=== PATIENT | female | born 1950 | race African-American/Black ===

== ENCOUNTER 2016-09-10 13:53 | Inpatient (IN) | payer OTHER ==
[~2016-09-10] VITALS: Ht 160 cm; Wt 84.4 kg
[~2016-09-10 13:53] MED LIST: ACET325T16 PO; ACYC200C PO; AMLO10TA4; AMLO10TA4 PO; ASPI81TA9 PO; ATOR40TA PO; Albuterol Sulfate NEB; CARB1DRO OP; CARB200T PO; CHOL2000 PO; CITA20TA9 PO; CLON0.2T; CLOP75TA27 PO; DICL100G7 TP; DORZ10DR7 OP; DORZ10DR7 OU; DOXY100C2 PO; FURO40TA4 PO; HYDR-2869; HYDR-2869 PO; HYDR-971 PO; HYDR100T24 PO; HYDR25TA9 PO; Hydralazine Hcl PO; Hydrocodone Bit/Acetaminophen PO; INSU100I16 SQ; INSU100I17 SQ; LABE200T24 PO; LABE300T PO; LATA2.5D2 OU; LATA2.5D3 OP; LEVO500T38 PO; LISI40TA; LISI40TA PO; LUBI8CAP3 PO; Lisinopril PO; MAGN400O4 PO; MAGN400T22 PO; MECL12.5 PO; METO-269 PO; METO100T11; METO100T5 PO; NYST30PO9 TP; OMEP20CA9; ONDA4TAB7 PO; PANT40TA3 PO; POTA20TA4 PO; PROM25TA10 PO; Polyethylene Glycol 3350 PO; TIOT18CA IH
--- NOTE | 2016-09-10 14:11 | PHYS DOC ---
Past Medical History Past Medical History: Arthritis, CAD, CHF, CVA, Diabetes-Type I, DVT, GERD, High Cholesterol, Heart Disease, Hypertension, Renal Disease, Stroke, Vascular Disease Past Surgical History: Other Additional Past Surgical Histo: vascular surgyer Alcohol Use: None Drug Use: None Adult General HPI HPI Patient is a 66 year old female who presents with shortness of breath and fall. Patient has history of CHFand has been having gradually increasing shortness of breath over last 3 days with increased fluid retention. Patient fell while trying to get off of the stool today. Patient denies any injury from the fall. Patient has had a cough that is productive of frothy clear phlegm. No fevers or chills. Past mental history of congestive heart failure. Review of Systems Review of Systems Constitutional: Denies fever or chills Eyes: Denies change in visual acuity, redness, or eye pain HENT: Denies nasal congestion or sore throat Respiratory: Positive cough and shortness of breath Cardiovascular: Positive chest pressure. GI: Denies abdominal pain, nausea, vomiting, bloody stools or diarrhea : Denies dysuria or hematuria Musculoskeletal: Denies new back pain or joint pain Integument: Denies rash or skin lesions Neurologic: Denies headache, focal weakness or sensory changes Current Medications Current Medications Current Medications Medications (Trade) Dose Ordered Sig/Aliza Start Time Stop Time Status Last Admin Dose Admin Furosemide (Lasix) 40 mg 1X ONCE 09/10/16 14:15 09/10/16 14:16 DC 09/10/16 14:33 40 MG Allergies Allergies Allergies Coded Allergies Type Severity Reaction Last Updated Verified Penicillins Allergy Intermediate 02/14/14 Yes codeine Allergy Intermediate morphine, lortab ok 11/27/15 Yes Physical Exam Physical Exam Constitutional: Well developed, well nourished, moderate respiratory acute distress, non-toxic appearance. HENT: Normocephalic, atraumatic, oropharynx moist, no oral exudates, nose normal. Eyes: PERRLA, EOMI, conjunctiva normal, no discharge. Neck: Normal range of motion, no tenderness, supple, no stridor. Cardiovascular:Heart tachycardia rate regular rhythm 1/6 systolic ejection murmur Lungs & Thorax: Rales bilateral bases, slight expiratory wheeze Abdomen: Bowel sounds normal, soft, no tenderness, no masses, no pulsatile masses. Obese Skin: Warm, dry, no erythema, no rash. Back: No tenderness, no CVA tenderness. Extremities: No tenderness, no cyanosis, 2+ bilateral pitting pedal edema Neurologic: Alert and oriented X 3, normal sensory function, no focal deficits noted. Psychologic: Affect normal, judgement normal, mood normal. Current Patient Data Vital Signs Vital Signs Date Time Temp Pulse Resp B/P Pulse Ox O2 Delivery O2 Flow Rate FiO2 09/10/16 14:38 73 201/99 100 NonRebreather Mask 09/10/16 14:05 96.3 20 96.3 Lab Values Laboratory Tests Test 09/10/16 14:38 09/10/16 14:40 O2 Saturation 98% (92-99) Arterial Blood pH 7.35 (7.35-7.45) Arterial Blood pCO2 at Patient Temp 61mmHg (35-46) *H Arterial Blood pO2 at Patient Temp 135mmHg (65-108) H Arterial Blood HCO3 33mmol/L (21-28) H Arterial Blood Base Excess 6mmol/L (-3-3) H FiO2 100.0 White Blood Count 3.9x10^3/uL (4.0-11.0) L Red Blood Count 3.85x10^6/uL (3.50-5.40) Hemoglobin 9.3g/dL (12.0-15.5) L Hematocrit 30.7% (36.0-47.0) L Mean Corpuscular Volume 80fL (79-100) Mean Corpuscular Hemoglobin 24pg (25-35) L Mean Corpuscular Hemoglobin Concent 30g/dL (31-37) L Red Cell Distribution Width 21.4% (11.5-14.5) H Platelet Count 174x10^3/uL (140-400) Neutrophils (%) (Auto) 65% (31-73) Lymphocytes (%) (Auto) 19% (24-48) L Monocytes (%) (Auto) 13% (0-9) H Eosinophils (%) (Auto) 1% (0-3) Basophils (%) (Auto) 1% (0-3) Neutrophils # (Auto) 2.5x10^3uL (1.8-7.7) Lymphocytes # (Auto) 0.8x10^3/uL (1.0-4.8) L Monocytes # (Auto) 0.5x10^3/uL (0.0-1.1) Eosinophils # (Auto) 0.1x10^3/uL (0.0-0.7) Basophils # (Auto) 0.0x10^3/uL (0.0-0.2) Platelet Estimate Adequate (ADEQUATE) Hypochromasia Slight Poikilocytosis Slight Anisocytosis Mod Target Cells Few Ovalocytes Occ Schistocytes Occ Prothrombin Time 15.7SEC (11.7-14.0) H Prothrombin Time INR 1.3 (0.8-1.1) H PTT 30SEC (24-38) D-Dimer (Veronica) 5.19ug/mlFEU (0.00-0.50) H Sodium Level 142mmol/L (136-145) Potassium Level 4.0mmol/L (3.5-5.1) Chloride Level 101mmol/L (98-107) Carbon Dioxide Level 36mmol/L (21-32) H Anion Gap 5 (6-14) L Blood Urea Nitrogen 11mg/dL (7-20) Creatinine 0.8mg/dL (0.6-1.0) Estimated GFR (Cockcroft-Gault) 86.3 BUN/Creatinine Ratio 14 (6-20) Glucose Level 272mg/dL (70-99) H Calcium Level 9.0mg/dL (8.5-10.1) Total Bilirubin 0.4mg/dL (0.2-1.0) Aspartate Amino Transferase (AST) 13U/L (15-37) L Alanine Aminotransferase (ALT) 14U/L (14-59) Alkaline Phosphatase 108U/L (46-116) Troponin I Quantitative 0.058ng/mL (0.000-0.055) RB-Ywe-W-Type Natriuretic Peptide 1106pg/mL (0-124) H Total Protein 6.4g/dL (6.4-8.2) Albumin 2.9g/dL (3.4-5.0) L Albumin/Globulin Ratio 0.8 (1.0-1.7) L Laboratory Tests 09/10/16 14:40 Laboratory Tests 09/10/16 14:40 EKG EKG NSR, RBBB, HR 73, No STEMI[] Radiology/Procedures Radiology/Procedures [] Course & Med Decision Making Course & Med Decision Making Pertinent Labs and Imaging studies reviewed. (See chart for details) Discussed case with Dr. Morillo at 1438 he agreed with the patient requested cardiology consult with Dr. Jeannette Degroot Disclaimer Mikayla Disclaimer This electronic medical record was generated, in whole or in part, using a voice recognition dictation system. Departure Departure Impression: Primary Impression: CHF (congestive heart failure) Additional Impressions: Hypertension Anemia Disposition: 09 ADMITTED INPATIENT Admitting Physician: Lisa Morillo Condition: IMPROVED Referrals: LISA MORILLO MD (PCP) Problem Qualifiers ANGELA MENDOZA MD Sep 10, 2016 14:11
[2016-09-10] MEDS ORDERED: FUROSEMIDE 40 MG/4 ML VIAL IVP ONE ×2 (14:15→16:15)
--- NOTE | 2016-09-10 14:26 | RAD ---
Portable chest, 09/10/2016: History: Congestive heart failure, shortness of breath Comparison is made to a study from 07/22/2016. The heart is enlarged. There is loss of vascular margination. There are mild right parahilar opacities. Fissural thickening on the right is compatible with a small amount of pleural fluid and/or subpleural edema. IMPRESSION: Mild congestive heart failure
--- NOTE | 2016-09-10 14:37 | EKG ---
[facility] [address] [place] [address] Test Date: 2016-09-10 Test Time: 14:29:28 Pat Name: ASIF LANGLEY Department: Room: Gender: F Security Risk Analyst: : 1950 Requested By: ANGELA MENDOZA Order Number: [id number] Reading MD: Mark Anthony Singleton Measurements Intervals [place] Rate: 73 P: 43 LA: 150 QRS: 16 QRSD: 130 T: 11 QT: 414 QTc: 460 Interpretive Statements SINUS RHYTHM RIGHT BUNDLE BRANCH BLOCK QRS(T) CONTOUR ABNORMALITY CONSIDER ANTEROLATERAL MYOCARDIAL DAMAGE ABNORMAL ECG RI6.01 Electronically Signed On 09-24-2016 13:20:15 INFORMATION COORDINATOR by Mark Anthony Singleton
[2016-09-10 14:42] LABS: HCO3 ABG 33 mmol/L (21-28); PH ABG 7.35 (7.35-7.45); PO2 ABG 135 mmHg (65-108); SAT O2 ABG 98 % (92-99)
[2016-09-10 14:44] LABS: PCO2 ABG 61 mmHg (35-46)
[2016-09-10 14:48] LABS: BASO % 1 % (0-3); EOS % 1 % (0-3); HEMATOCRIT 30.7 % (36.0-47.0); HEMOGLOBIN 9.3 g/dL (12.0-15.5); LYMPH # 0.8 x10^3/uL (1.0-4.8); LYMPH % 19 % (24-48); MEAN CORPUSCULAR HEMOGLOBIN 24 pg (25-35); MEAN CORPUSCULAR HGB CONC 30 g/dL (31-37); MEAN CORPUSCULAR VOLUME 80 fL (79-100); MONO % 13 % (0-9); NEUT % 65 % (31-73); PLATELET COUNT 174 x10^3/uL (140-400); RED BLOOD COUNT 3.85 x10^6/uL (3.50-5.40); RED CELL DISTRIBUTION WIDTH 21.4 % (11.5-14.5); WHITE BLOOD COUNT 3.9 x10^3/uL (4.0-11.0)
[2016-09-10 14:59] LABS: INR 1.3 (0.8-1.1); PROTHROMBIN TIME PATIENT 15.7 SEC (11.7-14.0)
[2016-09-10 15:08] LABS: CREATININE 0.8 mg/dL (0.6-1.0); GFR 86.3
[2016-09-10 15:11] LABS: ALBUMIN 2.9 g/dL (3.4-5.0); ALBUMIN/GLOBULIN RATIO 0.8 (1.0-1.7); TOTAL BILIRUBIN 0.4 mg/dL (0.2-1.0); TOTAL PROTEIN 6.4 g/dL (6.4-8.2)
[2016-09-10 15:26] LABS: PLT ESTIMATE ADEQUATE (ADEQUATE)
[2016-09-10 15:27] LABS: ANISOCYTOSIS MOD; HYPOCHROMIA SLIGHT; OVALOCYTES OCC; POIKILOCYTOSIS SLIGHT; SCHISTOCYTES OCC; TARGET CELLS FEW
[2016-09-10 16:12] LABS: BILIRUBIN,URINE NEGATIVE (NEG); GLUCOSE,URINE NEGATIVE (NEG); NITRITE,URINE NEGATIVE (NEG); PH,URINE 6.5; PROTEIN,URINE NEGATIVE (NEG-TRACE); UROBILINOGEN,URINE 0.2 mg/dL (0.2 mg/dL)
[2016-09-10 16:19] LABS: BACTERIA,URINE MODERATE /HPF (0-FEW); RBC,URINE OCC /HPF (0-2); SQUAMOUS EPITHELIAL CELL,UR MOD /LPF; WBC,URINE OCC /HPF (0-4)
[2016-09-10 19:00] VITALS: BP 205/101
[2016-09-10] MEDS: HYDRALAZINE 50 MG TABLET PO SCH (20:12)
[2016-09-10] MEDS: CARBAMAZEPINE 200 MG TABLET. PO SCH (20:12)
[2016-09-10] MEDS: PANTOPRAZOLE 40 MG TABLET. PO SCH (20:12)
[2016-09-10] MEDS: DORZOLAMIDE/TIMOLOL 2%/0.5% OPHTH SOLUTION 10ML BOTTLE. OU SCH (20:13)
[2016-09-10] MEDS: LABETALOL HCL 200 MG TABLET PO SCH (20:13)
[2016-09-10] MEDS: LATANOPROST 0.005% OPHTH SOLUTION 2.5ML BOTTLE. OU SCH (20:13)
[2016-09-10] MEDS: ATORVASTATIN CALCIUM 40 MG TABLET. PO SCH (20:13)
[2016-09-10] MEDS: HYDROCODONE/APAP 5/325MG TABLET. PO PRN (20:59)
[2016-09-10] MEDS ORDERED: CLONIDINE HCL 0.1 MG TABLET PO PRN (22:45)
[2016-09-10 23:50] VITALS: BP 131/57
[2016-09-11 03:30] VITALS: BP 151/76
[2016-09-11 06:31] LABS: CALCIUM 8.9 mg/dL (8.5-10.1); CREATININE 0.7 mg/dL (0.6-1.0); GFR 100.7; POTASSIUM 3.8 mmol/L (3.5-5.1)
[2016-09-11] MEDS ORDERED: INSULN ASP PRT/INSULIN ASPART 300 UNITS/3 ML INSULN.PEN. SQ SCH (07:30)
[2016-09-11 07:59] VITALS: BP 148/66
[2016-09-11] MEDS: LABETALOL HCL 200 MG TABLET PO SCH ×2 (08:55→20:40)
[2016-09-11] MEDS: LISINOPRIL 40 MG TABLET. PO SCH (08:55)
[2016-09-11] MEDS: FUROSEMIDE 40 MG/4 ML VIAL IVP SCH ×2 (08:55→13:49)
[2016-09-11] MEDS: ASPIRIN ENTERIC COATED 81 MG TABLET.DR. PO SCH (08:55)
[2016-09-11] MEDS: HYDRALAZINE 50 MG TABLET PO SCH ×3 (08:56→20:39)
[2016-09-11] MEDS: CITALOPRAM 20 MG TABLET. PO SCH (08:56)
[2016-09-11] MEDS: CLOPIDOGREL BISULFATE 75 MG TABLET PO SCH (08:56)
[2016-09-11] MEDS: DORZOLAMIDE/TIMOLOL 2%/0.5% OPHTH SOLUTION 10ML BOTTLE. OU SCH ×2 (08:56→20:41)
[2016-09-11] MEDS: AMLODIPINE BESYLATE 10 MG TABLET PO SCH (08:56)
[2016-09-11] MEDS: LATANOPROST 0.005% OPHTH SOLUTION 2.5ML BOTTLE. OU SCH (08:57)
[2016-09-11] MEDS ORDERED: FUROSEMIDE 40 MG TABLET PO SCH (09:00)
[2016-09-11] MEDS: LUBIPROSTONE 8 MCG CAPSULE PO SCH ×2 (09:01→18:33)
[2016-09-11] MEDS: HYDROCODONE/APAP 5/325MG TABLET. PO PRN ×3 (09:02→20:59)
[2016-09-11] MEDS: ALBUTEROL SULFATE 2.5 MG/3 ML NEBU. NEB PRN ×2 (09:33→13:35)
--- NOTE | 2016-09-11 10:10 | PDOC2 ---
CARDIAC CONSULT DATE OF CONSULT Date of Consult DATE: 09/11/16 TIME: 10:08 REASON FOR CONSULT Reason for Consult: CHF REFERRING PHYSICIAN Referring Physician: Dr. Maximiliano Cervantes SOURCE Source: Chart review, Patient HISTORY OF PRESENT ILLNESS HISTORY OF PRESENT ILLNESS 66 year old female who fell yesterday while standing up after using the commode. Denies syncope. Has caregiver in her home, though events surrounding fall unclear. Denies associated CP but with chronic dyspnea and LE edema. Diet high in processed foods and weight up 17# since previous admission with discharge 07/29/2016. Nt-proBNP of 1106 with mild CHF on CXR. Trivial elevated in troponin levels. Reason for Visit: CHF PAST MEDICAL HISTORY Past Medical History Cardiovascular: CAD s/p stents, GA, CHF, HTN, Hyperlipidemia, Other (MR), PVD Pulmonary: COPD, LYNDSEY CENTRAL NERVOUS SYSTEM: CVA, Peripheral neuropathy, Seizure, Other (cranial nerve 6 palsy) GI: GERD Heme/Onc: Anemia NOS, Other (DVT?) Hepatobiliary: No pertinent hx Psych: Anxiety, Depression Musculoskeletal: low back pain (lumbar stenosis with radiculopathy), Osteoarthritis Rheumatologic: No pertinent hx Infectious disease: No pertinent hx ENT: No pertinent hx Renal/: Chronic renal insuff, UTI Endocrine: Diabetes (2) Dermatology: No pertinent hx PAST SURGICAL HISTORY Past Surgical History Appendectomy, Cholecystectomy, Tonsillectomy, Hysterectomy, right oophorectomy, right ankle surgery FAMILY HISTORY Family History: Hypertension SOCIAL HISTORY Social History Smoke: No ALCOHOL: none Drugs: None CURRENT MEDICATIONS CURRENT MEDICATIONS Current Medications Medications (Trade) Dose Ordered Sig/Aliza Route PRN Reason Start Time Stop Time Status Last Admin Dose Admin Furosemide (Lasix) 40 mg 1X ONCE IVP 09/10/16 14:15 09/10/16 14:16 DC 09/10/16 14:33 Amlodipine Besylate (Norvasc) 10 mg DAILY PO 09/11/16 09:00 09/11/16 08:56 Aspirin (Ecotrin) 81 mg DAILYWBKFT PO 09/11/16 08:00 09/11/16 08:55 Atorvastatin Calcium (Lipitor) 40 mg HS PO 09/10/16 21:00 09/10/16 20:13 Carbamazepine (Tegretol) 200 mg BID PO 09/10/16 21:00 09/10/16 20:12 Citalopram Hydrobromide (Celexa) 20 mg DAILY PO 09/11/16 09:00 09/11/16 08:56 Clopidogrel Bisulfate (Plavix) 75 mg DAILYWBKFT PO 09/11/16 08:00 09/11/16 08:56 Dorzolamide/ Timolol (Cosopt) 1 drop BID OU 09/10/16 21:00 09/11/16 08:56 Insulin Aspart Prota 70%/Aspart 30% (Novolog Mix 70-30) 15 units BIDAC SQ 09/11/16 07:30 09/11/16 09:18 Latanoprost (Xalatan) 1 drop HS OU 09/10/16 21:00 09/11/16 08:57 Lisinopril (Prinivil) 40 mg DAILY PO 09/11/16 09:00 09/11/16 08:55 Lubiprostone (Amitiza) 8 mcg BIDWMEALS PO 09/11/16 08:00 09/11/16 09:01 Pantoprazole Sodium (Protonix) 40 mg HS PO 09/10/16 21:00 09/10/16 20:12 Hydralazine HCl (Apresoline) 100 mg TID PO 09/10/16 21:00 09/11/16 08:56 Labetalol HCl (Trandate) 300 mg BID PO 09/10/16 21:00 09/11/16 08:55 Albuterol Sulfate (Ventolin Neb Soln) 2.5 mg RTQID PRN NEB DYSPNEA/SOB 09/10/16 20:00 09/11/16 09:33 Acetaminophen/ Hydrocodone Bitart (Lortab 5/325) 1 tab PRN Q6HRS PRN PO MODERATE PAIN 09/10/16 21:00 09/10/16 20:59 Acetaminophen/ Hydrocodone Bitart (Lortab 5/325) 2 tab PRN Q6HRS PRN PO SEVERE PAIN 09/10/16 21:00 09/11/16 09:02 Furosemide (Lasix) 40 mg BID92 IVP 09/11/16 09:00 09/11/16 08:55 ALLERGIES ALLERGIES: Coded Allergies: Penicillins (Verified Allergy, Intermediate, 02/14/14) codeine (Verified Allergy, Intermediate, morphine, lortab ok, 11/27/15) ROS Review of System 14 point review with pertinent positives in HPI PHYSICAL EXAM General: Alert, Oriented X3, Cooperative HEENT: Atraumatic, PERRLA Lungs: Other (decreased in bases posteriorly) Heart: Normal S1, Normal S2 Abdomen: Normal bowel sounds, Soft, No tenderness Extremities: No edema, Normal pulses Skin: No rashes Neuro: Normal speech Psych/Mental Status: Mental status NL, Mood NL MUSCULOSKELETAL: Other (unable to sit herself forward in the bed) VITALS VITALS Vital Signs Date Time Temp Pulse Resp B/P Pulse Ox O2 Delivery O2 Flow Rate FiO2 09/11/16 09:12 92 Nasal Cannula 2.0 09/11/16 08:56 70 148/66 09/11/16 07:59 97.4 19 97.4 LABS Lab: Laboratory Tests Test 09/10/16 14:38 09/10/16 14:40 09/10/16 15:57 09/10/16 21:30 O2 Saturation 98% (92-99) Arterial Blood pH 7.35 (7.35-7.45) Arterial Blood pCO2 at Patient Temp 61mmHg (35-46) Arterial Blood pO2 at Patient Temp 135mmHg (65-108) Arterial Blood HCO3 33mmol/L (21-28) Arterial Blood Base Excess 6mmol/L (-3-3) FiO2 100.0 White Blood Count 3.9x10^3/uL (4.0-11.0) Red Blood Count 3.85x10^6/uL (3.50-5.40) Hemoglobin 9.3g/dL (12.0-15.5) Hematocrit 30.7% (36.0-47.0) Mean Corpuscular Volume 80fL (79-100) Mean Corpuscular Hemoglobin 24pg (25-35) Mean Corpuscular Hemoglobin Concent 30g/dL (31-37) Red Cell Distribution Width 21.4% (11.5-14.5) Platelet Count 174x10^3/uL (140-400) Neutrophils (%) (Auto) 65% (31-73) Lymphocytes (%) (Auto) 19% (24-48) Monocytes (%) (Auto) 13% (0-9) Eosinophils (%) (Auto) 1% (0-3) Basophils (%) (Auto) 1% (0-3) Neutrophils # (Auto) 2.5x10^3uL (1.8-7.7) Lymphocytes # (Auto) 0.8x10^3/uL (1.0-4.8) Monocytes # (Auto) 0.5x10^3/uL (0.0-1.1) Eosinophils # (Auto) 0.1x10^3/uL (0.0-0.7) Basophils # (Auto) 0.0x10^3/uL (0.0-0.2) Platelet Estimate Adequate (ADEQUATE) Hypochromasia Slight Poikilocytosis Slight Anisocytosis Mod Target Cells Few Ovalocytes Occ Schistocytes Occ Prothrombin Time 15.7SEC (11.7-14.0) Prothromb Time International Ratio 1.3 (0.8-1.1) Activated Partial Thromboplast Time 30SEC (24-38) D-Dimer (Veronica) 5.19ug/mlFEU (0.00-0.50) Sodium Level 142mmol/L (136-145) Potassium Level 4.0mmol/L (3.5-5.1) Chloride Level 101mmol/L (98-107) Carbon Dioxide Level 36mmol/L (21-32) Anion Gap 5 (6-14) Blood Urea Nitrogen 11mg/dL (7-20) Creatinine 0.8mg/dL (0.6-1.0) Estimated GFR (Cockcroft-Gault) 86.3 BUN/Creatinine Ratio 14 (6-20) Glucose Level 272mg/dL (70-99) Calcium Level 9.0mg/dL (8.5-10.1) Total Bilirubin 0.4mg/dL (0.2-1.0) Aspartate Amino Transf (AST/SGOT) 13U/L (15-37) Alanine Aminotransferase (ALT/SGPT) 14U/L (14-59) Alkaline Phosphatase 108U/L (46-116) Troponin I Quantitative 0.058ng/mL (0.000-0.055) 0.071ng/mL (0.000-0.055) JC-Urn-X-Type Natriuretic Peptide 1106pg/mL (0-124) Total Protein 6.4g/dL (6.4-8.2) Albumin 2.9g/dL (3.4-5.0) Albumin/Globulin Ratio 0.8 (1.0-1.7) Urine Collection Type Unknown Urine Color Yellow Urine Clarity Clear Urine pH 6.5 Urine Specific Antelope <=1.005 Urine Protein Negativemg/dL (NEG-TRACE) Urine Glucose (UA) Negativemg/dL (NEG) Urine Ketones (Stick) Negativemg/dL (NEG) Urine Blood Negative (NEG) Urine Nitrite Negative (NEG) Urine Bilirubin Negative (NEG) Urine Urobilinogen Dipstick 0.2mg/dL (0.2 mg/dL) Urine Leukocyte Esterase Negative (NEG) Urine RBC Occ/HPF (0-2) Urine WBC Occ/HPF (0-4) Urine Squamous Epithelial Cells Mod/LPF Urine Bacteria Moderate/HPF (0-FEW) Test 09/11/16 03:00 09/11/16 08:35 Sodium Level 143mmol/L (136-145) Potassium Level 3.8mmol/L (3.5-5.1) Chloride Level 101mmol/L (98-107) Carbon Dioxide Level 35mmol/L (21-32) Anion Gap 7 (6-14) Blood Urea Nitrogen 10mg/dL (7-20) Creatinine 0.7mg/dL (0.6-1.0) Estimated GFR (Cockcroft-Gault) 100.7 Glucose Level 218mg/dL (70-99) Calcium Level 8.9mg/dL (8.5-10.1) Troponin I Quantitative 0.069ng/mL (0.000-0.055) Glucose (Fingerstick) 202mg/dL (70-99) IMAGES IMAGES CXR: History: Congestive heart failure, shortness of breath Comparison is made to a study from 07/22/2016. The heart is enlarged. There is loss of vascular margination. There are mild right parahilar opacities. Fissural thickening on the right is compatible with a small amount of pleural fluid and/or subpleural edema. IMPRESSION: Mild congestive heart failure ECHOCARDIOGRAM ECHOCARDIOGRAM 06/24/2016: TTE: Left ventricle systolic function is mildly impaired. The Ejection Fraction is 45 %. There is global hypokinesis on suboptimal images. Doppler and Color Flow revealed moderate tricuspid regurgitation. There is moderate pulmonary hypertension. The PA pressure was estimated at 68 mmHg. The IVC is dilated and collapses <50% with inspiration. STRESS TEST STRESS TEST 02/2016: 1. No electrocardiographic changes suggestive of myocardial ischemia with pharmacological stress. 2. Small perfusion defect of a mild degre both with stress and in the lateral wall of no clinical significanc 3. Normal wall motion and wall thickening and ejection fraction of 52%. 4. Scan indicates low risk for future cardiac events. HEART CATH HEART CATH 07/26/2016: 1. Hemodynamics: Left ventricular end-diastolic pressure of 23 mmHg. No pullback gradient across the aortic valve. 2. Coronary angiography: a. The left main coronary artery arose from the left sinus of Valsalva, gave rise to the left anterior descending and left circumflex arteries and did not show any significant stenosis. b. The left anterior descending artery did not show any significant stenosis. c. The left circumflex artery did not show any significant stenosis. d. The right coronary artery was a large and dominant vessel arising from the right sinus of Valsalva that showed 30% stenosis involving the proximal to midsegment. 3. Bilateral selective renal angiography did not show any significant renal artery stenosis. Conclusion 1. Nonobstructive coronary artery disease with 30% stenosis involving the right coronary artery without any other significant stenoses. 2. No renal artery stenosis. ASSESSMENT/PLAN ASSESSMENT/PLAN 1. acute on chronic systolic HF with depressed LV function EF ~ 45% on echo 06/2016 continue diuretics limit sodium and fluid intake 2. elevated troponin level trivial cardiac cath 07/2016 without significant CAD no further evaluation at this time 3. HTN continue medications 4. non-ischemic CMP continue medical managment 5. pulmonary HTN, severe PA - 68 mm Hg likely related to COPD 6. DM, II per primary service. Problems: CAROLANN HERRERA APRN Sep 11, 2016 10:10
[2016-09-11 11:45] VITALS: BP 133/73
[2016-09-11] MEDS ORDERED: DEXTROSE 50% 25 GM / 50ML DISP.SYRIN. IV PRN (13:30)
--- NOTE | 2016-09-11 13:36 | PDOC ---
Provider Note Provider Note See admission H&P dictation #[id number] Impression: 1. Acute on chronic respiratory failure, multifactorial including CHF and COPD: 1. Acute on chronic systolic congestive heart failure: 2. COPD with acute exacerbation with history of pulmonary hypertension: 3. Mildly elevated troponins with a history of nonsignificant coronary artery disease on catheterization within the last year: 5. Diabetes mellitus type 2: 6. Elevated d-dimer: 7. Moderately severe protein malnutrition: 8. Anemia: . LISA MORILLO MD Sep 11, 2016 13:36
[2016-09-11] MEDS ORDERED: IOHEXOL 300 MG/ML 75 ML VIAL IV ONE (13:45)
[2016-09-11] MEDS: CARBAMAZEPINE 200 MG TABLET. PO SCH ×2 (13:48→20:40)
[2016-09-11] MEDS: POTASSIUM CHLORIDE 20 MEQ TABLET.ER. PO SCH ×2 (13:48→20:40)
--- NOTE | 2016-09-11 14:44 | RAD ---
Bilateral lower extremity venous duplex study 09/11/2016 Clinical history: Bilateral leg swelling. Elevated d-dimer.. Technique: Using a combination of real time ultrasound imaging and color-flow and pulse Doppler imaging techniques along with graded compression and augmentation, duplex evaluation of the major deep venous structures both lower extremities was performed. Multiple images were obtained. Findings: This study is very limited. The patient has extremely large edematous legs with limited visualization of the majority of the deep venous structures of both lower extremities. The common femoral veins are visualized bilaterally and are patent. No obvious DVT is seen. Impression: Limited study as outlined above. No obvious DVT is seen.
[2016-09-11 15:00] VITALS: BP 138/67
--- NOTE | 2016-09-11 17:50 | HP ---
ADMIT DATE: 09/11/2016 ATTENDING PHYSICIAN: Dr. Lisa Morillo. CHIEF COMPLAINT: Shortness of breath. HISTORY OF PRESENT ILLNESS: The patient is a 66-year-old female with multiple medical problems and a recent hospitalization just before the end of the year. She is at home and she is receiving home health. She had tried to get up and stand from the commode on the day of admission, when she went a step forward, her aide that was helping her misjudged and she landed on the floor with the aide on top of her. She could not catch her breath after that happened, that prompted her to be seen in the Emergency Room. She had been having increasing shortness of breath and increasing lower extremity edema over the last week or so. There is possibly some dietary discretion, although she denies to me, she did admit to one of the other providers that she was eating foods that do contain more salt. She states that she has been compliant with her medications, although that has been an issue sometimes in the past. 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 PAST SURGICAL HISTORY: Cholecystectomy, right oophorectomy, appendectomy, hysterectomy, tonsillectomy, right ankle open reduction internal fixation. ALLERGIES TO MEDICATIONS: PENICILLIN causes a rash, CODEINE causes GI upset. FAMILY HISTORY: Noncontributory. SOCIAL HISTORY: The patient no longer smokes cigarettes, she has not for a number of years. She lives by herself, but has home health aides that visit her every day and help with her daily activities. She does not have any significant alcohol intake. MEDICATIONS: At the time of admission include Tylenol 650 mg p.o. q. 6 hours p.r.n., Norvasc 10 mg p.o. daily, aspirin 81 mg p.o. daily, Lipitor 40 mg p.o. daily, Tegretol 200 mg p.o. b.i.d., Refresh Plus eyedrops each eye daily, vitamin D 2000 units p.o. daily, Celexa 20 mg p.o. daily, Plavix 75 mg p.o. daily, Voltaren gel one application b.i.d., dorzolamide, Timolol eyedrops 1 drop each eye b.i.d., Lasix 40 mg p.o. b.i.d., hydralazine 100 mg p.o. t.i.d., [place] 5/325 one to two p.o. q. 4-6 hours p.r.n., NovoLog 70/30 mix 25 units in the morning, 15 units in the evening, labetalol 300 mg p.o. b.i.d., Xalatan one drop in each eye at bedtime, lisinopril 40 mg p.o. daily, Amitiza 8 mcg p.o. b.i.d., Protonix 40 mg p.o. daily, potassium chloride 20 mEq p.o. b.i.d., albuterol nebulizer treatments q.i.d. p.r.n. REVIEW OF SYSTEMS: The patient denies any fevers. She has not had any significant respiratory congestion. She has been swallowing without difficulty. She has been having increasing shortness of breath. She has had a cough that has been slightly productive of yellowish phlegm. She cannot lie flat due to her difficulty with breathing and currently uses approximately 2-3 pillows. She denies any palpitations. She has had some sharp stabbing chest pain on and off for a while now that just lasts a few seconds. She has been urinating without any dysuria or hematuria. She has had some constipation and intermittent diarrhea. She has noted increased swelling in her legs and is also having some swelling in her abdomen. She denies any new lower extremity weakness or paraesthesia. She is mostly wheelchair dependent for her mobility, but can transfer with assistance. PHYSICAL EXAMINATION: VITAL SIGNS: At the time of admission, temperature 96.3, pulse 78, respiratory rate 20, blood pressure 184/89. She was 100% O2 sat on a nonrebreather mask when she was brought in. GENERAL: Currently, she is alert and oriented x 3 in no acute respiratory distress. She has supplemental oxygen on. HEENT: The pupils are equal and round. The extraocular motions are intact. Sclerae are anicteric. Oropharynx is moist. NECK: Without bruit. There is no thyromegaly, it is obese. CHEST: Decreased air movement throughout especially at the bases bilaterally. CARDIOVASCULAR: The heart has a regular rate and rhythm, but the heart sounds are distant. There is no murmur. ABDOMEN: Occasional bowel sounds. Soft, nondistended. There is diffuse pitting edema in the abdominal wall. EXTREMITIES: There is a hard edema in the bilateral lower extremities. NEUROLOGIC: She moves the extremities symmetrically. Strength appears to be slightly decreased in the bilateral lower extremities, but otherwise intact. PSYCHIATRIC: Mood and affect appear appropriate. LABORATORY DATA: At the time of admission, WBC 3.9, hemoglobin 9.3, hematocrit 30.7, platelets 174. INR was 1.3. D-dimer was 5.19. UA had a specific gravity of less than 1.005 and is otherwise negative for nitrite and leukocyte esterase. Sodium 142, potassium 4.0, chloride 101, CO2 36, BUN 11, creatinine 0.8, glucose 272. LFTs are within normal limits. Troponin was 0.058, BNP was 1106, albumin was 2.9. Chest x-ray showed enlarged heart with some vascular margination, mild right perihilar opacities and fissural thickening on the right, compatible with a small amount of pleural fluid and/or subpleural edema consistent with mild congestive heart failure. IMPRESSION: 1. Acute on chronic respiratory failure, multifactorial including congestive heart failure and COPD, both with probable exacerbations. 2. Acute on chronic congestive heart failure. 3. Chronic obstructive pulmonary disease with acute exacerbation with a history of pulmonary hypertension. 4. Mildly elevated troponins with a history of non-significant coronary artery disease on catheterization within the last year with 30% right coronary artery blockage. 5. Diabetes mellitus type 2. 6. Elevated D-dimer. 7. Moderately severe protein malnutrition. 8. Anemia. PLAN: The patient is admitted. We are giving her IV Lasix. She is receiving supplemental oxygen, nebulizer treatments. We will place her on doxycycline for possible bronchitis with acute flare of her COPD. Cardiology has been consulted. They do not feel that this is due to ischemic event with her recent catheterization that was showing no significant coronary artery disease. We will check a CTA of the chest to rule out pulmonary embolism with her elevated D-dimer and also check bilateral lower extremity Dopplers since she has been having increased swelling and worsening shortness of breath and she is relatively immobile. Again, we will attempt to give her IV Lasix and see if we can diurese her. We will continue her usual home insulin with sliding scale. We will have nutrition see the patient. We will continue to monitor her other labs while she is in the hospital. LISA MORILLO MD DR: MONA/beth JOB#: [id number] / [id number] RIKA
--- NOTE | 2016-09-11 18:16 | RAD ---
PROCEDURE CTA of the chest with contrast (pulmonary embolism protocol) 09/11/2016 HISTORY Shortness of breath with elevated D-dimer. TECHNIQUE After the intravenous administration of 75 cc of Omnipaque 300, contiguous, 0.625 millimeter axial sections were obtained through the chest. 2 millimeter reconstructed axial and 3D MIP sagittal and coronal reconstructed images were obtained. One or more of the following individualized dose reduction techniques were utilized for this study: 1. Automated exposure control. 2. Adjustment of the mA and/or kV according to patient size. 3. Use of iterative reconstruction technique. FINDINGS No filling defect is seen within the major branches of either pulmonary artery. There is no CT evidence of pulmonary embolism. The heart is mild to moderately enlarged. The thoracic aorta is tortuous but tapers normally. Mild scattered atheromatous plaque formation is seen involving the thoracic aorta. There is a small to moderate-sized right pleural effusion. Dependent subsegmental atelectasis is seen involving both lungs. No pneumothorax is noted. Mildly enlarged axillary lymph nodes are seen, left greater than right. These measure 1 to 2.5 centimeters in size. IMPRESSION There is no CT evidence of pulmonary embolism. Electronically signed by: Martín Roper MD (Sep 11, 2016 18:14:33)
[2016-09-11] MEDS: ENOXAPARIN 40 MG/0.4 ML DISP.SYRIN. SQ SCH (18:33)
[2016-09-11] MEDS: INSULIN ASPART 300 UNITS/3 ML INSULN.PEN SQ SCH (18:37)
[2016-09-11] MEDS: INSULN ASP PRT/INSULIN ASPART 300 UNITS/3 ML INSULN.PEN. SQ SCH (18:38)
[2016-09-11 19:30] VITALS: BP 151/74
[2016-09-11] MEDS: DOXYCYCLINE HYCLATE 100 MG TABLET PO SCH (20:39)
[2016-09-11] MEDS: PANTOPRAZOLE 40 MG TABLET. PO SCH (20:40)
[2016-09-11] MEDS: ATORVASTATIN CALCIUM 40 MG TABLET. PO SCH (20:40)
[2016-09-11] MEDS: DICLOFENAC SODIUM 1% TOPICAL GEL 100GM TUBE. TP SCH (21:00)
[2016-09-11 23:31] VITALS: BP 149/71
[2016-09-12 03:55] VITALS: BP 145/69
[2016-09-12] MEDS: ALBUTEROL SULFATE 2.5 MG/3 ML NEBU. NEB PRN ×4 (04:41→19:35)
[2016-09-12 06:23] LABS: BASO % 1 % (0-3); EOS % 3 % (0-3); HEMATOCRIT 30.6 % (36.0-47.0); HEMOGLOBIN 9.4 g/dL (12.0-15.5); LYMPH # 1.3 x10^3/uL (1.0-4.8); LYMPH % 31 % (24-48); MEAN CORPUSCULAR HEMOGLOBIN 24 pg (25-35); MEAN CORPUSCULAR HGB CONC 31 g/dL (31-37); MEAN CORPUSCULAR VOLUME 79 fL (79-100); MONO % 15 % (0-9); NEUT % 50 % (31-73); PLATELET COUNT 187 x10^3/uL (140-400); RED BLOOD COUNT 3.88 x10^6/uL (3.50-5.40); WHITE BLOOD COUNT 4.1 x10^3/uL (4.0-11.0)
[2016-09-12 06:48] LABS: CALCIUM 8.9 mg/dL (8.5-10.1); CREATININE 0.8 mg/dL (0.6-1.0); GFR 86.3; POTASSIUM 3.9 mmol/L (3.5-5.1)
[2016-09-12 07:00] VITALS: BP 168/73
[2016-09-12] MEDS: INSULIN ASPART 300 UNITS/3 ML INSULN.PEN SQ SCH ×3 (08:00→17:00)
[2016-09-12] MEDS: DICLOFENAC SODIUM 1% TOPICAL GEL 100GM TUBE. TP SCH ×2 (09:00→21:00)
[2016-09-12] MEDS: CARBAMAZEPINE 200 MG TABLET. PO SCH ×2 (09:17→21:20)
[2016-09-12] MEDS: HYDROCODONE/APAP 5/325MG TABLET. PO PRN ×2 (09:18→21:21)
[2016-09-12] MEDS: POTASSIUM CHLORIDE 20 MEQ TABLET.ER. PO SCH ×2 (09:18→21:20)
[2016-09-12] MEDS: LABETALOL HCL 200 MG TABLET PO SCH ×2 (09:19→21:20)
[2016-09-12] MEDS: LISINOPRIL 40 MG TABLET. PO SCH (09:19)
[2016-09-12] MEDS: CLOPIDOGREL BISULFATE 75 MG TABLET PO SCH (09:19)
[2016-09-12] MEDS: CHOLECALCIFEROL (VITAMIN D3) 1,000 UNIT TABLET PO SCH (09:19)
[2016-09-12] MEDS: ASPIRIN ENTERIC COATED 81 MG TABLET.DR. PO SCH (09:19)
[2016-09-12] MEDS: HYDRALAZINE 50 MG TABLET PO SCH ×3 (09:20→21:20)
[2016-09-12] MEDS: FUROSEMIDE 40 MG/4 ML VIAL IVP SCH ×3 (09:20→21:19)
[2016-09-12] MEDS: LUBIPROSTONE 8 MCG CAPSULE PO SCH ×2 (09:20→18:10)
[2016-09-12] MEDS: CITALOPRAM 20 MG TABLET. PO SCH (09:20)
[2016-09-12] MEDS: DOXYCYCLINE HYCLATE 100 MG TABLET PO SCH ×2 (09:20→21:20)
[2016-09-12] MEDS: AMLODIPINE BESYLATE 10 MG TABLET PO SCH (09:20)
[2016-09-12] MEDS: DORZOLAMIDE/TIMOLOL 2%/0.5% OPHTH SOLUTION 10ML BOTTLE. OU SCH ×2 (09:23→21:20)
[2016-09-12] MEDS: INSULN ASP PRT/INSULIN ASPART 300 UNITS/3 ML INSULN.PEN. SQ SCH ×2 (09:25→18:14)
[2016-09-12 11:00] VITALS: BP 180/72
--- NOTE | 2016-09-12 13:31 | PDOC ---
PROGRESS NOTES Subjective Subjective The patient is feeling better today. Objective Objective Vital Signs Date Time Temp Pulse Resp B/P Pulse Ox O2 Delivery O2 Flow Rate FiO2 09/12/16 11:25 95 Nasal Cannula 2.0 09/12/16 11:00 98.3 60 20 180/72 98.3 Intake and Output 09/12/16 07:00 Intake Total 180 ml Balance 180 ml Intake Oral 180 ml # Voids 4 Physical Exam Abdomen: Normal bowel sounds Heart: Regular rate General: No acute distress Lungs: Other (mildly decreased breath sounds) Assessment Assessment Problems Medical Problems: (1) Anemia Status: Acute (2) CHF (congestive heart failure) Status: Acute (3) Hypertension Status: Acute ASSESSMENT/PLAN 1. acute on chronic systolic HF with depressed LV function EF ~ 45% on echo 06/2016 continue diuretics Improving 2. elevated troponin level trivial cardiac cath 07/2016 without significant CAD no further evaluation at this time 3. HTN continue medications 4. non-ischemic CMP continue medical managment 5. pulmonary HTN, severe PA - 68 mm Hg likely related to COPD 6. DM, II per primary service. Comment Review of Relevant I have reviewed the following items ann-marie (where applicable) has been applied. Labs Laboratory Tests Test 09/10/16 14:38 09/10/16 14:40 09/10/16 15:57 09/10/16 21:30 O2 Saturation 98% (92-99) Arterial Blood pH 7.35 (7.35-7.45) Arterial Blood pCO2 at Patient Temp 61mmHg (35-46) Arterial Blood pO2 at Patient Temp 135mmHg (65-108) Arterial Blood HCO3 33mmol/L (21-28) Arterial Blood Base Excess 6mmol/L (-3-3) FiO2 100.0 White Blood Count 3.9x10^3/uL (4.0-11.0) Red Blood Count 3.85x10^6/uL (3.50-5.40) Hemoglobin 9.3g/dL (12.0-15.5) Hematocrit 30.7% (36.0-47.0) Mean Corpuscular Volume 80fL (79-100) Mean Corpuscular Hemoglobin 24pg (25-35) Mean Corpuscular Hemoglobin Concent 30g/dL (31-37) Red Cell Distribution Width 21.4% (11.5-14.5) Platelet Count 174x10^3/uL (140-400) Neutrophils (%) (Auto) 65% (31-73) Lymphocytes (%) (Auto) 19% (24-48) Monocytes (%) (Auto) 13% (0-9) Eosinophils (%) (Auto) 1% (0-3) Basophils (%) (Auto) 1% (0-3) Neutrophils # (Auto) 2.5x10^3uL (1.8-7.7) Lymphocytes # (Auto) 0.8x10^3/uL (1.0-4.8) Monocytes # (Auto) 0.5x10^3/uL (0.0-1.1) Eosinophils # (Auto) 0.1x10^3/uL (0.0-0.7) Basophils # (Auto) 0.0x10^3/uL (0.0-0.2) Platelet Estimate Adequate (ADEQUATE) Hypochromasia Slight Poikilocytosis Slight Anisocytosis Mod Target Cells Few Ovalocytes Occ Schistocytes Occ Prothrombin Time 15.7SEC (11.7-14.0) Prothromb Time International Ratio 1.3 (0.8-1.1) Activated Partial Thromboplast Time 30SEC (24-38) D-Dimer (Veronica) 5.19ug/mlFEU (0.00-0.50) Sodium Level 142mmol/L (136-145) Potassium Level 4.0mmol/L (3.5-5.1) Chloride Level 101mmol/L (98-107) Carbon Dioxide Level 36mmol/L (21-32) Anion Gap 5 (6-14) Blood Urea Nitrogen 11mg/dL (7-20) Creatinine 0.8mg/dL (0.6-1.0) Estimated GFR (Cockcroft-Gault) 86.3 BUN/Creatinine Ratio 14 (6-20) Glucose Level 272mg/dL (70-99) Calcium Level 9.0mg/dL (8.5-10.1) Total Bilirubin 0.4mg/dL (0.2-1.0) Aspartate Amino Transf (AST/SGOT) 13U/L (15-37) Alanine Aminotransferase (ALT/SGPT) 14U/L (14-59) Alkaline Phosphatase 108U/L (46-116) Troponin I Quantitative 0.058ng/mL (0.000-0.055) 0.071ng/mL (0.000-0.055) VA-Jtt-[id number]-Type Natriuretic Peptide 1106pg/mL (0-124) Total Protein 6.4g/dL (6.4-8.2) Albumin 2.9g/dL (3.4-5.0) Albumin/Globulin Ratio 0.8 (1.0-1.7) Urine Collection Type Unknown Urine Color Yellow Urine Clarity Clear Urine pH 6.5 Urine Specific [place] <=1.005 Urine Protein Negativemg/dL (NEG-TRACE) Urine Glucose (UA) Negativemg/dL (NEG) Urine Ketones (Stick) Negativemg/dL (NEG) Urine Blood Negative (NEG) Urine Nitrite Negative (NEG) Urine Bilirubin Negative (NEG) Urine Urobilinogen Dipstick 0.2mg/dL (0.2 mg/dL) Urine Leukocyte Esterase Negative (NEG) Urine RBC Occ/HPF (0-2) Urine WBC Occ/HPF (0-4) Urine Squamous Epithelial Cells Mod/LPF Urine Bacteria Moderate/HPF (0-FEW) Test 09/11/16 03:00 09/11/16 08:35 09/11/16 12:27 09/11/16 17:09 Sodium Level 143mmol/L (136-145) Potassium Level 3.8mmol/L (3.5-5.1) Chloride Level 101mmol/L (98-107) Carbon Dioxide Level 35mmol/L (21-32) Anion Gap 7 (6-14) Blood Urea Nitrogen 10mg/dL (7-20) Creatinine 0.7mg/dL (0.6-1.0) Estimated GFR (Cockcroft-Gault) 100.7 Glucose Level 218mg/dL (70-99) Calcium Level 8.9mg/dL (8.5-10.1) Troponin I Quantitative 0.069ng/mL (0.000-0.055) Glucose (Fingerstick) 202mg/dL (70-99) 209mg/dL (70-99) 209mg/dL (70-99) Test 09/11/16 22:21 09/12/16 05:00 09/12/16 07:36 09/12/16 11:23 Glucose (Fingerstick) 147mg/dL (70-99) 138mg/dL (70-99) 147mg/dL (70-99) White Blood Count 4.1x10^3/uL (4.0-11.0) Red Blood Count 3.88x10^6/uL (3.50-5.40) Hemoglobin 9.4g/dL (12.0-15.5) Hematocrit 30.6% (36.0-47.0) Mean Corpuscular Volume 79fL (79-100) Mean Corpuscular Hemoglobin 24pg (25-35) Mean Corpuscular Hemoglobin Concent 31g/dL (31-37) Red Cell Distribution Width 21.0% (11.5-14.5) Platelet Count 187x10^3/uL (140-400) Neutrophils (%) (Auto) 50% (31-73) Lymphocytes (%) (Auto) 31% (24-48) Monocytes (%) (Auto) 15% (0-9) Eosinophils (%) (Auto) 3% (0-3) Basophils (%) (Auto) 1% (0-3) Neutrophils # (Auto) 2.0x10^3uL (1.8-7.7) Lymphocytes # (Auto) 1.3x10^3/uL (1.0-4.8) Monocytes # (Auto) 0.6x10^3/uL (0.0-1.1) Eosinophils # (Auto) 0.1x10^3/uL (0.0-0.7) Basophils # (Auto) 0.0x10^3/uL (0.0-0.2) Sodium Level 142mmol/L (136-145) Potassium Level 3.9mmol/L (3.5-5.1) Chloride Level 101mmol/L (98-107) Carbon Dioxide Level 36mmol/L (21-32) Anion Gap 5 (6-14) Blood Urea Nitrogen 12mg/dL (7-20) Creatinine 0.8mg/dL (0.6-1.0) Estimated GFR (Cockcroft-Gault) 86.3 Glucose Level 106mg/dL (70-99) Calcium Level 8.9mg/dL (8.5-10.1) Laboratory Tests Test 09/11/16 17:09 09/11/16 22:21 09/12/16 05:00 09/12/16 07:36 Glucose (Fingerstick) 209mg/dL (70-99) 147mg/dL (70-99) 138mg/dL (70-99) White Blood Count 4.1x10^3/uL (4.0-11.0) Red Blood Count 3.88x10^6/uL (3.50-5.40) Hemoglobin 9.4g/dL (12.0-15.5) Hematocrit 30.6% (36.0-47.0) Mean Corpuscular Volume 79fL (79-100) Mean Corpuscular Hemoglobin 24pg (25-35) Mean Corpuscular Hemoglobin Concent 31g/dL (31-37) Red Cell Distribution Width 21.0% (11.5-14.5) Platelet Count 187x10^3/uL (140-400) Neutrophils (%) (Auto) 50% (31-73) Lymphocytes (%) (Auto) 31% (24-48) Monocytes (%) (Auto) 15% (0-9) Eosinophils (%) (Auto) 3% (0-3) Basophils (%) (Auto) 1% (0-3) Neutrophils # (Auto) 2.0x10^3uL (1.8-7.7) Lymphocytes # (Auto) 1.3x10^3/uL (1.0-4.8) Monocytes # (Auto) 0.6x10^3/uL (0.0-1.1) Eosinophils # (Auto) 0.1x10^3/uL (0.0-0.7) Basophils # (Auto) 0.0x10^3/uL (0.0-0.2) Sodium Level 142mmol/L (136-145) Potassium Level 3.9mmol/L (3.5-5.1) Chloride Level 101mmol/L (98-107) Carbon Dioxide Level 36mmol/L (21-32) Anion Gap 5 (6-14) Blood Urea Nitrogen 12mg/dL (7-20) Creatinine 0.8mg/dL (0.6-1.0) Estimated GFR (Cockcroft-Gault) 86.3 Glucose Level 106mg/dL (70-99) Calcium Level 8.9mg/dL (8.5-10.1) Test 09/12/16 11:23 Glucose (Fingerstick) 147mg/dL (70-99) Medications Current Medications Furosemide (Lasix) 40 mg 1X ONCE IVP Last administered on 09/10/16 14:33; Start 09/10/16 at 14:15; Stop 09/10/16 at 14:16; Status DC Furosemide (Lasix) 40 mg 1X ONCE IVP ; Start 09/10/16 at 16:15; Stop 09/10/16 at 16:19; Status DC Acetaminophen (Tylenol) 650 mg PRN Q6HRS PRN PO MILD PAIN / TEMP; Start at 19:45 Amlodipine Besylate (Norvasc) 10 mg DAILY PO Last administered on 09/12/16 09: 20; Start 09/11/16 at 09:00 Aspirin (Ecotrin) 81 mg DAILYWBKFT PO Last administered on 09/12/16 09:19; Start 09/11/16 at 08:00 Atorvastatin Calcium (Lipitor) 40 mg HS PO Last administered on 09/11/16 20:40 ; Start 09/10/16 at 21:00 Carbamazepine (Tegretol) 200 mg BID PO Last administered on 09/12/16 09:17; Start 09/10/16 at 21:00 Citalopram Hydrobromide (Celexa) 20 mg DAILY PO Last administered on 09/12/16 09:20; Start 09/11/16 at 09:00 Clopidogrel Bisulfate (Plavix) 75 mg DAILYWBKFT PO Last administered on 09:19; Start 09/11/16 at 08:00 Dorzolamide/ Timolol (Cosopt) 1 drop BID OU Last administered on 09/12/16 09:23 ; Start 09/10/16 at 21:00 Insulin Aspart Prota 70%/Aspart 30% (Novolog Mix 70-30) 15 units BIDAC SQ Last administered on 09/11/16 09:18; Start 09/11/16 at 07:30; Stop 09/11/16 at 13:24; Status DC Latanoprost (Xalatan) 1 drop HS OU Last administered on 09/11/16 08:57; Start 09/10/16 at 21:00 Lisinopril (Prinivil) 40 mg DAILY PO Last administered on 09/12/16 09:19; Start 09/11/16 at 09:00 Lubiprostone (Amitiza) 8 mcg BIDWMEALS PO Last administered on 09/12/16 09:20; Start 09/11/16 at 08:00 Pantoprazole Sodium (Protonix) 40 mg HS PO Last administered on 09/11/16 20:40 ; Start 09/10/16 at 21:00 Hydralazine HCl (Apresoline) 100 mg TID PO Last administered on 09/12/16 09:20 ; Start 09/10/16 at 21:00 Labetalol HCl (Trandate) 300 mg BID PO Last administered on 09/12/16 09:19; Start 09/10/16 at 21:00 Albuterol Sulfate (Ventolin Neb Soln) 2.5 mg RTQID PRN NEB DYSPNEA/SOB Last administered on 09/12/16 11:25; Start 09/10/16 at 20:00 Furosemide (Lasix) 40 mg BID92 PO ; Start 09/11/16 at 09:00; Stop 09/11/16 at 09: 00; Status DC Acetaminophen/ Hydrocodone Bitart (Lortab 5/325) 1 tab PRN Q6HRS PRN PO MODERATE PAIN Last administered on 09/11/16 20:59; Start 09/10/16 at 21:00 Acetaminophen/ Hydrocodone Bitart (Lortab 5/325) 2 tab PRN Q6HRS PRN PO SEVERE PAIN Last administered on 09/12/16 09:18; Start 09/10/16 at 21:00 Furosemide (Lasix) 40 mg BID92 IVP Last administered on 09/12/16 09:20; Start 09/11/16 at 09:00 Clonidine HCl (Catapres) 0.1 mg PRN Q6HRS PRN PO HYPERTENSION, SEE COMMENTS; Start 09/10/16 at 22:45 Potassium Chloride (Klor-Con) 20 meq BID PO Last administered on 09/12/16 09:18 ; Start 09/11/16 at 13:15 Vitamin D (Vitamin D3) 1,000 unit DAILY PO Last administered on 09/12/16 09:19 ; Start 09/12/16 at 09:00 Albuterol Sulfate (Ventolin Neb Soln) 2.5 mg PRN QID PRN NEB SHORTNESS OF BREATH; Start 09/11/16 at 13:45 Insulin Aspart Prota 70%/Aspart 30% (Novolog Mix 70-30) 15 units DAILYWSUP SQ Last administered on 09/11/16 18:38; Start 09/11/16 at 17:00 Insulin Aspart Prota 70%/Aspart 30% (Novolog Mix 70-30) 25 units DAILYWBKFT SQ Last administered on 09/12/16 09:25; Start 09/12/16 at 08:00 Insulin Aspart (Novolog) 0-7 UNITS TIDWMEALS SQ Last administered on 09/11/16 18:37; Start 09/11/16 at 17:00 Dextrose 12.5 gm PRN Q15MIN PRN IV SEE COMMENTS; Start 09/11/16 at 13:30 Enoxaparin Sodium (Lovenox Per Pharmacy Prophylaxis Dosing) 1 each PRN DAILY PRN MC SEE COMMENTS; Start 09/11/16 at 13:30; Stop 09/11/16 at 13:39; Status DC Diclofenac Sodium (Voltaren) 1 gary BID TP ; Start 09/11/16 at 21:00 Iohexol (Omnipaque 300 Mg/ml) 75 ml 1X ONCE IV ; Start 09/11/16 at 13:45; Stop 09/11/16 at 13:46; Status DC Enoxaparin Sodium (Lovenox 40mg Syringe) 40 mg Q24H SQ Last administered on 09/11 18:33; Start 09/11/16 at 14:00 Doxycycline Hyclate (Vibra-Tab) 100 mg BID PO Last administered on 09/12/16 09: 20; Start 09/11/16 at 21:00 Active Scripts Active Acyclovir 200 Mg Capsule 800 Mg PO [id number] Aspirin Ec (Aspirin) 81 Mg Tablet.dr 81 Mg PO DAILYWBKFT Furosemide 40 Mg Tablet 40 Mg PO DAILY Hydralazine Hcl 100 Mg Tablet 1 Tab PO TID Labetalol Hcl 300 Mg Tablet 1 Tab PO BID Amitiza (Lubiprostone) 8 Mcg Capsule 8 Mcg PO BIDWMEALS Klor-Con M20 (Potassium Chloride) 20 Meq Tab.er.prt 1 Tab PO BID Novolog Mix 70-30 Flexpen Syrn (Insuln Asp Prt/Insulin Aspart) 100 Unit/1 Ml Insuln.pen 15 Unit SQ BIDAC Lisinopril 40 Mg Tablet 1 Tab PO DAILY Voltaren (Diclofenac Sodium) 100 Gm Gel..gram. 1 Gary TP BID Mapap (Acetaminophen) 325 Mg Tablet 650 Mg PO PRN Q6HRS PRN Ashley 5-325 Tablet (Acetaminophen/Hydrocodone Bitart) 1 Each Tablet 1-2 Tab PO Q4-6HRS Plavix (Clopidogrel Bisulfate) 75 Mg Tablet 75 Mg PO DAILYWBKFT Protonix (Pantoprazole Sodium) 40 Mg Tablet 40 Mg PO HS Xalatan (Latanoprost) 1 Drop Drops 1 Drop OU HS Dorzolamide-Timolol Eye Drops (Dorzolamide Hcl/Timolol Maleat) 1 Drop Drops 1 Drop OU BID Tegretol (Carbamazepine) 200 Mg Tablet 200 Mg PO BID Lipitor (Atorvastatin Calcium) 40 Mg Tablet 40 Mg PO HS Norvasc (Amlodipine Besylate) 10 Mg Tablet 10 Mg PO DAILY [Albuterol Sulfate] 2.5 MG/3 ML Nebu 2.5 Mg NEB PRN QID PRN Reported Refresh Plus (Carboxymethylcellulose Sodium) 1 Each Droperette 1 Each OP Not given here Continue as previously directed Vitamin D (Cholecalciferol (Vitamin D3)) 2,000 Unit Capsule 1 Cap PO DAILY Gave this morning Take tomorrow morning Celexa (Citalopram Hydrobromide) 20 Mg Tablet 20 Mg PO DAILY Gave this morning Take tomorrow morning Spiriva (Tiotropium Hyndman) 18 Mcg Cap.w.dev 1 Cap IH DAILY Not given here Continue as previously directed Vitals/I & O Vital Sign - Last 24 Hours 09/11/16 09/11/16 09/11/16 09/11/16 13:35 13:49 13:49 14:49 Pulse 75 B/P 133/73 Pulse Ox 91 91 98 O2 Delivery Nasal Cannula Nasal Cannula O2 Flow Rate 2.0 2.0 09/11/16 09/11/16 09/11/16 09/11/16 15:00 19:20 19:30 20:39 Temp 97.8 98.2 97.8 98.2 Pulse 73 72 72 Resp 18 23 B/P 138/67 151/74 151/74 Pulse Ox 98 96 O2 Delivery Nasal Cannula Nasal Cannula Nasal Cannula O2 Flow Rate 2.0 2.0 2.0 09/11/16 09/11/16 09/11/16 09/11/16 20:40 20:59 21:59 23:31 Temp 97.9 97.9 Pulse 72 69 Resp 22 20 19 B/P 151/74 149/71 Pulse Ox 96 O2 Delivery Nasal Cannula Nasal Cannula Nasal Cannula O2 Flow Rate 2.0 2.0 2.0 09/12/16 09/12/16 09/12/16 09/12/16 03:55 04:48 07:00 08:00 Temp 97.9 98.5 97.9 98.5 Pulse 72 75 Resp 18 18 B/P 145/69 168/73 Pulse Ox 98 97 99 O2 Delivery Nasal Cannula Nasal Cannula Nasal Cannula Nasal Cannula O2 Flow Rate 2.0 2.0 2.0 2.0 09/12/16 09/12/16 09/12/16 09/12/16 09:18 09:19 09:19 09:20 Pulse 72 72 72 Resp 20 B/P 145/69 145/69 145/69 O2 Delivery Nasal Cannula O2 Flow Rate 2.0 09/12/16 09/12/16 09/12/16 09:20 11:00 11:25 Temp 98.3 98.3 Pulse 72 60 Resp 20 B/P 145/69 180/72 Pulse Ox 94 95 O2 Delivery Nasal Cannula Nasal Cannula O2 Flow Rate 2.0 2.0 Intake and Output 09/11/16 09/11/16 09/12/16 15:00 23:00 07:00 Intake Total 180 ml Balance 180 ml DEBORAH CHIU MD Sep 12, 2016 13:31
[2016-09-12] MEDS ORDERED: LACTULOSE 20 GM/30 ML SOLUTION. PO PRN (13:45)
--- NOTE | 2016-09-12 13:47 | PDOC ---
SUBJECTIVE Subjective Still short of breath on laying down. More pressing complaint at present is abdominal discomfort. Feels constipated and can't have a bowel movement. She has been urinating but is incontinent of urine. Denies any chest pain. OBJECTIVE Vital Signs Vital Signs Date Time Temp Pulse Resp B/P Pulse Ox O2 Delivery O2 Flow Rate FiO2 09/12/16 11:25 95 Nasal Cannula 2.0 09/12/16 11:00 98.3 60 20 180/72 94 Nasal Cannula 2.0 98.3 09/12/16 09:20 72 145/69 09/12/16 09:20 72 145/69 09/12/16 09:19 72 145/69 09/12/16 09:19 72 145/69 09/12/16 09:18 20 Nasal Cannula 2.0 09/12/16 08:00 Nasal Cannula 2.0 09/12/16 07:00 98.5 75 18 168/73 99 Nasal Cannula 2.0 98.5 09/12/16 04:48 97 Nasal Cannula 2.0 09/12/16 03:55 97.9 72 18 145/69 98 Nasal Cannula 2.0 97.9 09/11/16 23:31 97.9 69 19 149/71 96 Nasal Cannula 2.0 97.9 09/11/16 21:59 20 Nasal Cannula 2.0 09/11/16 20:59 22 Nasal Cannula 2.0 09/11/16 20:40 72 151/74 09/11/16 20:39 72 151/74 09/11/16 19:30 98.2 72 23 151/74 96 Nasal Cannula 2.0 98.2 09/11/16 19:20 Nasal Cannula 2.0 09/11/16 15:00 97.8 73 18 138/67 98 Nasal Cannula 2.0 97.8 09/11/16 14:49 98 09/11/16 13:49 91 Nasal Cannula 2.0 09/11/16 13:49 75 133/73 I & O Intake and Output 09/12/16 07:00 Intake Total 180 ml Balance 180 ml Intake Oral 180 ml # Voids 4 PHYSICAL EXAM Physical Exam General: No acute distress. Laying in chair with supplemental nasal cannula oxygen. Mental status: Alert and oriented. Appears discouraged. Chest: Air movement: Decreased throughout but especially at the left base. Auscultation: clear throughout without wheezes or rales Cardiovascular: Rate: normal. Rhythm: regular. Murmur: none. Abdomen: Bowel sounds: Occasional. Soft, obese. There is pitting edema in the right abdominal wall greater than left. Nondistended. Tenderness: nontender to palpation. No guarding. No rebound. Extremities: Hard, nonpitting bilateral lower extremity edema. ASSESSMENT/PLAN Assessment/Plan 1. Acute on chronic respiratory failure, multifactorial including CHF and COPD: Continue to manage CHF facets most likely the significant portion of this. CT scan did not show any evidence of pulmonary embolism. There was a small to moderate right-sided pleural effusion. 1. Acute on chronic systolic congestive heart failure: Incontinent of urine so we will place Scherer catheter in order to get better measurement of her output. Increase Lasix to 60 mg 3 times a day. Her kidney function. 2. COPD with acute exacerbation with history of pulmonary hypertension: Continue breathing treatments and supplemental oxygen. She is on an oral antibiotic for possible mild bronchitis exacerbation. 3. Mildly elevated troponins with a history of nonsignificant coronary artery disease on catheterization within the last year: Minimal elevation. Likely not ischemia secondary to catheterization in July which did not show significant coronary artery disease 5. Diabetes mellitus type 2: Okay control with usual home medication regimen. 6. Elevated d-dimer: CT of the chest did not show pulmonary embolism and lower extremity ultrasound was limited but did not show evidence of DVT. Continue prophylactic Lovenox while in the hospital with decreased mobility. 7. Moderately severe protein malnutrition: Discussed need for adequate protein intake. Nutrition consult. 8. Anemia: Stable. 9. Debilitation: PT and OT. Problems: COMMENT Lab Laboratory Tests Test 09/11/16 17:09 09/11/16 22:21 09/12/16 05:00 09/12/16 07:36 Glucose (Fingerstick) 209mg/dL (70-99) 147mg/dL (70-99) 138mg/dL (70-99) White Blood Count 4.1x10^3/uL (4.0-11.0) Red Blood Count 3.88x10^6/uL (3.50-5.40) Hemoglobin 9.4g/dL (12.0-15.5) Hematocrit 30.6% (36.0-47.0) Mean Corpuscular Volume 79fL (79-100) Mean Corpuscular Hemoglobin 24pg (25-35) Mean Corpuscular Hemoglobin Concent 31g/dL (31-37) Red Cell Distribution Width 21.0% (11.5-14.5) Platelet Count 187x10^3/uL (140-400) Neutrophils (%) (Auto) 50% (31-73) Lymphocytes (%) (Auto) 31% (24-48) Monocytes (%) (Auto) 15% (0-9) Eosinophils (%) (Auto) 3% (0-3) Basophils (%) (Auto) 1% (0-3) Neutrophils # (Auto) 2.0x10^3uL (1.8-7.7) Lymphocytes # (Auto) 1.3x10^3/uL (1.0-4.8) Monocytes # (Auto) 0.6x10^3/uL (0.0-1.1) Eosinophils # (Auto) 0.1x10^3/uL (0.0-0.7) Basophils # (Auto) 0.0x10^3/uL (0.0-0.2) Sodium Level 142mmol/L (136-145) Potassium Level 3.9mmol/L (3.5-5.1) Chloride Level 101mmol/L (98-107) Carbon Dioxide Level 36mmol/L (21-32) Anion Gap 5 (6-14) Blood Urea Nitrogen 12mg/dL (7-20) Creatinine 0.8mg/dL (0.6-1.0) Estimated GFR (Cockcroft-Gault) 86.3 Glucose Level 106mg/dL (70-99) Calcium Level 8.9mg/dL (8.5-10.1) Test 09/12/16 11:23 Glucose (Fingerstick) 147mg/dL (70-99) LISA MORILLO MD Sep 12, 2016 13:47
[2016-09-12 15:00] VITALS: BP 157/79
[2016-09-12] MEDS: ENOXAPARIN 40 MG/0.4 ML DISP.SYRIN. SQ SCH (15:30)
[2016-09-12 19:59] VITALS: BP 152/73
[2016-09-12] MEDS: PANTOPRAZOLE 40 MG TABLET. PO SCH (21:19)
[2016-09-12] MEDS: LATANOPROST 0.005% OPHTH SOLUTION 2.5ML BOTTLE. OU SCH (21:20)
[2016-09-12] MEDS: ATORVASTATIN CALCIUM 40 MG TABLET. PO SCH (21:20)
[2016-09-12 23:20] VITALS: BP 156/73
[2016-09-13] MEDS: HYDROCODONE/APAP 5/325MG TABLET. PO PRN ×2 (01:43→21:16)
[2016-09-13 02:24] VITALS: BP 149/66
[2016-09-13 06:56] LABS: CREATININE 0.9 mg/dL (0.6-1.0); GFR 75.3; POTASSIUM 3.6 mmol/L (3.5-5.1)
[2016-09-13 07:33] VITALS: BP 164/77
[2016-09-13] MEDS: INSULIN ASPART 300 UNITS/3 ML INSULN.PEN SQ SCH ×3 (08:00→17:24)
[2016-09-13] MEDS: ALBUTEROL SULFATE 2.5 MG/3 ML NEBU. NEB PRN ×4 (08:12→19:09)
[2016-09-13] MEDS ORDERED: BISACODYL 10 MG SUPP.RECT PR ONE (08:30)
[2016-09-13] MEDS ORDERED: BISACODYL 10 MG SUPP.RECT PR PRN (08:30)
--- NOTE | 2016-09-13 08:36 | PDOC ---
SUBJECTIVE Subjective Breathing is about the same. No chest pain. She still hasn't had a bowel movement. She feels constipated. Able to eat some decreased appetite. OBJECTIVE Vital Signs Vital Signs Date Time Temp Pulse Resp B/P Pulse Ox O2 Delivery O2 Flow Rate FiO2 09/13/16 07:57 96 Nasal Cannula 2.0 09/13/16 07:33 98.2 71 20 164/77 93 Nasal Cannula 2.0 98.2 09/13/16 02:43 20 Nasal Cannula 2.0 09/13/16 02:24 98.8 75 16 149/66 96 Nasal Cannula 2.0 98.8 09/13/16 01:43 20 Nasal Cannula 2.0 09/12/16 23:20 98.9 75 16 156/73 95 Nasal Cannula 2.0 98.9 09/12/16 21:21 22 Nasal Cannula 2.0 09/12/16 21:20 70 152/73 09/12/16 21:20 70 152/73 09/12/16 19:59 97.9 70 18 152/73 98 Nasal Cannula 2.0 97.9 09/12/16 19:36 96 Nasal Cannula 2.0 09/12/16 19:35 Nasal Cannula 2.0 09/12/16 15:30 60 180/72 09/12/16 15:27 96 Nasal Cannula 2.0 09/12/16 15:00 97.8 68 20 157/79 99 Nasal Cannula 2.0 97.8 09/12/16 11:25 95 Nasal Cannula 2.0 09/12/16 11:00 98.3 60 20 180/72 94 Nasal Cannula 2.0 98.3 09/12/16 10:20 18 Nasal Cannula 2.0 09/12/16 09:20 72 145/69 09/12/16 09:20 72 145/69 09/12/16 09:19 72 145/69 09/12/16 09:19 72 145/69 09/12/16 09:18 20 Nasal Cannula 2.0 I & O Intake and Output 09/13/16 07:00 Intake Total 850 ml Output Total 1700 ml Balance -850 ml Intake Oral 850 ml Output Urine Total 1700 ml # Voids 2 PHYSICAL EXAM Physical Exam General: No acute distress. Laying in bed. Nasal cannula oxygen on Mental status: Alert and oriented. Chest: Air movement: Decreased throughout. Auscultation: clear throughout Cardiovascular: Rate: normal. Rhythm: regular. Murmur: none. Abdomen: Bowel sounds: Occasional. Obese, pitting edema in the bilateral flanks worse on the right.. Nondistended. Tenderness: nontender to palpation. No guarding. No rebound. Extremities: Hard nonpitting edema of the bilateral lower legs.. ASSESSMENT/PLAN Assessment/Plan 1. Acute on chronic respiratory failure, multifactorial including CHF and COPD: Continue to manage with CHF most likely the significant portion of this. CT scan did not show any evidence of pulmonary embolism. There was a small to moderate right-sided pleural effusion. 1. Acute on chronic systolic congestive heart failure: Incontinent of urine so we will place Scherer catheter in order to get better measurement of her output. Increase Lasix to 60 mg 3 times a day. Monitor her kidney function. 2. COPD with acute exacerbation with history of pulmonary hypertension: Continue breathing treatments and supplemental oxygen. She is on an oral antibiotic for possible mild bronchitis exacerbation. 3. Mildly elevated troponins with a history of nonsignificant coronary artery disease on catheterization within the last year: Minimal elevation. Likely not ischemia secondary to catheterization in July which did not show significant coronary artery disease 5. Diabetes mellitus type 2: Okay control with usual home medication regimen. 6. Elevated d-dimer: CT of the chest did not show pulmonary embolism and lower extremity ultrasound was limited but did not show evidence of DVT. Continue prophylactic Lovenox while in the hospital with decreased mobility. 7. Moderately severe protein malnutrition: Discussed need for adequate protein intake. Nutrition consult. 8. Anemia: Stable. 9. Debilitation: PT and OT. Problems: COMMENT Lab Laboratory Tests Test 09/12/16 11:23 09/12/16 16:12 09/12/16 21:10 09/13/16 06:04 Glucose (Fingerstick) 147mg/dL (70-99) 135mg/dL (70-99) 129mg/dL (70-99) Sodium Level 141mmol/L (136-145) Potassium Level 3.6mmol/L (3.5-5.1) Chloride Level 101mmol/L (98-107) Carbon Dioxide Level 35mmol/L (21-32) Anion Gap 5 (6-14) Blood Urea Nitrogen 12mg/dL (7-20) Creatinine 0.9mg/dL (0.6-1.0) Estimated GFR (Cockcroft-Gault) 75.3 Glucose Level 165mg/dL (70-99) Calcium Level 9.0mg/dL (8.5-10.1) LISA MORILLO MD Sep 13, 2016 08:36
[2016-09-13] MEDS: DICLOFENAC SODIUM 1% TOPICAL GEL 100GM TUBE. TP SCH ×2 (09:00→21:00)
[2016-09-13] MEDS: DOXYCYCLINE HYCLATE 100 MG TABLET PO SCH ×2 (09:03→21:15)
[2016-09-13] MEDS: LABETALOL HCL 200 MG TABLET PO SCH ×2 (09:04→21:16)
[2016-09-13] MEDS: POTASSIUM CHLORIDE 20 MEQ TABLET.ER. PO SCH ×3 (09:05→21:17)
[2016-09-13] MEDS: CITALOPRAM 20 MG TABLET. PO SCH (09:05)
[2016-09-13] MEDS: CHOLECALCIFEROL (VITAMIN D3) 1,000 UNIT TABLET PO SCH (09:06)
[2016-09-13] MEDS: ASPIRIN ENTERIC COATED 81 MG TABLET.DR. PO SCH (09:06)
[2016-09-13] MEDS: CLOPIDOGREL BISULFATE 75 MG TABLET PO SCH (09:06)
[2016-09-13] MEDS: LISINOPRIL 40 MG TABLET. PO SCH (09:06)
[2016-09-13] MEDS: HYDRALAZINE 50 MG TABLET PO SCH ×3 (09:07→21:16)
[2016-09-13] MEDS: CARBAMAZEPINE 200 MG TABLET. PO SCH ×2 (09:09→21:16)
[2016-09-13] MEDS: AMLODIPINE BESYLATE 10 MG TABLET PO SCH (09:10)
--- NOTE | 2016-09-13 09:12 | RAD ---
[facility], 09/12/2016: History: Abdominal pain Gas is present in large and small bowel in a nonspecific pattern. Surgical clips are present in the right side of the abdomen and pelvis. There are moderate scattered arterial calcifications. No organomegaly is seen. Mild degenerative changes are evident in the spine. There is streaky subcutaneous edema in the flank regions bilaterally. IMPRESSION: No acute intra-abdominal abnormality is detected.
[2016-09-13] MEDS: LUBIPROSTONE 8 MCG CAPSULE PO SCH ×2 (10:05→17:19)
[2016-09-13] MEDS: INSULN ASP PRT/INSULIN ASPART 300 UNITS/3 ML INSULN.PEN. SQ SCH ×2 (10:11→17:23)
[2016-09-13] MEDS: FUROSEMIDE 40 MG/4 ML VIAL IVP SCH ×3 (10:15→21:17)
[2016-09-13] MEDS: DORZOLAMIDE/TIMOLOL 2%/0.5% OPHTH SOLUTION 10ML BOTTLE. OU SCH ×2 (10:16→21:00)
[2016-09-13 10:49] VITALS: BP 140/63
[2016-09-13 14:08] VITALS: BP 153/66
[2016-09-13] MEDS: ENOXAPARIN 40 MG/0.4 ML DISP.SYRIN. SQ SCH (14:13)
--- NOTE | 2016-09-13 14:52 | PDOC ---
CARDIO Progress Notes Date and Time Date of Service 09/13/16 Time of Evaluation 1330 Subjective Subjective: No Chest Pain, No shortness of breath Vitals Vitals Vital Signs Date Time Temp Pulse Resp B/P Pulse Ox O2 Delivery O2 Flow Rate FiO2 09/13/16 14:12 70 153/66 09/13/16 14:08 21 97 Nasal Cannula 2.0 09/13/16 10:49 97.8 97.8 Weight Weight [ ] Input and Output Intake and Output Intake and Output 09/13/16 07:00 Intake Total 850 ml Output Total 1700 ml Balance -850 ml Intake Oral 850 ml Output Urine Total 1700 ml # Voids 2 Laboratory Labs Laboratory Tests Test 09/12/16 16:12 09/12/16 21:10 09/13/16 06:04 09/13/16 07:35 Glucose (Fingerstick) 135mg/dL (70-99) 129mg/dL (70-99) 163mg/dL (70-99) Sodium Level 141mmol/L (136-145) Potassium Level 3.6mmol/L (3.5-5.1) Chloride Level 101mmol/L (98-107) Carbon Dioxide Level 35mmol/L (21-32) Anion Gap 5 (6-14) Blood Urea Nitrogen 12mg/dL (7-20) Creatinine 0.9mg/dL (0.6-1.0) Estimated GFR (Cockcroft-Gault) 75.3 Glucose Level 165mg/dL (70-99) Calcium Level 9.0mg/dL (8.5-10.1) Test 09/13/16 10:59 Glucose (Fingerstick) 188mg/dL (70-99) Microbiology Micro Microbiology 09/10/16 Urine Culture - Final, Complete 09/10/16 Urine Culture Result 1 (MERCEDES) - Final, Complete Physical Exam HEENT: Neck Supple W Full Motion Chest: Symmetric LUNGS: Other (diminished bases ) Heart: S1S2, RRR Abdomen: Soft N/T, Other (ascites) Extremities: Other (1-2+ bilateral LE edema up to level of thigh) Neurology: alert, oriented, follow commands Plan Plan 1. acute on chronic systolic HF EF ~ 45% on echo 06/2016 maintain BP control continue with diuresis and monitoring of renal function if no significant UOP with IV Lasix, would consider Bumex 2. HTN labile. Increase labetalol 3. non-ischemic CMP continue medical management 4. pulmonary HTN, severe PA - 68 mm Hg likely related to COPD 5. DM, II per primary service. KHUSHI SHAW APRN Sep 13, 2016 14:52
[2016-09-13 19:30] VITALS: BP 167/77
[2016-09-13] MEDS: LATANOPROST 0.005% OPHTH SOLUTION 2.5ML BOTTLE. OU SCH (21:00)
[2016-09-13] MEDS: PANTOPRAZOLE 40 MG TABLET. PO SCH (21:16)
[2016-09-13] MEDS: ATORVASTATIN CALCIUM 40 MG TABLET. PO SCH (21:16)
[2016-09-13 23:00] VITALS: BP 165/80
[2016-09-14 03:40] VITALS: BP 149/68
[2016-09-14 07:51] VITALS: BP 141/65
[2016-09-14] MEDS: ASPIRIN ENTERIC COATED 81 MG TABLET.DR. PO SCH (08:00)
[2016-09-14] MEDS: INSULN ASP PRT/INSULIN ASPART 300 UNITS/3 ML INSULN.PEN. SQ SCH ×2 (08:00→17:00)
[2016-09-14] MEDS: INSULIN ASPART 300 UNITS/3 ML INSULN.PEN SQ SCH ×3 (08:00→17:00)
[2016-09-14] MEDS: DICLOFENAC SODIUM 1% TOPICAL GEL 100GM TUBE. TP SCH ×2 (09:00→21:35)
[2016-09-14] MEDS: FUROSEMIDE 40 MG/4 ML VIAL IVP SCH ×3 (10:29→21:38)
[2016-09-14] MEDS: ENOXAPARIN 40 MG/0.4 ML DISP.SYRIN. SQ SCH ×2 (10:30→21:36)
[2016-09-14] MEDS: CHOLECALCIFEROL (VITAMIN D3) 1,000 UNIT TABLET PO SCH (10:30)
[2016-09-14] MEDS: CITALOPRAM 20 MG TABLET. PO SCH (10:30)
[2016-09-14] MEDS: HYDRALAZINE 50 MG TABLET PO SCH ×3 (10:31→21:37)
[2016-09-14] MEDS: DOXYCYCLINE HYCLATE 100 MG TABLET PO SCH ×2 (10:31→21:38)
[2016-09-14] MEDS: CARBAMAZEPINE 200 MG TABLET. PO SCH ×2 (10:31→21:38)
[2016-09-14] MEDS: AMLODIPINE BESYLATE 10 MG TABLET PO SCH (10:31)
[2016-09-14] MEDS: LISINOPRIL 40 MG TABLET. PO SCH (10:32)
[2016-09-14] MEDS: CLOPIDOGREL BISULFATE 75 MG TABLET PO SCH (10:32)
[2016-09-14] MEDS: POTASSIUM CHLORIDE 20 MEQ TABLET.ER. PO SCH ×3 (10:32→21:37)
[2016-09-14] MEDS: LUBIPROSTONE 8 MCG CAPSULE PO SCH ×2 (10:33→17:33)
[2016-09-14] MEDS: LABETALOL HCL 200 MG TABLET PO SCH ×2 (10:33→21:38)
[2016-09-14] MEDS: DORZOLAMIDE/TIMOLOL 2%/0.5% OPHTH SOLUTION 10ML BOTTLE. OU SCH ×2 (10:34→21:42)
[2016-09-14 11:10] VITALS: BP 169/84
--- NOTE | 2016-09-14 12:15 | PDOC ---
CARDIO Progress Notes Date and Time Date of Service 09/14/16 Time of Evaluation 1210 Subjective Subjective: No Chest Pain, No shortness of breath, Other (LE edema improved but persists ) Vitals Vitals Vital Signs Date Time Temp Pulse Resp B/P Pulse Ox O2 Delivery O2 Flow Rate FiO2 09/14/16 11:10 98.4 75 21 169/84 95 Nasal Cannula 2.0 98.4 Weight Weight [ ] Input and Output Intake and Output Intake and Output 09/14/16 07:00 Intake Total 1030 ml Output Total 2150 ml Balance -1120 ml Intake Oral 1030 ml Output Urine Total 2150 ml # Bowel Movements 4 Laboratory Labs Laboratory Tests Test 09/13/16 17:09 09/13/16 20:30 Glucose (Fingerstick) 152mg/dL (70-99) 137mg/dL (70-99) Microbiology Micro Microbiology 09/10/16 Urine Culture - Final, Complete 09/10/16 Urine Culture Result 1 (MERCEDES) - Final, Complete Physical Exam HEENT: Neck Supple W Full Motion Chest: Symmetric LUNGS: Other (diminished bases ) Heart: S1S2, RRR Abdomen: Soft N/T, Other (ascites) Extremities: Other (1-2+ bilateral LE edema up to level of thigh) Neurology: alert, oriented, follow commands Assessment Assessment 1. acute on chronic systolic HF EF ~ 45% on echo 06/2016 improved, significant UOP overnight continue with diuresis and monitoring of renal function 2. HTN improved continue with current therapy 3. non-ischemic CMP continue medical management with ESSENCE, BB maintain BP control 4. pulmonary HTN, severe PA - 68 mm Hg likely related to COPD 5. DM, II per primary service. 6. hypomagnesemia replace, monitor KHUSHI Avelar APRN Sep 14, 2016 12:15
[2016-09-14 12:58] LABS: CALCIUM 8.9 mg/dL (8.5-10.1); GFR 66.7; MAGNESIUM 1.1 mg/dL (1.8-2.4); POTASSIUM 3.6 mmol/L (3.5-5.1)
[2016-09-14] MEDS: HYDROCODONE/APAP 5/325MG TABLET. PO PRN (14:14)
[2016-09-14 15:50] VITALS: BP 172/79
[2016-09-14] MEDS ORDERED: MAGNESIUM SULFATE 4GM 100 ML IV ONE (16:00)
--- NOTE | 2016-09-14 17:34 | PDOC ---
SUBJECTIVE Subjective Breathing maybe a little bit better. Maybe a little less swelling in the legs. Has had several bowel movements. Denies chest pain. She remembered that she had concern earlier in the week before she was admitted that she had done an injection at home and remove the insulin pen and the hub for the needle was still on the pen that the needle could not be located. She is concerned that it may have broken off in the skin during the injection. OBJECTIVE Vital Signs Vital Signs Date Time Temp Pulse Resp B/P Pulse Ox O2 Delivery O2 Flow Rate FiO2 09/14/16 15:50 97.9 69 20 172/79 99 Nasal Cannula 2.0 97.9 09/14/16 15:15 18 95 Nasal Cannula 2.0 09/14/16 14:14 18 95 Nasal Cannula 2.0 09/14/16 14:14 75 169/84 09/14/16 11:10 98.4 75 21 169/84 95 Nasal Cannula 2.0 98.4 09/14/16 10:33 74 141/65 09/14/16 10:32 74 141/65 09/14/16 10:31 74 141/65 09/14/16 10:31 74 141/65 09/14/16 08:03 Nasal Cannula 2.0 09/14/16 07:51 98.2 74 21 141/65 96 Nasal Cannula 2.0 98.2 09/14/16 03:40 98.1 71 22 149/68 97 Nasal Cannula 2.0 98.1 09/13/16 23:00 98.2 72 22 165/80 97 Nasal Cannula 2.0 98.2 09/13/16 21:16 72 167/77 09/13/16 21:16 20 Nasal Cannula 2.0 09/13/16 21:16 72 167/77 09/13/16 19:40 Nasal Cannula 2.0 09/13/16 19:30 97.9 72 22 167/77 96 Nasal Cannula 2.0 97.9 09/13/16 19:10 Nasal Cannula 2.0 I & O Intake and Output 09/14/16 07:00 Intake Total 1030 ml Output Total 2150 ml Balance -1120 ml Intake Oral 1030 ml Output Urine Total 2150 ml # Bowel Movements 4 PHYSICAL EXAM Physical Exam General: No acute distress. Laying in bed. Nasal cannula oxygen on Mental status: Alert and oriented. Chest: Air movement: Decreased throughout, worse at the bases. Auscultation : clear throughout Cardiovascular: Rate: normal. Rhythm: regular. Murmur: none. Abdomen: Bowel sounds: Occasional. Obese, pitting edema in the bilateral flanks worse on the left today Nondistended. Tenderness: nontender to palpation. No guarding. No rebound. Extremities: Hard nonpitting edema of the bilateral lower legs. ASSESSMENT/PLAN Assessment/Plan 1. Acute on chronic respiratory failure, multifactorial including CHF and COPD: Continue to manage CHF as this is most likely the significant portion of this. CT scan did not show any evidence of pulmonary embolism. There was a small to moderate right-sided pleural effusion. 1. Acute on chronic systolic congestive heart failure: Incontinent of urine so we will place Scherer catheter in order to get better measurement of her output. Increase Lasix to 60 mg 3 times a day. Monitor kidney function. May consider Bumex depending on cardiology recommendations. 2. COPD with acute exacerbation with history of pulmonary hypertension: Continue breathing treatments and supplemental oxygen. She is on an oral antibiotic for possible mild bronchitis exacerbation. 3. Mildly elevated troponins with a history of nonsignificant coronary artery disease on catheterization within the last year: Minimal elevation. Likely not ischemia secondary to catheterization in July which did not show significant coronary artery disease 5. Diabetes mellitus type 2: Okay control with usual home medication regimen. 6. Elevated d-dimer: CT of the chest did not show pulmonary embolism and lower extremity ultrasound was limited but did not show evidence of DVT. Continue prophylactic Lovenox while in the hospital with decreased mobility. 7. Moderately severe protein malnutrition: Discussed need for adequate protein intake. Nutrition consult. 8. Anemia: Stable. 9. Debilitation: PT and OT. 10. Questionable foreign body in the right lower quadrant, present on admission : Reviewed x-rays from the [facility] and there does appear to be a linear density in the right lower quadrant. Difficult to say for sure on exam with the abdomen. We 'll get a crosstable lateral view of the abdomen to see if we can localize if a needle is present as it should be relatively superior near the surface Problems: COMMENT Lab Laboratory Tests Test 09/13/16 20:30 09/14/16 07:53 09/14/16 11:13 09/14/16 12:25 Glucose (Fingerstick) 137mg/dL (70-99) 84mg/dL (70-99) 158mg/dL (70-99) Sodium Level 141mmol/L (136-145) Potassium Level 3.6mmol/L (3.5-5.1) Chloride Level 100mmol/L (98-107) Carbon Dioxide Level 36mmol/L (21-32) Anion Gap 5 (6-14) Blood Urea Nitrogen 12mg/dL (7-20) Creatinine 1.0mg/dL (0.6-1.0) Estimated GFR (Cockcroft-Gault) 66.7 Glucose Level 154mg/dL (70-99) Calcium Level 8.9mg/dL (8.5-10.1) Magnesium Level 1.1mg/dL (1.8-2.4) Test 09/14/16 16:37 Glucose (Fingerstick) 178mg/dL (70-99) LISA MORILLO MD Sep 14, 2016 17:34
[2016-09-14 19:50] VITALS: BP 169/80
[2016-09-14] MEDS: ATORVASTATIN CALCIUM 40 MG TABLET. PO SCH (21:38)
[2016-09-14] MEDS: PANTOPRAZOLE 40 MG TABLET. PO SCH (21:38)
[2016-09-14] MEDS: LATANOPROST 0.005% OPHTH SOLUTION 2.5ML BOTTLE. OU SCH (21:41)
[2016-09-14 22:36] VITALS: BP 174/68
[2016-09-15] VITALS (7 sets, daily range): BP systolic 135–183; BP diastolic 53–77
[2016-09-15] MEDS: HYDROCODONE/APAP 5/325MG TABLET. PO PRN ×3 (03:56→23:31)
[2016-09-15] MEDS: LUBIPROSTONE 8 MCG CAPSULE PO SCH ×3 (07:01→17:44)
[2016-09-15 07:36] LABS: GFR 66.7; POTASSIUM 3.5 mmol/L (3.5-5.1)
--- NOTE | 2016-09-15 08:13 | PDOC ---
SUBJECTIVE Subjective Breathing is a little bit better. Less swelling in the abdomen. Less distended in the abdomen. She is having loose stools still. She is able to eat some. She thinks swelling in her legs may be improving a little bit as well. OBJECTIVE Vital Signs Vital Signs Date Time Temp Pulse Resp B/P Pulse Ox O2 Delivery O2 Flow Rate FiO2 09/15/16 07:26 Nasal Cannula 2.0 09/15/16 07:00 98.7 68 18 145/53 99 Nasal Cannula 2.0 98.7 09/15/16 02:47 98.3 74 16 155/65 91 Nasal Cannula 2.0 98.3 09/14/16 22:36 98.3 73 20 174/68 95 Nasal Cannula 2.0 98.3 09/14/16 21:38 71 169/80 09/14/16 21:37 71 169/80 09/14/16 20:00 Nasal Cannula 2.0 09/14/16 19:50 98.2 71 18 169/80 95 Nasal Cannula 2.0 98.2 09/14/16 15:50 97.9 69 20 172/79 99 Nasal Cannula 2.0 97.9 09/14/16 15:15 18 95 Nasal Cannula 2.0 09/14/16 14:14 18 95 Nasal Cannula 2.0 09/14/16 14:14 75 169/84 09/14/16 11:10 98.4 75 21 169/84 95 Nasal Cannula 2.0 98.4 09/14/16 10:33 74 141/65 09/14/16 10:32 74 141/65 09/14/16 10:31 74 141/65 09/14/16 10:31 74 141/65 I & O Intake and Output 09/15/16 07:00 Intake Total 240 ml Output Total 2300 ml Balance -2060 ml Intake Oral 240 ml Output Urine Total 2300 ml # Voids 3 # Bowel Movements 3 PHYSICAL EXAM Physical Exam General: No acute distress. Laying in bed. Nasal cannula oxygen on Mental status: Alert and oriented. Chest: Air movement: Decreased throughout, worse at the bases. Auscultation : Slight crackles at the right base. Cardiovascular: Rate: normal. Rhythm: regular. Murmur: none. Abdomen: Bowel sounds: Occasional. Obese, trace pitting edema in the bilateral flanks appears improved from yesterday. Nondistended. Tenderness: nontender to palpation. No guarding. No rebound. Extremities: Slight improvement in nonpitting edema of the bilateral lower legs. ASSESSMENT/PLAN Assessment/Plan 1. Acute on chronic respiratory failure, multifactorial including CHF and COPD: Continue to manage CHF as this is most likely the significant portion of this. CT scan did not show any evidence of pulmonary embolism. There was a small to moderate right-sided pleural effusion. 1. Acute on chronic systolic congestive heart failure: Incontinent of urine so we will place Scherer catheter in order to get better measurement of her output. Increase Lasix to 60 mg 3 times a day. Monitor kidney function. May consider Bumex depending on cardiology recommendations. Gait is the next dose of potassium this morning in addition to the 3 times a day dosing since she is on increased Lasix and having the loose stools. 2. COPD with acute exacerbation with history of pulmonary hypertension: Continue breathing treatments and supplemental oxygen. She is on an oral antibiotic for possible mild bronchitis exacerbation present on admission. 3. Mildly elevated troponins with a history of nonsignificant coronary artery disease on catheterization within the last year: Minimal elevation. Likely not ischemia secondary to catheterization in July which did not show significant coronary artery disease 5. Diabetes mellitus type 2: Okay control with usual home medication regimen. 6. Elevated d-dimer: CT of the chest did not show pulmonary embolism and lower extremity ultrasound was limited but did not show evidence of DVT. Continue prophylactic Lovenox while in the hospital with decreased mobility. 7. Moderately severe protein malnutrition: Discussed need for adequate protein intake. Nutrition consult. 8. Anemia: Stable. 9. Debilitation: PT and OT. 10. Questionable foreign body (insulin needle tip) in the right lower quadrant, present on admission: Reviewed x-rays from the [facility] and there does appear to be a possible linear density in the right lower quadrant. Difficult to say for sure on exam with the abdomen. Nothing definite apparent on the cross table exam on preliminary read. Monitor for inflammation. Problems: COMMENT Lab Laboratory Tests Test 09/14/16 11:13 09/14/16 12:25 09/14/16 16:37 09/14/16 20:44 Glucose (Fingerstick) 158mg/dL (70-99) 178mg/dL (70-99) 216mg/dL (70-99) Sodium Level 141mmol/L (136-145) Potassium Level 3.6mmol/L (3.5-5.1) Chloride Level 100mmol/L (98-107) Carbon Dioxide Level 36mmol/L (21-32) Anion Gap 5 (6-14) Blood Urea Nitrogen 12mg/dL (7-20) Creatinine 1.0mg/dL (0.6-1.0) Estimated GFR (Cockcroft-Gault) 66.7 Glucose Level 154mg/dL (70-99) Calcium Level 8.9mg/dL (8.5-10.1) Magnesium Level 1.1mg/dL (1.8-2.4) Test 09/15/16 02:43 09/15/16 07:14 Glucose (Fingerstick) 180mg/dL (70-99) Sodium Level 142mmol/L (136-145) Potassium Level 3.5mmol/L (3.5-5.1) Chloride Level 100mmol/L (98-107) Carbon Dioxide Level 36mmol/L (21-32) Anion Gap 6 (6-14) Blood Urea Nitrogen 15mg/dL (7-20) Creatinine 1.0mg/dL (0.6-1.0) Estimated GFR (Cockcroft-Gault) 66.7 Glucose Level 177mg/dL (70-99) Calcium Level 9.0mg/dL (8.5-10.1) Magnesium Level 1.6mg/dL (1.8-2.4) LISA MORILLO MD Sep 15, 2016 08:13
[2016-09-15] MEDS ORDERED: POTASSIUM CHLORIDE 20 MEQ TABLET.ER. PO ONE (08:30)
[2016-09-15] MEDS ORDERED: MAGNESIUM SULFATE 2GM 50 ML IV ONE ×2 (09:00→15:30)
[2016-09-15] MEDS: POTASSIUM CHLORIDE 20 MEQ TABLET.ER. PO SCH ×3 (09:00→20:58)
[2016-09-15] MEDS: ENOXAPARIN 40 MG/0.4 ML DISP.SYRIN. SQ SCH ×2 (09:18→20:56)
[2016-09-15] MEDS: HYDRALAZINE 50 MG TABLET PO SCH ×3 (09:18→20:58)
[2016-09-15] MEDS: CLOPIDOGREL BISULFATE 75 MG TABLET PO SCH (09:19)
[2016-09-15] MEDS: LABETALOL HCL 200 MG TABLET PO SCH ×2 (09:19→20:57)
[2016-09-15] MEDS: CARBAMAZEPINE 200 MG TABLET. PO SCH ×2 (09:19→20:58)
[2016-09-15] MEDS: CITALOPRAM 20 MG TABLET. PO SCH (09:19)
[2016-09-15] MEDS: DOXYCYCLINE HYCLATE 100 MG TABLET PO SCH ×2 (09:19→20:58)
[2016-09-15] MEDS: ASPIRIN ENTERIC COATED 81 MG TABLET.DR. PO SCH (09:20)
[2016-09-15] MEDS: AMLODIPINE BESYLATE 10 MG TABLET PO SCH (09:20)
[2016-09-15] MEDS: LISINOPRIL 40 MG TABLET. PO SCH (09:20)
[2016-09-15] MEDS: FUROSEMIDE 40 MG/4 ML VIAL IVP SCH ×3 (09:21→20:59)
[2016-09-15] MEDS: INSULN ASP PRT/INSULIN ASPART 300 UNITS/3 ML INSULN.PEN. SQ SCH ×2 (09:30→17:49)
[2016-09-15] MEDS: INSULIN ASPART 300 UNITS/3 ML INSULN.PEN SQ SCH ×3 (09:31→17:48)
[2016-09-15] MEDS: DORZOLAMIDE/TIMOLOL 2%/0.5% OPHTH SOLUTION 10ML BOTTLE. OU SCH ×2 (09:31→20:55)
[2016-09-15] MEDS: DICLOFENAC SODIUM 1% TOPICAL GEL 100GM TUBE. TP SCH ×2 (09:33→21:00)
[2016-09-15] MEDS: CHOLECALCIFEROL (VITAMIN D3) 1,000 UNIT TABLET PO SCH (09:33)
--- NOTE | 2016-09-15 10:08 | RAD ---
Crosstable supine lateral view of the abdomen Clinical indications: To localize pen needle of the right lower quadrant. Comparison: Portable AP supine view of the abdomen dated September 12, 2016. Findings: No radiopaque foreign body is seen within the right lower quadrant. Cholecystectomy clips are seen within the right upper quadrant. No free intraperitoneal air or significantly dilated loops of bowel are seen. IMPRESSION: No radiopaque foreign body is seen within the right lower quadrant.
--- NOTE | 2016-09-15 15:34 | PDOC ---
KHUSHI SHAW FLUX CORE WELDER 09/15/16 1534: CARDIO Progress Notes Date and Time Date of Service 09/15/16 Time of Evaluation 1345 Subjective Subjective: No Chest Pain, No shortness of breath, Other (LE edema improved ) Vitals Vitals Vital Signs Date Time Temp Pulse Resp B/P Pulse Ox O2 Delivery O2 Flow Rate FiO2 09/15/16 15:11 98 Nasal Cannula 2.0 09/15/16 14:58 98.0 68 18 135/68 98.0 Weight Weight [ ] Input and Output Intake and Output Intake and Output 09/15/16 07:00 Intake Total 240 ml Output Total 2300 ml Balance -2060 ml Intake Oral 240 ml Output Urine Total 2300 ml # Voids 3 # Bowel Movements 3 Laboratory Labs Laboratory Tests Test 09/14/16 16:37 09/14/16 20:44 09/15/16 02:43 09/15/16 07:14 Glucose (Fingerstick) 178mg/dL (70-99) 216mg/dL (70-99) 180mg/dL (70-99) Sodium Level 142mmol/L (136-145) Potassium Level 3.5mmol/L (3.5-5.1) Chloride Level 100mmol/L (98-107) Carbon Dioxide Level 36mmol/L (21-32) Anion Gap 6 (6-14) Blood Urea Nitrogen 15mg/dL (7-20) Creatinine 1.0mg/dL (0.6-1.0) Estimated GFR (Cockcroft-Gault) 66.7 Glucose Level 177mg/dL (70-99) Calcium Level 9.0mg/dL (8.5-10.1) Magnesium Level 1.6mg/dL (1.8-2.4) Test 09/15/16 11:41 Glucose (Fingerstick) 167mg/dL (70-99) Microbiology Micro Microbiology 09/10/16 Urine Culture - Final, Complete 09/10/16 Urine Culture Result 1 (MERCEDES) - Final, Complete Physical Exam HEENT: Neck Supple W Full Motion Chest: Symmetric LUNGS: Other (dimished bases) Heart: S1S2, RRR Abdomen: Soft N/T, Other (ascites) Extremities: Other (1-2+ bilateral LE edema up to level of thigh) Neurology: alert, oriented, follow commands Assessment Assessment 1. acute on chronic systolic HF EF ~ 45% on echo 06/2016 improved. Good UOP with Lasix; significant LE edema persists. Will give additional dose of Zaroxolyn 2. HTN improved continue with current therapy 3. non-ischemic CMP continue medical management with ESSENCE, BB maintain BP control 4. pulmonary HTN, severe PA - 68 mm Hg likely related to COPD 5. DM, II per primary service. 6. hypomagnesemia replace, monitor MACK Ravi MD 09/16/16 0909: CARDIO Progress Notes Assessment Assessment Patient seen and examined 09/15/16. Agree with ADVERTISING SALES ASSOCIATE's assessment and plan. Acute on chronic systolic heart failure improving slowly. Agree with adding Zaroxolyn for better diuresis. KHUSHI SHAW APRN Sep 15, 2016 15:34 MACK COREY MD Sep 16, 2016 09:09
[2016-09-15] MEDS: METOLAZONE 2.5 MG TABLET PO SCH (17:44)
[2016-09-15] MEDS: LATANOPROST 0.005% OPHTH SOLUTION 2.5ML BOTTLE. OU SCH (20:55)
[2016-09-15] MEDS: PANTOPRAZOLE 40 MG TABLET. PO SCH (20:57)
[2016-09-15] MEDS: ATORVASTATIN CALCIUM 40 MG TABLET. PO SCH (20:59)
[2016-09-15] MEDS: ALBUTEROL SULFATE 2.5 MG/3 ML NEBU. NEB PRN (21:14)
[2016-09-16 03:00] VITALS: BP 143/63
[2016-09-16 06:15] LABS: CREATININE 1.1 mg/dL (0.6-1.0); GFR 59.8; POTASSIUM 3.4 mmol/L (3.5-5.1)
[2016-09-16 07:59] VITALS: BP 140/64
[2016-09-16] MEDS: INSULIN ASPART 300 UNITS/3 ML INSULN.PEN SQ SCH ×3 (08:00→17:49)
[2016-09-16] MEDS: CLOPIDOGREL BISULFATE 75 MG TABLET PO SCH (08:24)
[2016-09-16] MEDS: POTASSIUM CHLORIDE 20 MEQ TABLET.ER. PO SCH ×3 (08:24→21:10)
[2016-09-16] MEDS: ASPIRIN ENTERIC COATED 81 MG TABLET.DR. PO SCH (08:24)
[2016-09-16] MEDS: LISINOPRIL 40 MG TABLET. PO SCH (08:25)
[2016-09-16] MEDS: CHOLECALCIFEROL (VITAMIN D3) 1,000 UNIT TABLET PO SCH (08:25)
[2016-09-16] MEDS: LABETALOL HCL 200 MG TABLET PO SCH ×2 (08:25→21:10)
[2016-09-16] MEDS: HYDRALAZINE 50 MG TABLET PO SCH ×3 (08:26→21:10)
[2016-09-16] MEDS: AMLODIPINE BESYLATE 10 MG TABLET PO SCH (08:26)
[2016-09-16] MEDS: DOXYCYCLINE HYCLATE 100 MG TABLET PO SCH ×2 (08:26→21:09)
[2016-09-16] MEDS: CARBAMAZEPINE 200 MG TABLET. PO SCH ×2 (08:26→21:09)
[2016-09-16] MEDS: FUROSEMIDE 40 MG/4 ML VIAL IVP SCH ×3 (08:27→21:09)
[2016-09-16] MEDS: CITALOPRAM 20 MG TABLET. PO SCH (08:27)
[2016-09-16] MEDS: LUBIPROSTONE 8 MCG CAPSULE PO SCH ×2 (08:27→17:44)
[2016-09-16] MEDS: DICLOFENAC SODIUM 1% TOPICAL GEL 100GM TUBE. TP SCH ×2 (08:29→21:11)
[2016-09-16] MEDS: DORZOLAMIDE/TIMOLOL 2%/0.5% OPHTH SOLUTION 10ML BOTTLE. OU SCH ×2 (08:30→21:11)
[2016-09-16] MEDS: ENOXAPARIN 40 MG/0.4 ML DISP.SYRIN. SQ SCH ×2 (08:30→21:14)
[2016-09-16] MEDS: METOLAZONE 2.5 MG TABLET PO SCH (09:23)
[2016-09-16] MEDS: HYDROCODONE/APAP 5/325MG TABLET. PO PRN ×2 (10:47→17:43)
[2016-09-16 11:39] VITALS: BP 154/73
[2016-09-16] MEDS: INSULN ASP PRT/INSULIN ASPART 300 UNITS/3 ML INSULN.PEN. SQ SCH ×2 (12:24→17:50)
[2016-09-16] MEDS ORDERED: SODIUM CHLORIDE 0.65% NASAL SPRAY 45ML BOTTLE. NS PRN (15:00)
--- NOTE | 2016-09-16 15:06 | PDOC ---
SUBJECTIVE Subjective Having some stomach discomfort. No emesis. Breathing is doing a little bit better. Less swelling in the legs. Diarrhea is doing better. OBJECTIVE Vital Signs Vital Signs Date Time Temp Pulse Resp B/P Pulse Ox O2 Delivery O2 Flow Rate FiO2 09/16/16 14:43 69 154/73 09/16/16 11:45 98 Nasal Cannula 2.0 09/16/16 11:39 97.8 69 17 154/73 98 Nasal Cannula 2.0 97.8 09/16/16 10:47 96 Nasal Cannula 2.0 09/16/16 08:26 64 140/64 09/16/16 08:26 64 140/64 09/16/16 08:25 64 140/64 09/16/16 08:25 64 140/64 09/16/16 08:00 Nasal Cannula 2.0 09/16/16 07:59 97.5 64 17 140/64 96 Nasal Cannula 2.0 97.5 09/16/16 03:00 98.4 63 18 143/63 99 Nasal Cannula 2.0 98.4 09/15/16 23:00 98.2 67 20 142/63 96 Nasal Cannula 2.0 98.2 09/15/16 21:14 95 Nasal Cannula 2.0 09/15/16 20:58 70 155/61 09/15/16 20:57 73 155/61 09/15/16 20:00 Nasal Cannula 2.0 09/15/16 19:00 97.9 69 18 154/74 97 Nasal Cannula 2.0 97.9 09/15/16 15:11 98 Nasal Cannula 2.0 I & O Intake and Output 09/16/16 07:00 Intake Total 730 ml Output Total 1300 ml Balance -570 ml Intake Oral 730 ml Output Urine Total 1300 ml PHYSICAL EXAM Physical Exam General: No acute distress. Laying in bed. Nasal cannula oxygen on Mental status: Alert and oriented. Chest: Air movement: Decreased throughout, worse at the bases. Auscultation : Clear. Cardiovascular: Rate: normal. Rhythm: regular. Murmur: none. Abdomen: Bowel sounds: Occasional. Obese, trace pitting edema in the bilateral flanks. Soft. Nondistended. Tenderness: nontender to palpation. No guarding. No rebound. Extremities: Slight improvement in nonpitting edema of the bilateral lower legs but still firm bilaterally. ASSESSMENT/PLAN Assessment/Plan 1. Acute on chronic respiratory failure, multifactorial including CHF and COPD: Improving. Continue to manage CHF as this is most likely the significant portion of this. CT scan did not show any evidence of pulmonary embolism. There was a small to moderate right-sided pleural effusion. 1. Acute on chronic systolic congestive heart failure: Incontinent of urine so we will place Scherer catheter in order to get better measurement of her output. Increase Lasix to 60 mg 3 times a day. zaroxolyn added. Monitor kidney function. May consider Bumex depending on cardiology recommendations. cont to replace potassium 2. COPD with acute exacerbation with history of pulmonary hypertension: Continue breathing treatments and supplemental oxygen. She is on an oral antibiotic for possible mild bronchitis exacerbation present on admission. 3. Mildly elevated troponins with a history of nonsignificant coronary artery disease on catheterization within the last year: Minimal elevation. Likely not ischemia secondary to catheterization in July which did not show significant coronary artery disease 5. Diabetes mellitus type 2: Okay control with usual home medication regimen. 6. Elevated d-dimer: CT of the chest did not show pulmonary embolism and lower extremity ultrasound was limited but did not show evidence of DVT. Continue prophylactic Lovenox while in the hospital with decreased mobility. 7. Moderately severe protein malnutrition: Discussed need for adequate protein intake. Nutrition consult. 8. Anemia: Stable. 9. Debilitation: PT and OT. 10. Questionable foreign body (insulin needle tip) in the right lower quadrant, present on admission: Reviewed x-rays from the [facility] and there does appear to be a possible linear density in the right lower quadrant. Difficult to say for sure on exam with the abdomen. No apparent foreign body on the crosstable lateral. 11 abdominal dicomfort, nausea. feeling constipated again. agreeable to increase amitiza again. Consider Reglan if not improving with the increased of amitiza. prob component of gastroparesis Problems: COMMENT Lab Laboratory Tests Test 09/15/16 17:05 09/16/16 05:08 09/16/16 08:23 Glucose (Fingerstick) 168mg/dL (70-99) 118mg/dL (70-99) Sodium Level 143mmol/L (136-145) Potassium Level 3.4mmol/L (3.5-5.1) Chloride Level 100mmol/L (98-107) Carbon Dioxide Level 39mmol/L (21-32) Anion Gap 4 (6-14) Blood Urea Nitrogen 17mg/dL (7-20) Creatinine 1.1mg/dL (0.6-1.0) Estimated GFR (Cockcroft-Gault) 59.8 Glucose Level 103mg/dL (70-99) Calcium Level 9.0mg/dL (8.5-10.1) LISA MORILLO MD Sep 16, 2016 15:06
[2016-09-16 15:08] VITALS: BP 127/59
--- NOTE | 2016-09-16 17:11 | PDOC ---
KHUSHI SHAW AWNING ERECTOR 09/16/16 1711: CARDIO Progress Notes Date and Time Date of Service 09/16/16 Time of Evaluation 1510 Subjective Subjective: No Chest Pain, No shortness of breath, Other (breathing improved. legs feel less swollen) Vitals Vitals Vital Signs Date Time Temp Pulse Resp B/P Pulse Ox O2 Delivery O2 Flow Rate FiO2 09/16/16 15:08 97.9 68 18 127/59 99 Nasal Cannula 2.0 97.9 Weight Weight [ ] Input and Output Intake and Output Intake and Output 09/16/16 07:00 Intake Total 730 ml Output Total 1300 ml Balance -570 ml Intake Oral 730 ml Output Urine Total 1300 ml Laboratory Labs Laboratory Tests Test 09/16/16 05:08 09/16/16 08:23 Sodium Level 143mmol/L (136-145) Potassium Level 3.4mmol/L (3.5-5.1) Chloride Level 100mmol/L (98-107) Carbon Dioxide Level 39mmol/L (21-32) Anion Gap 4 (6-14) Blood Urea Nitrogen 17mg/dL (7-20) Creatinine 1.1mg/dL (0.6-1.0) Estimated GFR (Cockcroft-Gault) 59.8 Glucose Level 103mg/dL (70-99) Calcium Level 9.0mg/dL (8.5-10.1) Glucose (Fingerstick) 118mg/dL (70-99) Microbiology Micro Microbiology 09/10/16 Urine Culture - Final, Complete 09/10/16 Urine Culture Result 1 (MERCEDES) - Final, Complete Physical Exam HEENT: Neck Supple W Full Motion Chest: Symmetric LUNGS: Other (dimished bases) Heart: S1S2, RRR Abdomen: Soft N/T, Other (ascites) Extremities: Other (1-2+ bilateral LE edema up to level of thigh) Neurology: alert, oriented, follow commands Assessment Assessment 1. acute on chronic systolic HF EF ~ 45% on echo 06/2016 LE edema improved but persists. continue Lasix and Zaroxolyn 2. HTN controlled continue with current therapy 3. non-ischemic CMP continue medical management maintain BP control 4. pulmonary HTN, severe PA - 68 mm Hg likely related to COPD 5. DM, II per primary service. 6. lytes imbalance replace, monitor MACK Ravi MD 09/16/16 1730: CARDIO Progress Notes Assessment Assessment Patient seen and examined. Agree with VALVE SETTER's assessment and plan. Acute on chronic systolic heart failure improving slowly with combination of Lasix and Zaroxolyn. Continue current medical regimen. KHUSHI SHAW APRN Sep 16, 2016 17:11 MACK COREY MD Sep 16, 2016 17:30
[2016-09-16] MEDS: ONDANSETRON PF 4 MG/2 ML VIAL. IV PRN (19:41)
[2016-09-16 19:48] VITALS: BP 164/71
[2016-09-16] MEDS: PANTOPRAZOLE 40 MG TABLET. PO SCH (21:09)
[2016-09-16] MEDS: ATORVASTATIN CALCIUM 40 MG TABLET. PO SCH (21:09)
[2016-09-16] MEDS: LATANOPROST 0.005% OPHTH SOLUTION 2.5ML BOTTLE. OU SCH (21:10)
[2016-09-16 23:03] VITALS: BP 126/67
[2016-09-17 03:13] VITALS: BP 123/61
[2016-09-17 05:25] LABS: CALCIUM 9.3 mg/dL (8.5-10.1); CREATININE 1.2 mg/dL (0.6-1.0); GFR 54.1; MAGNESIUM 1.8 mg/dL (1.8-2.4); POTASSIUM 3.7 mmol/L (3.5-5.1)
[2016-09-17 07:10] VITALS: BP 152/67
[2016-09-17] MEDS: INSULIN ASPART 300 UNITS/3 ML INSULN.PEN SQ SCH ×3 (08:00→17:00)
[2016-09-17] MEDS: INSULN ASP PRT/INSULIN ASPART 300 UNITS/3 ML INSULN.PEN. SQ SCH ×2 (08:00→17:00)
[2016-09-17] MEDS: DORZOLAMIDE/TIMOLOL 2%/0.5% OPHTH SOLUTION 10ML BOTTLE. OU SCH ×2 (08:55→21:58)
[2016-09-17] MEDS: POTASSIUM CHLORIDE 20 MEQ TABLET.ER. PO SCH ×2 (08:56→16:00)
[2016-09-17] MEDS: METOLAZONE 2.5 MG TABLET PO SCH (08:56)
[2016-09-17] MEDS: CARBAMAZEPINE 200 MG TABLET. PO SCH ×2 (08:57→21:55)
[2016-09-17] MEDS: HYDRALAZINE 50 MG TABLET PO SCH ×3 (08:57→21:57)
[2016-09-17] MEDS: DOXYCYCLINE HYCLATE 100 MG TABLET PO SCH ×2 (08:58→21:55)
[2016-09-17] MEDS: ASPIRIN ENTERIC COATED 81 MG TABLET.DR. PO SCH (08:58)
[2016-09-17] MEDS: CITALOPRAM 20 MG TABLET. PO SCH (08:59)
[2016-09-17] MEDS: LISINOPRIL 40 MG TABLET. PO SCH (08:59)
[2016-09-17] MEDS: AMLODIPINE BESYLATE 10 MG TABLET PO SCH (08:59)
[2016-09-17] MEDS: LABETALOL HCL 200 MG TABLET PO SCH ×2 (08:59→21:56)
[2016-09-17] MEDS: DICLOFENAC SODIUM 1% TOPICAL GEL 100GM TUBE. TP SCH ×2 (09:00→21:00)
[2016-09-17] MEDS: LUBIPROSTONE 8 MCG CAPSULE PO SCH ×3 (09:00→17:37)
[2016-09-17] MEDS: CLOPIDOGREL BISULFATE 75 MG TABLET PO SCH (09:00)
[2016-09-17] MEDS: CHOLECALCIFEROL (VITAMIN D3) 1,000 UNIT TABLET PO SCH (09:00)
[2016-09-17] MEDS: ENOXAPARIN 40 MG/0.4 ML DISP.SYRIN. SQ SCH ×2 (09:01→21:57)
[2016-09-17] MEDS: FUROSEMIDE 40 MG/4 ML VIAL IVP SCH ×3 (09:01→21:58)
[2016-09-17] MEDS: ACETAMINOPHEN 325 MG TABLET. PO PRN (10:27)
[2016-09-17 11:00] VITALS: BP 141/65
[2016-09-17] MEDS: IPRATRPIUM/ALBUTEROL 0.5/2.5MG 3 ML NEBU. NEB SCH ×3 (12:00→20:29)
[2016-09-17] MEDS: HYDROCODONE/APAP 5/325MG TABLET. PO PRN ×2 (13:53→22:25)
[2016-09-17] MEDS: ONDANSETRON PF 4 MG/2 ML VIAL. IV PRN (13:53)
--- NOTE | 2016-09-17 14:26 | PDOC ---
CARDIO Progress Notes Date and Time Date of Service 09/17/16 Time of Evaluation 1120 Subjective Subjective: No Chest Pain, No shortness of breath, Other (LE edema improving; legs feel less heavy) Vitals Vitals Vital Signs Date Time Temp Pulse Resp B/P Pulse Ox O2 Delivery O2 Flow Rate FiO2 09/17/16 13:54 71 168/80 09/17/16 13:53 Room Air 09/17/16 12:37 2.0 09/17/16 11:00 97.9 18 100 97.9 Weight Weight [ ] Input and Output Intake and Output Intake and Output 09/17/16 07:00 Intake Total 1040 ml Output Total 3275 ml Balance -2235 ml Intake Oral 1040 ml Output Urine Total 3275 ml Laboratory Labs Laboratory Tests Test 09/16/16 20:41 09/17/16 03:15 09/17/16 03:30 09/17/16 04:54 Glucose (Fingerstick) 149mg/dL (70-99) 78mg/dL (70-99) 114mg/dL (70-99) Sodium Level 141mmol/L (136-145) Potassium Level 3.7mmol/L (3.5-5.1) Chloride Level 98mmol/L (98-107) Carbon Dioxide Level 42mmol/L (21-32) Anion Gap 1 (6-14) Blood Urea Nitrogen 22mg/dL (7-20) Creatinine 1.2mg/dL (0.6-1.0) Estimated GFR (Cockcroft-Gault) 54.1 Glucose Level 114mg/dL (70-99) Calcium Level 9.3mg/dL (8.5-10.1) Magnesium Level 1.8mg/dL (1.8-2.4) Test 09/17/16 08:51 09/17/16 11:20 Glucose (Fingerstick) 138mg/dL (70-99) 145mg/dL (70-99) Microbiology Micro Microbiology 09/10/16 Urine Culture - Final, Complete 09/10/16 Urine Culture Result 1 (MERCEDES) - Final, Complete Physical Exam HEENT: Neck Supple W Full Motion Chest: Symmetric LUNGS: Other (dimished bases) Heart: S1S2, RRR Abdomen: Soft N/T Extremities: Other (1-2+ bilateral LE edema up to level of thigh) Neurology: alert, oriented, follow commands Assessment Assessment 1. acute on chronic systolic HF EF ~ 45% on echo 06/2016 LE edema improving. Significant UOP overnight. continue Lasix and Zaroxolyn with close monitoring of renal function 2. HTN controlled continue with current therapy 3. non-ischemic CMP continue medical management maintain BP control 4. pulmonary HTN, severe PA - 68 mm Hg 5. DM, II per primary service. 6. lytes imbalance monitor KHUSHI Avelar APRN Sep 17, 2016 14:26
[2016-09-17 14:51] VITALS: BP 150/65
[2016-09-17] MEDS ORDERED: METOCLOPRAMIDE 5 MG TABLET PO PRN (18:15)
--- NOTE | 2016-09-17 18:24 | PDOC ---
SUBJECTIVE Subjective Not much appetite. Abdominal discomfort is worsened. She's also complaining of a headache primarily on the right side of her face. She does have a bad tooth there that needs to be pulled. OBJECTIVE Vital Signs Vital Signs Date Time Temp Pulse Resp B/P Pulse Ox O2 Delivery O2 Flow Rate FiO2 09/17/16 17:09 Nasal Cannula 2.0 09/17/16 14:51 97.9 66 20 150/65 97 Room Air 97.9 09/17/16 13:54 71 168/80 09/17/16 13:53 Room Air 09/17/16 12:37 Nasal Cannula 2.0 09/17/16 11:00 97.9 90 18 141/65 100 2.0 97.9 09/17/16 08:59 70 152/67 09/17/16 08:59 68 152/67 09/17/16 08:59 68 152/67 09/17/16 08:57 98 152/67 09/17/16 07:50 Nasal Cannula 2.0 09/17/16 07:10 98.5 98 20 152/67 100 Nasal Cannula 2.0 98.5 09/17/16 03:13 98.3 64 16 123/61 98 Nasal Cannula 2.0 98.3 09/16/16 23:03 98.2 67 18 126/67 100 Nasal Cannula 2.0 98.2 09/16/16 21:10 68 127/59 09/16/16 21:10 68 127/59 09/16/16 19:50 Nasal Cannula 2.0 09/16/16 19:48 98.0 68 20 164/71 97 Nasal Cannula 2.0 98.0 09/16/16 18:43 99 I & O Intake and Output 09/17/16 07:00 Intake Total 1040 ml Output Total 3275 ml Balance -2235 ml Intake Oral 1040 ml Output Urine Total 3275 ml PHYSICAL EXAM Physical Exam General: No acute distress. Laying in bed. Nasal cannula oxygen on Mental status: Alert and oriented. Chest: Air movement: Decreased throughout, worse at the bases. Auscultation : Clear, anteriorly. Cardiovascular: Rate: normal. Rhythm: regular. Murmur: none. Abdomen: Bowel sounds: Occasional. Obese, trace pitting edema in the bilateral flanks. Soft. Nondistended. Tenderness: nontender to palpation. No guarding. No rebound. Extremities: Nonpitting edema of the bilateral lower legs. ASSESSMENT/PLAN Assessment/Plan 1. Acute on chronic respiratory failure, multifactorial including CHF and COPD: Improving. Continue to manage CHF as this is most likely the significant portion of this. CT scan did not show any evidence of pulmonary embolism. There was a small to moderate right-sided pleural effusion. 1. Acute on chronic systolic congestive heart failure: Incontinent of urine so we will place Scherer catheter in order to get better measurement of her output. Increase Lasix to 60 mg 3 times a day. zaroxolyn added. Monitor kidney function. May consider Bumex depending on cardiology recommendations. cont to replace potassium. Making some progress in a negative fluid balance. 2. COPD with acute exacerbation with history of pulmonary hypertension: Continue breathing treatments and supplemental oxygen. She is on an oral antibiotic for possible mild bronchitis exacerbation present on admission. 3. Mildly elevated troponins with a history of nonsignificant coronary artery disease on catheterization within the last year: Minimal elevation. Likely not ischemia secondary to catheterization in July which did not show significant coronary artery disease 5. Diabetes mellitus type 2: Okay control with usual home medication regimen. 6. Elevated d-dimer: CT of the chest did not show pulmonary embolism and lower extremity ultrasound was limited but did not show evidence of DVT. Continue prophylactic Lovenox while in the hospital with decreased mobility. 7. Moderately severe protein malnutrition: Discussed need for adequate protein intake. Nutrition consult. 8. Anemia: Stable. 9. Debilitation: PT and OT. 10. Questionable foreign body (insulin needle tip) in the right lower quadrant, present on admission: Reviewed x-rays from the [facility] and there does appear to be a possible linear density in the right lower quadrant. Difficult to say for sure on exam with the abdomen. No apparent foreign body on the crosstable lateral. 11 abdominal dicomfort, nausea. feeling constipated again. Continue with higher dose of amitiza. Give 1 dose of Reglan and then every 6 hours when necessary. prob component of gastroparesis Problems: COMMENT Lab Laboratory Tests Test 09/16/16 20:41 09/17/16 03:15 09/17/16 03:30 09/17/16 04:54 Glucose (Fingerstick) 149mg/dL (70-99) 78mg/dL (70-99) 114mg/dL (70-99) Sodium Level 141mmol/L (136-145) Potassium Level 3.7mmol/L (3.5-5.1) Chloride Level 98mmol/L (98-107) Carbon Dioxide Level 42mmol/L (21-32) Anion Gap 1 (6-14) Blood Urea Nitrogen 22mg/dL (7-20) Creatinine 1.2mg/dL (0.6-1.0) Estimated GFR (Cockcroft-Gault) 54.1 Glucose Level 114mg/dL (70-99) Calcium Level 9.3mg/dL (8.5-10.1) Magnesium Level 1.8mg/dL (1.8-2.4) Test 09/17/16 08:51 09/17/16 11:20 09/17/16 16:49 Glucose (Fingerstick) 138mg/dL (70-99) 145mg/dL (70-99) 165mg/dL (70-99) LISA MORILLO MD Sep 17, 2016 18:24
[2016-09-17] MEDS ORDERED: METOCLOPRAMIDE HCL 10 MG/10 ML SOLUTION. PO ONE (18:30)
[2016-09-17 19:00] VITALS: BP 158/63
[2016-09-17] MEDS: ATORVASTATIN CALCIUM 40 MG TABLET. PO SCH (21:57)
[2016-09-17] MEDS: LATANOPROST 0.005% OPHTH SOLUTION 2.5ML BOTTLE. OU SCH (21:58)
[2016-09-17] MEDS: PANTOPRAZOLE 40 MG TABLET. PO SCH (21:59)
[2016-09-17 23:00] VITALS: BP 147/61
[2016-09-18 03:00] VITALS: BP 160/63
[2016-09-18 06:57] LABS: CALCIUM 9.1 mg/dL (8.5-10.1); CREATININE 1.1 mg/dL (0.6-1.0); GFR 59.8; POTASSIUM 3.2 mmol/L (3.5-5.1)
[2016-09-18] MEDS: IPRATRPIUM/ALBUTEROL 0.5/2.5MG 3 ML NEBU. NEB SCH ×3 (07:37→19:39)
[2016-09-18] MEDS: INSULIN ASPART 300 UNITS/3 ML INSULN.PEN SQ SCH ×3 (08:00→17:03)
[2016-09-18] MEDS: LUBIPROSTONE 8 MCG CAPSULE PO SCH ×2 (08:00→17:03)
[2016-09-18 08:32] VITALS: BP 169/79
[2016-09-18] MEDS: ASPIRIN ENTERIC COATED 81 MG TABLET.DR. PO SCH (10:02)
[2016-09-18] MEDS: CLOPIDOGREL BISULFATE 75 MG TABLET PO SCH (10:03)
[2016-09-18] MEDS: FUROSEMIDE 40 MG/4 ML VIAL IVP SCH ×3 (10:03→21:05)
[2016-09-18] MEDS: DORZOLAMIDE/TIMOLOL 2%/0.5% OPHTH SOLUTION 10ML BOTTLE. OU SCH ×2 (10:05→21:05)
[2016-09-18] MEDS: CITALOPRAM 20 MG TABLET. PO SCH (10:07)
[2016-09-18] MEDS: HYDRALAZINE 50 MG TABLET PO SCH ×3 (10:07→21:06)
[2016-09-18] MEDS: POTASSIUM CHLORIDE 20 MEQ TABLET.ER. PO SCH ×2 (10:08→17:02)
[2016-09-18] MEDS: AMLODIPINE BESYLATE 10 MG TABLET PO SCH (10:09)
[2016-09-18] MEDS: LISINOPRIL 40 MG TABLET. PO SCH (10:10)
[2016-09-18] MEDS: CARBAMAZEPINE 200 MG TABLET. PO SCH ×2 (10:12→21:04)
[2016-09-18] MEDS: DOXYCYCLINE HYCLATE 100 MG TABLET PO SCH ×2 (10:14→21:04)
[2016-09-18] MEDS: LABETALOL HCL 200 MG TABLET PO SCH ×2 (10:14→21:06)
[2016-09-18] MEDS: METOLAZONE 2.5 MG TABLET PO SCH (10:15)
[2016-09-18] MEDS: CHOLECALCIFEROL (VITAMIN D3) 1,000 UNIT TABLET PO SCH (10:15)
[2016-09-18] MEDS: ENOXAPARIN 40 MG/0.4 ML DISP.SYRIN. SQ SCH ×2 (10:16→21:05)
[2016-09-18] MEDS: DICLOFENAC SODIUM 1% TOPICAL GEL 100GM TUBE. TP SCH ×2 (10:16→21:00)
[2016-09-18] MEDS: INSULN ASP PRT/INSULIN ASPART 300 UNITS/3 ML INSULN.PEN. SQ SCH ×2 (10:28→17:07)
[2016-09-18 11:25] VITALS: BP 141/58
[2016-09-18] MEDS: HYDROCODONE/APAP 5/325MG TABLET. PO PRN ×2 (12:57→21:46)
[2016-09-18 14:50] VITALS: BP 117/54
--- NOTE | 2016-09-18 16:00 | PDOC ---
PROGRESS NOTES Subjective Subjective She seems to be feeling better, she was able to sleep flat, she denies chest pain, bowel or bladder discomfort and is breathing better but is still weak and not been out of bed Objective Objective Vital Signs Date Time Temp Pulse Resp B/P Pulse Ox O2 Delivery O2 Flow Rate FiO2 09/18/16 14:50 98.2 69 20 117/54 100 98.2 09/18/16 12:57 Room Air 09/18/16 12:20 2.0 Intake and Output 09/18/16 07:00 Intake Total 2185 ml Output Total 1600 ml Balance 585 ml Intake Oral 2185 ml Output Urine Total 1600 ml # Bowel Movements 2 Physical Exam Abdomen: Normal bowel sounds, Soft Heart: Regular rate Extremities: No clubbing, No cyanosis, Other (2+ edema) General: Alert, Oriented X3, Cooperative HEENT: Atraumatic Lungs: Clear to auscultation MUSCULOSKELETAL: No swelling Neck: No JVD Neuro: Normal speech Psych/Mental Status: Mental status NL Skin: No breakdown Assessment Assessment Problems Medical Problems: 1. Acute on chronic respiratory failure, multifactorial including CHF and COPD: Improving. Continue to manage CHF as this is most likely the significant portion of this. CT scan did not show any evidence of pulmonary embolism. There was a small to moderate right-sided pleural effusion. 2. Acute on chronic systolic congestive heart failure: Incontinent of urine so we will place Scherer catheter in order to get better measurement of her output. Increase Lasix to 60 mg 3 times a day. zaroxolyn added. Monitor kidney function. May consider Bumex depending on cardiology recommendations. cont to replace potassium. Making some progress in a negative fluid balance. 3. COPD with acute exacerbation with history of pulmonary hypertension: Continue breathing treatments and supplemental oxygen. She is on an oral antibiotic for possible mild bronchitis exacerbation present on admission. 4. Mildly elevated troponins with a history of nonsignificant coronary artery disease on catheterization within the last year: Minimal elevation. Likely not ischemia secondary to catheterization in July which did not show significant coronary artery disease 5. Diabetes mellitus type 2: Okay control with usual home medication regimen. 6. Elevated d-dimer: CT of the chest did not show pulmonary embolism and lower extremity ultrasound was limited but did not show evidence of DVT. Continue prophylactic Lovenox while in the hospital with decreased mobility. 7. Moderately severe protein malnutrition: Discussed need for adequate protein intake. Nutrition consult. 8. Anemia: Stable. 9. Debilitation: PT and OT. 10. Questionable foreign body (insulin needle tip) in the right lower quadrant, present on admission: Reviewed x-rays from the [facility] and there does appear to be a possible linear density in the right lower quadrant. Difficult to say for sure on exam with the abdomen. No apparent foreign body on the crosstable lateral. 11 abdominal discomfort, nausea. resolved constipated with higher dose of amitiza. Add Zofran to Reglan, prob component of gastroparesis Comment Review of Relevant I have reviewed the following items ann-marie (where applicable) has been applied. Labs Laboratory Tests Test 09/16/16 20:41 09/17/16 03:15 09/17/16 03:30 09/17/16 04:54 Glucose (Fingerstick) 149mg/dL (70-99) 78mg/dL (70-99) 114mg/dL (70-99) Sodium Level 141mmol/L (136-145) Potassium Level 3.7mmol/L (3.5-5.1) Chloride Level 98mmol/L (98-107) Carbon Dioxide Level 42mmol/L (21-32) Anion Gap 1 (6-14) Blood Urea Nitrogen 22mg/dL (7-20) Creatinine 1.2mg/dL (0.6-1.0) Estimated GFR (Cockcroft-Gault) 54.1 Glucose Level 114mg/dL (70-99) Calcium Level 9.3mg/dL (8.5-10.1) Magnesium Level 1.8mg/dL (1.8-2.4) Test 09/17/16 08:51 09/17/16 11:20 09/17/16 16:49 09/17/16 20:32 Glucose (Fingerstick) 138mg/dL (70-99) 145mg/dL (70-99) 165mg/dL (70-99) 188mg/dL (70-99) Test 09/18/16 02:45 09/18/16 08:01 09/18/16 11:21 Sodium Level 141mmol/L (136-145) Potassium Level 3.2mmol/L (3.5-5.1) Chloride Level 96mmol/L (98-107) Carbon Dioxide Level 43mmol/L (21-32) Anion Gap 2 (6-14) Blood Urea Nitrogen 25mg/dL (7-20) Creatinine 1.1mg/dL (0.6-1.0) Estimated GFR (Cockcroft-Gault) 59.8 Glucose Level 176mg/dL (70-99) Calcium Level 9.1mg/dL (8.5-10.1) Glucose (Fingerstick) 185mg/dL (70-99) 184mg/dL (70-99) Laboratory Tests Test 09/17/16 16:49 09/17/16 20:32 09/18/16 02:45 09/18/16 08:01 Glucose (Fingerstick) 165mg/dL (70-99) 188mg/dL (70-99) 185mg/dL (70-99) Sodium Level 141mmol/L (136-145) Potassium Level 3.2mmol/L (3.5-5.1) Chloride Level 96mmol/L (98-107) Carbon Dioxide Level 43mmol/L (21-32) Anion Gap 2 (6-14) Blood Urea Nitrogen 25mg/dL (7-20) Creatinine 1.1mg/dL (0.6-1.0) Estimated GFR (Cockcroft-Gault) 59.8 Glucose Level 176mg/dL (70-99) Calcium Level 9.1mg/dL (8.5-10.1) Test 09/18/16 11:21 Glucose (Fingerstick) 184mg/dL (70-99) Microbiology 09/10/16 Urine Culture - Final, Complete 09/10/16 Urine Culture Result 1 (MERCEDES) - Final, Complete Medications Current Medications Furosemide (Lasix) 40 mg 1X ONCE IVP Last administered on 09/10/16 14:33; Start 09/10/16 at 14:15; Stop 09/10/16 at 14:16; Status DC Furosemide (Lasix) 40 mg 1X ONCE IVP ; Start 09/10/16 at 16:15; Stop 09/10/16 at 16:19; Status DC Acetaminophen (Tylenol) 650 mg PRN Q6HRS PRN PO MILD PAIN / TEMP Last administered on 09/17/16 10:27; Start 09/10/16 at 19:45 Amlodipine Besylate (Norvasc) 10 mg DAILY PO Last administered on 09/18/16 10: 09; Start 09/11/16 at 09:00 Aspirin (Ecotrin) 81 mg DAILYWBKFT PO Last administered on 09/18/16 10:02; Start 09/11/16 at 08:00 Atorvastatin Calcium (Lipitor) 40 mg HS PO Last administered on 09/17/16 21:57 ; Start 09/10/16 at 21:00 Carbamazepine (Tegretol) 200 mg BID PO Last administered on 09/18/16 10:12; Start 09/10/16 at 21:00 Citalopram Hydrobromide (Celexa) 20 mg DAILY PO Last administered on 09/18/16 10:07; Start 09/11/16 at 09:00 Clopidogrel Bisulfate (Plavix) 75 mg DAILYWBKFT PO Last administered on 10:03; Start 09/11/16 at 08:00 Dorzolamide/ Timolol (Cosopt) 1 drop BID OU Last administered on 09/18/16 10: 05; Start 09/10/16 at 21:00 Insulin Aspart Prota 70%/Aspart 30% (Novolog Mix 70-30) 15 units BIDAC SQ Last administered on 09/11/16 09:18; Start 09/11/16 at 07:30; Stop 09/11/16 at 13:24; Status DC Latanoprost (Xalatan) 1 drop HS OU Last administered on 09/17/16 21:58; Start 09/10/16 at 21:00 Lisinopril (Prinivil) 40 mg DAILY PO Last administered on 09/18/16 10:10; Start 09/11/16 at 09:00 Lubiprostone (Amitiza) 8 mcg BIDWMEALS PO Last administered on 09/12/16 18:10; Start 09/11/16 at 08:00; Stop 09/13/16 at 08:35; Status DC Pantoprazole Sodium (Protonix) 40 mg HS PO Last administered on 09/17/16 21:59 ; Start 09/10/16 at 21:00 Hydralazine HCl (Apresoline) 100 mg TID PO Last administered on 09/18/16 13:48 ; Start 09/10/16 at 21:00 Labetalol HCl (Trandate) 300 mg BID PO Last administered on 09/13/16 09:04; Start 09/10/16 at 21:00; Stop 09/13/16 at 14:51; Status DC Albuterol Sulfate (Ventolin Neb Soln) 2.5 mg RTQID PRN NEB DYSPNEA/SOB Last administered on 09/13/16 08:12; Start 09/10/16 at 20:00; Stop 09/13/16 at 08:39; Status DC Furosemide (Lasix) 40 mg BID92 PO ; Start 09/11/16 at 09:00; Stop 09/11/16 at 09: 00; Status DC Acetaminophen/ Hydrocodone Bitart (Lortab 5/325) 1 tab PRN Q6HRS PRN PO MODERATE PAIN Last administered on 09/18/16 12:57; Start 09/10/16 at 21:00 Acetaminophen/ Hydrocodone Bitart (Lortab 5/325) 2 tab PRN Q6HRS PRN PO SEVERE PAIN Last administered on 09/12/16 09:18; Start 09/10/16 at 21:00 Furosemide (Lasix) 40 mg BID92 IVP Last administered on 09/12/16 09:20; Start 09/11/16 at 09:00; Stop 09/12/16 at 13:40; Status DC Clonidine HCl (Catapres) 0.1 mg PRN Q6HRS PRN PO HYPERTENSION, SEE COMMENTS; Start 09/10/16 at 22:45 Potassium Chloride (Klor-Con) 20 meq BID PO Last administered on 09/12/16 21:20 ; Start 09/11/16 at 13:15; Stop 09/13/16 at 08:16; Status DC Vitamin D (Vitamin D3) 1,000 unit DAILY PO Last administered on 09/18/16 10:15 ; Start 09/12/16 at 09:00 Albuterol Sulfate (Ventolin Neb Soln) 2.5 mg PRN QID PRN NEB SHORTNESS OF BREATH Last administered on 09/15/16 21:14; Start 09/11/16 at 13:45 Insulin Aspart Prota 70%/Aspart 30% (Novolog Mix 70-30) 15 units DAILYWSUP SQ Last administered on 09/16/16 17:50; Start 09/11/16 at 17:00 Insulin Aspart Prota 70%/Aspart 30% (Novolog Mix 70-30) 25 units DAILYWBKFT SQ Last administered on 09/18/16 10:28; Start 09/12/16 at 08:00 Insulin Aspart (Novolog) 0-7 UNITS TIDWMEALS SQ Last administered on 09/18/16 13:07; Start 09/11/16 at 17:00 Dextrose 12.5 gm PRN Q15MIN PRN IV SEE COMMENTS; Start 09/11/16 at 13:30 Enoxaparin Sodium (Lovenox Per Pharmacy Prophylaxis Dosing) 1 each PRN DAILY PRN MC SEE COMMENTS; Start 09/11/16 at 13:30; Stop 09/11/16 at 13:39; Status DC Diclofenac Sodium (Voltaren) 1 gary BID TP Last administered on 09/16/16 21:11; Start 09/11/16 at 21:00 Iohexol (Omnipaque 300 Mg/ml) 75 ml 1X ONCE IV ; Start 09/11/16 at 13:45; Stop 09/11/16 at 13:46; Status DC Enoxaparin Sodium (Lovenox 40mg Syringe) 40 mg Q24H SQ Last administered on 09/12 15:30; Start 09/11/16 at 14:00; Stop 09/13/16 at 13:16; Status DC Doxycycline Hyclate (Vibra-Tab) 100 mg BID PO Last administered on 09/18/16 10 :14; Start 09/11/16 at 21:00 Furosemide (Lasix) 60 mg TID IVP Last administered on 09/18/16 13:47; Start at 14:00 Lactulose 10 gm BID PRN PO CONSTIPATION Last administered on 09/12/16 21:21; Start 09/12/16 at 13:45 Potassium Chloride (Klor-Con) 20 meq TID PO Last administered on 09/16/16 08:24 ; Start 09/13/16 at 09:00; Stop 09/16/16 at 09:14; Status DC Lubiprostone (Amitiza) 24 mcg BIDWMEALS PO Last administered on 09/14/16 17:33 ; Start 09/13/16 at 08:30; Stop 09/15/16 at 07:41; Status DC Bisacodyl (Dulcolax Supp) 10 mg PRN DAILY PRN SD CONSTIPATION; Start 09/13/16 at 08:30 Bisacodyl (Dulcolax Supp) 10 mg 1X ONCE SD Last administered on 09/13/16 10:05 ; Start 09/13/16 at 08:30; Stop 09/13/16 at 08:39; Status DC Enoxaparin Sodium (Lovenox 40mg Syringe) 40 mg Q12H SQ Last administered on 10:16; Start 09/13/16 at 13:16 Labetalol HCl 400 mg 400 mg BID PO Last administered on 09/18/16 10:14; Start 09/13/16 at 21:00 Magnesium Sulfate/ Dextrose (Magnesium Sulfate PREMIX 4GM) 100 ml @ 25 mls/hr 1X ONCE IV Last administered on 09/14/16 17:33; Start 09/14/16 at 16:00; Stop 09/14/16 at 19:59; Status DC Lubiprostone 8 mcg 8 mcg BIDWMEALS PO Last administered on 09/16/16 08:27; Start 09/15/16 at 08:00; Stop 09/16/16 at 15:03; Status DC Magnesium Sulfate/ Dextrose (Magnesium Sulfate PREMIX 2GM) 50 ml @ 25 mls/hr 1X ONCE IV Last administered on 09/15/16 09:18; Start 09/15/16 at 09:00; Stop 09/15/16 at 10:59; Status DC Potassium Chloride 20 meq 20 meq 1X ONCE PO Last administered on 09/15/16 09: 19; Start 09/15/16 at 08:30; Stop 09/15/16 at 08:31; Status DC Magnesium Sulfate/ Dextrose (Magnesium Sulfate PREMIX 2GM) 50 ml @ 25 mls/hr 1X ONCE IV Last administered on 09/15/16 15:30; Start 09/15/16 at 15:30; Stop 09/15/16 at 17:29; Status DC Metolazone (Zaroxolyn) 5 mg DAILY PO Last administered on 09/18/16 10:15; Start 09/15/16 at 17:00 Potassium Chloride (Klor-Con) 40 meq TID PO Last administered on 09/16/16 21:10 ; Start 09/16/16 at 14:00; Stop 09/16/16 at 21:01; Status DC Potassium Chloride (Klor-Con) 40 meq BID94 PO Last administered on 09/18/16 10 :08; Start 09/17/16 at 09:00 Ondansetron HCl (Zofran) 4 mg PRN Q6HRS PRN IV NAUSEA/VOMITING Last administered on 09/17/16 13:53; Start 09/16/16 at 14:45 Lubiprostone (Amitiza) 24 mcg BIDWMEALS PO Last administered on 09/17/16 17:37 ; Start 09/16/16 at 17:00 Albuterol/ Ipratropium (Duoneb) 3 ml RTQID NEB Last administered on 09/18/16 12:19; Start 09/16/16 at 16:00 Sodium Chloride (Saline Mist Nasal) 1 gary PRN Q1HR PRN NS NASAL CONGESTION; Start 09/16/16 at 15:00 Metoclopramide HCl (Reglan) 5 mg PRN BFRMEALHC PRN PO NAUSEA/VOMITING; Start at 18:15 Metoclopramide HCl (Reglan) 5 mg 1X ONCE PO Last administered on 09/17/16 19: 11; Start 09/17/16 at 18:30; Stop 09/17/16 at 18:31; Status DC Active Scripts Active Acyclovir 200 Mg Capsule 800 Mg PO [id number] Aspirin Ec (Aspirin) 81 Mg Tablet.dr 81 Mg PO DAILYWBKFT Furosemide 40 Mg Tablet 40 Mg PO DAILY Hydralazine Hcl 100 Mg Tablet 1 Tab PO TID Labetalol Hcl 300 Mg Tablet 1 Tab PO BID Amitiza (Lubiprostone) 8 Mcg Capsule 8 Mcg PO BIDWMEALS Klor-Con M20 (Potassium Chloride) 20 Meq Tab.er.prt 1 Tab PO BID Novolog Mix 70-30 Flexpen Syrn (Insuln Asp Prt/Insulin Aspart) 100 Unit/1 Ml Insuln.pen 15 Unit SQ BIDAC Lisinopril 40 Mg Tablet 1 Tab PO DAILY Voltaren (Diclofenac Sodium) 100 Gm Gel..gram. 1 Gary TP BID Mapap (Acetaminophen) 325 Mg Tablet 650 Mg PO PRN Q6HRS PRN [facility] [place] 5-325 Tablet (Acetaminophen/Hydrocodone Bitart) 1 Each Tablet 1-2 Tab PO Q4-6HRS Plavix (Clopidogrel Bisulfate) 75 Mg Tablet 75 Mg PO DAILYWBKFT Protonix (Pantoprazole Sodium) 40 Mg Tablet 40 Mg PO HS Xalatan (Latanoprost) 1 Drop Drops 1 Drop OU HS Dorzolamide-Timolol Eye Drops (Dorzolamide Hcl/Timolol Maleat) 1 Drop Drops 1 Drop OU BID Tegretol (Carbamazepine) 200 Mg Tablet 200 Mg PO BID Lipitor (Atorvastatin Calcium) 40 Mg Tablet 40 Mg PO HS Norvasc (Amlodipine Besylate) 10 Mg Tablet 10 Mg PO DAILY [Albuterol Sulfate] 2.5 MG/3 ML Nebu 2.5 Mg NEB PRN QID PRN Reported Refresh Plus (Carboxymethylcellulose Sodium) 1 Each Droperette 1 Each OP Not given here Continue as previously directed Vitamin D (Cholecalciferol (Vitamin D3)) 2,000 Unit Capsule 1 Cap PO DAILY Gave this morning Take tomorrow morning Celexa (Citalopram Hydrobromide) 20 Mg Tablet 20 Mg PO DAILY Gave this morning Take tomorrow morning Spiriva (Tiotropium [place]) 18 Mcg Cap.w.dev 1 Cap IH DAILY Not given here Continue as previously directed Vitals/I & O Vital Sign - Last 24 Hours 09/17/16 09/17/16 09/17/16 09/17/16 19:00 20:00 20:32 21:56 Temp 99.7 99.7 Pulse 74 66 Resp 18 B/P 158/63 150/65 Pulse Ox 96 95 O2 Delivery Room Air Nasal Cannula Nasal Cannula O2 Flow Rate 2.0 2.0 09/17/16 09/17/16 09/17/16 09/17/16 21:57 22:25 23:00 23:30 Temp 98.1 98.1 Pulse 66 71 Resp 20 18 20 B/P 150/65 147/61 Pulse Ox 95 97 O2 Delivery Nasal Cannula Room Air Nasal Cannula O2 Flow Rate 2.0 2.0 09/18/16 09/18/16 09/18/16 09/18/16 03:00 07:40 08:32 10:07 Temp 98.0 98.1 98.0 98.1 Pulse 69 72 72 Resp 18 16 B/P 160/63 169/79 119/79 Pulse Ox 98 78 97 O2 Delivery Room Air Room Air Room Air 09/18/16 09/18/16 09/18/16 09/18/16 10:09 10:10 10:14 11:25 Temp 98.2 98.2 Pulse 72 72 72 71 Resp 17 B/P 119/79 119/79 119/79 141/58 Pulse Ox 94 O2 Delivery Room Air 09/18/16 09/18/16 09/18/16 09/18/16 12:20 12:57 13:48 14:50 Temp 98.2 98.2 Pulse 71 69 Resp 20 20 B/P 141/58 117/54 Pulse Ox 78 95 100 O2 Delivery Nasal Cannula Room Air O2 Flow Rate 2.0 Intake and Output 09/17/16 09/17/16 09/18/16 15:00 23:00 07:00 Intake Total 240 ml 1495 ml 450 ml Output Total 1600 ml Balance 240 ml -105 ml 450 ml Heber BLOOM MD Sep 18, 2016 16:00
[2016-09-18 19:00] VITALS: BP 139/64
[2016-09-18] MEDS: ATORVASTATIN CALCIUM 40 MG TABLET. PO SCH (21:04)
[2016-09-18] MEDS: PANTOPRAZOLE 40 MG TABLET. PO SCH (21:04)
[2016-09-18] MEDS: LATANOPROST 0.005% OPHTH SOLUTION 2.5ML BOTTLE. OU SCH (21:05)
[2016-09-18 23:00] VITALS: BP 129/55
[2016-09-19 03:00] VITALS: BP 128/62
[2016-09-19] MEDS: ONDANSETRON PF 4 MG/2 ML VIAL. IV PRN (03:03)
[2016-09-19 07:00] VITALS: BP 166/71
[2016-09-19] MEDS: IPRATRPIUM/ALBUTEROL 0.5/2.5MG 3 ML NEBU. NEB SCH ×4 (07:25→19:29)
[2016-09-19] MEDS: INSULIN ASPART 300 UNITS/3 ML INSULN.PEN SQ SCH ×3 (09:55→17:00)
[2016-09-19] MEDS: INSULN ASP PRT/INSULIN ASPART 300 UNITS/3 ML INSULN.PEN. SQ SCH ×2 (09:56→17:08)
[2016-09-19] MEDS: LUBIPROSTONE 8 MCG CAPSULE PO SCH ×2 (09:58→16:59)
[2016-09-19] MEDS: ASPIRIN ENTERIC COATED 81 MG TABLET.DR. PO SCH (09:59)
[2016-09-19] MEDS: CLOPIDOGREL BISULFATE 75 MG TABLET PO SCH (09:59)
[2016-09-19] MEDS: FUROSEMIDE 40 MG/4 ML VIAL IVP SCH ×3 (10:00→22:41)
[2016-09-19] MEDS: DORZOLAMIDE/TIMOLOL 2%/0.5% OPHTH SOLUTION 10ML BOTTLE. OU SCH ×2 (10:02→22:41)
[2016-09-19] MEDS: HYDRALAZINE 50 MG TABLET PO SCH ×3 (10:03→22:44)
[2016-09-19] MEDS: CITALOPRAM 20 MG TABLET. PO SCH (10:03)
[2016-09-19] MEDS: POTASSIUM CHLORIDE 20 MEQ TABLET.ER. PO SCH ×2 (10:04→16:59)
[2016-09-19] MEDS: AMLODIPINE BESYLATE 10 MG TABLET PO SCH (10:05)
[2016-09-19] MEDS: CARBAMAZEPINE 200 MG TABLET. PO SCH ×2 (10:06→22:45)
[2016-09-19] MEDS: LISINOPRIL 40 MG TABLET. PO SCH (10:06)
[2016-09-19] MEDS: CHOLECALCIFEROL (VITAMIN D3) 1,000 UNIT TABLET PO SCH (10:07)
[2016-09-19] MEDS: DOXYCYCLINE HYCLATE 100 MG TABLET PO SCH ×2 (10:07→23:19)
[2016-09-19] MEDS: LABETALOL HCL 200 MG TABLET PO SCH ×2 (10:07→23:18)
[2016-09-19] MEDS: ENOXAPARIN 40 MG/0.4 ML DISP.SYRIN. SQ SCH ×2 (10:08→22:46)
[2016-09-19] MEDS: METOLAZONE 2.5 MG TABLET PO SCH (10:08)
[2016-09-19] MEDS: DICLOFENAC SODIUM 1% TOPICAL GEL 100GM TUBE. TP SCH ×2 (10:09→21:00)
[2016-09-19 11:00] VITALS: BP 140/61
[2016-09-19] MEDS: HYDROCODONE/APAP 5/325MG TABLET. PO PRN ×2 (12:51→23:17)
--- NOTE | 2016-09-19 14:14 | PDOC ---
PROGRESS NOTES Subjective Subjective She continues to diurese, weight now down 27 lbs since admission. She still has not been out of bed though and is weak Objective Objective Vital Signs Date Time Temp Pulse Resp B/P Pulse Ox O2 Delivery O2 Flow Rate FiO2 09/19/16 12:51 20 99 Nasal Cannula 2.0 09/19/16 11:00 98.1 140/61 98.1 09/19/16 10:07 73 Intake and Output 09/19/16 07:00 Intake Total 870 ml Output Total 5025 ml Balance -4155 ml Intake Oral 870 ml Output Urine Total 5025 ml # Bowel Movements 3 Physical Exam Abdomen: Normal bowel sounds, Soft Heart: Regular rate Extremities: No clubbing, No cyanosis, Other (improved edema) General: Alert, Oriented X3, Cooperative HEENT: Atraumatic Lungs: Clear to auscultation Neck: Supple Neuro: Other (unable to sit up in bed) Psych/Mental Status: Mental status NL, Mood NL Skin: Other (scratch larsen right chest wall withut yeast skin changes or shingles lesions) Assessment Assessment Problems 1. Acute on chronic systolic congestive heart failure: 27 lb weight loss so far on Lasix 60 mg 3 times a day and zaroxolyn. Kidney function stable. May consider Bumex depending on cardiology recommendations. cont to replace potassium. NABIL edouard when strength improves 2. COPD with acute exacerbation with history of pulmonary hypertension: Continue breathing treatments and supplemental oxygen. She is on an oral antibiotic for possible mild bronchitis exacerbation present on admission. 3. Mildly elevated troponins with a history of nonsignificant coronary artery disease on catheterization within the last year: Minimal elevation. Likely not ischemia secondary to catheterization in July which did not show significant coronary artery disease 5. Diabetes mellitus type 2: Okay control with usual home medication regimen. 6. Elevated d-dimer: CT of the chest did not show pulmonary embolism and lower extremity ultrasound was limited but did not show evidence of DVT. Continue prophylactic Lovenox while in the hospital with decreased mobility. 7. Moderately severe protein malnutrition: Discussed need for adequate protein intake. Nutrition consult. 8. Anemia: Stable. 9. Debilitation: PT and OT. 10. Questionable foreign body (insulin needle tip) in the right lower quadrant, present on admission: Reviewed x-rays from the [facility] and there does appear to be a possible linear density in the right lower quadrant. Difficult to say for sure on exam with the abdomen. No apparent foreign body on the crosstable lateral. 11 abdominal discomfort, nausea with hx of constipation. Continue with higher dose of amitiza. Give 1 dose of Reglan and then every 6 hours when necessary. prob component of gastroparesis Comment Review of Relevant I have reviewed the following items ann-marie (where applicable) has been applied. Labs Laboratory Tests Test 09/17/16 16:49 09/17/16 20:32 09/18/16 02:45 09/18/16 08:01 Glucose (Fingerstick) 165mg/dL (70-99) 188mg/dL (70-99) 185mg/dL (70-99) Sodium Level 141mmol/L (136-145) Potassium Level 3.2mmol/L (3.5-5.1) Chloride Level 96mmol/L (98-107) Carbon Dioxide Level 43mmol/L (21-32) Anion Gap 2 (6-14) Blood Urea Nitrogen 25mg/dL (7-20) Creatinine 1.1mg/dL (0.6-1.0) Estimated GFR (Cockcroft-Gault) 59.8 Glucose Level 176mg/dL (70-99) Calcium Level 9.1mg/dL (8.5-10.1) Test 09/18/16 11:21 09/18/16 16:41 09/18/16 20:57 09/18/16 21:19 Glucose (Fingerstick) 184mg/dL (70-99) 113mg/dL (70-99) 68mg/dL (70-99) 75mg/dL (70-99) Test 09/19/16 07:32 09/19/16 11:24 Glucose (Fingerstick) 107mg/dL (70-99) 175mg/dL (70-99) Laboratory Tests Test 09/18/16 16:41 09/18/16 20:57 09/18/16 21:19 09/19/16 07:32 Glucose (Fingerstick) 113mg/dL (70-99) 68mg/dL (70-99) 75mg/dL (70-99) 107mg/dL (70-99) Test 09/19/16 11:24 Glucose (Fingerstick) 175mg/dL (70-99) Microbiology 09/10/16 Urine Culture - Final, Complete 09/10/16 Urine Culture Result 1 (MERCEDES) - Final, Complete Medications Current Medications Furosemide (Lasix) 40 mg 1X ONCE IVP Last administered on 09/10/16 14:33; Start 09/10/16 at 14:15; Stop 09/10/16 at 14:16; Status DC Furosemide (Lasix) 40 mg 1X ONCE IVP ; Start 09/10/16 at 16:15; Stop 09/10/16 at 16:19; Status DC Acetaminophen (Tylenol) 650 mg PRN Q6HRS PRN PO MILD PAIN / TEMP Last administered on 09/17/16 10:27; Start 09/10/16 at 19:45 Amlodipine Besylate (Norvasc) 10 mg DAILY PO Last administered on 09/19/16 10: 05; Start 09/11/16 at 09:00 Aspirin (Ecotrin) 81 mg DAILYWBKFT PO Last administered on 09/19/16 09:59; Start 09/11/16 at 08:00 Atorvastatin Calcium (Lipitor) 40 mg HS PO Last administered on 09/18/16 21:04 ; Start 09/10/16 at 21:00 Carbamazepine (Tegretol) 200 mg BID PO Last administered on 09/19/16 10:06; Start 09/10/16 at 21:00 Citalopram Hydrobromide (Celexa) 20 mg DAILY PO Last administered on 09/19/16 10:03; Start 09/11/16 at 09:00 Clopidogrel Bisulfate (Plavix) 75 mg DAILYWBKFT PO Last administered on 09:59; Start 09/11/16 at 08:00 Dorzolamide/ Timolol (Cosopt) 1 drop BID OU Last administered on 09/19/16 10: 02; Start 09/10/16 at 21:00 Insulin Aspart Prota 70%/Aspart 30% (Novolog Mix 70-30) 15 units BIDAC SQ Last administered on 09/11/16 09:18; Start 09/11/16 at 07:30; Stop 09/11/16 at 13:24; Status DC Latanoprost (Xalatan) 1 drop HS OU Last administered on 09/18/16 21:05; Start 09/10/16 at 21:00 Lisinopril (Prinivil) 40 mg DAILY PO Last administered on 09/19/16 10:06; Start 09/11/16 at 09:00 Lubiprostone (Amitiza) 8 mcg BIDWMEALS PO Last administered on 09/12/16 18:10; Start 09/11/16 at 08:00; Stop 09/13/16 at 08:35; Status DC Pantoprazole Sodium (Protonix) 40 mg HS PO Last administered on 09/18/16 21:04 ; Start 09/10/16 at 21:00 Hydralazine HCl (Apresoline) 100 mg TID PO Last administered on 09/19/16 10:03 ; Start 09/10/16 at 21:00 Labetalol HCl (Trandate) 300 mg BID PO Last administered on 09/13/16 09:04; Start 09/10/16 at 21:00; Stop 09/13/16 at 14:51; Status DC Albuterol Sulfate (Ventolin Neb Soln) 2.5 mg RTQID PRN NEB DYSPNEA/SOB Last administered on 09/13/16 08:12; Start 09/10/16 at 20:00; Stop 09/13/16 at 08:39; Status DC Furosemide (Lasix) 40 mg BID92 PO ; Start 09/11/16 at 09:00; Stop 09/11/16 at 09: 00; Status DC Acetaminophen/ Hydrocodone Bitart (Lortab 5/325) 1 tab PRN Q6HRS PRN PO MODERATE PAIN Last administered on 09/19/16 12:51; Start 09/10/16 at 21:00 Acetaminophen/ Hydrocodone Bitart (Lortab 5/325) 2 tab PRN Q6HRS PRN PO SEVERE PAIN Last administered on 09/12/16 09:18; Start 09/10/16 at 21:00 Furosemide (Lasix) 40 mg BID92 IVP Last administered on 09/12/16 09:20; Start 09/11/16 at 09:00; Stop 09/12/16 at 13:40; Status DC Clonidine HCl (Catapres) 0.1 mg PRN Q6HRS PRN PO HYPERTENSION, SEE COMMENTS; Start 09/10/16 at 22:45 Potassium Chloride (Klor-Con) 20 meq BID PO Last administered on 09/12/16 21:20 ; Start 09/11/16 at 13:15; Stop 09/13/16 at 08:16; Status DC Vitamin D (Vitamin D3) 1,000 unit DAILY PO Last administered on 09/19/16 10:07 ; Start 09/12/16 at 09:00 Albuterol Sulfate (Ventolin Neb Soln) 2.5 mg PRN QID PRN NEB SHORTNESS OF BREATH Last administered on 09/15/16 21:14; Start 09/11/16 at 13:45 Insulin Aspart Prota 70%/Aspart 30% (Novolog Mix 70-30) 15 units DAILYWSUP SQ Last administered on 09/18/16 17:07; Start 09/11/16 at 17:00 Insulin Aspart Prota 70%/Aspart 30% (Novolog Mix 70-30) 25 units DAILYWBKFT SQ Last administered on 09/18/16 10:28; Start 09/12/16 at 08:00 Insulin Aspart (Novolog) 0-7 UNITS TIDWMEALS SQ Last administered on 09/18/16 13:07; Start 09/11/16 at 17:00 Dextrose 12.5 gm PRN Q15MIN PRN IV SEE COMMENTS; Start 09/11/16 at 13:30 Enoxaparin Sodium (Lovenox Per Pharmacy Prophylaxis Dosing) 1 each PRN DAILY PRN MC SEE COMMENTS; Start 09/11/16 at 13:30; Stop 09/11/16 at 13:39; Status DC Diclofenac Sodium (Voltaren) 1 gary BID TP Last administered on 09/16/16 21:11; Start 09/11/16 at 21:00 Iohexol (Omnipaque 300 Mg/ml) 75 ml 1X ONCE IV ; Start 09/11/16 at 13:45; Stop 09/11/16 at 13:46; Status DC Enoxaparin Sodium (Lovenox 40mg Syringe) 40 mg Q24H SQ Last administered on 09/12 15:30; Start 09/11/16 at 14:00; Stop 09/13/16 at 13:16; Status DC Doxycycline Hyclate (Vibra-Tab) 100 mg BID PO Last administered on 09/19/16 10 :07; Start 09/11/16 at 21:00 Furosemide (Lasix) 60 mg TID IVP Last administered on 09/19/16 10:00; Start at 14:00 Lactulose 10 gm BID PRN PO CONSTIPATION Last administered on 09/12/16 21:21; Start 09/12/16 at 13:45 Potassium Chloride (Klor-Con) 20 meq TID PO Last administered on 09/16/16 08:24 ; Start 09/13/16 at 09:00; Stop 09/16/16 at 09:14; Status DC Lubiprostone (Amitiza) 24 mcg BIDWMEALS PO Last administered on 09/14/16 17:33 ; Start 09/13/16 at 08:30; Stop 09/15/16 at 07:41; Status DC Bisacodyl (Dulcolax Supp) 10 mg PRN DAILY PRN MO CONSTIPATION; Start 09/13/16 at 08:30 Bisacodyl (Dulcolax Supp) 10 mg 1X ONCE MO Last administered on 09/13/16 10:05 ; Start 09/13/16 at 08:30; Stop 09/13/16 at 08:39; Status DC Enoxaparin Sodium (Lovenox 40mg Syringe) 40 mg Q12H SQ Last administered on 10:08; Start 09/13/16 at 13:16 Labetalol HCl 400 mg 400 mg BID PO Last administered on 09/19/16 10:07; Start 09/13/16 at 21:00 Magnesium Sulfate/ Dextrose (Magnesium Sulfate PREMIX 4GM) 100 ml @ 25 mls/hr 1X ONCE IV Last administered on 09/14/16 17:33; Start 09/14/16 at 16:00; Stop 09/14/16 at 19:59; Status DC Lubiprostone 8 mcg 8 mcg BIDWMEALS PO Last administered on 09/16/16 08:27; Start 09/15/16 at 08:00; Stop 09/16/16 at 15:03; Status DC Magnesium Sulfate/ Dextrose (Magnesium Sulfate PREMIX 2GM) 50 ml @ 25 mls/hr 1X ONCE IV Last administered on 09/15/16 09:18; Start 09/15/16 at 09:00; Stop 09/15/16 at 10:59; Status DC Potassium Chloride 20 meq 20 meq 1X ONCE PO Last administered on 09/15/16 09: 19; Start 09/15/16 at 08:30; Stop 09/15/16 at 08:31; Status DC Magnesium Sulfate/ Dextrose (Magnesium Sulfate PREMIX 2GM) 50 ml @ 25 mls/hr 1X ONCE IV Last administered on 09/15/16 15:30; Start 09/15/16 at 15:30; Stop 09/15/16 at 17:29; Status DC Metolazone (Zaroxolyn) 5 mg DAILY PO Last administered on 09/19/16 10:08; Start 09/15/16 at 17:00 Potassium Chloride (Klor-Con) 40 meq TID PO Last administered on 09/16/16 21:10 ; Start 09/16/16 at 14:00; Stop 09/16/16 at 21:01; Status DC Potassium Chloride (Klor-Con) 40 meq BID94 PO Last administered on 09/19/16 10 :04; Start 09/17/16 at 09:00 Ondansetron HCl (Zofran) 4 mg PRN Q6HRS PRN IV NAUSEA/VOMITING Last administered on 09/19/16 03:03; Start 09/16/16 at 14:45 Lubiprostone (Amitiza) 24 mcg BIDWMEALS PO Last administered on 09/19/16 09:58 ; Start 09/16/16 at 17:00 Albuterol/ Ipratropium (Duoneb) 3 ml RTQID NEB Last administered on 09/19/16 07:25; Start 09/16/16 at 16:00 Sodium Chloride (Saline Mist Nasal) 1 gary PRN Q1HR PRN NS NASAL CONGESTION; Start 09/16/16 at 15:00 Metoclopramide HCl (Reglan) 5 mg PRN BFRMEALHC PRN PO NAUSEA/VOMITING; Start at 18:15 Metoclopramide HCl (Reglan) 5 mg 1X ONCE PO Last administered on 09/17/16 19: 11; Start 09/17/16 at 18:30; Stop 09/17/16 at 18:31; Status DC Nystatin (Mycostatin) 1 gary BID TP ; Start 09/19/16 at 21:00; Status UNV Active Scripts Active Acyclovir 200 Mg Capsule 800 Mg PO [id number] Aspirin Ec (Aspirin) 81 Mg Tablet.dr 81 Mg PO DAILYWBKFT Furosemide 40 Mg Tablet 40 Mg PO DAILY Hydralazine Hcl 100 Mg Tablet 1 Tab PO TID Labetalol Hcl 300 Mg Tablet 1 Tab PO BID Amitiza (Lubiprostone) 8 Mcg Capsule 8 Mcg PO BIDWMEALS Klor-Con M20 (Potassium Chloride) 20 Meq Tab.er.prt 1 Tab PO BID Novolog Mix 70-30 Flexpen Syrn (Insuln Asp Prt/Insulin Aspart) 100 Unit/1 Ml Insuln.pen 15 Unit SQ BIDAC Lisinopril 40 Mg Tablet 1 Tab PO DAILY Voltaren (Diclofenac Sodium) 100 Gm Gel..gram. 1 Gary TP BID Mapap (Acetaminophen) 325 Mg Tablet 650 Mg PO PRN Q6HRS PRN [place] 5-325 Tablet (Acetaminophen/Hydrocodone Bitart) 1 Each Tablet 1-2 Tab PO Q4-6HRS Plavix (Clopidogrel Bisulfate) 75 Mg Tablet 75 Mg PO DAILYWBKFT Protonix (Pantoprazole Sodium) 40 Mg Tablet 40 Mg PO HS Xalatan (Latanoprost) 1 Drop Drops 1 Drop OU HS Dorzolamide-Timolol Eye Drops (Dorzolamide Hcl/Timolol Maleat) 1 Drop Drops 1 Drop OU BID Tegretol (Carbamazepine) 200 Mg Tablet 200 Mg PO BID Lipitor (Atorvastatin Calcium) 40 Mg Tablet 40 Mg PO HS Norvasc (Amlodipine Besylate) 10 Mg Tablet 10 Mg PO DAILY [Albuterol Sulfate] 2.5 MG/3 ML Nebu 2.5 Mg NEB PRN QID PRN Reported Refresh Plus (Carboxymethylcellulose Sodium) 1 Each Droperette 1 Each OP Not given here Continue as previously directed Vitamin D (Cholecalciferol (Vitamin D3)) 2,000 Unit Capsule 1 Cap PO DAILY Gave this morning Take tomorrow morning Celexa (Citalopram Hydrobromide) 20 Mg Tablet 20 Mg PO DAILY Gave this morning Take tomorrow morning Spiriva (Tiotropium Hoffman) 18 Mcg Cap.w.dev 1 Cap IH DAILY Not given here Continue as previously directed Vitals/I & O Vital Sign - Last 24 Hours 09/18/16 09/18/16 09/18/16 09/18/16 14:50 16:57 19:00 19:39 Temp 98.2 98.5 98.2 98.5 Pulse 69 73 Resp 20 18 B/P 117/54 139/64 Pulse Ox 100 92 96 O2 Delivery Nasal Cannula Room Air Nasal Cannula O2 Flow Rate 2.0 2.0 09/18/16 09/18/16 09/18/16 09/18/16 20:00 21:06 21:06 21:46 Pulse 73 73 B/P 139/64 139/64 Pulse Ox 96 O2 Delivery Nasal Cannula Nasal Cannula O2 Flow Rate 2.0 2.0 09/18/16 09/18/16 09/19/16 09/19/16 22:46 23:00 03:00 07:00 Temp 99.1 98.1 98.1 99.1 98.1 98.1 Pulse 74 68 73 Resp 18 18 18 B/P 129/55 128/62 166/71 Pulse Ox 96 97 91 94 O2 Delivery Nasal Cannula Room Air Room Air Nasal Cannula O2 Flow Rate 2.0 2.0 09/19/16 09/19/16 09/19/16 09/19/16 07:26 10:03 10:05 10:06 Pulse 73 73 73 B/P 166/71 166/71 166/71 Pulse Ox 99 O2 Delivery Nasal Cannula O2 Flow Rate 2.0 09/19/16 09/19/16 09/19/16 10:07 11:00 12:51 Temp 98.1 98.1 Pulse 73 Resp 20 B/P 166/71 140/61 Pulse Ox 96 99 O2 Delivery Nasal Cannula Nasal Cannula O2 Flow Rate 2.0 2.0 Intake and Output 09/18/16 09/18/16 09/19/16 15:00 23:00 07:00 Intake Total 870 ml Output Total 1850 ml 1750 ml 1425 ml Balance -1850 ml -880 ml -1425 ml Heber BLOOM MD Sep 19, 2016 14:14
[2016-09-19] MEDS: NYSTATIN 100,000 UNIT/GM TOPICAL CREAM 15GM TUBE. TP SCH ×2 (14:58→22:47)
[2016-09-19 15:00] VITALS: BP 115/61
[2016-09-19 19:00] VITALS: BP 143/55
[2016-09-19] MEDS: LATANOPROST 0.005% OPHTH SOLUTION 2.5ML BOTTLE. OU SCH (22:41)
[2016-09-19] MEDS: ATORVASTATIN CALCIUM 40 MG TABLET. PO SCH (22:44)
[2016-09-19 23:00] VITALS: BP 114/61
[2016-09-19] MEDS: PANTOPRAZOLE 40 MG TABLET. PO SCH (23:17)
[2016-09-20] VITALS (7 sets, daily range): BP systolic 98–178; BP diastolic 45–77
[2016-09-20] MEDS: ONDANSETRON PF 4 MG/2 ML VIAL. IV PRN ×3 (01:12→20:26)
[2016-09-20 05:53] LABS: BASO % 1 % (0-3); EOS % 2 % (0-3); HEMATOCRIT 30.7 % (36.0-47.0); HEMOGLOBIN 9.6 g/dL (12.0-15.5); LYMPH # 1.2 x10^3/uL (1.0-4.8); LYMPH % 29 % (24-48); MEAN CORPUSCULAR HEMOGLOBIN 24 pg (25-35); MEAN CORPUSCULAR HGB CONC 31 g/dL (31-37); MEAN CORPUSCULAR VOLUME 78 fL (79-100); MONO % 18 % (0-9); NEUT % 50 % (31-73); PLATELET COUNT 211 x10^3/uL (140-400); RED BLOOD COUNT 3.95 x10^6/uL (3.50-5.40); RED CELL DISTRIBUTION WIDTH 20.1 % (11.5-14.5); WHITE BLOOD COUNT 4.2 x10^3/uL (4.0-11.0)
[2016-09-20 06:33] LABS: ALBUMIN 2.8 g/dL (3.4-5.0); ALBUMIN/GLOBULIN RATIO 0.8 (1.0-1.7); CALCIUM 9.2 mg/dL (8.5-10.1); GFR 66.7; POTASSIUM 3.1 mmol/L (3.5-5.1); TOTAL BILIRUBIN 0.5 mg/dL (0.2-1.0); TOTAL PROTEIN 6.4 g/dL (6.4-8.2)
[2016-09-20] MEDS: IPRATRPIUM/ALBUTEROL 0.5/2.5MG 3 ML NEBU. NEB SCH ×4 (07:49→18:39)
[2016-09-20] MEDS: INSULIN ASPART 300 UNITS/3 ML INSULN.PEN SQ SCH ×3 (08:00→16:46)
[2016-09-20] MEDS: INSULN ASP PRT/INSULIN ASPART 300 UNITS/3 ML INSULN.PEN. SQ SCH ×2 (08:00→17:00)
[2016-09-20] MEDS: FUROSEMIDE 40 MG/4 ML VIAL IVP SCH ×3 (08:32→20:26)
[2016-09-20] MEDS: LUBIPROSTONE 8 MCG CAPSULE PO SCH ×2 (08:33→17:51)
[2016-09-20] MEDS: METOLAZONE 2.5 MG TABLET PO SCH (08:34)
[2016-09-20] MEDS: DOXYCYCLINE HYCLATE 100 MG TABLET PO SCH ×2 (08:34→22:21)
[2016-09-20] MEDS: ASPIRIN ENTERIC COATED 81 MG TABLET.DR. PO SCH (08:35)
[2016-09-20] MEDS: CARBAMAZEPINE 200 MG TABLET. PO SCH ×2 (08:35→22:21)
[2016-09-20] MEDS: AMLODIPINE BESYLATE 10 MG TABLET PO SCH (08:35)
[2016-09-20] MEDS: CLOPIDOGREL BISULFATE 75 MG TABLET PO SCH (08:35)
[2016-09-20] MEDS: CITALOPRAM 20 MG TABLET. PO SCH (08:35)
[2016-09-20] MEDS: CHOLECALCIFEROL (VITAMIN D3) 1,000 UNIT TABLET PO SCH (08:35)
[2016-09-20] MEDS: ENOXAPARIN 40 MG/0.4 ML DISP.SYRIN. SQ SCH ×2 (08:37→21:00)
--- NOTE | 2016-09-20 08:37 | PDOC ---
SUBJECTIVE Subjective Hasn't really been out of bed yet. Breathing is better. She is having bowel movements. She is eating a little bit. Swelling is improved in her legs. OBJECTIVE Vital Signs Vital Signs Date Time Temp Pulse Resp B/P Pulse Ox O2 Delivery O2 Flow Rate FiO2 09/20/16 07:50 99 Nasal Cannula 2.0 09/20/16 07:25 98.1 113 18 98/54 92 Nasal Cannula 2.0 98.1 09/20/16 03:00 97.5 69 18 117/45 97 Nasal Cannula 2.0 97.5 09/20/16 00:17 18 97 2.0 09/19/16 23:18 79 114/61 09/19/16 23:17 18 Room Air 09/19/16 23:00 97.9 71 18 114/61 92 Nasal Cannula 2.0 97.9 09/19/16 22:44 71 114/61 09/19/16 20:00 Nasal Cannula 2.0 09/19/16 19:30 Nasal Cannula 2.0 09/19/16 19:00 98.1 69 18 143/55 99 Nasal Cannula 2.0 98.1 09/19/16 15:00 97.5 69 16 115/61 100 Nasal Cannula 2.0 97.5 09/19/16 14:57 73 140/61 09/19/16 13:51 Nasal Cannula 09/19/16 12:51 20 99 Nasal Cannula 2.0 09/19/16 11:00 98.1 140/61 96 Nasal Cannula 2.0 98.1 09/19/16 10:07 73 166/71 09/19/16 10:06 73 166/71 09/19/16 10:05 73 166/71 09/19/16 10:03 73 166/71 I & O Intake and Output 09/20/16 07:00 Intake Total 1080 ml Output Total 3300 ml Balance -2220 ml Intake Oral 1080 ml Output Urine Total 3300 ml PHYSICAL EXAM Physical Exam General: No acute distress. Laying in bed. Nasal cannula oxygen on Mental status: Alert and oriented Chest: Air movement: Decreased throughout but better overall. Auscultation : clear anteriorly Cardiovascular: Rate: normal. Rhythm: regular. Murmur: none. Abdomen: Bowel sounds: Occasional. Soft. Nondistended. Tenderness: nontender to palpation. No guarding. No rebound. Extremities: Improving lower extremity edema bilaterally. ASSESSMENT/PLAN Assessment/Plan 1. Acute on chronic systolic congestive heart failure: 27 lb weight loss so far on Lasix 60 mg 3 times a day and zaroxolyn. Kidney function stable. May consider Bumex depending on cardiology recommendations. cont to replace potassium. Try to DC Scherer today. 2. COPD with acute exacerbation with history of pulmonary hypertension: Continue breathing treatments and supplemental oxygen. She is on an oral antibiotic for possible mild bronchitis exacerbation present on admission. 3. Mildly elevated troponins with a history of nonsignificant coronary artery disease on catheterization within the last year: Minimal elevation. Likely not ischemia secondary to catheterization in July which did not show significant coronary artery disease 5. Diabetes mellitus type 2: Okay control with usual home medication regimen. 6. Elevated d-dimer: CT of the chest did not show pulmonary embolism and lower extremity ultrasound was limited but did not show evidence of DVT. Continue prophylactic Lovenox while in the hospital with decreased mobility. 7. Moderately severe protein malnutrition: Discussed need for adequate protein intake. Nutrition consult. 8. Anemia: Stable. 9. Debilitation: PT and OT. 10. Questionable foreign body (insulin needle tip) in the right lower quadrant, present on admission: Reviewed x-rays from the [facility] and there does appear to be a possible linear density in the right lower quadrant. Difficult to say for sure on exam with the abdomen. No apparent foreign body on the crosstable lateral. 11 abdominal discomfort, nausea with hx of constipation. Continue with higher dose of amitiza. Give 1 dose of Reglan and then every 6 hours when necessary. prob component of gastroparesis 12. Disposition: Hopefully home tomorrow with home health nurse. We'll see how she does with physical therapy today. She's been resistant to going to halfway facility. Problems: COMMENT Lab Laboratory Tests Test 09/19/16 11:24 09/19/16 15:59 09/19/16 21:00 09/20/16 05:10 Glucose (Fingerstick) 175mg/dL (70-99) 238mg/dL (70-99) 237mg/dL (70-99) White Blood Count 4.2x10^3/uL (4.0-11.0) Red Blood Count 3.95x10^6/uL (3.50-5.40) Hemoglobin 9.6g/dL (12.0-15.5) Hematocrit 30.7% (36.0-47.0) Mean Corpuscular Volume 78fL (79-100) Mean Corpuscular Hemoglobin 24pg (25-35) Mean Corpuscular Hemoglobin Concent 31g/dL (31-37) Red Cell Distribution Width 20.1% (11.5-14.5) Platelet Count 211x10^3/uL (140-400) Neutrophils (%) (Auto) 50% (31-73) Lymphocytes (%) (Auto) 29% (24-48) Monocytes (%) (Auto) 18% (0-9) Eosinophils (%) (Auto) 2% (0-3) Basophils (%) (Auto) 1% (0-3) Neutrophils # (Auto) 2.1x10^3uL (1.8-7.7) Lymphocytes # (Auto) 1.2x10^3/uL (1.0-4.8) Monocytes # (Auto) 0.7x10^3/uL (0.0-1.1) Eosinophils # (Auto) 0.1x10^3/uL (0.0-0.7) Basophils # (Auto) 0.0x10^3/uL (0.0-0.2) Sodium Level 140mmol/L (136-145) Potassium Level 3.1mmol/L (3.5-5.1) Chloride Level 92mmol/L (98-107) Carbon Dioxide Level 45mmol/L (21-32) Anion Gap 3 (6-14) Blood Urea Nitrogen 22mg/dL (7-20) Creatinine 1.0mg/dL (0.6-1.0) Estimated GFR (Cockcroft-Gault) 66.7 BUN/Creatinine Ratio 22 (6-20) Glucose Level 145mg/dL (70-99) Calcium Level 9.2mg/dL (8.5-10.1) Total Bilirubin 0.5mg/dL (0.2-1.0) Aspartate Amino Transf (AST/SGOT) 17U/L (15-37) Alanine Aminotransferase (ALT/SGPT) 14U/L (14-59) Alkaline Phosphatase 97U/L (46-116) Total Protein 6.4g/dL (6.4-8.2) Albumin 2.8g/dL (3.4-5.0) Albumin/Globulin Ratio 0.8 (1.0-1.7) Test 09/20/16 07:41 Glucose (Fingerstick) 154mg/dL (70-99) LISA MORILLO MD Sep 20, 2016 08:37
[2016-09-20] MEDS: DICLOFENAC SODIUM 1% TOPICAL GEL 100GM TUBE. TP SCH ×3 (08:44→21:00)
[2016-09-20] MEDS: NYSTATIN 100,000 UNIT/GM TOPICAL CREAM 15GM TUBE. TP SCH ×2 (08:44→22:22)
[2016-09-20] MEDS: DORZOLAMIDE/TIMOLOL 2%/0.5% OPHTH SOLUTION 10ML BOTTLE. OU SCH ×2 (08:45→22:22)
[2016-09-20] MEDS: HYDRALAZINE 50 MG TABLET PO SCH ×4 (09:00→20:28)
[2016-09-20] MEDS: LABETALOL HCL 200 MG TABLET PO SCH ×3 (09:00→20:27)
[2016-09-20] MEDS: LISINOPRIL 40 MG TABLET. PO SCH (09:00)
[2016-09-20] MEDS: POTASSIUM CHLORIDE 20 MEQ TABLET.ER. PO SCH ×3 (09:00→22:21)
[2016-09-20] MEDS ORDERED: MAG HYDROX/ALUMINUM HYD/SIMETH 30 ML ORAL.SUSP PO ONE (17:45)
[2016-09-20] MEDS: HYDROCODONE/APAP 5/325MG TABLET. PO PRN (17:52)
[2016-09-20] MEDS: LATANOPROST 0.005% OPHTH SOLUTION 2.5ML BOTTLE. OU SCH (20:29)
[2016-09-20] MEDS: PANTOPRAZOLE 40 MG TABLET. PO SCH (22:21)
[2016-09-20] MEDS: ATORVASTATIN CALCIUM 40 MG TABLET. PO SCH (22:21)
[2016-09-21 06:28] LABS: BLOOD UREA NITROGEN 18 mg/dL (7-20); CALCIUM 9.5 mg/dL (8.5-10.1); CHLORIDE 91 mmol/L (98-107); GFR 66.7; GLUCOSE 131 mg/dL (70-99); POTASSIUM 3.4 mmol/L (3.5-5.1); SODIUM 141 mmol/L (136-145)
[2016-09-21 06:30] LABS: CARBON DIOXIDE > 45 mmol/L (21-32)
[2016-09-21 07:37] VITALS: BP 108/48
[2016-09-21] MEDS: ONDANSETRON PF 4 MG/2 ML VIAL. IV PRN (07:54)
[2016-09-21] MEDS: HYDROCODONE/APAP 5/325MG TABLET. PO PRN (07:55)
[2016-09-21] MEDS: INSULIN ASPART 300 UNITS/3 ML INSULN.PEN SQ SCH ×3 (08:00→17:00)
[2016-09-21] MEDS: IPRATRPIUM/ALBUTEROL 0.5/2.5MG 3 ML NEBU. NEB SCH ×4 (08:07→18:11)
[2016-09-21] MEDS: DICLOFENAC SODIUM 1% TOPICAL GEL 100GM TUBE. TP SCH ×3 (09:00→22:16)
[2016-09-21] MEDS: NYSTATIN 100,000 UNIT/GM TOPICAL CREAM 15GM TUBE. TP SCH ×3 (09:18→22:17)
[2016-09-21] MEDS: LATANOPROST 0.005% OPHTH SOLUTION 2.5ML BOTTLE. OU SCH (09:18)
[2016-09-21] MEDS: POTASSIUM CHLORIDE 20 MEQ TABLET.ER. PO SCH ×4 (09:18→22:13)
[2016-09-21] MEDS: LUBIPROSTONE 8 MCG CAPSULE PO SCH ×2 (09:19→17:00)
[2016-09-21] MEDS: CHOLECALCIFEROL (VITAMIN D3) 1,000 UNIT TABLET PO SCH (09:19)
[2016-09-21] MEDS: ASPIRIN ENTERIC COATED 81 MG TABLET.DR. PO SCH (09:19)
[2016-09-21] MEDS: LISINOPRIL 40 MG TABLET. PO SCH (09:19)
[2016-09-21] MEDS: CARBAMAZEPINE 200 MG TABLET. PO SCH ×3 (09:20→22:13)
[2016-09-21] MEDS: METOLAZONE 2.5 MG TABLET PO SCH (09:20)
[2016-09-21] MEDS: CLOPIDOGREL BISULFATE 75 MG TABLET PO SCH (09:20)
[2016-09-21] MEDS: DOXYCYCLINE HYCLATE 100 MG TABLET PO SCH (09:20)
[2016-09-21] MEDS: AMLODIPINE BESYLATE 10 MG TABLET PO SCH (09:20)
[2016-09-21] MEDS: FUROSEMIDE 40 MG/4 ML VIAL IVP SCH ×2 (09:21→14:08)
[2016-09-21] MEDS: LABETALOL HCL 200 MG TABLET PO SCH ×3 (09:21→22:14)
[2016-09-21] MEDS: ENOXAPARIN 40 MG/0.4 ML DISP.SYRIN. SQ SCH (09:22)
[2016-09-21] MEDS: DORZOLAMIDE/TIMOLOL 2%/0.5% OPHTH SOLUTION 10ML BOTTLE. OU SCH ×3 (09:23→22:15)
[2016-09-21] MEDS: CITALOPRAM 20 MG TABLET. PO SCH (09:27)
[2016-09-21] MEDS: HYDRALAZINE 50 MG TABLET PO SCH ×4 (09:27→22:15)
[2016-09-21 10:55] VITALS: BP 128/52
--- NOTE | 2016-09-21 11:48 | PDOC ---
CARDIO Progress Notes Date and Time Date of Service 09/21/2016 Time of Evaluation 1145 Subjective Subjective: No Chest Pain, No shortness of breath, Other (nausea) Vitals Vitals Vital Signs Date Time Temp Pulse Resp B/P Pulse Ox O2 Delivery O2 Flow Rate FiO2 09/21/16 09:27 81 108/48 09/21/16 08:08 94 Nasal Cannula 1.0 09/21/16 07:37 98.8 20 98.8 Weight Weight [ ] Input and Output Intake and Output Intake and Output 09/21/16 07:00 Intake Total 1320 ml Output Total 3875 ml Balance -2555 ml Intake Oral 1320 ml Output Urine Total 3525 ml Emesis 350 ml # Voids 4 # Bowel Movements 3 Laboratory Labs Laboratory Tests Test 09/20/16 16:25 09/20/16 21:16 09/21/16 05:20 09/21/16 07:38 Glucose (Fingerstick) 133mg/dL (70-99) 183mg/dL (70-99) 149mg/dL (70-99) Sodium Level 141mmol/L (136-145) Potassium Level 3.4mmol/L (3.5-5.1) Chloride Level 91mmol/L (98-107) Carbon Dioxide Level > 45mmol/L (21-32) Anion Gap (6-14) Blood Urea Nitrogen 18mg/dL (7-20) Creatinine 1.0mg/dL (0.6-1.0) Estimated GFR (Cockcroft-Gault) 66.7 Glucose Level 131mg/dL (70-99) Calcium Level 9.5mg/dL (8.5-10.1) Test 09/21/16 11:31 Glucose (Fingerstick) 194mg/dL (70-99) Microbiology Micro Microbiology 09/10/16 Urine Culture - Final, Complete 09/10/16 Urine Culture Result 1 (MERCEDES) - Final, Complete Physical Exam HEENT: Neck Supple W Full Motion Chest: Symmetric LUNGS: Other (dimished bases) Heart: S1S2, RRR, other (tele: no dysrhythmias) Abdomen: Soft N/T Neurology: alert, oriented, follow commands Assessment Assessment 1. acute on chronic systolic HF EF ~ 45% on echo 06/2016 compensated 2. HTN controlled continue with current therapy 3. non-ischemic CMP continue medical management maintain BP control 4. pulmonary HTN, severe PA - 68 mm Hg Recommend follow up in the office 4 weeks after discharge Will follow peripherally Please contact for further assistance CAROLANN HERRERA APRN Sep 21, 2016 11:48
[2016-09-21] MEDS: INSULN ASP PRT/INSULIN ASPART 300 UNITS/3 ML INSULN.PEN. SQ SCH ×2 (11:59→17:00)
--- NOTE | 2016-09-21 14:34 | PDOC ---
SUBJECTIVE Subjective Still with nausea and emesis. Not really able to keep much down and has a poor appetite. Having abdominal discomfort. He has had several bowel movements today. Breathing is doing better. Swelling in the legs is much better. OBJECTIVE Vital Signs Vital Signs Date Time Temp Pulse Resp B/P Pulse Ox O2 Delivery O2 Flow Rate FiO2 09/21/16 14:08 79 128/52 09/21/16 10:55 99.3 79 20 128/52 95 Nasal Cannula 1.0 99.3 09/21/16 09:27 81 108/48 09/21/16 09:21 81 108/48 09/21/16 09:20 81 108/48 09/21/16 09:19 81 108/48 09/21/16 08:08 94 Nasal Cannula 1.0 09/21/16 08:00 Nasal Cannula 1.0 09/21/16 07:55 Room Air 09/21/16 07:37 98.8 81 20 108/48 96 Nasal Cannula 2.0 98.8 09/20/16 23:00 97.9 79 20 148/62 95 Nasal Cannula 2.0 97.9 09/20/16 20:28 74 178/77 09/20/16 20:27 74 178/77 09/20/16 20:00 Nasal Cannula 2.0 09/20/16 19:00 98.8 74 20 178/77 100 Nasal Cannula 2.0 98.8 09/20/16 18:52 99 Nasal Cannula 1.0 09/20/16 16:10 Nasal Cannula 1.0 09/20/16 15:14 75 134/49 09/20/16 15:05 97.7 75 20 134/49 99 Nasal Cannula 2.0 97.7 I & O Intake and Output 09/21/16 07:00 Intake Total 1320 ml Output Total 3875 ml Balance -2555 ml Intake Oral 1320 ml Output Urine Total 3525 ml Emesis 350 ml # Voids 4 # Bowel Movements 3 PHYSICAL EXAM Physical Exam General: No acute distress. Laying in bed. Nasal cannula oxygen on Mental status: Alert and oriented Chest: Air movement: Decreased throughout but better overall. Auscultation : clear anteriorly Cardiovascular: Rate: normal. Rhythm: regular. Murmur: none. Abdomen: Bowel sounds: Occasional. Soft. Nondistended. Tenderness: Minimally tender primarily in the epigastric area. No guarding. No rebound. Extremities: Much improved lower extremity edema bilaterally. ASSESSMENT/PLAN Assessment/Plan 1. Acute on chronic systolic congestive heart failure: Significant improvement in edema on Lasix 60 mg 3 times a day and zaroxolyn. Kidney function stable. May consider Bumex depending on cardiology recommendations as an outpatient. cont to replace potassium. 2. COPD with acute exacerbation with history of pulmonary hypertension: Continue breathing treatments and supplemental oxygen. Finished oral antibiotics or discontinue doxycycline 3. Mildly elevated troponins with a history of nonsignificant coronary artery disease on catheterization within the last year: Minimal elevation. Likely not ischemia secondary to catheterization in July which did not show significant coronary artery disease 5. Diabetes mellitus type 2: Okay control with usual home medication regimen. 6. Elevated d-dimer: CT of the chest did not show pulmonary embolism and lower extremity ultrasound was limited but did not show evidence of DVT. Continue prophylactic Lovenox once a day while in the hospital with decreased mobility. 7. Moderately severe protein malnutrition: Discussed need for adequate protein intake. Nutrition consult. 8. Anemia: Stable. 9. Debilitation: PT and OT. 10. Questionable foreign body (insulin needle tip) in the right lower quadrant, present on admission: Reviewed x-rays from the [facility] and there does appear to be a possible linear density in the right lower quadrant. Difficult to say for sure on exam with the abdomen. No apparent foreign body on the crosstable lateral. 11 abdominal discomfort, nausea with hx of constipation. Probable component of gastroparesis. Decreased dose of MLTs she thinks it may be contributing to some of her symptoms. Can try Reglan before meals and see if that helps any with her nausea and also her bowel movements. Out of bed to chair for meals. 12. Disposition: Not radiated go home today with her not eating well. We will see how she does with the change in medications. Home with home health when she is discharged hopefully tomorrow. Problems: COMMENT Lab Laboratory Tests Test 09/20/16 16:25 09/20/16 21:16 09/21/16 05:20 09/21/16 07:38 Glucose (Fingerstick) 133mg/dL (70-99) 183mg/dL (70-99) 149mg/dL (70-99) Sodium Level 141mmol/L (136-145) Potassium Level 3.4mmol/L (3.5-5.1) Chloride Level 91mmol/L (98-107) Carbon Dioxide Level > 45mmol/L (21-32) Anion Gap (6-14) Blood Urea Nitrogen 18mg/dL (7-20) Creatinine 1.0mg/dL (0.6-1.0) Estimated GFR (Cockcroft-Gault) 66.7 Glucose Level 131mg/dL (70-99) Calcium Level 9.5mg/dL (8.5-10.1) Test 09/21/16 11:31 Glucose (Fingerstick) 194mg/dL (70-99) LISA MORILLO MD Sep 21, 2016 14:34
[2016-09-21 14:50] VITALS: BP 124/60
[2016-09-21] MEDS: ACETAMINOPHEN 325 MG TABLET. PO PRN (16:27)
[2016-09-21] MEDS: METOCLOPRAMIDE 5 MG TABLET PO SCH ×2 (16:27→21:00)
[2016-09-21 19:00] VITALS: BP 128/63
[2016-09-21] MEDS: PANTOPRAZOLE 40 MG TABLET. PO SCH ×2 (21:00→22:13)
[2016-09-21] MEDS: ATORVASTATIN CALCIUM 40 MG TABLET. PO SCH ×2 (21:00→22:12)
[2016-09-21 23:00] VITALS: BP 134/58
[2016-09-22 03:00] VITALS: BP 131/60
[2016-09-22 07:00] VITALS: BP 152/67
[2016-09-22 07:18] LABS: BLOOD UREA NITROGEN 20 mg/dL (7-20); CALCIUM 9.1 mg/dL (8.5-10.1); CHLORIDE 94 mmol/L (98-107); CREATININE 1.2 mg/dL (0.6-1.0); GFR 54.1; GLUCOSE 193 mg/dL (70-99); POTASSIUM 3.1 mmol/L (3.5-5.1); SODIUM 143 mmol/L (136-145)
[2016-09-22 07:21] LABS: CARBON DIOXIDE > 45 mmol/L (21-32)
[2016-09-22] MEDS: INSULIN ASPART 300 UNITS/3 ML INSULN.PEN SQ SCH ×3 (08:00→17:00)
[2016-09-22] MEDS: IPRATRPIUM/ALBUTEROL 0.5/2.5MG 3 ML NEBU. NEB SCH ×4 (08:00→20:00)
--- NOTE | 2016-09-22 08:26 | PDOC ---
SUBJECTIVE Subjective Less nausea and emesis last night. Still not eating very much. Diarrhea slowed down last night. Still having abdominal discomfort. Breathing is doing okay. Swelling in her legs is improved as well. OBJECTIVE Vital Signs Vital Signs Date Time Temp Pulse Resp B/P Pulse Ox O2 Delivery O2 Flow Rate FiO2 09/22/16 07:00 97.5 74 18 152/67 96 Nasal Cannula 2.0 97.5 09/22/16 03:00 98.1 72 18 131/60 90 Nasal Cannula 2.0 98.1 09/21/16 23:00 98.2 73 20 134/58 95 Nasal Cannula 2.0 98.2 09/21/16 20:00 Nasal Cannula 2.0 09/21/16 19:00 98.1 78 20 128/63 99 Nasal Cannula 1.0 98.1 09/21/16 14:50 98.2 74 20 124/60 94 Nasal Cannula 1.0 98.2 09/21/16 14:08 79 128/52 09/21/16 10:55 99.3 79 20 128/52 95 Nasal Cannula 1.0 99.3 09/21/16 09:27 81 108/48 09/21/16 09:21 81 108/48 09/21/16 09:20 81 108/48 09/21/16 09:19 81 108/48 I & O Intake and Output 09/22/16 06:59 Intake Total 1370 ml Output Total 1350 ml Balance 20 ml Intake Oral 1370 ml Output Urine Total 400 ml Urine/Stool Mix 950 ml # Voids 5 PHYSICAL EXAM Physical Exam General: No acute distress. Laying in bed. Nasal cannula oxygen on Mental status: Alert and oriented Chest: Air movement: Decreased throughout but better overall. Auscultation : clear anteriorly Cardiovascular: Rate: normal. Rhythm: regular. Murmur: none. Abdomen: Bowel sounds: Occasional. Soft. Nondistended. Tenderness: Minimal diffuse. No guarding. No rebound. Extremities: Much improved lower extremity edema bilaterally. ASSESSMENT/PLAN Assessment/Plan 1. Acute on chronic systolic congestive heart failure: Transition to oral Bumex today since she was not getting much relief with Lasix. Monitor her today to see if she still gets good urine output with the Bumex and adjust dose accordingly. Kidney function stable. cont to replace potassium. 2. COPD with acute exacerbation with history of pulmonary hypertension: Continue breathing treatments and supplemental oxygen. Finished oral antibiotics so doxycycline discontinued which may been contributing to her GI upset 3. Mildly elevated troponins with a history of nonsignificant coronary artery disease on catheterization within the last year: Minimal elevation. Likely not ischemia secondary to catheterization in July which did not show significant coronary artery disease 5. Diabetes mellitus type 2: Okay control with usual home medication regimen. 6. Elevated d-dimer: CT of the chest did not show pulmonary embolism and lower extremity ultrasound was limited but did not show evidence of DVT. Continue prophylactic Lovenox once a day while in the hospital with decreased mobility. 7. Moderately severe protein malnutrition: Discussed need for adequate protein intake. Nutrition consult. 8. Anemia: Stable. 9. Debilitation: PT and OT. 10. Questionable foreign body (insulin needle tip) in the right lower quadrant, present on admission: Reviewed x-rays from the [facility] and there does appear to be a possible linear density in the right lower quadrant. Difficult to say for sure on exam with the abdomen. No apparent foreign body on the crosstable lateral. 11 abdominal discomfort, nausea with hx of constipation. Probable component of gastroparesis. Continue with decreased dose of Amitiza. Scheduled Reglan prior to meals for now. Out of bed to chair for meals. 12. Disposition: We'll monitor her today while she is on the transition to oral Bumex and using Reglan. Would like her to be able to tolerate by mouth fairly well. We will see how she does with the change in medications. Home with home health when she is discharged hopefully tomorrow. Problems: COMMENT Lab Laboratory Tests Test 09/21/16 11:31 09/21/16 16:37 09/21/16 20:56 09/22/16 06:45 Glucose (Fingerstick) 194mg/dL (70-99) 109mg/dL (70-99) 173mg/dL (70-99) Sodium Level 143mmol/L (136-145) Potassium Level 3.1mmol/L (3.5-5.1) Chloride Level 94mmol/L (98-107) Carbon Dioxide Level > 45mmol/L (21-32) Anion Gap (6-14) Blood Urea Nitrogen 20mg/dL (7-20) Creatinine 1.2mg/dL (0.6-1.0) Estimated GFR (Cockcroft-Gault) 54.1 Glucose Level 193mg/dL (70-99) Calcium Level 9.1mg/dL (8.5-10.1) LISA MORILLO MD Sep 22, 2016 08:26
[2016-09-22] MEDS: DICLOFENAC SODIUM 1% TOPICAL GEL 100GM TUBE. TP SCH ×2 (09:00→21:00)
[2016-09-22] MEDS: DORZOLAMIDE/TIMOLOL 2%/0.5% OPHTH SOLUTION 10ML BOTTLE. OU SCH ×2 (09:12→22:04)
[2016-09-22] MEDS: NYSTATIN 100,000 UNIT/GM TOPICAL CREAM 15GM TUBE. TP SCH ×2 (09:12→22:04)
[2016-09-22] MEDS: ASPIRIN ENTERIC COATED 81 MG TABLET.DR. PO SCH (09:13)
[2016-09-22] MEDS: LUBIPROSTONE 8 MCG CAPSULE PO SCH ×2 (09:13→17:00)
[2016-09-22] MEDS: METOCLOPRAMIDE 5 MG TABLET PO SCH ×4 (09:13→22:02)
[2016-09-22] MEDS: CLOPIDOGREL BISULFATE 75 MG TABLET PO SCH (09:13)
[2016-09-22] MEDS: CITALOPRAM 20 MG TABLET. PO SCH (09:14)
[2016-09-22] MEDS: HYDRALAZINE 50 MG TABLET PO SCH ×3 (09:14→21:00)
[2016-09-22] MEDS: POTASSIUM CHLORIDE 20 MEQ TABLET.ER. PO SCH ×3 (09:14→22:01)
[2016-09-22] MEDS: AMLODIPINE BESYLATE 10 MG TABLET PO SCH (09:15)
[2016-09-22] MEDS: CARBAMAZEPINE 200 MG TABLET. PO SCH ×2 (09:15→22:02)
[2016-09-22] MEDS: LISINOPRIL 40 MG TABLET. PO SCH (09:15)
[2016-09-22] MEDS: CHOLECALCIFEROL (VITAMIN D3) 1,000 UNIT TABLET PO SCH (09:15)
[2016-09-22] MEDS: LABETALOL HCL 200 MG TABLET PO SCH ×2 (09:15→21:00)
[2016-09-22] MEDS: METOLAZONE 2.5 MG TABLET PO SCH (09:16)
[2016-09-22] MEDS: BUMETANIDE 1 MG TABLET PO SCH (09:18)
[2016-09-22] MEDS: ENOXAPARIN 40 MG/0.4 ML DISP.SYRIN. SQ SCH (09:19)
[2016-09-22] MEDS: INSULN ASP PRT/INSULIN ASPART 300 UNITS/3 ML INSULN.PEN. SQ SCH ×2 (09:27→17:57)
[2016-09-22 11:01] VITALS: BP 150/65
[2016-09-22] MEDS: ONDANSETRON PF 4 MG/2 ML VIAL. IV PRN (12:21)
[2016-09-22 15:00] VITALS: BP 109/43
[2016-09-22] MEDS: ALBUTEROL SULFATE 2.5 MG/3 ML NEBU. NEB PRN (16:23)
[2016-09-22 19:00] VITALS: BP 97/58
[2016-09-22] MEDS: ACETAMINOPHEN 325 MG TABLET. PO PRN (21:59)
[2016-09-22] MEDS: PANTOPRAZOLE 40 MG TABLET. PO SCH (22:00)
[2016-09-22] MEDS: ATORVASTATIN CALCIUM 40 MG TABLET. PO SCH (22:00)
[2016-09-22] MEDS: LATANOPROST 0.005% OPHTH SOLUTION 2.5ML BOTTLE. OU SCH (22:07)
[2016-09-22 23:00] VITALS: BP 162/74
[2016-09-23 03:00] VITALS: BP 132/62
[2016-09-23 07:00] VITALS: BP 159/83
[2016-09-23] MEDS: ALBUTEROL SULFATE 2.5 MG/3 ML NEBU. NEB PRN (07:51)
[2016-09-23] MEDS: IPRATRPIUM/ALBUTEROL 0.5/2.5MG 3 ML NEBU. NEB SCH ×3 (07:52→16:00)
[2016-09-23] MEDS: INSULIN ASPART 300 UNITS/3 ML INSULN.PEN SQ SCH ×2 (08:00→12:00)
--- NOTE | 2016-09-23 08:40 | DISCH ---
DISCHARGE DISCHARGE DATE: Sep 23, 2016 FINAL DIAGNOSIS Problems Medical Problems: (1) Anemia Status: Acute (2) CHF (congestive heart failure) Status: Acute (3) Hypertension Status: Acute CONDITION ON DISCHARGE: Stable HOME HEALTH: Yes (needs nurse, physical therapy, occupational therapy) PT. HAS FUNCTIONAL LIMITATIONS: Yes FACE TO FACE ENCOUNTER: Yes POST DISCHARGE ORDERS ACTIVITY ORDERS: Activity as tolerated WEIGHT BEARING STATUS: As tolerated, Non weight bearing DIET AFTER DISCHARGE: ADA CHECKS AFTER DISCHARGE CHECKS AFTER DISCHARGE: Check blood press - daily, Check blood sugar, ac/hs FOLLOW-UP PHYSICIAN FOLLOW-UP: Dr. Morillo in 1-2 weeks LAB ORDERS FOR FOLLOW-UP: BMP in 1 week TREATMENT/EQUIPMENT ORDERS ADAPTIVE EQUIPMENT NEEDED: Raised toilet seat w/arms, Walker, Wheelchair RESPIRATORY EQUIPMENT NEEDED: Oxygen LISA MORILLO MD Sep 23, 2016 08:40
[2016-09-23] MEDS: CITALOPRAM 20 MG TABLET. PO SCH (08:41)
[2016-09-23] MEDS: METOCLOPRAMIDE 5 MG TABLET PO SCH ×3 (08:41→16:26)
[2016-09-23] MEDS: ASPIRIN ENTERIC COATED 81 MG TABLET.DR. PO SCH (08:41)
[2016-09-23] MEDS: CLOPIDOGREL BISULFATE 75 MG TABLET PO SCH (08:41)
[2016-09-23] MEDS: METOLAZONE 2.5 MG TABLET PO SCH (08:41)
[2016-09-23] MEDS: POTASSIUM CHLORIDE 20 MEQ TABLET.ER. PO SCH ×2 (08:42→13:50)
[2016-09-23] MEDS: HYDRALAZINE 50 MG TABLET PO SCH ×2 (08:43→13:52)
[2016-09-23] MEDS: LUBIPROSTONE 8 MCG CAPSULE PO SCH (08:43)
[2016-09-23] MEDS: BUMETANIDE 1 MG TABLET PO SCH (08:43)
[2016-09-23] MEDS: LISINOPRIL 40 MG TABLET. PO SCH (08:44)
[2016-09-23] MEDS: AMLODIPINE BESYLATE 10 MG TABLET PO SCH (08:44)
[2016-09-23] MEDS: CHOLECALCIFEROL (VITAMIN D3) 1,000 UNIT TABLET PO SCH (08:44)
[2016-09-23] MEDS: CARBAMAZEPINE 200 MG TABLET. PO SCH (08:44)
[2016-09-23] MEDS: DICLOFENAC SODIUM 1% TOPICAL GEL 100GM TUBE. TP SCH (08:45)
[2016-09-23] MEDS: ENOXAPARIN 40 MG/0.4 ML DISP.SYRIN. SQ SCH (08:45)
[2016-09-23] MEDS: NYSTATIN 100,000 UNIT/GM TOPICAL CREAM 15GM TUBE. TP SCH (08:45)
[2016-09-23] MEDS: DORZOLAMIDE/TIMOLOL 2%/0.5% OPHTH SOLUTION 10ML BOTTLE. OU SCH (08:46)
[2016-09-23] MEDS: LABETALOL HCL 200 MG TABLET PO SCH (08:46)
--- NOTE | 2016-09-23 08:49 | PDOC ---
Provider Note Provider Note See discharge summary dictation #[id number] LISA MORILLO MD Sep 23, 2016 08:49
[2016-09-23] MEDS: INSULN ASP PRT/INSULIN ASPART 300 UNITS/3 ML INSULN.PEN. SQ SCH (09:06)
[2016-09-23 11:00] VITALS: BP 134/67
[2016-09-23] MEDS: ACETAMINOPHEN 325 MG TABLET. PO PRN (12:13)
[2016-09-23] MEDS ORDERED: LABE200T2 PO (12:58)
[2016-09-23 15:00] VITALS: BP 135/55
--- NOTE | 2016-09-23 20:08 | DS ---
DATE OF DISCHARGE: 09/23/2016 ATTENDING PHYSICIAN: Dr. Lisa Morillo. CHIEF COMPLAINT: Shortness of breath. HISTORY OF PRESENT ILLNESS: The patient is a 66-year-old female who had a fall when trying to stand up from the commode and she could not get her breath after that. She had been having increasing shortness of breath and increasing lower extremity edema over the week prior to admission. Due to her difficulty, she was brought to the hospital for evaluation. HOSPITAL COURSE: The patient was admitted and it was noted that she was in acute on chronic systolic congestive heart failure with significant swelling up to the abdominal wall. She received supplemental oxygen and she was seen in consultation with Cardiology. She was diuresed initially with IV Lasix, but she did not have good response so that was tartrate upward. She still had fair response so then Zaroxolyn was added. She had good diuresis after that point in time. Her weight is recorded in the vital signs had decreased approximately 53 pounds over the course of the hospitalization, she had improvement in her breathing. She did have a mild bronchitis at the time of admission that was treated with doxycycline. She did have GI upset, some of that was related to medications probably. She also had constipation and her bowel regimen was adjusted. She has a chronic problem with that. She did have improvement in that. She did not have any chest pain. She did have a mildly elevated D-dimer at the time of admission, but the CT of the chest did not show any pulmonary embolism in the lower extremity. Ultrasound not show any evidence of DVT. She did have moderately severe protein malnutrition and front end web developer was consulted. Her anemia remains stable. She had elevated troponins, it was felt to be significant with a catheterization without any significant coronary disease noted approximately 3 months ago. At the time of discharge, the patient was tolerating her diet without too much difficulty. Her breathing was much improved. Her swelling was significantly improved. She was afebrile. PHYSICAL EXAMINATION: VITAL SIGNS: Stable. GENERAL: She was alert, in no distress. CHEST: Clear to auscultation except for decreased breath sounds at the bases. HEART: Had a regular rate and rhythm without murmur. ABDOMEN: Soft with minimal epigastric tenderness. There is no guarding or rebound. There is no pitting edema as was noted on admission. EXTREMITIES: Had significantly improved lower extremity edema with only a trace of residual edema in the legs at this time. DISCHARGE DIAGNOSES: 1. Acute on chronic systolic congestive heart failure. 2. Chronic obstructive pulmonary disease with acute exacerbation with a history of pulmonary hypertension. 3. Mildly elevated troponins without any significance. 4. Diabetes mellitus type 2. 5. Elevated D-dimer without any evidence of deep vein thrombosis. 6. Moderately severe protein malnutrition. 7. Anemia. 8. Debilitation. 9. Nausea and vomiting, likely due to gastroparesis secondary to her diabetes. DISCHARGE DIET: Diabetic diet. DISCHARGE ACTIVITY: As tolerated. She was always limited in her activity, arrangements will be made for home health physical therapy and occupational therapy as well as long term. FOLLOWUP: The patient will follow up in the office in 1-2 weeks. We will have a home health out as noted above. She will need to have a basic metabolic panel done at approximately 1 week. DISCHARGE MEDICATIONS: At the time of discharge include, Tylenol 650 mg p.o. q.6h. p.r.n., albuterol nebulizer treatments q.i.d. p.r.n., Norvasc 10 mg p.o. daily, aspirin 81 mg p.o. daily, Lipitor 40 mg p.o. daily, Tegretol 200 mg p.o. b.i.d., vitamin D 1000 units p.o. daily, Celexa 20 mg p.o. daily, Plavix 75 mg p.o. daily, diclofenac topical 1% topical b.i.d. to affected joints, Cosopt one drop bilaterally b.i.d., hydralazine 100 mg p.o. t.i.d., [place] 5/325 one to two p.o. q.6h. p.r.n. #30 written for NovoLog 70/30 mix 25 units subcutaneously in the morning and 15 units subcutaneously in the evening, labetalol was increased to 200 mg 2 p.o. b.i.d., Xalatan one drop each eye at bedtime, lisinopril 40 mg p.o. daily, Amitiza was decreased back to 8 mcg p.o. b.i.d., Reglan 5 mg p.o. q.a.c. and at bedtime p.r.n., Zaroxolyn 5 mg p.o. daily, Protonix 40 mg p.o. daily, Bumex 2 mg p.o. daily, Spiriva 1 puff p.o. daily, potassium chloride 20 mEq p.o. b.i.d. LISA MORILLO MD DR: MONA/beth JOB#: [id number] / [id number] RIKA
== END 2016-09-23 17:00 | disposition home health service (06) | DRG 291 ==
LOC: ER 13:53 → 2 NORTH 14:42 → 5 NORTH 09-17 11:15
PROVIDERS: ADMIT Family Medicine; ATTEND Family Medicine
DX: I50.23 Acute on chronic systolic (congestive) heart failure (principal); J96.20 Acute and chronic respiratory failure, unspecified whether with hypoxia or hypercapnia; E43 Unspecified severe protein-calorie malnutrition; I13.0 Hypertensive heart and chronic kidney disease with heart failure and stage 1 through stage 4 chronic kidney disease, or unspecified chronic kidney disease; J44.1 Chronic obstructive pulmonary disease with (acute) exacerbation; I42.9 Cardiomyopathy, unspecified; E78.5 Hyperlipidemia, unspecified; E83.42 Hypomagnesemia; G47.33 Obstructive sleep apnea (adult) (pediatric); I07.1 Rheumatic tricuspid insufficiency; I25.10 Atherosclerotic heart disease of native coronary artery without angina pectoris; I27.2 Other secondary pulmonary hypertension; K21.9 Gastro-esophageal reflux disease without esophagitis; K31.84 Gastroparesis; F32.9 Major depressive disorder, single episode, unspecified; F41.9 Anxiety disorder, unspecified; M19.90 Unspecified osteoarthritis, unspecified site; M48.06 Spinal stenosis, lumbar region; E78.00 Pure hypercholesterolemia, unspecified; E11.51 Type 2 diabetes mellitus with diabetic peripheral angiopathy without gangrene; N18.9 Chronic kidney disease, unspecified; E11.22 Type 2 diabetes mellitus with diabetic chronic kidney disease; E11.43 Type 2 diabetes mellitus with diabetic autonomic (poly)neuropathy; D64.9 Anemia, unspecified; M54.5 Low back pain; K59.00 Constipation, unspecified; Z82.49 Family history of ischemic heart disease and other diseases of the circulatory system; Z86.73 Personal history of transient ischemic attack (TIA), and cerebral infarction without residual deficits; Z87.891 Personal history of nicotine dependence; Z88.0 Allergy status to penicillin; Z95.5 Presence of coronary angioplasty implant and graft; Z88.5 Allergy status to narcotic agent; Z90.710 Acquired absence of both cervix and uterus; Z90.49 Acquired absence of other specified parts of digestive tract; Z68.33 Body mass index [BMI] 33.0-33.9, adult; Z79.4 Long term (current) use of insulin; Z79.82 Long term (current) use of aspirin; J40 Bronchitis, not specified as acute or chronic
CPT/HCPCS: 36415; 71010; 71275; 74000; 80048; 80053; 81001; 82805; 82947; 83735; 83880; 84484; 85007; 85027; 85379; 85610; 85730; 87086; 93005; 93970; 94250; 94640; 94760; 96374; J1650; J1815; J1940; J2405; J3475; J7060; J7620; J8597; 97116; 97530; 97535; 99285-25

== ENCOUNTER → 2016-11-12 | Outpatient (CLI) | payer MEDICARE, OTHER ==
[~2016-11-12] MED LIST changes: +LABE200T2 PO
--- NOTE | 2016-11-12 12:19 | RAD ---
DATE: 11/12/2016 EXAM: DIGITAL SCREEN BILAT W/CAD HISTORY: Routine screening COMPARISON: 06/16/2012 This study was interpreted with the benefit of Computerized Aided Detection (CAD). FINDINGS: There are scattered fibroglandular densities in the breasts. No new or enlarging breast densities are seen. Benign type calcifications are present. No suspicious microcalcifications have developed. IMPRESSION: Stable mammograms without evidence of malignancy. BI-RADS CATEGORY: 2 BENIGN FINDING(S) RECOMMENDED FOLLOW-UP: 12M 12 MONTH FOLLOW-UP PQRS compliance statement: Patient information was entered into a reminder system with a target due date for the next mammogram. Mammography is a sensitive method for finding small breast cancers, but it does not detect them all and is not a substitute for careful clinical examination. A negative mammogram does not negate a clinically suspicious finding and should not result in delay in biopsying a clinically suspicious abnormality. "Our facility is accredited by the [employer] Mammography Program."
== END | disposition home or self-care (01) ==
LOC: MAMMO 11:04
PROVIDERS: ATTEND Family Medicine
DX: Z12.31 Encounter for screening mammogram for malignant neoplasm of breast (principal)
CPT/HCPCS: G0202; 77067

== ENCOUNTER 2016-11-16 16:37 | Inpatient (IN) | payer OTHER ==
[~2016-11-16] VITALS: Ht 160 cm; Wt 91.2 kg
--- NOTE | 2016-11-16 17:10 | ED.ADGEN ---
Past Medical History Past Medical History: Arthritis, CAD, CHF, CVA, Diabetes-Type I, DVT, GERD, High Cholesterol, Heart Disease, Hypertension, Renal Disease, Stroke, Vascular Disease Past Surgical History: Appendectomy, Cholecystectomy, Hysterectomy, Other Additional Past Surgical Histo: VASCULAR SURGERY, BACK SURGERY Alcohol Use: None Drug Use: None Adult General Chief Complaint Chief Complaint: WEAKNESS/GENERALIZED HPI HPI Patient is a 66 year old woman, history of CHF, COPD, CAD, hypertension, obesity, hyperlipidemia, DVT, who presents to the emergency department with a complaint of weakness leading to a fall. Patient states that she stood up from using the bedside commode, was feeling weak, slightly short of breath, and fell backwards, rolling her left ankle. She is complaining of pain along the entire left side of her leg, and in her left side chest and back. Patient struck the left side of her body against the commode in the floor. Patient's caretakers were present but were unable to catch her. Patient denies hitting her head or neck, denies any headache or loss of consciousness, denies any neck pain, denies any preceding chest pain, vertiginous type symptoms, any vision changes, any focal weakness numbness or tingling. She has noted increased swelling in her lower extremities and some increasing shortness of breath with activity is over the past several days. Patient is on oxygen at baseline. Patient states that her last admission to the Hospital about a month ago for congestive heart failure, she did have changes in her medication, however she states these medication changes were not continued after her last evaluation by her primary care provider several weeks ago. She states this time she is only taking Lasix at home. She states she is taking Lasix 20 mg once daily. Review of Systems Review of Systems Constitutional: Denies fever or chills. [] Eyes: Denies change in visual acuity. [] HENT: Denies nasal congestion or sore throat. [] Respiratory: Denies cough, worsening shortness of breath with ambulation. Cardiovascular: Denies chest pain or edema. [] GI: Denies abdominal pain, nausea, vomiting, bloody stools or diarrhea. [] : Denies dysuria. [] Musculoskeletal: Back and left rib pain, pain in the left lower extremity. Integument: Denies rash. [] Neurologic: Denies headache, focal weakness or sensory changes. [] Endocrine: Denies polyuria or polydipsia. [] Lymphatic: Denies swollen glands. [] Psychiatric: Denies depression or anxiety. [] Current Medications Current Medications Current Medications Medications (Trade) Dose Ordered Sig/Aliza Start Time Stop Time Status Last Admin Dose Admin Oxycodone/ Acetaminophen (Percocet 5/325) 1 tab 1X ONCE 11/16/16 19:30 11/16/16 19:31 DC 11/16/16 19:26 1 TAB Allergies Allergies Allergies Coded Allergies Type Severity Reaction Last Updated Verified Penicillins Allergy Intermediate 02/14/14 Yes codeine Allergy Intermediate morphine, lortab ok 11/27/15 Yes Physical Exam Physical Exam Constitutional: Well developed, well nourished, no acute distress, non-toxic appearance. [] HENT: Normocephalic, atraumatic, bilateral external ears normal, oropharynx moist, no oral exudates, nose normal. [] Eyes: PERRLA, EOMI, conjunctiva normal, no discharge. [] Neck: Normal range of motion, no tenderness, supple, no stridor. [] Cardiovascular:Heart rate regular rhythm, no murmur, S1, S2, rubs or gallops. [] Lungs & Thorax: Bilateral breath sounds clear to auscultation, no wheezing, rhonchi, rales. Patient is tender to palpation along the lateral left rib cage comics any towards the paraspinal muscles on the left. No crepitus, no deformities. Abdomen: Bowel sounds normal, soft, no tenderness, no masses, no pulsatile masses. [] Skin: Warm, dry, no erythema, no rash. [] Back: Tenderness palpation on the left paraspinal muscles, no cells or deformities identified. Extremities: Patient had a slip patient from the femur on the lateral aspect of the left side, to the knee into the tib-fib and ankle, patient noted to have 1+ pitting edema bilaterally, no external signs of trauma. Neurologic: Alert and oriented X 3, normal motor function, normal sensory function, no focal deficits noted. [] Psychologic: Affect normal, judgement normal, mood normal. [] Current Patient Data Vital Signs Vital Signs Date Time Temp Pulse Resp B/P Pulse Ox O2 Delivery O2 Flow Rate FiO2 11/16/16 20:30 72 20 149/75 98 Nasal Cannula 2 11/16/16 16:52 98.5 98.5 Lab Values Laboratory Tests Test 11/16/16 17:00 White Blood Count 7.2x10^3/uL (4.0-11.0) Red Blood Count 2.97x10^6/uL (3.50-5.40) L Hemoglobin 8.0g/dL (12.0-15.5) L Hematocrit 25.1% (36.0-47.0) L Mean Corpuscular Volume 84fL (79-100) Mean Corpuscular Hemoglobin 27pg (25-35) Mean Corpuscular Hemoglobin Concent 32g/dL (31-37) Red Cell Distribution Width 19.9% (11.5-14.5) H Platelet Count 187x10^3/uL (140-400) Neutrophils (%) (Auto) 72% (31-73) Lymphocytes (%) (Auto) 14% (24-48) L Monocytes (%) (Auto) 12% (0-9) H Eosinophils (%) (Auto) 2% (0-3) Basophils (%) (Auto) 1% (0-3) Neutrophils # (Auto) 5.2x10^3uL (1.8-7.7) Lymphocytes # (Auto) 1.0x10^3/uL (1.0-4.8) Monocytes # (Auto) 0.9x10^3/uL (0.0-1.1) Eosinophils # (Auto) 0.1x10^3/uL (0.0-0.7) Basophils # (Auto) 0.0x10^3/uL (0.0-0.2) Sodium Level 137mmol/L (136-145) Potassium Level 3.5mmol/L (3.5-5.1) Chloride Level 98mmol/L (98-107) Carbon Dioxide Level 32mmol/L (21-32) Anion Gap 7 (6-14) Blood Urea Nitrogen 14mg/dL (7-20) Creatinine 0.9mg/dL (0.6-1.0) Estimated GFR (Cockcroft-Gault) 75.3 BUN/Creatinine Ratio 16 (6-20) Glucose Level 160mg/dL (70-99) H Calcium Level 9.4mg/dL (8.5-10.1) Magnesium Level 1.3mg/dL (1.8-2.4) L Total Bilirubin 0.6mg/dL (0.2-1.0) Aspartate Amino Transferase (AST) 14U/L (15-37) L Alanine Aminotransferase (ALT) 19U/L (14-59) Alkaline Phosphatase 91U/L (46-116) Troponin I Quantitative 0.019ng/mL (0.000-0.055) NJ-Ahu-Q-Type Natriuretic Peptide 1855pg/mL (0-124) H Total Protein 7.2g/dL (6.4-8.2) Albumin 3.1g/dL (3.4-5.0) L Albumin/Globulin Ratio 0.8 (1.0-1.7) L Laboratory Tests 11/16/16 17:00 Laboratory Tests 11/16/16 17:00 EKG EKG EC: Sinus rhythm, heart rate 72 beats minute, right bundle-branch block noted, right ventricular hypertrophy with QTC of 501, slightly prolonged, [place] 146 , QRS of 128. Abnormal ECG, does not meet STEMI criteria. As interpreted by me. [] Radiology/Procedures Radiology/Procedures X-rays of [] left ribs and PA chest, thoracic spine, left hip and pelvis, left knee, left ankle and foot obtained, no evidence of acute fracture or subluxation , no acute bony or soft tissue abnormalities identified. As interpreted by me. Course & Med Decision Making Course & Med Decision Making Pertinent Labs and Imaging studies reviewed. (See chart for details) Patient's any not reveal any evidence of fracture or other concerning findings. Laboratory studies revealed elevated BNP, chest x-ray reveals evidence of mild cephalization. I did review a list of the patient's discharge medications. At that time the patient had been initiated on Bumex and Zaroxolyn due to a poor response to Lasix. I spoke with Dr. Bush, on-call for the patient's primary care provider, Dr. Cervantes, and she did confirm the patient was supposed to have continued the Bumex and Zaroxolyn. I did discuss this with the patient, she is agreeable for addition of a hospital for treatment of a CHF exacerbation , will initiate IV Bumex in the ED, Zaroxolyn, with the hope that the patient can be diuresed effectively and discharged home quickly, as patient is anxious to be home for [facility]. Patient's electrolytes are within normal limits, no other concerning findings identified on examination or history of this time. She is resting comfortably on her baseline 2 L of oxygen at rest. Patient was accepted to Dr. Bush service as a full admission to the medical telemetry floor with plan as above, patient was initiated on 2 mg of Bumex IV in the ED and 5 mg of Zaroxolyn, administered in the emergency department without issue. Dragon Disclaimer Dragon Disclaimer This electronic medical record was generated, in whole or in part, using a voice recognition dictation system. Departure Impression: Primary Impression: CHF exacerbation Additional Impression: Falls Disposition: 09 ADMITTED INPATIENT Admitting Physician: Lani Betancourt Condition: IMPROVED Problem Qualifiers CHAS FALLON DO Nov 16, 2016 17:09
[2016-11-16 17:18] LABS: BASO % 1 % (0-3); EOS % 2 % (0-3); HEMATOCRIT 25.1 % (36.0-47.0); LYMPH % 14 % (24-48); MEAN CORPUSCULAR HEMOGLOBIN 27 pg (25-35); MEAN CORPUSCULAR HGB CONC 32 g/dL (31-37); MEAN CORPUSCULAR VOLUME 84 fL (79-100); MONO % 12 % (0-9); NEUT % 72 % (31-73); PLATELET COUNT 187 x10^3/uL (140-400); RED BLOOD COUNT 2.97 x10^6/uL (3.50-5.40); RED CELL DISTRIBUTION WIDTH 19.9 % (11.5-14.5); WHITE BLOOD COUNT 7.2 x10^3/uL (4.0-11.0)
[2016-11-16 17:38] LABS: CALCIUM 9.4 mg/dL (8.5-10.1); CREATININE 0.9 mg/dL (0.6-1.0); GFR 75.3; POTASSIUM 3.5 mmol/L (3.5-5.1)
[2016-11-16 17:41] LABS: ALBUMIN 3.1 g/dL (3.4-5.0); ALBUMIN/GLOBULIN RATIO 0.8 (1.0-1.7); MAGNESIUM 1.3 mg/dL (1.8-2.4); TOTAL BILIRUBIN 0.6 mg/dL (0.2-1.0); TOTAL PROTEIN 7.2 g/dL (6.4-8.2)
[2016-11-16] MEDS ORDERED: OXYCODONE/APAP 5/325 TABLET. PO ONE (19:30)
[2016-11-16] MEDS ORDERED: DEXTROSE 50% 25 GM / 50ML DISP.SYRIN. IV PRN (21:00)
[2016-11-16] MEDS ORDERED: ACETAMINOPHEN 325 MG TABLET. PO PRN (21:00)
[2016-11-16] MEDS ORDERED: ONDANSETRON PF 4 MG/2 ML VIAL. IV PRN (21:00)
[2016-11-16] MEDS ORDERED: BUMETANIDE 1 MG/4 ML VIAL. IV ONE (21:00)
[2016-11-16] MEDS ORDERED: METOLAZONE 2.5 MG TABLET PO ONE (21:00)
--- NOTE | 2016-11-16 21:17 | ACF ---
Admission Forms Criteria CARDIOLOGY GRG Clinical Indications for Admission to Inpatient Care ( Place 'X' for any and all applicable criteria): Hospital admission is needed for appropriate care of the patient because of ANY ONE of the following (1): [ ] I. Hemodynamic instability as indicated by ALL of the following (1)(2)(3) (4)(5) [ ]a) Vital signs or other findings not as expected for chronic patient condition or baseline [ ]b) Instability indicated by ANY ONE of the following: [ ]i) Hypotension [ ]ii) Symptomatic Tachycardia unresponsive to treatment ( e.g., analgesia, fluids, sedation as indicated) [ ]iii) Inadequate perfusion indicated by ANY ONE of the following: [ ] 1) Lactic acidosis (> 2 mmol/L) [ ] 2) New abnormal capillary refill (> 3 seconds) [ ] 3) Reduced urine output [ ] 4) New altered mental status [ ]iv) Orthostatic vital sign changes unresponsive to treatment (e.g., fluids) [ ]v) IV inotropic or vasopressor medication required to maintain adequate blood pressure or perfusion [ ] II. Severe heart failure as indicated by ANY ONE of the following(17)(18) [ ]a) Respiratory distress [ ]b) Hypotension [ ]c) Anasarca (refractory to outpatient therapy) [ ]d) Cardiac arrhythmias of immediate concern [ ]e) Myocardial ischemia [ ] III. Cardiac arrhythmias or findings of immediate concern indicated by ANY ONE of the following (19)(20): [ ] a) Heart rhythms that are inherently dangerous or unstable indicated by ANY ONE of the following (21)(22)(23): [ ] i) Resuscitated ventricular fibrillation or cardiac arrest [ ] ii) Ventricular escape rhythm [ ] iii) Sustained ventricular tachycardia (30 seconds or more of ventricular rhythm at greater than 100 beats per minute) [ ] iv) Nonsustained ventricular tachycardia and ANY ONE of the following: [ ] 1) Suspected cardiac ischemia as cause or consequence of ventricular tachycardia [ ] 2) In setting of acute myocarditis [ ] b) Unstable cardiac conduction defects indicated by ANY ONE of the following(23)(24)(25) [ ] i) Type II second-degree atrioventricular block [ ]ii) Third-degree atrioventricular block [ ]iii) New-onset left bundle branch block with suspected myocardial ischemia [ ]c) Any heart rhythm and ANY ONE of the following (21)(22)(26)(27) (28) [ ] i) Continuous long-term ECG monitoring needed (e.g., initiation of drug requiring monitoring for more than 24 hours) [ ] ii) Patient has automatic implanted cardioverter defibrillator that is repeatedly firing, malfunctioning, or in need of immediate adjustment of settings beyond the scope of ambulatory or observation care [ ]d) Heart rhythms of concern due to ANY ONE of the following: [ ] i) Hypotension [ ] ii) Respiratory distress [ ] iii) Association with other significant symptoms (e.g., bradycardia with syncope or ongoing dizziness, supraventricular tachycardia with chest pain (14)(15)(17) [ ] IV. Monitoring for cardiac contusion beyond the scope of observation care needed [A](30)(31)(32) [ ] V. Surgical or device complication (e.g., valve replacement complication , pacemaker dysfunction) (35)(41)(44)(45)(46) [ ] . Inpatient palliative care needed. [B](49) Also use Inpatient Palliative Care Criteria [ ] VII. Nonbacterial thrombotic (marantic) endocarditis (36)(43)(47)(48) [X] VIII. Cardiology condition, symptom, or finding for which emergency and observation care has failed or are not considered appropriate. [ ] IX. Acute valvular disease requiring inpatient as indicated by ANY ONE of the following (41) [ ]a) Acute valvular regurgitation (42) [ ]b) Noninfectious valvulitis (43) [ ]c) Obstructive valve thrombosis [ ]d) Paravalvular leak [ ]e) Other significant valvular disorder remaining after emergency or observation level of care (as appropriate) [ ]X. Pericardial disease requiring inpatient treatment as indicated by ANY ONE of the following (33)(34)(35)(36)(37) [ ]a) Suspected tamponade (38)(39)(40) [ ]b) Hemopericardium [ ]c) Other significant pericardial disorder remaining after emergency or observation level of care (as appropriate) [ ] XI. Cardiac ischemia beyond scope of emergency and observation care. [ ] XII. Hypertension requiring inpatient treatment as indicated by ANY ONE of the following (6)(7)(8) [ ]a) SBP greater than 220 mm Hg or DBP greater than 120 mmHg despite treatment [ ]b) SBP greater than 140 mm Hg or DBP greater than 100 mm Hg with evidence of acute end organ damage as indicated by ANY ONE of the following [ ] i) Encephalopathy [ ] ii) Acute renal failure as indicated by new onset of ANY ONE of the following (9)(10)(11)(12)(13) [ ]1) 3-fold rise in serum creatinine from baseline [ ]2) Serum creatinine greater than 4 mg/dL ( 354 micromoles/L) with acute rise greater than 0.5 mg/dL (44.2 micromoles/L) [ ]3) Reduction of more than 75% in estimated glomerular filtration rate from baseline [ ]4) Estimated glomerular filtration rate less than 35 mL/min/1.73m2 (0.59 mL/sec/1.73m2) in child up to 18 years of age [ ]5) Cessation of urine output indicated by ALL of the following [ ]A. Adequate volume status [ ]B. Inadequate urine output as indicated by ANY ONE of the following [ ]a. Urine output less than 0.3 mL/kg/hr for 24 hours [ ]b. Anuria (urine output less than 0.1 mL/kg/hr) for 12 hours [ ] iii) Aortic dissection [ ] iv) Myocardial Ischemia [ ] v) Left ventricular heart failure [ ]vi) Retinal Hemorrhage [ ]vii) Other significant finding [ ]c) Hypertension in child requiring inpatient treatment as indicated by ALL of the following(14)(15)(16) [ ] i) Outpatient treatment not effective, not available, or not appropriate [ ]ii) SBP or DBP greater than 95th percentile for age [ ]iii) Evidence of acute end organ damage as indicated by ANY ONE of the following [ ]1) Altered mental status [ ]2) Acute renal failure as indicated by new onset of ANY ONE of the following(9)(10)(11)(12)(13) [ ]A. 3-fold rise in serum creatinine from baseline [ ]B. Serum creatinine greater than 4 mg/dL (354 micromoles/L) with acute rise greater than 0.5 mg/dL (44.2 micromoles/L) [ ]C. Reduction of more than 75% in estimated glomerular filtration rate from baseline [ ]D. Estimated glomerular filtration rate less than 35 mL/min/1.73m2 (0.59 mL/sec/1.73m2) in child up to 18 years of age [ ]E. Cessation of urine output indicated by ALL of the following [ ]a. Adequate volume status [ ]b. Inadequate urine output as indicated by ANY ONE of the following [ ]i) Urine output less than 0.3 mL/kg/hr for 24 hours [ ]ii) Anuria ( urine output less than 0.1 mL/kg/hr) for 12 hours [ ]3) Severe headache [ ]4) Visual disturbance [ ]5) Retinal hemorrhage [ ]6) Other significant finding [ ]XIII. Complications of transplanted heart indicated by ANY ONE of the following(61): [ ]a) Acute graft rejection requiring inpatient management (eg, intravenous immunosuppression)(62)(63) [ ]b) Acute graft heart failure indicated by ANY ONE of the following(64): [ ]i) Hemodynamic instability [ ]ii) Cardiac arrhythmias of immediate concern [ ]iii) Pulmonary edema that is very severe (eg, mechanical ventilation needed, imminent or likely, need for 100% oxygen to keep oxygen saturation above 90%) [ ]iv) Pulmonary edema that is persistent as indicated by ALL of the following: [ ]1) New need for oxygen therapy to keep oxygen saturation above 90% (or increased FiO2 need from baseline) [ ]2) Has not improved sufficiently with emergency department or observation care IV diuretics or other heart failure treatments[E] [ ]v) Altered mental status that is severe or persistent [ ]vi) Increased creatinine (new on laboratory test) with reduction of more than 50% in estimated glomerular filtration rate from baseline [ ]vii) Progressively (ongoing) rising creatinine (known from past laboratory test) with reduction of more than 25% in estimated glomerular filtration rate from baseline [ ]viii) Acute renal failure [ ]ix) Acute peripheral ischemia (eg, examination shows pulseless, cool, mottled, or cyanotic extremity) [ ]x) Pulmonary artery catheter monitoring needed [ ]xi) Other sign or symptom of heart failure requiring inpatient treatment (ie, too severe or not responsive to outpatient and observation care treatment) [ ]c) Infection requiring inpatient management (eg, Hemodynamic instability, need for intravenous antimicrobial treatment)(66)(67)(68)(69)(70) [ ]d) Cardiac allograft vasculopathy requiring inpatient management ( eg evidence of cardiac ischemia)(71) [ ]e) Other complication of transplanted heart (eg, stroke, severe pulmonary hypertension, severe valvular dysfunction) requiring inpatient management(72) The original [facility] content created by [facility] has been revised. The portions of the content which have been revised are identified through the use of italic text or in bold, and [facility] has neither reviewed nor approved the modified material. All other unmodified content is copyright [facility]. Please see references footnoted in the original [facility] edition 2016 Admission Criteria Met?: Yes STACEY BERNABE Nov 16, 2016 21:16
[2016-11-16 21:45] VITALS: BP 150/75
[2016-11-16] MEDS ORDERED: HYDR-2666 PO (22:54)
[2016-11-16 23:20] VITALS: BP 144/64
[2016-11-17] MEDS ORDERED: HYDROCODONE/APAP 5/325MG TABLET. PO PRN ×2 (01:15→08:15)
[2016-11-17 03:30] VITALS: BP 139/62
[2016-11-17 04:19] LABS: CALCIUM 9.2 mg/dL (8.5-10.1); CREATININE 0.8 mg/dL (0.6-1.0); GFR 86.3; POTASSIUM 3.4 mmol/L (3.5-5.1)
[2016-11-17 06:36] LABS: BASO % 1 % (0-3); EOS % 3 % (0-3); HEMATOCRIT 23.6 % (36.0-47.0); HEMOGLOBIN 7.5 g/dL (12.0-15.5); LYMPH # 0.9 x10^3/uL (1.0-4.8); LYMPH % 16 % (24-48); MEAN CORPUSCULAR HEMOGLOBIN 27 pg (25-35); MEAN CORPUSCULAR HGB CONC 32 g/dL (31-37); MEAN CORPUSCULAR VOLUME 85 fL (79-100); MONO % 13 % (0-9); NEUT % 67 % (31-73); PLATELET COUNT 182 x10^3/uL (140-400); RED BLOOD COUNT 2.79 x10^6/uL (3.50-5.40); WHITE BLOOD COUNT 5.7 x10^3/uL (4.0-11.0)
--- NOTE | 2016-11-17 06:43 | EKG ---
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
[2016-11-17] MEDS: HYDROCODONE/APAP 5/325MG TABLET. PO PRN ×3 (06:48→20:34)
[2016-11-17 07:00] VITALS: BP 150/60
[2016-11-17] MEDS: IPRATRPIUM/ALBUTEROL 0.5/2.5MG 3 ML NEBU. NEB SCH ×4 (07:40→20:28)
[2016-11-17] MEDS ORDERED: ALBUTEROL SULFATE 2.5 MG/3 ML NEBU. NEB PRN (08:15)
--- NOTE | 2016-11-17 08:20 | RAD ---
Left foot, 3 views, 11/16/2014: History: Fall, injuries There is considerable bony demineralization. There are scattered degenerative changes. No acute fracture or dislocation is evident. Arterial calcifications are present. IMPRESSION: 1. Demineralization. 2. No acute bony abnormality is detected. Left ankle, 3 views, 11/16/2016: No ankle fracture or dislocation is identified. There are moderate scattered degenerative changes. IMPRESSION: No acute bony abnormality is detected.
--- NOTE | 2016-11-17 08:22 | RAD ---
Left knee, 3 views, 11/16/2016: History: Fall, pain The bony structures are demineralized. No fracture or dislocation is identified. Extensive arterial calcifications are present. There is moderate subcutaneous edema. IMPRESSION: 1. Demineralization. 2. No acute bony abnormality is detected. Pelvis with left hip, 3 views, 11/16/2016: The bony structures are demineralized. No fracture or dislocation is identified. There is mild spurring at both hip joints. IMPRESSION: No acute bony abnormality is detected.
--- NOTE | 2016-11-17 08:24 | RAD ---
Thoracic spine, 3 views, 11/16/2016: History: Fall, pain The bony structures are demineralized. The thoracic vertebral heights are well-maintained. There are mild scattered marginal spurs. IMPRESSION: No acute thoracic spine abnormality is detected. Left RIBS with chest, 3 views, 11/16/2016: The bony structures are demineralized. No rib fracture is identified. There is no evidence of underlying pneumothorax, hemothorax or pulmonary consolidation. The heart is enlarged. IMPRESSION: 1. Demineralization. 2. No acute left rib abnormality is detected.
--- NOTE | 2016-11-17 08:28 | PDOC1 ---
History and Physical Date of Admission Date of Admission DATE: 11/16/16 Identification/Chief Complaint Chief Complaint "I fell" Problems: Source Source: Patient History of Present Illness History of Present Illness Pt says that she was trying to get to the couch from her commode when she had weakness in her legs and fell. Pt was crying this morning; states that she was depressed that she is in the hospital and wants to be home. She has felt weak from having a recent viral illness; just stopped having diarrhea a couple of days ago. She is still having pain in her left leg this morning. Past Medical History Cardiovascular: CAD, CHF, HTN, Hyperlipidemia, Other Pulmonary: COPD CENTRAL NERVOUS SYSTEM: CVA, Periperal neuropathy, Seizure, Other GI: GERD Heme/Onc: Anemia NOS, Other Hepatobiliary: No pertinent hx Psych: Anxiety, Depression Musculoskeletal: low back pain, Osteoarthritis Rheumatologic: No pertinent hx Infectious disease: No pertinent hx Renal/: Chronic renal insuff, UTI Endocrine: Diabetes Past Surgical History Past Surgical History: Appendectomy, Cholecystectomy, Tonsillectomy, Hysterectomy, Other Family History Family History: Cancer, Hypertension Social History Smoke: Quit ALCOHOL: none Drugs: None Current Problem List Problem List Problems Medical Problems: (1) CHF exacerbation Status: Acute (2) Falls Status: Acute Problems: Current Medications Current Medications Current Medications Oxycodone/ Acetaminophen (Percocet 5/325) 1 tab 1X ONCE PO Last administered on 11/16/16 19:26; Start 11/16/16 at 19:30; Stop 11/16/16 at 19:31; Status DC Metolazone (Zaroxolyn) 5 mg 1X ONCE PO Last administered on 11/16/16 21:23; Start 11/16/16 at 21:00; Stop 11/16/16 at 21:01; Status DC Metolazone (Zaroxolyn) 5 mg DAILY PO ; Start 11/17/16 at 09:00 Bumetanide (Bumex) 2 mg 1X ONCE IV Last administered on 11/16/16 21:23; Start 11/16/16 at 21:00; Stop 11/16/16 at 21:01; Status DC Ondansetron HCl (Zofran) 4 mg PRN Q8HRS PRN IV NAUSEA/VOMITING; Start 11/16/16 at 21:00; Stop 11/17/16 at 20:59 Acetaminophen (Tylenol) 650 mg PRN Q4HRS PRN PO FEVER; Start 11/16/16 at 21:00 ; Stop 11/17/16 at 20:59 Albuterol/ Ipratropium (Duoneb) 3 ml RTQID NEB ; Start 11/17/16 at 08:00; Stop 11/18/16 at 07:59 Insulin Aspart (Novolog) 0-5 UNITS TIDWMEALS SQ ; Start 11/17/16 at 08:00 Dextrose (Dextrose 50%-Water Syringe) 12.5 gm PRN Q15MIN PRN IV SEE COMMENTS; Start 11/16/16 at 21:00 Acetaminophen/ Hydrocodone Bitart (Lortab 5/325) 1 tab PRN Q4HRS PRN PO PAIN Last administered on 11/17/16t 06:48; Start 11/17/16 at 01:15 Acetaminophen/ Hydrocodone Bitart (Lortab 5/325) 2 tab PRN Q4HRS PRN PO PAIN; Start 11/17/16 at 01:15 Active Scripts Active Acyclovir 200 Mg Capsule 800 Mg PO [id number] Aspirin Ec (Aspirin) 81 Mg Tablet.dr 81 Mg PO DAILYWBKFT Furosemide 40 Mg Tablet 40 Mg PO DAILY Hydralazine Hcl 100 Mg Tablet 1 Tab PO TID Amitiza (Lubiprostone) 8 Mcg Capsule 8 Mcg PO BIDWMEALS Klor-Con M20 (Potassium Chloride) 20 Meq Tab.er.prt 1 Tab PO BID Novolog Mix 70-30 Flexpen Syrn (Insuln Asp Prt/Insulin Aspart) 100 Unit/1 Ml Insuln.pen 15 Unit SQ BIDAC Lisinopril 40 Mg Tablet 1 Tab PO DAILY Voltaren (Diclofenac Sodium) 100 Gm Gel..gram. 1 Gary TP BID Mapap (Acetaminophen) 325 Mg Tablet 650 Mg PO PRN Q6HRS PRN Plavix (Clopidogrel Bisulfate) 75 Mg Tablet 75 Mg PO DAILYWBKFT Protonix (Pantoprazole Sodium) 40 Mg Tablet 40 Mg PO HS Xalatan (Latanoprost) 1 Drop Drops 1 Drop OU HS Dorzolamide-Timolol Eye Drops (Dorzolamide Hcl/Timolol Maleat) 1 Drop Drops 1 Drop OU BID Tegretol (Carbamazepine) 200 Mg Tablet 200 Mg PO BID Lipitor (Atorvastatin Calcium) 40 Mg Tablet 40 Mg PO HS Norvasc (Amlodipine Besylate) 10 Mg Tablet 10 Mg PO DAILY [Albuterol Sulfate] 2.5 MG/3 ML Nebu 2.5 Mg NEB PRN QID PRN Reported Hydrocodone-Apap 5-325 (Hydrocodone Bit/Acetaminophen) 1 Each Tablet 1-2 Tab PO PRN Q4HRS PRN Labetalol Hcl 200 Mg Tablet 1 Tab PO BID Refresh Plus (Carboxymethylcellulose Sodium) 1 Each Droperette 1 Each OP Not given here Continue as previously directed Vitamin D (Cholecalciferol (Vitamin D3)) 2,000 Unit Capsule 1 Cap PO DAILY Celexa (Citalopram Hydrobromide) 20 Mg Tablet 20 Mg PO DAILY Spiriva (Tiotropium [place]) 18 Mcg Cap.w.dev 1 Cap IH DAILY Allergies Allergies: Coded Allergies: Penicillins (Verified Allergy, Intermediate, 02/14/14) codeine (Verified Allergy, Intermediate, morphine, lortab ok, 11/27/15) ROS General: YES: Chills, Night Sweats PSYCHOLOGICAL ROS: YES: Depression, No: Anxiety Eyes: No Decreased vision, No Eye Pain HEENT: YES: Nasal congestion, Sore Throat ALLERGY AND IMMUNOLOGY: No: Hives, Post Nasal Drip Hematological and Lymphatic: No: Bleeding Problems Respiratory: YES: Cough, Shortness of breath, Sputum Changes Cardiovascular: No Chest Pain, No Palpitations Gastrointestinal: No Abdominal Pain, No Constipation, No Diarrhea, No Nausea, No Vomiting Genitourinary: YES Dysuria, No Urgency Musculoskeletal: Yes Joint Pain, Yes Muscle Pain Neurological: Yes Impaired Coord/balance, Yes Weakness Skin: No Rash, No Skin Lesion Changes Physical Exam General: Alert, Oriented X3, Cooperative, No acute distress HEENT: Atraumatic, PERRLA, EOMI, Mucous membr. moist/pink Lungs: Clear to auscultation, Normal air movement Heart: RRR, no rubs, no gallops, no murmurs Abdomen: Normal bowel sounds, Soft, No tenderness, No hepatosplenomegaly Extremities: No clubbing, No cyanosis, No edema Skin: No rashes, No breakdown Neuro: Sensation intact, Cranial nerves 3-12 NL Psych/Mental Status: Mental status NL, Other (pt tearful) Vitals Vitals Vital Signs Date Time Temp Pulse Resp B/P Pulse Ox O2 Delivery O2 Flow Rate FiO2 11/17/16 06:48 20 97 Nasal Cannula 2.0 11/17/16 03:30 98.2 66 139/62 98.2 Labs Labs Laboratory Tests Test 11/16/16 17:00 11/17/16 03:00 White Blood Count 7.2x10^3/uL (4.0-11.0) 5.7x10^3/uL (4.0-11.0) Red Blood Count 2.97x10^6/uL (3.50-5.40) 2.79x10^6/uL (3.50-5.40) Hemoglobin 8.0g/dL (12.0-15.5) 7.5g/dL (12.0-15.5) Hematocrit 25.1% (36.0-47.0) 23.6% (36.0-47.0) Mean Corpuscular Volume 84fL (79-100) 85fL (79-100) Mean Corpuscular Hemoglobin 27pg (25-35) 27pg (25-35) Mean Corpuscular Hemoglobin Concent 32g/dL (31-37) 32g/dL (31-37) Red Cell Distribution Width 19.9% (11.5-14.5) 20.0% (11.5-14.5) Platelet Count 187x10^3/uL (140-400) 182x10^3/uL (140-400) Neutrophils (%) (Auto) 72% (31-73) 67% (31-73) Lymphocytes (%) (Auto) 14% (24-48) 16% (24-48) Monocytes (%) (Auto) 12% (0-9) 13% (0-9) Eosinophils (%) (Auto) 2% (0-3) 3% (0-3) Basophils (%) (Auto) 1% (0-3) 1% (0-3) Neutrophils # (Auto) 5.2x10^3uL (1.8-7.7) 3.8x10^3uL (1.8-7.7) Lymphocytes # (Auto) 1.0x10^3/uL (1.0-4.8) 0.9x10^3/uL (1.0-4.8) Monocytes # (Auto) 0.9x10^3/uL (0.0-1.1) 0.7x10^3/uL (0.0-1.1) Eosinophils # (Auto) 0.1x10^3/uL (0.0-0.7) 0.2x10^3/uL (0.0-0.7) Basophils # (Auto) 0.0x10^3/uL (0.0-0.2) 0.0x10^3/uL (0.0-0.2) Sodium Level 137mmol/L (136-145) 139mmol/L (136-145) Potassium Level 3.5mmol/L (3.5-5.1) 3.4mmol/L (3.5-5.1) Chloride Level 98mmol/L (98-107) 99mmol/L (98-107) Carbon Dioxide Level 32mmol/L (21-32) 33mmol/L (21-32) Anion Gap 7 (6-14) 7 (6-14) Blood Urea Nitrogen 14mg/dL (7-20) 13mg/dL (7-20) Creatinine 0.9mg/dL (0.6-1.0) 0.8mg/dL (0.6-1.0) Estimated GFR (Cockcroft-Gault) 75.3 86.3 BUN/Creatinine Ratio 16 (6-20) Glucose Level 160mg/dL (70-99) 165mg/dL (70-99) Calcium Level 9.4mg/dL (8.5-10.1) 9.2mg/dL (8.5-10.1) Magnesium Level 1.3mg/dL (1.8-2.4) Total Bilirubin 0.6mg/dL (0.2-1.0) Aspartate Amino Transf (AST/SGOT) 14U/L (15-37) Alanine Aminotransferase (ALT/SGPT) 19U/L (14-59) Alkaline Phosphatase 91U/L (46-116) Troponin I Quantitative 0.019ng/mL (0.000-0.055) 0.018ng/mL (0.000-0.055) QM-Hkw-B-Type Natriuretic Peptide 1855pg/mL (0-124) Total Protein 7.2g/dL (6.4-8.2) Albumin 3.1g/dL (3.4-5.0) Albumin/Globulin Ratio 0.8 (1.0-1.7) Laboratory Tests Test 11/16/16 17:00 11/17/16 03:00 White Blood Count 7.2x10^3/uL (4.0-11.0) 5.7x10^3/uL (4.0-11.0) Red Blood Count 2.97x10^6/uL (3.50-5.40) 2.79x10^6/uL (3.50-5.40) Hemoglobin 8.0g/dL (12.0-15.5) 7.5g/dL (12.0-15.5) Hematocrit 25.1% (36.0-47.0) 23.6% (36.0-47.0) Mean Corpuscular Volume 84fL (79-100) 85fL (79-100) Mean Corpuscular Hemoglobin 27pg (25-35) 27pg (25-35) Mean Corpuscular Hemoglobin Concent 32g/dL (31-37) 32g/dL (31-37) Red Cell Distribution Width 19.9% (11.5-14.5) 20.0% (11.5-14.5) Platelet Count 187x10^3/uL (140-400) 182x10^3/uL (140-400) Neutrophils (%) (Auto) 72% (31-73) 67% (31-73) Lymphocytes (%) (Auto) 14% (24-48) 16% (24-48) Monocytes (%) (Auto) 12% (0-9) 13% (0-9) Eosinophils (%) (Auto) 2% (0-3) 3% (0-3) Basophils (%) (Auto) 1% (0-3) 1% (0-3) Neutrophils # (Auto) 5.2x10^3uL (1.8-7.7) 3.8x10^3uL (1.8-7.7) Lymphocytes # (Auto) 1.0x10^3/uL (1.0-4.8) 0.9x10^3/uL (1.0-4.8) Monocytes # (Auto) 0.9x10^3/uL (0.0-1.1) 0.7x10^3/uL (0.0-1.1) Eosinophils # (Auto) 0.1x10^3/uL (0.0-0.7) 0.2x10^3/uL (0.0-0.7) Basophils # (Auto) 0.0x10^3/uL (0.0-0.2) 0.0x10^3/uL (0.0-0.2) Sodium Level 137mmol/L (136-145) 139mmol/L (136-145) Potassium Level 3.5mmol/L (3.5-5.1) 3.4mmol/L (3.5-5.1) Chloride Level 98mmol/L (98-107) 99mmol/L (98-107) Carbon Dioxide Level 32mmol/L (21-32) 33mmol/L (21-32) Anion Gap 7 (6-14) 7 (6-14) Blood Urea Nitrogen 14mg/dL (7-20) 13mg/dL (7-20) Creatinine 0.9mg/dL (0.6-1.0) 0.8mg/dL (0.6-1.0) Estimated GFR (Cockcroft-Gault) 75.3 86.3 BUN/Creatinine Ratio 16 (6-20) Glucose Level 160mg/dL (70-99) 165mg/dL (70-99) Calcium Level 9.4mg/dL (8.5-10.1) 9.2mg/dL (8.5-10.1) Magnesium Level 1.3mg/dL (1.8-2.4) Total Bilirubin 0.6mg/dL (0.2-1.0) Aspartate Amino Transf (AST/SGOT) 14U/L (15-37) Alanine Aminotransferase (ALT/SGPT) 19U/L (14-59) Alkaline Phosphatase 91U/L (46-116) Troponin I Quantitative 0.019ng/mL (0.000-0.055) 0.018ng/mL (0.000-0.055) FM-Ztd-S-Type Natriuretic Peptide 1855pg/mL (0-124) Total Protein 7.2g/dL (6.4-8.2) Albumin 3.1g/dL (3.4-5.0) Albumin/Globulin Ratio 0.8 (1.0-1.7) VTE Prophylaxis Ordered VTE Prophylaxis Devices: No VTE Pharmacological Prophylaxi: No Assessment/Plan Assessment/Plan Pt is a 66yo AAF admitted for CHF exacerbation 1)CHF exacerbation- pt had apparently not been taking her Bumex and Metolazone. Restarted in ER and continued on Lasix 20mg 2)Anemia- acute on chronic. No active bleeding. Likely related to fall and being on Plavix. Repeat H&H ordered at 1300. Will CTM 3)HTN- pt continued on above medications. Continued Labetalol 200mg BID but held Hydralazine 100mg TID, Amlodipine 10mg and Lisinopril 40mg. 4)DM2- previously poorly controlled with HbA1C 02/20 at 8.9. Repeat pending. Continued on Novolog 70/30 25units QAM and 15 units QHS. 5)COPD- will continue pt's Albuterol, normally on Spiriva 6)Chronic Respiratory Failure- 2/2 CHF, COPD and Pulmonary HTN. Stable 7)Hypokalemia- will replace and resume pt's normal K-Cl 8)PEM- moderate 9)HLD- continued on Atorvastatin 40mg 10)Depression/Psychiatric Issues- pt continued on Celexa 20mg and Tegretol XR 200mg ER BID ALEXIA PARADA MD Nov 17, 2016 08:28
[2016-11-17] MEDS ORDERED: POTASSIUM CHLORIDE 20 MEQ TABLET.ER. PO ONE (08:30)
[2016-11-17] MEDS ORDERED: POTASSIUM CHLORIDE 20 MEQ TABLET.ER. PO SCH (09:00)
[2016-11-17] MEDS ORDERED: FUROSEMIDE 40 MG TABLET. PO SCH (09:00)
[2016-11-17] MEDS ORDERED: NON FORMULARY ITEM (Tiotropium Bromide (Spiriva) 1 CAP) IH SCH (09:00)
[2016-11-17] MEDS: CARBAMAZEPINE 200 MG TABLET. PO SCH ×2 (09:15→20:32)
[2016-11-17] MEDS: FUROSEMIDE 40 MG TABLET. PO SCH (09:15)
[2016-11-17] MEDS: LABETALOL HCL 200 MG TABLET PO SCH ×2 (09:16→20:32)
[2016-11-17] MEDS: DOXYCYCLINE HYCLATE 100 MG TABLET PO SCH ×2 (09:16→20:32)
[2016-11-17] MEDS: CITALOPRAM 20 MG TABLET. PO SCH (09:16)
[2016-11-17] MEDS: CLOPIDOGREL BISULFATE 75 MG TABLET PO SCH (09:16)
[2016-11-17] MEDS: BUMETANIDE 1 MG TABLET. PO SCH (09:17)
[2016-11-17] MEDS: DORZOLAMIDE/TIMOLOL 2%/0.5% OPHTH SOLUTION 10ML BOTTLE. OU SCH ×2 (09:18→20:31)
[2016-11-17] MEDS: METOLAZONE 2.5 MG TABLET PO SCH (09:18)
[2016-11-17] MEDS: POTASSIUM CHLORIDE 20 MEQ TABLET.ER. PO SCH (09:20)
[2016-11-17] MEDS: ASPIRIN ENTERIC COATED 81 MG TABLET.DR. PO SCH (09:22)
[2016-11-17] MEDS: INSULIN ASPART 300 UNITS/3 ML INSULN.PEN SQ SCH ×3 (09:32→17:00)
[2016-11-17 11:30] VITALS: BP 153/77
[2016-11-17 14:47] LABS: BILIRUBIN,URINE NEGATIVE (NEG); GLUCOSE,URINE NEGATIVE (NEG); NITRITE,URINE NEGATIVE (NEG); PH,URINE 5.5; PROTEIN,URINE NEGATIVE (NEG-TRACE); UROBILINOGEN,URINE 0.2 mg/dL (0.2 mg/dL)
[2016-11-17 14:48] LABS: BACTERIA,URINE MANY /HPF (0-FEW); RBC,URINE 0 /HPF (0-2); SQUAMOUS EPITHELIAL CELL,UR MOD /LPF
[2016-11-17 15:52] VITALS: BP 127/60
[2016-11-17] MEDS: INSULN ASP PRT/INSULIN ASPART 300 UNITS/3 ML INSULN.PEN. SQ SCH (18:38)
[2016-11-17 19:55] VITALS: BP 155/78
[2016-11-17] MEDS: ATORVASTATIN CALCIUM 40 MG TABLET. PO SCH (20:32)
[2016-11-17] MEDS: PANTOPRAZOLE 40 MG TABLET.DR. PO SCH (20:32)
[2016-11-17] MEDS: GABAPENTIN 300 MG CAPSULE. PO SCH (20:32)
[2016-11-17] MEDS: LATANOPROST 0.005% OPHTH SOLUTION 2.5ML BOTTLE. OU SCH (20:33)
[2016-11-17] MEDS ORDERED: ATORVASTATIN CALCIUM 40 MG TABLET. PO SCH (21:00)
[2016-11-17 23:30] VITALS: BP 155/72
[2016-11-18 03:02] VITALS: BP 153/70
[2016-11-18 04:18] LABS: HEMATOCRIT 24.8 % (36.0-47.0); RED CELL DISTRIBUTION WIDTH 19.8 % (11.5-14.5); WHITE BLOOD COUNT 7.7 x10^3/uL (4.0-11.0)
[2016-11-18 04:35] LABS: CALCIUM 9.3 mg/dL (8.5-10.1); CREATININE 0.8 mg/dL (0.6-1.0); GFR 86.3; POTASSIUM 3.2 mmol/L (3.5-5.1)
[2016-11-18 07:00] VITALS: BP 149/59
[2016-11-18] MEDS: IPRATRPIUM/ALBUTEROL 0.5/2.5MG 3 ML NEBU. NEB SCH (07:26)
[2016-11-18] MEDS: HYDROCODONE/APAP 5/325MG TABLET. PO PRN ×3 (07:48→21:25)
[2016-11-18] MEDS: INSULN ASP PRT/INSULIN ASPART 300 UNITS/3 ML INSULN.PEN. SQ SCH ×2 (08:00→17:49)
--- NOTE | 2016-11-18 08:34 | PDOC ---
SUBJECTIVE Subjective Pt states that she is feeling okay. Having some abdominal pain because she needs to have a bowel movement. Left lower extremity hurts. Pt refused to work with physical therapy yesterday; discussed that she will not be able to go home if she is unable to work them and show that she is ready to go home. Pt's breathing improved. OBJECTIVE Vital Signs Vital Signs Date Time Temp Pulse Resp B/P Pulse Ox O2 Delivery O2 Flow Rate FiO2 11/18/16 07:48 16 96 Nasal Cannula 11/18/16 07:26 98 Nasal Cannula 2.0 11/18/16 07:00 98.8 75 18 149/59 99 Nasal Cannula 2.0 98.8 11/18/16 03:02 98.6 72 18 153/70 95 Nasal Cannula 2.0 98.6 11/17/16 23:30 98.4 78 20 155/72 96 Nasal Cannula 2.0 98.4 11/17/16 21:34 20 96 Nasal Cannula 2.0 11/17/16 20:34 22 96 Nasal Cannula 2.0 11/17/16 20:32 81 155/78 11/17/16 20:28 96 Nasal Cannula 2.0 11/17/16 20:00 Nasal Cannula 2.0 11/17/16 19:55 98.1 81 20 155/78 93 Nasal Cannula 2.0 98.1 11/17/16 15:56 96 Nasal Cannula 2.0 11/17/16 15:52 97.9 70 20 127/60 99 Nasal Cannula 97.9 11/17/16 11:30 98.2 72 20 153/77 95 Nasal Cannula 98.2 11/17/16 10:51 99 Nasal Cannula 2.0 11/17/16 09:16 98 150/60 I & O Intake and Output 11/18/16 07:00 Intake Total 100 ml Output Total 300 ml Balance -200 ml Intake Oral 100 ml Output Urine Total 300 ml # Voids 12 PHYSICAL EXAM Physical Exam General: Alert, Oriented X3, Cooperative, No acute distress HEENT: Atraumatic, PERRLA, EOMI, Mucous membr. moist/pink Lungs: Clear to auscultation, Normal air movement Heart: RRR, no rubs, no gallops, no murmurs Abdomen: Normal bowel sounds, Soft, No tenderness, No hepatosplenomegaly Extremities: No clubbing, No cyanosis, No edema Skin: No rashes, No breakdown Neuro: Sensation intact, Cranial nerves 3-12 NL Psych/Mental Status: Mental status NL, Normal mood ASSESSMENT/PLAN Assessment/Plan Pt is a 66yo AAF admitted for CHF exacerbation 1)CHF exacerbation- improved. Pt restarted on Bumex and Metolazone. Continued on Lasix 20mg 2)Anemia- acute on chronic. No active bleeding. Likely related to fall and being on Plavix. 3)HTN- moderately controlled. Currently receiving Labetalol 200mg BID. Will resume pt's Lisinopril 40mg and Amlodipine 10mg. Continue to hold Hydralazine 100mg TID 4)DM2- moderately controlled. Pt's HbA1C this admission is improved to 7.8. Continued on Novolog 70/30 25units QAM and 15 units QHS. Has received an additional 5 units of SSI 5)COPD- continue pt's Albuterol, normally on Spiriva as well 6)Chronic Respiratory Failure- 2/2 CHF, COPD and Pulmonary HTN. Stable 7)Hypokalemia- replacing and continued pt's normal K-Cl 8)PEM- moderate 9)HLD- continued on Atorvastatin 40mg 10)Depression/Psychiatric Issues- pt continued on Celexa 20mg and Tegretol XR 200mg ER BID Problems: COMMENT Lab Laboratory Tests Test 11/17/16 09:09 11/17/16 13:15 11/17/16 14:00 11/17/16 17:02 Troponin I Quantitative < 0.017ng/mL (0.000-0.055) Hemoglobin 8.0g/dL (12.0-15.5) Urine Collection Type Unknown Urine Color Yellow Urine Clarity Clear Urine pH 5.5 Urine Specific Thornton <=1.005 Urine Protein Negativemg/dL (NEG-TRACE) Urine Glucose (UA) Negativemg/dL (NEG) Urine Ketones (Stick) Negativemg/dL (NEG) Urine Blood Negative (NEG) Urine Nitrite Negative (NEG) Urine Bilirubin Negative (NEG) Urine Urobilinogen Dipstick 0.2mg/dL (0.2 mg/dL) Urine Leukocyte Esterase Negative (NEG) Urine RBC 0/HPF (0-2) Urine WBC 1-4/HPF (0-4) Urine Squamous Epithelial Cells Mod/LPF Urine Bacteria Many/HPF (0-FEW) Glucose (Fingerstick) 169mg/dL (70-99) Test 11/17/16 20:41 11/18/16 03:34 Glucose (Fingerstick) 198mg/dL (70-99) White Blood Count 7.7x10^3/uL (4.0-11.0) Red Blood Count 3.00x10^6/uL (3.50-5.40) Hemoglobin 8.0g/dL (12.0-15.5) Hematocrit 24.8% (36.0-47.0) Mean Corpuscular Volume 83fL (79-100) Mean Corpuscular Hemoglobin 27pg (25-35) Mean Corpuscular Hemoglobin Concent 32g/dL (31-37) Red Cell Distribution Width 19.8% (11.5-14.5) Platelet Count 229x10^3/uL (140-400) Sodium Level 140mmol/L (136-145) Potassium Level 3.2mmol/L (3.5-5.1) Chloride Level 97mmol/L (98-107) Carbon Dioxide Level 40mmol/L (21-32) Anion Gap 3 (6-14) Blood Urea Nitrogen 13mg/dL (7-20) Creatinine 0.8mg/dL (0.6-1.0) Estimated GFR (Cockcroft-Gault) 86.3 Glucose Level 141mg/dL (70-99) Calcium Level 9.3mg/dL (8.5-10.1) ALEXIA PARADA MD Nov 18, 2016 08:34
[2016-11-18] MEDS ORDERED: POTASSIUM CHLORIDE 20 MEQ TABLET.ER. PO ONE (08:45)
[2016-11-18] MEDS: POTASSIUM CHLORIDE 20 MEQ TABLET.ER. PO SCH (08:47)
[2016-11-18] MEDS: BUMETANIDE 1 MG TABLET. PO SCH (09:00)
[2016-11-18] MEDS: DOXYCYCLINE HYCLATE 100 MG TABLET PO SCH ×2 (09:00→21:26)
[2016-11-18] MEDS: CLOPIDOGREL BISULFATE 75 MG TABLET PO SCH (09:00)
[2016-11-18] MEDS: AMLODIPINE BESYLATE 10 MG TABLET. PO SCH (09:00)
[2016-11-18] MEDS: LISINOPRIL 40 MG TABLET. PO SCH (09:01)
[2016-11-18] MEDS: LABETALOL HCL 200 MG TABLET PO SCH ×2 (09:01→21:24)
[2016-11-18] MEDS: METOLAZONE 2.5 MG TABLET PO SCH (09:01)
[2016-11-18] MEDS: FUROSEMIDE 40 MG TABLET. PO SCH (09:02)
[2016-11-18] MEDS: ASPIRIN ENTERIC COATED 81 MG TABLET.DR. PO SCH (09:02)
[2016-11-18] MEDS: CARBAMAZEPINE 200 MG TABLET. PO SCH ×2 (09:02→21:25)
[2016-11-18] MEDS: CITALOPRAM 20 MG TABLET. PO SCH (09:02)
[2016-11-18] MEDS: DORZOLAMIDE/TIMOLOL 2%/0.5% OPHTH SOLUTION 10ML BOTTLE. OU SCH ×2 (09:03→21:24)
[2016-11-18] MEDS: INSULIN ASPART 300 UNITS/3 ML INSULN.PEN SQ SCH ×3 (09:12→17:49)
[2016-11-18 11:06] VITALS: BP 154/62
[2016-11-18 15:00] VITALS: BP 127/61
[2016-11-18 19:25] VITALS: BP 159/75
[2016-11-18] MEDS: GABAPENTIN 300 MG CAPSULE. PO SCH (21:23)
[2016-11-18] MEDS: PANTOPRAZOLE 40 MG TABLET.DR. PO SCH (21:25)
[2016-11-18] MEDS: ATORVASTATIN CALCIUM 40 MG TABLET. PO SCH (21:25)
[2016-11-18] MEDS: LATANOPROST 0.005% OPHTH SOLUTION 2.5ML BOTTLE. OU SCH (21:25)
[2016-11-18 23:25] VITALS: BP 140/64
[2016-11-19 03:30] VITALS: BP 147/62
[2016-11-19 03:59] LABS: HEMATOCRIT 26.2 % (36.0-47.0); HEMOGLOBIN 8.1 g/dL (12.0-15.5); RED BLOOD COUNT 3.1 x10^6/uL (3.50-5.40); RED CELL DISTRIBUTION WIDTH 19.2 % (11.5-14.5); WHITE BLOOD COUNT 12.3 x10^3/uL (4.0-11.0)
[2016-11-19 04:10] LABS: GFR 66.7; POTASSIUM 3.4 mmol/L (3.5-5.1)
[2016-11-19 07:00] VITALS: BP 142/57
[2016-11-19] MEDS ORDERED: GABA300C8 PO (08:21)
[2016-11-19] MEDS ORDERED: INSU100I16 SQ ×2 (08:21)
[2016-11-19] MEDS ORDERED: BUME1TAB PO (08:21)
[2016-11-19] MEDS ORDERED: Metolazone PO (08:21)
--- NOTE | 2016-11-19 08:34 | PDOC3 ---
Discharge Summary* Date of Admission: Nov 16, 2016 Date of Discharge: Nov 19, 2016 Admitting Diagnosis Problems Medical Problems: (1) CHF exacerbation Status: Acute (2) Falls Status: Acute Final Diagnosis CHF exacerbation- resolved, Anemia- acute on chronic, HTN, DM2, COPD, Chronic Respiratory Failure 2/2 CHF/COPD/Pulmonary HTN, Hypokalemia, PEM-moderate, HLD, Depression/Psychiatric Issues CONSULTS None Procedures Left knee- no acute abnormality, Left hip/pelvis- no acute abnoramlity, Thoracic spine- no acute abnormality, Left Ribs with chest- no acute abnormality , Foot xray- no acute abnormality, Ankle xray- no acute abnormality Brief Hospital Course Discharge Physical Exam General: Alert, Oriented X3, Cooperative, No acute distress HEENT: Atraumatic, PERRLA, EOMI, Mucous membr. moist/pink Lungs: Clear to auscultation, Normal air movement Heart: RRR, no rubs, no gallops, no murmurs Abdomen: Normal bowel sounds, Soft, No tenderness, No hepatosplenomegaly Extremities: No clubbing, No cyanosis, No edema Skin: No rashes, No breakdown Neuro: Sensation intact, Cranial nerves 3-12 NL Psych/Mental Status: Mental status NL, Normal mood Pt is a 66yo AAF admitted for CHF exacerbation 1)CHF exacerbation- improved. Pt hadn't been taking Bumex and Metolazone, restarted. Continued on Lasix 20mg 2)Anemia- acute on chronic. No active bleeding. Likely related to fall and being on Plavix. 3)HTN- moderately controlled. Currently receiving Labetalol 200mg BID, Lisinopril 40mg and Amlodipine 10mg. Pt's Hydralazine was initially held, will resume on discharge. 4)DM2- moderately controlled. Pt's HbA1C this admission is improved to 7.8. Continued on Novolog 70/30 25units QAM and 15 units QHS. 5)COPD- continue pt's Albuterol, normally on Spiriva as well 6)Chronic Respiratory Failure- 2/2 CHF, COPD and Pulmonary HTN. Stable 7)Hypokalemia- replaced and continued pt's normal K-Cl 8)PEM- moderate 9)HLD- continued on Atorvastatin 40mg 10)Depression/Psychiatric Issues- pt continued on Celexa 20mg and Tegretol XR 200mg ER BID Disposition/Orders: D/C to Home w/ HH CONDITION AT DISCHARGE: Improved, Stable Diet: 2 gr sodium, Consistent Carbohydrate Scheduled ([Metolazone]) 5 MG PO DAILY Acyclovir (Acyclovir) 800 MG PO [id number] Amlodipine Besylate (Norvasc) 10 MG PO DAILY Aspirin (Aspirin Ec) 81 MG PO DAILYWBKFT Atorvastatin Calcium (Lipitor) 40 MG PO HS Bumetanide (Bumetanide) 2 MG PO DAILY Carbamazepine (Tegretol) 200 MG PO BID Cholecalciferol (Vitamin D3) (Vitamin D) 1 CAP PO DAILY (Reported) Citalopram Hydrobromide (Celexa) 20 MG PO DAILY (Reported) Clopidogrel Bisulfate (Plavix) 75 MG PO DAILYWBKFT Diclofenac Sodium (Voltaren) 1 SOLEDAD TP BID Dorzolamide Hcl/Timolol Maleat (Dorzolamide-Timolol Eye Drops) 1 DROP OU BID Furosemide (Furosemide) 40 MG PO DAILY Gabapentin (Gabapentin) 300 MG PO QHS Hydralazine Hcl (Hydralazine Hcl) 1 TAB PO TID Insuln Asp Prt/Insulin Aspart (Novolog Mix 70-30 Flexpen Syrn) 15 UNIT SQ BIDAC Insuln Asp Prt/Insulin Aspart (Novolog Mix 70-30 Flexpen Syrn) 25 UNITS SQ DAILYWBKFT Insuln Asp Prt/Insulin Aspart (Novolog Mix 70-30 Flexpen Syrn) 15 UNITS SQ DAILYWSUP Labetalol Hcl (Labetalol Hcl) 1 TAB PO BID (Reported) Latanoprost (Xalatan) 1 DROP OU HS Lubiprostone (Amitiza) 8 MCG PO BIDWMEALS Pantoprazole Sodium (Protonix) 40 MG PO HS Potassium Chloride (Klor-Con M20) 1 TAB PO BID Tiotropium Drasco (Spiriva) 1 CAP IH DAILY (Reported) Scheduled PRN ([Albuterol Sulfate]) 2.5 MG NEB PRN QID PRN PRN SOA Acetaminophen (Mapap) 650 MG PO PRN Q6HRS PRN PRN MILD PAIN / TEMP Hydrocodone Bit/Acetaminophen (Hydrocodone-Apap 5-325 ) 1-2 TAB PO PRN Q4HRS PRN PRN PAIN (Reported) Miscellaneous Medications Carboxymethylcellulose Sodium (Refresh Plus) 1 EACH OP (Reported) Discontinued Medications Lisinopril (Lisinopril) 1 TAB PO DAILY PCP Follow up with Dr. Cervantes in the next 5-7 days Time Spent Total time spent with patient [] minutes for coordination of care, counseling, and education. ALEXIA PARADA MD Nov 19, 2016 08:34
[2016-11-19] MEDS ORDERED: POTASSIUM CHLORIDE 20 MEQ TABLET.ER. PO ONE (08:45)
[2016-11-19] MEDS: BUMETANIDE 1 MG TABLET. PO SCH (09:01)
[2016-11-19] MEDS: DOXYCYCLINE HYCLATE 100 MG TABLET PO SCH (09:02)
[2016-11-19] MEDS: LISINOPRIL 40 MG TABLET. PO SCH (09:02)
[2016-11-19] MEDS: METOLAZONE 2.5 MG TABLET PO SCH (09:03)
[2016-11-19] MEDS: LABETALOL HCL 200 MG TABLET PO SCH (09:04)
[2016-11-19] MEDS: CITALOPRAM 20 MG TABLET. PO SCH (09:04)
[2016-11-19] MEDS: FUROSEMIDE 40 MG TABLET. PO SCH (09:04)
[2016-11-19] MEDS: ASPIRIN ENTERIC COATED 81 MG TABLET.DR. PO SCH (09:04)
[2016-11-19] MEDS: AMLODIPINE BESYLATE 10 MG TABLET. PO SCH (09:05)
[2016-11-19] MEDS: CARBAMAZEPINE 200 MG TABLET. PO SCH (09:05)
[2016-11-19] MEDS: CLOPIDOGREL BISULFATE 75 MG TABLET PO SCH (09:05)
[2016-11-19] MEDS: DORZOLAMIDE/TIMOLOL 2%/0.5% OPHTH SOLUTION 10ML BOTTLE. OU SCH (09:07)
[2016-11-19] MEDS: POTASSIUM CHLORIDE 20 MEQ TABLET.ER. PO SCH (09:07)
[2016-11-19] MEDS: INSULN ASP PRT/INSULIN ASPART 300 UNITS/3 ML INSULN.PEN. SQ SCH (09:16)
[2016-11-19] MEDS: INSULIN ASPART 300 UNITS/3 ML INSULN.PEN SQ SCH ×2 (09:17→12:00)
[2016-11-19] MEDS: HYDROCODONE/APAP 5/325MG TABLET. PO PRN (09:37)
[2016-11-19 11:00] VITALS: BP 143/63
== END 2016-11-19 10:42 | disposition home health service (06) | DRG 292 ==
LOC: ER 16:37 → 2 NORTH 20:33
PROVIDERS: ADMIT Family Medicine; ATTEND Family Medicine
DX: I50.21 Acute systolic (congestive) heart failure (principal); J96.10 Chronic respiratory failure, unspecified whether with hypoxia or hypercapnia; E44.0 Moderate protein-calorie malnutrition; I11.0 Hypertensive heart disease with heart failure; D64.9 Anemia, unspecified; J44.9 Chronic obstructive pulmonary disease, unspecified; E11.40 Type 2 diabetes mellitus with diabetic neuropathy, unspecified; I27.2 Other secondary pulmonary hypertension; E87.6 Hypokalemia; E78.5 Hyperlipidemia, unspecified; F32.9 Major depressive disorder, single episode, unspecified; E78.00 Pure hypercholesterolemia, unspecified; M19.90 Unspecified osteoarthritis, unspecified site; I25.10 Atherosclerotic heart disease of native coronary artery without angina pectoris; K21.9 Gastro-esophageal reflux disease without esophagitis; Z79.4 Long term (current) use of insulin; Z82.49 Family history of ischemic heart disease and other diseases of the circulatory system; Z86.73 Personal history of transient ischemic attack (TIA), and cerebral infarction without residual deficits; Z90.49 Acquired absence of other specified parts of digestive tract; Z90.710 Acquired absence of both cervix and uterus; Z68.35 Body mass index [BMI] 35.0-35.9, adult
CPT/HCPCS: 36415; 71101; 72072; 73502; 73562; 73610; 73630; 80048; 80053; 81001; 82947; 83036; 83735; 83880; 84484; 85018; 85027; 87086; 93005; 94250; 94640; J1815; J3490; J7620; 99285-25

== ENCOUNTER → 2017-01-13 | Outpatient (CLI) | payer OTHER ==
[~2017-01-13] MED LIST changes: +BUME1TAB PO; +GABA300C8 PO; +HYDR-2666 PO; +Metolazone PO; +NYST15PO9 TP; -NYST30PO9 TP
--- NOTE | 2017-01-13 15:22 | RAD ---
Indication recurrent urinary tract infections. The right kidney measures 9.7 x 4.4 x 5.1 cm. No hydronephrosis or mass is seen. The urinary bladder appeared grossly normal. The left kidney was partially visualized. No definite abnormality was seen but the upper pole was obscured by gas IMPRESSION: Normal morphologic appearance of the right kidney. Left kidney partially visualized. Upper pole obscured. No definite abnormality was seen associated with that portion of the left kidney which was visualized
== END | disposition home or self-care (01) ==
LOC: US 13:57
PROVIDERS: ATTEND Urology
DX: N39.0 Urinary tract infection, site not specified (principal)
CPT/HCPCS: 76770

== ENCOUNTER 2017-03-06 18:07 | Inpatient (IN) | payer OTHER ==
[~2017-03-06] VITALS: Ht 160 cm; Wt 93.6 kg
[~2017-03-06 18:07] MED LIST changes: +ASPI-612 PO; -ASPI81TA9 PO; -CLOP75TA27 PO; +CLOP75TA57 PO; +DICL100G18 TP; -DICL100G7 TP; -HYDR-2666 PO; +HYDR-2758 PO; -LEVO500T38 PO; +LEVO500T59 PO; -LUBI8CAP3 PO; +LUBI8CAP4 PO; -MAGN400O4 PO; +MAGN400O7 PO
[2017-03-06] MEDS ORDERED: fentaNYL PF VIAL 100 MCG/2 ML VIAL IV PRN ×2 (19:00→21:45)
[2017-03-06 19:20] LABS: BASO % 1 % (0-3); EOS % 2 % (0-3); HEMATOCRIT 31.7 % (36.0-47.0); HEMOGLOBIN 10.5 g/dL (12.0-15.5); LYMPH # 1.7 x10^3/uL (1.0-4.8); LYMPH % 31 % (24-48); MEAN CORPUSCULAR HEMOGLOBIN 29 pg (25-35); MEAN CORPUSCULAR HGB CONC 33 g/dL (31-37); MEAN CORPUSCULAR VOLUME 87 fL (79-100); MONO % 13 % (0-9); NEUT % 53 % (31-73); PLATELET COUNT 198 x10^3/uL (140-400); RED BLOOD COUNT 3.63 x10^6/uL (3.50-5.40); RED CELL DISTRIBUTION WIDTH 13.6 % (11.5-14.5); WHITE BLOOD COUNT 5.5 x10^3/uL (4.0-11.0)
[2017-03-06 19:26] LABS: BILIRUBIN,URINE NEGATIVE (NEG); GLUCOSE,URINE NEGATIVE (NEG); NITRITE,URINE NEGATIVE (NEG); PH,URINE 7.5; PROTEIN,URINE NEGATIVE (NEG-TRACE); UROBILINOGEN,URINE 0.2 mg/dL (0.2 mg/dL)
[2017-03-06 19:31] LABS: BACTERIA,URINE FEW /HPF (0-FEW); RBC,URINE 0 /HPF (0-2); SQUAMOUS EPITHELIAL CELL,UR MOD /LPF; WBC,URINE OCC /HPF (0-4)
[2017-03-06 19:36] LABS: CALCIUM 9.4 mg/dL (8.5-10.1); CREATININE 0.9 mg/dL (0.6-1.0); GFR 75.3; POTASSIUM 3.5 mmol/L (3.5-5.1)
[2017-03-06 19:42] LABS: ALBUMIN 3.9 g/dL (3.4-5.0); ALBUMIN/GLOBULIN RATIO 1.1 (1.0-1.7); DIRECT BILIRUBIN 0.1 mg/dL (0.0-0.2); TOTAL BILIRUBIN 0.4 mg/dL (0.2-1.0); TOTAL PROTEIN 7.5 g/dL (6.4-8.2)
[2017-03-06] MEDS ORDERED: FUROSEMIDE 40 MG/4 ML VIAL. IVP ONE (21:00)
--- NOTE | 2017-03-06 21:08 | ED.ADGEN ---
Past Medical History Past Medical History: Arthritis, CAD, CHF, CVA, Diabetes-Type I, DVT, GERD, High Cholesterol, Heart Disease, Hypertension, Renal Disease, Stroke, Vascular Disease Past Surgical History: Appendectomy, Cholecystectomy, Hysterectomy, Other Additional Past Surgical Histo: VASCULAR SURGERY, BACK SURGERY Alcohol Use: None Drug Use: None Adult General Chief Complaint Chief Complaint: MECHANICAL FALL HPI HPI Patient is a 66 year old woman, history of CVA, CHF, type 2 diabetes mellitus, hypertension, hyperlipidemia, obesity, ambulatory dysfunction uses a wheelchair at baseline, who presents emergency Department with complaint of a fall that occurred around 11:00 this morning. Patient states that she was being assisted from the couch to her commode, when she fell. She denies any preceding symptoms such as chest pain or shortness of breath, but states she's been feeling increasingly weak over the past several days, and as though "there is fluid around my heart again". Patient states that she experiences congestive heart failure, and this feels like her previous heart failure. She denies any significant swelling in her lower extremities, any recent travel or surgery, any missed doses of medication or medication changes. It is resting mild shortness of breath, but no chest pain, denies any nausea or vomiting, any focal weakness, numbness or tingling. Patient states that when she fell she struck the metal arm off her wheelchair with the right side of her back in the scapular region, and landed on her buttocks. She was eased to the ground by her caregiver, she did not strike her head or neck, denies any loss of consciousness , any dizziness or vertiginous type symptoms. Review of Systems Review of Systems Constitutional: Denies fever or chills. [] Eyes: Denies change in visual acuity. [] HENT: Denies nasal congestion or sore throat. [] Respiratory: Denies cough, Cardiovascular: Denies chest pain or edema. [] GI: Denies abdominal pain, nausea, vomiting, bloody stools or diarrhea. [] : Denies dysuria. [] Musculoskeletal: Complaining of pain along the mid right scapular region, and right chest wall. Also pain in the right hip and femur. Integument: Denies rash. [] Neurologic: Denies headache, focal weakness or sensory changes. [] Endocrine: Denies polyuria or polydipsia. [] Lymphatic: Denies swollen glands. [] Psychiatric: Denies depression or anxiety. [] Current Medications Current Medications Current Medications Medications (Trade) Dose Ordered Sig/Aliza Start Time Stop Time Status Last Admin Dose Admin Fentanyl Citrate (Fentanyl 2ml Vial) 25 mcg PRN Q15MIN PRN 03/06/17 19:00 03/07/17 18:59 03/06/17 19:22 25 MCG Furosemide (Lasix) 40 mg 1X ONCE 03/06/17 21:00 03/06/17 21:01 Allergies Allergies Allergies Coded Allergies Type Severity Reaction Last Updated Verified Penicillins Allergy Intermediate 02/14/14 Yes codeine Allergy Intermediate morphine, lortab ok 11/27/15 Yes Physical Exam Physical Exam Constitutional: Well developed, well nourished, no acute distress, non-toxic appearance. [] HENT: Normocephalic, atraumatic, bilateral external ears normal, oropharynx moist, no oral exudates, nose normal. [] Eyes: PERRLA, EOMI, conjunctiva normal, no discharge. [] Neck: Normal range of motion, no tenderness, supple, no stridor. [] Cardiovascular:Heart rate regular rhythm, no murmur, S1, S2, no rubs or gallops. Soft heart sounds. [] Lungs & Thorax: Patient with diminished breath sounds at bases bilaterally, right rales at bases also noted, no rhonchi, patient with abrasion noted linearly across the mid scapular region, no lacerations, patient with tenderness in this region, extending down into the right lateral rib region, no chest wall crepitus, no bony point tenderness or deformities. Abdomen: Bowel sounds normal, soft, no rebound, rigidity, no guarding, no tenderness, no masses, no pulsatile masses. [] Skin: Warm, dry, no erythema, no rash. [] Back: No no midline or paraspinal tenderness, no CVA tenderness. [] Extremities: Pelvis is stable to rock, patient with tenderness over the right greater trochanter extending down into the upper aspect of the lateral lower extremity, no external signs of trauma. Full range of motion. Patient is complaining of "stiffness" No cyanosis, no clubbing, ROM intact, no edema. [] Neurologic: Alert and oriented X 3, normal motor function, normal sensory function, no focal deficits noted. [] Psychologic: Affect normal, judgement normal, mood normal. [] Current Patient Data Vital Signs Vital Signs Date Time Temp Pulse Resp B/P (MAP) Pulse Ox O2 Delivery O2 Flow Rate FiO2 03/06/17 18:37 98.1 76 16 186/81 (116) 98 Room Air 98.1 Lab Values Laboratory Tests Test 03/06/17 19:08 03/06/17 19:13 Urine Collection Type Unknown Urine Color Straw Urine Clarity Clear Urine pH 7.5 Urine Specific Gl[place]co 1.010 Urine Protein Negative mg/dL (NEG-TRACE) Urine Glucose (UA) Negative mg/dL (NEG) Urine Ketones (Stick) Negative mg/dL (NEG) Urine Blood Negative (NEG) Urine Nitrite Negative (NEG) Urine Bilirubin Negative (NEG) Urine Urobilinogen Dipstick 0.2 mg/dL (0.2 mg/dL) Urine Leukocyte Esterase Negative (NEG) Urine RBC 0 /HPF (0-2) Urine WBC Occ /HPF (0-4) Urine Squamous Epithelial Cells Mod /LPF Urine Bacteria Few /HPF (0-FEW) White Blood Count 5.5 x10^3/uL (4.0-11.0) Red Blood Count 3.63 x10^6/uL (3.50-5.40) Hemoglobin 10.5 g/dL (12.0-15.5) L Hematocrit 31.7 % (36.0-47.0) L Mean Corpuscular Volume 87 fL (79-100) Mean Corpuscular Hemoglobin 29 pg (25-35) Mean Corpuscular Hemoglobin Concent 33 g/dL (31-37) Red Cell Distribution Width 13.6 % (11.5-14.5) Platelet Count 198 x10^3/uL (140-400) Neutrophils (%) (Auto) 53 % (31-73) Lymphocytes (%) (Auto) 31 % (24-48) Monocytes (%) (Auto) 13 % (0-9) H Eosinophils (%) (Auto) 2 % (0-3) Basophils (%) (Auto) 1 % (0-3) Neutrophils # (Auto) 2.9 x10^3uL (1.8-7.7) Lymphocytes # (Auto) 1.7 x10^3/uL (1.0-4.8) Monocytes # (Auto) 0.7 x10^3/uL (0.0-1.1) Eosinophils # (Auto) 0.1 x10^3/uL (0.0-0.7) Basophils # (Auto) 0.0 x10^3/uL (0.0-0.2) Sodium Level 139 mmol/L (136-145) Potassium Level 3.5 mmol/L (3.5-5.1) Chloride Level 102 mmol/L (98-107) Carbon Dioxide Level 32 mmol/L (21-32) Anion Gap 5 (6-14) L Blood Urea Nitrogen 22 mg/dL (7-20) H Creatinine 0.9 mg/dL (0.6-1.0) Estimated GFR (Cockcroft-Gault) 75.3 BUN/Creatinine Ratio 24 (6-20) H Glucose Level 168 mg/dL (70-99) H Calcium Level 9.4 mg/dL (8.5-10.1) Total Bilirubin 0.4 mg/dL (0.2-1.0) Direct Bilirubin 0.1 mg/dL (0.0-0.2) Aspartate Amino Transferase (AST) 19 U/L (15-37) Alanine Aminotransferase (ALT) 27 U/L (14-59) Alkaline Phosphatase 71 U/L (46-116) Troponin I Quantitative 0.024 ng/mL (0.000-0.055) CV-Dqw-Z-Type Natriuretic Peptide 397 pg/mL (0-124) H Total Protein 7.5 g/dL (6.4-8.2) Albumin 3.9 g/dL (3.4-5.0) Albumin/Globulin Ratio 1.1 (1.0-1.7) Laboratory Tests 03/06/17 19:13 Laboratory Tests 03/06/17 19:13 EKG EKG EC: Sinus rhythm, heart rate 72 beats/minute, right bundle-branch block noted, QTc of 475, OR 136, QRS of 130, no ST elevations or depressions, abnormalities as stated, does not meet STEMI criteria. As interpreted by me. [] Radiology/Procedures Radiology/Procedures Right ribs and PA chest: 4 view: No fractures identified, patient with cardiomegaly noted, evidence of pulmonary edema and cephalization consistent with congestive heart failure, no large effusion or pneumothorax identified, as interpreted by me. Right hip and pelvis: Three-view: No fractures identified, no subluxation, no soft tissue or bony abnormalities noted. As interpreted by me. Course & Med Decision Making Course & Med Decision Making Pertinent Labs and Imaging studies reviewed. (See chart for details) Patient complaining of tenderness throughout the right scapular region, no neck tenderness, with small abrasion noted in the right scapular region, no other maladies identified. No evidence of fracture subluxation identified on x-ray. Patient's chest x-ray is consistent with congestive heart failure, laboratory studies not reveal any acutely concerning findings, patient with a mildly elevated proBNP is 344. Did discuss with patient, she is concerned that she is experiencing a exacerbation of her congestive heart failure, and is agreeable for admission or the hospital, 40 mg of IV Lasix infused in the ED without issue. Patient resting more comfortably after administration of IV pain medication in the ED. Remained stable on the monitor in sinus rhythm. Findings as above discussed with Dr. Velazco of internal medicine, patient accepted his service as a full admission to the medical telemetry floor. Bridge orders entered per discussion. Dragon Disclaimer Dragon Disclaimer This electronic medical record was generated, in whole or in part, using a voice recognition dictation system. Departure Impression: Primary Impression: CHF exacerbation Additional Impression: Falls Disposition: 09 ADMITTED INPATIENT Admitting Physician: Luis F Velazco Condition: IMPROVED Problem Qualifiers CHAS FALLON DO Mar 06, 2017 21:08
[2017-03-06] MEDS ORDERED: NITROGLYCERIN SUBLINGUAL 0.4 MG BOTTLE OF 25. SL PRN (21:45)
[2017-03-06] MEDS ORDERED: DEXTROSE 50% 25 GM / 50ML DISP.SYRIN. IV PRN (21:45)
[2017-03-06] MEDS ORDERED: ONDANSETRON PF 4 MG/2 ML VIAL. IV PRN (21:45)
[2017-03-06] MEDS ORDERED: ACETAMINOPHEN 325 MG TABLET. PO PRN (21:45)
[2017-03-06 22:10] VITALS: BP 148/74
[2017-03-07 04:24] LABS: BASO % 1 % (0-3); EOS % 2 % (0-3); HEMATOCRIT 34.6 % (36.0-47.0); HEMOGLOBIN 11.3 g/dL (12.0-15.5); LYMPH # 1.4 x10^3/uL (1.0-4.8); LYMPH % 31 % (24-48); MEAN CORPUSCULAR HEMOGLOBIN 29 pg (25-35); MEAN CORPUSCULAR HGB CONC 33 g/dL (31-37); MEAN CORPUSCULAR VOLUME 87 fL (79-100); MONO % 14 % (0-9); NEUT % 52 % (31-73); PLATELET COUNT 205 x10^3/uL (140-400); RED BLOOD COUNT 3.96 x10^6/uL (3.50-5.40); RED CELL DISTRIBUTION WIDTH 13.4 % (11.5-14.5); WHITE BLOOD COUNT 4.5 x10^3/uL (4.0-11.0)
--- NOTE | 2017-03-07 04:58 | ACF ---
Admission Forms Criteria HEART FAILURE: COMMON COMPLICATIONS (Place 'X' for any and all applicable criteria): Ongoing inpatient care may be indicated for heart failure with 1 or more of the following (1)(2)(3)(4)(5)(6)(7)(8): [ ]I. New-onset heart failure [ ]II. Acute cardiac ischemia causing or associated with failure [ ]III. Ongoing need for care for primary condition requiring frequent therapy adjustments because of changes in cardiac function (eg, drug dosage changes for drugs that are renally metabolized) [X ]IV. Complications of heart failure, including 1 or more of the following: [ ]a) Hemodynamic instability [ ]b) Pericardial effusion [ ]c) Symptomatic pleural effusion [ ]d) Hypoxemia [ ]e) Tachypnea [X ]f) Dyspnea [ ]g) Syncope [ ]h) Altered mental status [ ]i) Acute renal insufficiency that is severe (reduction of more than 50% in estimated glomerular filtration rate from baseline) or progressive reduction of more than 25% in estimated glomerular filtration rate from baseline, with creatinine continuing to rise) [ ]j) Debilitating anasarca (eg tissue breakdown with infection, inability to void due to edema) (E) [ ]k) Clinically significant metabolic abnormalities due to heart failure (eg, new-onset metabolic acidosis) Extended stay may be needed until ALL of the following are present (1)(3)(18)(41 )(55) [ ]a) Hemodynamic stability [ ]b) Stable and effective diuretic regimen established (or patient on stable dialysis regimen if in chronic renal failure) [ ]c) Volume status acceptable on oral medication [ ]d) Breathing comfortably at rest [ ]e) Saturation of arterial oxygen greater than 90% or at acceptable baseline [ ]f) Pulmonary edema absent or improved [ ]g) Peripheral or sacral edema absent or improved [ ]h) Renal function stable and manageable at a lower level of care [ ]i) Complications (eg, pleural effusion) resolved or manageable at a lower level of care [ ]g) Patient or caregiver has received written discharge instructions or educational material addressing activity level, diet, discharge medications, follow-up appointment, weight monitoring, and what to do if symptoms worsen.(25)(26) The original [facility] [employer] content created by [employer] has been revised. The portions of the content which have been revised are identified through the use of italic text, and [facility] has neither reviewed nor approved the modified material.All other unmodified content is copyright [facility]. Please see references footnoted in the original [facility] edition 2015 Admission Criteria Met?: Yes PARISH CORDOBA Mar 07, 2017 04:58
[2017-03-07 05:00] LABS: CALCIUM 10.5 mg/dL (8.5-10.1); CREATININE 0.7 mg/dL (0.6-1.0); GFR 100.7; POTASSIUM 3.2 mmol/L (3.5-5.1)
--- NOTE | 2017-03-07 06:13 | EKG ---
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
[2017-03-07 07:00] VITALS: BP 144/60
--- NOTE | 2017-03-07 07:42 | RAD ---
Right scapula, 2 views, 03/06/2017: History: Fall, pain The bony structures are demineralized. No fracture is identified. There is mild degenerative change at the AC joint. IMPRESSION: No acute abnormality is detected.
--- NOTE | 2017-03-07 07:44 | RAD ---
Right RIBS with chest, 3 views, 03/06/2017: History: Fall, pain No fracture is identified. There is no evidence of underlying pneumothorax, hemothorax or pulmonary infiltrate. The heart is enlarged. There are mild scattered spurs in the spine. IMPRESSION: No acute right rib abnormality is detected.
--- NOTE | 2017-03-07 07:46 | RAD ---
Pelvis with right hip, 3 views, 03/06/2017: History: Fall, pain No fracture or dislocation is identified. The hip joints are well-maintained with only minimal marginal spurring. Extensive arterial calcifications are present. Surgical clips are projected over the right lower quadrant of the abdomen. IMPRESSION: No acute bony abnormality is detected.
[2017-03-07] MEDS: INSULIN ASPART 300 UNITS/3 ML INSULN.PEN SQ SCH ×2 (08:07→12:14)
[2017-03-07] MEDS ORDERED: ACETAMINOPHEN 325 MG TABLET. PO PRN ×2 (10:15→10:30)
[2017-03-07] MEDS ORDERED: ALBUTEROL SULFATE 2.5 MG NEB PRN (10:15)
[2017-03-07] MEDS ORDERED: HYDROcodone/APAP 5/325MG 1 TAB TABLET PO PRN (10:15)
[2017-03-07] MEDS ORDERED: MAGNESIUM HYDROXIDE 2,400 MG/30 ML ORAL.SUSP. PO PRN (10:30)
[2017-03-07] MEDS ORDERED: traMADol 50 MG TABLET PO PRN (10:30)
[2017-03-07] MEDS ORDERED: DOCUSATE SODIUM 100 MG CAPSULE. PO PRN (10:30)
[2017-03-07] MEDS ORDERED: HYDROcodone/APAP 7.5/325MG 1 TAB TABLET PO PRN (10:30)
[2017-03-07] MEDS ORDERED: MORPHINE SULFATE 2 MG/ML DISP.SYRIN. IV PRN (10:30)
[2017-03-07] MEDS ORDERED: ONDANSETRON PF 4 MG/2 ML VIAL. IV PRN (10:30)
[2017-03-07] MEDS ORDERED: POTASSIUM CHLORIDE 20 MEQ TABLET.ER. PO ONE (10:30)
[2017-03-07] MEDS ORDERED: hydrALAZINE 20 MG/ML VIAL. IVP PRN (10:30)
[2017-03-07] MEDS ORDERED: ALBUTEROL SULFATE 2.5 MG/3 ML NEBU. NEB PRN (10:45)
[2017-03-07 11:00] VITALS: BP 149/65
[2017-03-07] MEDS ORDERED: DORZOLAMIDE/TIMOLOL 2%/0.5% OPHTH SOLUTION 10ML BOTTLE. OU SCH (11:00)
[2017-03-07] MEDS ORDERED: BUMETANIDE 1 MG TABLET. PO SCH (11:00)
[2017-03-07] MEDS ORDERED: amLODIPine BESYLATE 10 MG TABLET PO SCH (11:00)
[2017-03-07] MEDS ORDERED: ASPIRIN ENTERIC COATED 81 MG TABLET.DR. PO SCH (11:00)
[2017-03-07] MEDS ORDERED: CLOPIDOGREL BISULFATE 75 MG TABLET PO SCH (11:00)
[2017-03-07] MEDS ORDERED: LUBIPROSTONE 8 MCG CAPSULE PO SCH (11:00)
[2017-03-07] MEDS ORDERED: metOLazone 2.5 MG TABLET PO SCH (11:00)
[2017-03-07] MEDS ORDERED: CITALOPRAM 20 MG TABLET. PO SCH (11:00)
[2017-03-07] MEDS: IPRATRPIUM/ALBUTEROL 0.5/2.5MG 3 ML NEBU. NEB SCH ×2 (11:21→15:07)
--- NOTE | 2017-03-07 11:59 | PDOC2 ---
KHUSHI SHAW ARTISTS' BOOKING REPRESENTATIVE 03/07/17 1159: CARDIAC CONSULT DATE OF CONSULT Date of Consult DATE: 03/07/17 TIME: 11:46 REASON FOR CONSULT Reason for Consult: CHF Exacerbation REFERRING PHYSICIAN Referring Physician: Dr. Pelayo SOURCE Source: Chart review, Patient HISTORY OF PRESENT ILLNESS HISTORY OF PRESENT ILLNESS This is a 66 yo female who presented secondary to a fall. Patient reports she was transferring from the couch to her wheelchair with assistance when fall occurred. Back hit wheelchair. No LOC or trauma sustained. Reports feeling weak recently. Patient denies any chest pain, palpitations, dizziness, LE edema, or orthopnea. Reportedly SOA in ED. Concern for acute CHF- IV Lasix administered. PAST MEDICAL HISTORY Past Medical History Cardiovascular: CAD s/p stents, [place], CHF, HTN, Hyperlipidemia, Other (MR), PVD Pulmonary: COPD, LYNDSEY CENTRAL NERVOUS SYSTEM: CVA, Peripheral neuropathy, Seizure, Other (cranial nerve 6 palsy) GI: GERD Heme/Onc: Anemia NOS, Other (DVT?) Hepatobiliary: No pertinent hx Psych: Anxiety, Depression Musculoskeletal: low back pain (lumbar stenosis with radiculopathy), Osteoarthritis Rheumatologic: No pertinent hx Infectious disease: No pertinent hx ENT: No pertinent hx Renal/: Chronic renal insuff, UTI Endocrine: Diabetes (2) Dermatology: No pertinent hx PAST SURGICAL HISTORY Past Surgical History Appendectomy, Cholecystectomy, Tonsillectomy, Hysterectomy, right oophorectomy, right ankle surgery FAMILY HISTORY Family History: Hypertension SOCIAL HISTORY Social History Smoke: No ALCOHOL: none Drugs: None CURRENT MEDICATIONS CURRENT MEDICATIONS Current Medications Medications (Trade) Dose Ordered Sig/Aliza Route PRN Reason Start Time Stop Time Status Last Admin Dose Admin Fentanyl Citrate (Fentanyl 2ml Vial) 25 mcg PRN Q15MIN PRN IV PAIN GREATER THAN 3/10 03/06/17 19:00 03/07/17 18:59 03/06/17 19:22 Furosemide (Lasix) 40 mg 1X ONCE IVP 03/06/17 21:00 03/06/17 21:01 DC 03/06/17 21:49 Ondansetron HCl (Zofran) 4 mg PRN Q8HRS PRN IV NAUSEA/VOMITING 03/06/17 21:45 03/07/17 21:44 03/07/17 10:55 Fentanyl Citrate (Fentanyl 2ml Vial) 50 mcg PRN Q1HR PRN IV PAIN 03/06/17 21:45 03/07/17 21:44 03/07/17 00:06 Insulin Aspart (NovoLOG) 0-5 UNITS TIDWMEALS SQ 03/07/17 08:00 03/07/17 08:07 Acetaminophen/ Hydrocodone Bitart (Lortab 7.5/325) 1 tab PRN Q6HRS PRN PO PAIN 03/07/17 10:30 03/07/17 10:55 Albuterol/ Ipratropium (Duoneb) 3 ml RTQID NEB 03/07/17 12:00 03/07/17 11:21 ALLERGIES ALLERGIES: Coded Allergies: Penicillins (Verified Allergy, Intermediate, 02/14/14) codeine (Verified Allergy, Intermediate, morphine, lortab ok, 11/27/15) ROS Review of System 14 pint ROS conducted with pertinent positives noted above in HPI. PHYSICAL EXAM PHYSICAL EXAM General: Alert, Oriented X3, Cooperative HEENT: Atraumatic, PERRLA Lungs: Other (decreased in bases posteriorly) Heart: Normal S1, Normal S2 Abdomen: Normal bowel sounds, Soft, No tenderness Extremities: No edema, Normal pulses Skin: No rashes Neuro: Normal speech Psych/Mental Status: Mental status WNL, Mood WNL MUSCULOSKELETAL: no swelling VITALS VITALS Vital Signs Date Time Temp Pulse Resp B/P (MAP) Pulse Ox O2 Delivery O2 Flow Rate FiO2 03/07/17 11:23 94 Room Air 03/07/17 07:00 98.2 72 22 144/60 (88) 98.2 LABS Lab: Laboratory Tests Test 03/06/17 19:08 03/06/17 19:13 03/07/17 03:00 03/07/17 03:40 Urine Collection Type Unknown Urine Color Straw Urine Clarity Clear Urine pH 7.5 Urine Specific [place] 1.010 Urine Protein Negative mg/dL (NEG-TRACE) Urine Glucose (UA) Negative mg/dL (NEG) Urine Ketones (Stick) Negative mg/dL (NEG) Urine Blood Negative (NEG) Urine Nitrite Negative (NEG) Urine Bilirubin Negative (NEG) Urine Urobilinogen Dipstick 0.2 mg/dL (0.2 mg/dL) Urine Leukocyte Esterase Negative (NEG) Urine RBC 0 /HPF (0-2) Urine WBC Occ /HPF (0-4) Urine Squamous Epithelial Cells Mod /LPF Urine Bacteria Few /HPF (0-FEW) White Blood Count 5.5 x10^3/uL (4.0-11.0) 4.5 x10^3/uL (4.0-11.0) Red Blood Count 3.63 x10^6/uL (3.50-5.40) 3.96 x10^6/uL (3.50-5.40) Hemoglobin 10.5 g/dL (12.0-15.5) 11.3 g/dL (12.0-15.5) Hematocrit 31.7 % (36.0-47.0) 34.6 % (36.0-47.0) Mean Corpuscular Volume 87 fL (79-100) 87 fL (79-100) Mean Corpuscular Hemoglobin 29 pg (25-35) 29 pg (25-35) Mean Corpuscular Hemoglobin Concent 33 g/dL (31-37) 33 g/dL (31-37) Red Cell Distribution Width 13.6 % (11.5-14.5) 13.4 % (11.5-14.5) Platelet Count 198 x10^3/uL (140-400) 205 x10^3/uL (140-400) Neutrophils (%) (Auto) 53 % (31-73) 52 % (31-73) Lymphocytes (%) (Auto) 31 % (24-48) 31 % (24-48) Monocytes (%) (Auto) 13 % (0-9) 14 % (0-9) Eosinophils (%) (Auto) 2 % (0-3) 2 % (0-3) Basophils (%) (Auto) 1 % (0-3) 1 % (0-3) Neutrophils # (Auto) 2.9 x10^3uL (1.8-7.7) 2.3 x10^3uL (1.8-7.7) Lymphocytes # (Auto) 1.7 x10^3/uL (1.0-4.8) 1.4 x10^3/uL (1.0-4.8) Monocytes # (Auto) 0.7 x10^3/uL (0.0-1.1) 0.6 x10^3/uL (0.0-1.1) Eosinophils # (Auto) 0.1 x10^3/uL (0.0-0.7) 0.1 x10^3/uL (0.0-0.7) Basophils # (Auto) 0.0 x10^3/uL (0.0-0.2) 0.0 x10^3/uL (0.0-0.2) Sodium Level 139 mmol/L (136-145) 139 mmol/L (136-145) Potassium Level 3.5 mmol/L (3.5-5.1) 3.2 mmol/L (3.5-5.1) Chloride Level 102 mmol/L (98-107) 98 mmol/L (98-107) Carbon Dioxide Level 32 mmol/L (21-32) 30 mmol/L (21-32) Anion Gap 5 (6-14) 11 (6-14) Blood Urea Nitrogen 22 mg/dL (7-20) 18 mg/dL (7-20) Creatinine 0.9 mg/dL (0.6-1.0) 0.7 mg/dL (0.6-1.0) Estimated GFR (Cockcroft-Gault) 75.3 100.7 BUN/Creatinine Ratio 24 (6-20) Glucose Level 168 mg/dL (70-99) 167 mg/dL (70-99) Calcium Level 9.4 mg/dL (8.5-10.1) 10.5 mg/dL (8.5-10.1) Total Bilirubin 0.4 mg/dL (0.2-1.0) Direct Bilirubin 0.1 mg/dL (0.0-0.2) Aspartate Amino Transf (AST/SGOT) 19 U/L (15-37) Alanine Aminotransferase (ALT/SGPT) 27 U/L (14-59) Alkaline Phosphatase 71 U/L (46-116) Troponin I Quantitative 0.024 ng/mL (0.000-0.055) 0.029 ng/mL (0.000-0.055) RZ-Hnl-Y-Type Natriuretic Peptide 397 pg/mL (0-124) Total Protein 7.5 g/dL (6.4-8.2) Albumin 3.9 g/dL (3.4-5.0) Albumin/Globulin Ratio 1.1 (1.0-1.7) Test 03/07/17 07:36 03/07/17 09:40 03/07/17 11:09 Glucose (Fingerstick) 206 mg/dL (70-99) 199 mg/dL (70-99) Troponin I Quantitative 0.028 ng/mL (0.000-0.055) ECHOCARDIOGRAM ECHOCARDIOGRAM <Conclusion> Left ventricle systolic function is mildly to moderately impaired. The Ejection Fraction is 35-40%. There is global hypokinesis on suboptimal images. Doppler and Color Flow revealed moderate tricuspid regurgitation. There is moderate pulmonary hypertension. The PA pressure was estimated at 68 mmHg. The IVC is dilated and collapses <50% with inspiration. DATE: 06/24/16 1120 HEART CATH HEART CATH FINDINGS 1. Hemodynamics: Left ventricular end-diastolic pressure of 23 mmHg. No pullback gradient across the aortic valve. 2. Coronary angiography: a. The left main coronary artery arose from the left sinus of Valsalva, gave rise to the left anterior descending and left circumflex arteries and did not show any significant stenosis. b. The left anterior descending artery did not show any significant stenosis. c. The left circumflex artery did not show any significant stenosis. d. The right coronary artery was a large and dominant vessel arising from the right sinus of Valsalva that showed 30% stenosis involving the proximal to midsegment. 3. Bilateral selective renal angiography did not show any significant renal artery stenosis. Conclusion 1. Nonobstructive coronary artery disease with 30% stenosis involving the right coronary artery without any other significant stenoses. 2. No renal artery stenosis. Recommendations Medical Therapy DATE: 07/26/16 1444 ASSESSMENT/PLAN ASSESSMENT/PLAN 1. Mild acute on chronic systolic HF; LVEF 35-40% on echo 06/2016. NT Pro BNP mildly elevated at 397. CXR without significant vascular congestion. Improved with IV Lasix. Now compensated. 2. Accelerated hypertension; now improved. 3. Mechanical fall 4. Non-ischemic cardiomyopathy; recent cath without obstructive disease 5. Pulmonary HTN, severe PAP - 68 mm Hg with underlying COPD 6. Diabetes, type II; per PCP 7. Hypokalemia; replaced. Recommendations Check echo to assess LV function No further aggressive diuresis warranted at this time. Continue routine oral diuresis as patient is presently compensated. Check Mg- replace as warranted. Supportive care. Problems: MACK COREY MD 03/07/17 1744: CARDIAC CONSULT ALLERGIES ALLERGIES: Coded Allergies: Penicillins (Verified Allergy, Intermediate, 02/14/14) codeine (Verified Allergy, Intermediate, morphine, lortab ok, 11/27/15) ASSESSMENT/PLAN ASSESSMENT/PLAN Patient seen and examined. Agree with CANDLE EXTRUSION MACHINE OPERATOR's assessment and plan. Acute on chronic systolic heart failure improved with Lasix. 2D echo showed EF 45-50% BP better controlled since admission CAD status clinically stable Continue current medical regimen Thank you for your consultation Problems: KHUSHI SHAW APRN Mar 07, 2017 11:59 MACK COREY MD Mar 07, 2017 17:44
[2017-03-07] MEDS ORDERED: DOCUSATE SODIUM 100 MG CAPSULE. PO SCH (12:00)
[2017-03-07] MEDS ORDERED: CHOLECALCIFEROL (VITAMIN D3) 1,000 UNIT TABLET PO SCH (12:00)
[2017-03-07] MEDS ORDERED: SENNOSIDES/DOCUSATE 8.6/50MG TABLET. PO SCH (12:00)
[2017-03-07] MEDS ORDERED: carBAMazepine 200 MG TABLET PO SCH (12:00)
--- NOTE | 2017-03-07 13:50 | PDOC1 ---
History and Physical Date of Admission Date of Admission 03/07/17 Identification/Chief Complaint Chief Complaint fall Problems: Source Source: Chart review, Patient History of Present Illness History of Present Illness HPI Patient is a 66 year old woman, history of CVA, CHF, type 2 diabetes mellitus, hypertension, hyperlipidemia, obesity, ambulatory dysfunction uses a wheelchair at baseline, came to ER last night for fall. She said she had been feeling weak recently, no N/V, DIARRhea, + chronic constipation. When she moved from her wheelchair to commode yesterday, she fell backwards with severe pain. denies fever, chills, cough, sob. lives alone, has a team primary care physician coming daily. pcp dr. Cervantes Past Medical History Cardiovascular: CAD, CHF, HTN, Hyperlipidemia, Other Pulmonary: COPD CENTRAL NERVOUS SYSTEM: CVA, Periperal neuropathy, Seizure, Other GI: GERD Heme/Onc: Anemia NOS, Other Hepatobiliary: No pertinent hx Psych: Anxiety, Depression Rheumatologic: No pertinent hx Infectious disease: No pertinent hx Renal/: Chronic renal insuff, UTI Endocrine: Diabetes Past Surgical History Past Surgical History: Appendectomy, Cholecystectomy, Tonsillectomy, Hysterectomy, Other Family History Family History: Hypertension Social History Smoke: No ALCOHOL: none Drugs: None Current Problem List Problem List Problems Medical Problems: (1) CHF exacerbation Status: Acute (2) Falls Status: Acute Current Medications Current Medications Current Medications Medications (Trade) Dose Ordered Sig/Aliza Start Time Stop Time Status Last Admin Dose Admin Acetaminophen (Tylenol) 650 mg PRN Q6HRS PRN 03/07/17 10:30 UNV Acetaminophen/ Hydrocodone Bitart (Lortab 5/325) 1 tab PRN Q4HRS PRN 03/07/17 10:15 03/07/17 10:33 DC Acetaminophen/ Hydrocodone Bitart (Lortab 7.5/325) 1 tab PRN Q6HRS PRN 03/07/17 10:30 03/07/17 10:55 1 TAB Albuterol Sulfate (Ventolin Neb Soln) 2.5 mg PRN Q6HRS PRN 03/07/17 10:45 Albuterol/ Ipratropium (Duoneb) 3 ml RTQID 03/07/17 12:00 03/07/17 11:21 3 ML Amlodipine Besylate (Norvasc) 10 mg DAILY 03/07/17 11:00 03/07/17 12:04 10 MG Aspirin (Ecotrin) 81 mg DAILYWBKFT 03/07/17 11:00 03/07/17 12:04 81 MG Atorvastatin Calcium (Lipitor) 40 mg HS 03/07/17 21:00 Bumetanide (Bumex) 2 mg DAILY 03/07/17 11:00 03/07/17 12:04 2 MG Carbamazepine (TEGretol) 200 mg BID 03/07/17 12:00 03/07/17 12:09 200 MG Citalopram Hydrobromide (CeleXA) 20 mg DAILY 03/07/17 11:00 03/07/17 12:03 20 MG Clopidogrel Bisulfate (Plavix) 75 mg DAILYWBKFT 03/07/17 11:00 03/07/17 12:03 75 MG Dextrose (Dextrose 50%-Water Syringe) 12.5 gm PRN Q15MIN PRN 03/06/17 21:45 Diclofenac Sodium (Voltaren) 1 abdullahi BID 03/07/17 21:00 Docusate Sodium (Colace) 100 mg BID 03/07/17 12:00 03/07/17 12:09 100 MG Dorzolamide/ Timolol (Cosopt) 1 drop BID 03/07/17 11:00 Fentanyl Citrate (Fentanyl 2ml Vial) 50 mcg PRN Q1HR PRN 03/06/17 21:45 03/07/17 21:44 03/07/17 00:06 50 MCG Furosemide (Lasix) 40 mg DAILY 03/08/17 09:00 Gabapentin (Neurontin) 300 mg QHS 03/07/17 21:00 Hydralazine HCl (Apresoline) 10 mg PRN Q4HRS PRN 03/07/17 10:30 Insulin Aspart (NovoLOG) 0-5 UNITS TIDWMEALS 03/07/17 08:00 03/07/17 12:14 2 UNITS Insulin Aspart Prota 70%/Aspart 30% (Novolog Mix 70-30) 15 units BIDAC 03/07/17 16:30 Labetalol HCl (Trandate) 200 mg BID 03/07/17 21:00 Latanoprost (Xalatan) 1 drop HS 03/07/17 21:00 Lubiprostone (Amitiza) 8 mcg BIDWMEALS 03/07/17 11:00 03/07/17 12:03 8 MCG Magnesium Hydroxide (Milk Of Magnesia) 2,400 mg PRN Q12HR PRN 03/07/17 10:30 Metolazone (Zaroxolyn) 5 mg DAILY 03/07/17 11:00 03/07/17 12:03 5 MG Morphine Sulfate 2 mg PRN Q2HR PRN 03/07/17 10:30 Nitroglycerin (Nitrostat) 0.4 mg PRN Q5MIN PRN 03/06/17 21:45 03/07/17 21:44 Non-Formulary Medication 2.5 mg PRN QID PRN 03/07/17 10:15 UNV Ondansetron HCl (Zofran) 4 mg PRN Q6HRS PRN 03/07/17 10:30 Pantoprazole Sodium (Protonix) 40 mg HS 03/07/17 21:00 Potassium Chloride (Klor-Con) 40 meq 1X ONCE 03/07/17 10:30 03/07/17 10:41 DC 03/07/17 12:05 40 MEQ Senna/Docusate Sodium (Senna Plus) 1 tab BID 03/07/17 12:00 03/07/17 12:09 1 TAB Tramadol HCl (Ultram) 50 mg PRN Q6HRS PRN 03/07/17 10:30 Vitamin D (Vitamin D3) 2,000 unit DAILY 03/07/17 12:00 03/07/17 12:09 2,000 UNIT Allergies Allergies Allergies Coded Allergies Type Severity Reaction Last Updated Verified Penicillins Allergy Intermediate 02/14/14 Yes codeine Allergy Intermediate morphine, lortab ok 11/27/15 Yes ROS Review of System CONSTITUTIONAL: No fever or chills EYES: No recent changes SKIN: No rash or itching CARDIOVASCULAR: No chest pain, syncope, palpitations, or edema RESPIRATORY: No SOB or cough GASTROINTESTINAL: No nausea, vomiting or abdominal pain NEUROLOGICAL: No headaches or weakness ENDOCRINE: No cold or heat intolerance GENITOURINARY: No urgency or frequency of urination MUSCULOSKELETAL: No back pain or joint pain LYMPHATICS: No enlarged lymph nodes PSYCHIATRIC: No anxiety or depression Physical Exam Physical Exam GEN.: No apparent distress. Alert and oriented. hard to turn around. HEENT: Head is normocephalic, atraumatic NECK: Supple. LUNGS: Clear to auscultation. HEART: RRR, S1, S2 present. Peripheral pulses intact ABDOMEN: Soft, nontender. Positive bowel sounds. EXTREMITIES: Without any cyanosis. NEUROLOGIC: Normal speech, normal tone. right side weaker, strength 3/5 PSYCHIATRIC: Normal affect, normal mood. SKIN: No ulcerations Vitals Vitals Vital Signs Date Time Temp Pulse Resp B/P (MAP) Pulse Ox O2 Delivery O2 Flow Rate FiO2 03/07/17 12:04 67 149/65 03/07/17 11:23 94 Room Air 03/07/17 11:00 97.8 24 97.8 Labs Labs Laboratory Tests Test 03/06/17 19:08 03/06/17 19:13 03/07/17 03:00 03/07/17 03:40 Urine Collection Type Unknown Urine Color Straw Urine Clarity Clear Urine pH 7.5 Urine Specific [place] 1.010 Urine Protein Negative mg/dL (NEG-TRACE) Urine Glucose (UA) Negative mg/dL (NEG) Urine Ketones (Stick) Negative mg/dL (NEG) Urine Blood Negative (NEG) Urine Nitrite Negative (NEG) Urine Bilirubin Negative (NEG) Urine Urobilinogen Dipstick 0.2 mg/dL (0.2 mg/dL) Urine Leukocyte Esterase Negative (NEG) Urine RBC 0 /HPF (0-2) Urine WBC Occ /HPF (0-4) Urine Squamous Epithelial Cells Mod /LPF Urine Bacteria Few /HPF (0-FEW) White Blood Count 5.5 x10^3/uL (4.0-11.0) 4.5 x10^3/uL (4.0-11.0) Red Blood Count 3.63 x10^6/uL (3.50-5.40) 3.96 x10^6/uL (3.50-5.40) Hemoglobin 10.5 g/dL (12.0-15.5) 11.3 g/dL (12.0-15.5) Hematocrit 31.7 % (36.0-47.0) 34.6 % (36.0-47.0) Mean Corpuscular Volume 87 fL (79-100) 87 fL (79-100) Mean Corpuscular Hemoglobin 29 pg (25-35) 29 pg (25-35) Mean Corpuscular Hemoglobin Concent 33 g/dL (31-37) 33 g/dL (31-37) Red Cell Distribution Width 13.6 % (11.5-14.5) 13.4 % (11.5-14.5) Platelet Count 198 x10^3/uL (140-400) 205 x10^3/uL (140-400) Neutrophils (%) (Auto) 53 % (31-73) 52 % (31-73) Lymphocytes (%) (Auto) 31 % (24-48) 31 % (24-48) Monocytes (%) (Auto) 13 % (0-9) 14 % (0-9) Eosinophils (%) (Auto) 2 % (0-3) 2 % (0-3) Basophils (%) (Auto) 1 % (0-3) 1 % (0-3) Neutrophils # (Auto) 2.9 x10^3uL (1.8-7.7) 2.3 x10^3uL (1.8-7.7) Lymphocytes # (Auto) 1.7 x10^3/uL (1.0-4.8) 1.4 x10^3/uL (1.0-4.8) Monocytes # (Auto) 0.7 x10^3/uL (0.0-1.1) 0.6 x10^3/uL (0.0-1.1) Eosinophils # (Auto) 0.1 x10^3/uL (0.0-0.7) 0.1 x10^3/uL (0.0-0.7) Basophils # (Auto) 0.0 x10^3/uL (0.0-0.2) 0.0 x10^3/uL (0.0-0.2) Sodium Level 139 mmol/L (136-145) 139 mmol/L (136-145) Potassium Level 3.5 mmol/L (3.5-5.1) 3.2 mmol/L (3.5-5.1) Chloride Level 102 mmol/L (98-107) 98 mmol/L (98-107) Carbon Dioxide Level 32 mmol/L (21-32) 30 mmol/L (21-32) Anion Gap 5 (6-14) 11 (6-14) Blood Urea Nitrogen 22 mg/dL (7-20) 18 mg/dL (7-20) Creatinine 0.9 mg/dL (0.6-1.0) 0.7 mg/dL (0.6-1.0) Estimated GFR (Cockcroft-Gault) 75.3 100.7 BUN/Creatinine Ratio 24 (6-20) Glucose Level 168 mg/dL (70-99) 167 mg/dL (70-99) Calcium Level 9.4 mg/dL (8.5-10.1) 10.5 mg/dL (8.5-10.1) Total Bilirubin 0.4 mg/dL (0.2-1.0) Direct Bilirubin 0.1 mg/dL (0.0-0.2) Aspartate Amino Transf (AST/SGOT) 19 U/L (15-37) Alanine Aminotransferase (ALT/SGPT) 27 U/L (14-59) Alkaline Phosphatase 71 U/L (46-116) Troponin I Quantitative 0.024 ng/mL (0.000-0.055) 0.029 ng/mL (0.000-0.055) FP-Yyx-J-Type Natriuretic Peptide 397 pg/mL (0-124) Total Protein 7.5 g/dL (6.4-8.2) Albumin 3.9 g/dL (3.4-5.0) Albumin/Globulin Ratio 1.1 (1.0-1.7) Test 03/07/17 07:36 03/07/17 09:40 03/07/17 11:09 Glucose (Fingerstick) 206 mg/dL (70-99) 199 mg/dL (70-99) Magnesium Level 1.2 mg/dL (1.8-2.4) Troponin I Quantitative 0.028 ng/mL (0.000-0.055) Laboratory Tests Test 03/06/17 19:08 03/06/17 19:13 03/07/17 03:00 03/07/17 03:40 Urine Collection Type Unknown Urine Color Straw Urine Clarity Clear Urine pH 7.5 Urine Specific [place] 1.010 Urine Protein Negative mg/dL (NEG-TRACE) Urine Glucose (UA) Negative mg/dL (NEG) Urine Ketones (Stick) Negative mg/dL (NEG) Urine Blood Negative (NEG) Urine Nitrite Negative (NEG) Urine Bilirubin Negative (NEG) Urine Urobilinogen Dipstick 0.2 mg/dL (0.2 mg/dL) Urine Leukocyte Esterase Negative (NEG) Urine RBC 0 /HPF (0-2) Urine WBC Occ /HPF (0-4) Urine Squamous Epithelial Cells Mod /LPF Urine Bacteria Few /HPF (0-FEW) White Blood Count 5.5 x10^3/uL (4.0-11.0) 4.5 x10^3/uL (4.0-11.0) Red Blood Count 3.63 x10^6/uL (3.50-5.40) 3.96 x10^6/uL (3.50-5.40) Hemoglobin 10.5 g/dL (12.0-15.5) 11.3 g/dL (12.0-15.5) Hematocrit 31.7 % (36.0-47.0) 34.6 % (36.0-47.0) Mean Corpuscular Volume 87 fL (79-100) 87 fL (79-100) Mean Corpuscular Hemoglobin 29 pg (25-35) 29 pg (25-35) Mean Corpuscular Hemoglobin Concent 33 g/dL (31-37) 33 g/dL (31-37) Red Cell Distribution Width 13.6 % (11.5-14.5) 13.4 % (11.5-14.5) Platelet Count 198 x10^3/uL (140-400) 205 x10^3/uL (140-400) Neutrophils (%) (Auto) 53 % (31-73) 52 % (31-73) Lymphocytes (%) (Auto) 31 % (24-48) 31 % (24-48) Monocytes (%) (Auto) 13 % (0-9) 14 % (0-9) Eosinophils (%) (Auto) 2 % (0-3) 2 % (0-3) Basophils (%) (Auto) 1 % (0-3) 1 % (0-3) Neutrophils # (Auto) 2.9 x10^3uL (1.8-7.7) 2.3 x10^3uL (1.8-7.7) Lymphocytes # (Auto) 1.7 x10^3/uL (1.0-4.8) 1.4 x10^3/uL (1.0-4.8) Monocytes # (Auto) 0.7 x10^3/uL (0.0-1.1) 0.6 x10^3/uL (0.0-1.1) Eosinophils # (Auto) 0.1 x10^3/uL (0.0-0.7) 0.1 x10^3/uL (0.0-0.7) Basophils # (Auto) 0.0 x10^3/uL (0.0-0.2) 0.0 x10^3/uL (0.0-0.2) Sodium Level 139 mmol/L (136-145) 139 mmol/L (136-145) Potassium Level 3.5 mmol/L (3.5-5.1) 3.2 mmol/L (3.5-5.1) Chloride Level 102 mmol/L (98-107) 98 mmol/L (98-107) Carbon Dioxide Level 32 mmol/L (21-32) 30 mmol/L (21-32) Anion Gap 5 (6-14) 11 (6-14) Blood Urea Nitrogen 22 mg/dL (7-20) 18 mg/dL (7-20) Creatinine 0.9 mg/dL (0.6-1.0) 0.7 mg/dL (0.6-1.0) Estimated GFR (Cockcroft-Gault) 75.3 100.7 BUN/Creatinine Ratio 24 (6-20) Glucose Level 168 mg/dL (70-99) 167 mg/dL (70-99) Calcium Level 9.4 mg/dL (8.5-10.1) 10.5 mg/dL (8.5-10.1) Total Bilirubin 0.4 mg/dL (0.2-1.0) Direct Bilirubin 0.1 mg/dL (0.0-0.2) Aspartate Amino Transf (AST/SGOT) 19 U/L (15-37) Alanine Aminotransferase (ALT/SGPT) 27 U/L (14-59) Alkaline Phosphatase 71 U/L (46-116) Troponin I Quantitative 0.024 ng/mL (0.000-0.055) 0.029 ng/mL (0.000-0.055) BQ-Lwg-Q-Type Natriuretic Peptide 397 pg/mL (0-124) Total Protein 7.5 g/dL (6.4-8.2) Albumin 3.9 g/dL (3.4-5.0) Albumin/Globulin Ratio 1.1 (1.0-1.7) Test 03/07/17 07:36 03/07/17 09:40 03/07/17 11:09 Glucose (Fingerstick) 206 mg/dL (70-99) 199 mg/dL (70-99) Magnesium Level 1.2 mg/dL (1.8-2.4) Troponin I Quantitative 0.028 ng/mL (0.000-0.055) VTE Prophylaxis Ordered VTE Prophylaxis Devices: Yes VTE Pharmacological Prophylaxi: Yes Assessment/Plan Assessment/Plan mechanical fall generalized weakness hypokalemia hypomagnesemia h/o CAD with pci h/o CHF, systolic WITH EF 45%, stable severe PHTN dm2 h/o CVA with right side weakness h/o dvt no AC gerd htn hld OA wheel chair bound chronic constipation plan: fu with card cont home meds, cont home po diuretics replete k, mag ptot dvt ppx stool sotfner asked nurse to double check PCP if they come to hosp FABRICIO PAEZ MD Mar 07, 2017 13:50
[2017-03-07] MEDS ORDERED: MAGNESIUM SULFATE 4GM 100 ML IV ONE ×2 (14:00→14:45)
[2017-03-07] MEDS ORDERED: ENOXAPARIN 40 MG/0.4 ML SYRINGE. SQ SCH (14:00)
[2017-03-07 15:00] VITALS: BP 136/78
[2017-03-07] MEDS ORDERED: INSULN ASP PRT/INSULIN ASPART 300 UNITS/3 ML INSULN.PEN. SQ SCH (16:30)
--- NOTE | 2017-03-07 17:08 | CARD ---
APPROVED REPORT EXAM: Two-dimensional and M-mode echocardiogram with Doppler and color Doppler. Other Information Quality : GoodHR: 67bpm Rhythm : NSR INDICATION Congestive Heart Failure 2D DIMENSIONS RVDd3.2 (2.9-3.5cm)Left Atrium(2D)4.0 (1.6-4.0cm) IVSd1.3 (0.7-1.1cm)Aortic Root(2D)2.6 (2.0-3.7cm) LVDd4.6 (3.9-5.9cm)LVOT Diameter2.3 (1.8-2.4cm) PWd1.3 (0.7-1.1cm)LVDs3.6 (2.5-4.0cm) FS (%) 22.5 %SV44.6 ml Aortic Valve AoV Peak Gregory.128.4cm/sAoV VTI24.3cm AO Peak GR.6.6mmHgLVOT Peak Gregory.90.3cm/s AO Mean GR.4mmHgAVA (VMAX)2.93cm2 Mitral Valve MV E Jkmedjfu490.9cm/sMV E Peak Gr.5mmHg MV DECEL [id number] A Cshpyvtm12.3cm/s MV E Mean Gr.2mmHgE/A Ratio1.3 MV A [id number] Pulmonary Valve PV Peak Dgyihoew78.5cm/s Pulmonary Vein S1 Kidmvgdl69.1cm/sD2 Oxuxvwrf15.0cm/s PVa [id number] LEFT VENTRICLE The left ventricle is normal size. There is mild concentric left ventricular hypertrophy. Left ventri beatriz systolic function is mildly impaired. The Ejection Fraction is 45-50%. There is mild global hypok inesis of the left ventricle. The left ventricular diastolic function and filling is normal for age. RIGHT VENTRICLE The right ventricle is normal size. There is normal right ventricular wall thickness. The right ventr icular systolic function is normal. ATRIA The left atrium size is normal. The right atrium size is normal. The interatrial septum is intact wit h no evidence for an atrial septal defect or patent foramen ovale as noted on 2-D or Doppler imaging. AORTIC VALVE The aortic valve is mildly sclerotic. The aortic valve is trileaflet. Doppler and Color Flow revealed no significant aortic regurgitation. There is no significant aortic valvular stenosis. MITRAL VALVE Mitral annular calcification is mild. The mitral valve leaflets are thickened. There is no evidence o f mitral valve prolapse. There is no mitral valve stenosis. Doppler and Color Flow revealed trace sloan ral valve regurgitation. TRICUSPID VALVE Doppler and Color Flow revealed no tricuspid valve regurgitation noted. PULMONIC VALVE The pulmonary valve is not well visualized but appears to opens well. Doppler and Color Flow revealed no pulmonic valvular regurgitation. There is no pulmonic valvular stenosis by spectral Doppler. GREAT VESSELS The aortic root is normal in size. The ascending aorta is normal in size. The pulmonary artery is nor mal. The IVC is normal in size and collapses >50% with inspiration. PERICARDIAL EFFUSION There is no evidence of significant pericardial effusion. Critical Notification Critical Value: No <Conclusion> The left ventricle is normal size. Left ventricle systolic function is mildly impaired. The Ejection Fraction is 45-50%. There is mild global hypokinesis of the left ventricle. There is mild concentric left ventricular hypertrophy. There is no significant aortic valvular stenosis. Doppler and Color Flow revealed no significant aortic regurgitation. Doppler and Color Flow revealed trace mitral valve regurgitation. Doppler and Color Flow revealed no tricuspid valve regurgitation noted.
--- NOTE | 2017-03-07 18:14 | PDOC3 ---
Discharge Summary [facility] Date of Admission: Mar 06, 2017 Discharge Date: Mar 07, 2017 Admitting Diagnosis mechanical fall generalized weakness hypokalemia hypomagnesemia h/o CAD with pci h/o CHF, systolic WITH EF 45%, stable severe PHTN dm2 h/o CVA with right side weakness h/o dvt no AC gerd htn hld OA wheel chair bound chronic constipation Problems: Final Diagnosis CONSULTS card Brief Hospital Course Patient is a 66 year old woman, history of CVA, CHF, type 2 diabetes mellitus , hypertension, hyperlipidemia, obesity, ambulatory dysfunction uses a wheelchair at baseline, came to ER last night for fall. She said she had been feeling weak recently, no N/V, DIARRhea, + chronic constipation. When she moved from her wheelchair to commode yesterday, she fell backwards with severe pain. denies fever, chills, cough, sob. lives alone, has a healthcare interpreter coming daily. pcp dr. Cervantes pt has no acute CHF exacerbation, the weakness could 2/2 oldness, hypokalemia, hypomagnesemia. echo stable. pt cont having back pain from fall, dr. aquino consulted. pt's relative was admited in another hosp for cardiac arrest and was informed to soon. so will dc pt so that she can go to see before the relative . Mag repleted some. dc time 35min Patient History: Family history: Hypertension (situation) (Pt says lots of family members with HTN.) Problems: Disposition home CONDITION AT DISCHARGE: Improved Diet cardiac Scheduled Acyclovir (Acyclovir), 800 MG PO [id number] Amlodipine Besylate (Norvasc), 10 MG PO DAILY Aspirin (Aspirin Ec), 81 MG PO DAILYWBKFT Atorvastatin Calcium (Lipitor), 40 MG PO HS Bumetanide (Bumetanide), 2 MG PO DAILY Carbamazepine (Tegretol), 200 MG PO BID Cholecalciferol (Vitamin D3) (Vitamin D), 1 CAP PO DAILY, (Reported) Citalopram Hydrobromide (Celexa), 20 MG PO DAILY, (Reported) Clopidogrel Bisulfate (Plavix), 75 MG PO DAILYWBKFT Diclofenac Sodium (Voltaren), 1 SOLEDAD TP BID Dorzolamide Hcl/Timolol Maleat (Dorzolamide-Timolol Eye Drops), 1 DROP OU BID Furosemide (Furosemide), 40 MG PO DAILY Gabapentin (Gabapentin), 300 MG PO QHS Hydralazine Hcl (Hydralazine Hcl), 1 TAB PO TID Insuln Asp Prt/Insulin Aspart (Novolog Mix 70-30 Flexpen Syrn), 15 UNIT SQ BIDAC Insuln Asp Prt/Insulin Aspart (Novolog Mix 70-30 Flexpen Syrn), 25 UNITS SQ DAILYWBKFT Insuln Asp Prt/Insulin Aspart (Novolog Mix 70-30 Flexpen Syrn), 15 UNITS SQ DAILYWSUP Labetalol Hcl (Labetalol Hcl), 1 TAB PO BID, (Reported) Latanoprost (Xalatan), 1 DROP OU HS Lubiprostone (Amitiza), 8 MCG PO BIDWMEALS Pantoprazole Sodium (Protonix), 40 MG PO HS Potassium Chloride (Klor-Con M20), 1 TAB PO BID Tiotropium Peak (Spiriva), 1 CAP IH DAILY, (Reported) [Metolazone], 5 MG PO DAILY Scheduled PRN Acetaminophen (Mapap), 650 MG PO PRN Q6HRS PRN for MILD PAIN / TEMP Hydrocodone Bit/Acetaminophen (Hydrocodone-Apap 5-325 ), 1-2 TAB PO PRN Q4HRS PRN for PAIN, (Reported) [Albuterol Sulfate], 2.5 MG NEB PRN QID PRN for SOA Miscellaneous Medications Carboxymethylcellulose Sodium (Refresh Plus), 1 EACH OP, (Reported) Follow Up pcp in 2 weeks FABRICIO PAEZ MD Mar 07, 2017 18:14
[2017-03-07] MEDS ORDERED: LABETALOL HCL 200 MG TABLET PO SCH (21:00)
[2017-03-07] MEDS ORDERED: DICLOFENAC SODIUM 1% TOPICAL GEL 100GM TUBE. TP SCH (21:00)
[2017-03-07] MEDS ORDERED: LATANOPROST 0.005% OPHTH SOLUTION 2.5ML BOTTLE. OU SCH (21:00)
[2017-03-07] MEDS ORDERED: POTASSIUM CHLORIDE 20 MEQ TABLET.ER. PO SCH (21:00)
[2017-03-07] MEDS ORDERED: ATORVASTATIN CALCIUM 40 MG TABLET. PO SCH (21:00)
[2017-03-07] MEDS ORDERED: PANTOPRAZOLE 40 MG TABLET.DR. PO SCH (21:00)
[2017-03-07] MEDS ORDERED: GABAPENTIN 300 MG CAPSULE. PO SCH (21:00)
--- NOTE | 2017-03-08 00:26 | CONS ---
DATE OF CONSULTATION: 03/07/2017 At the request of Dr. Moreira. LOCATION: She is in room 574. HISTORY OF PRESENT ILLNESS: This is a 66-year-old female with history of old cerebrovascular accident, congestive heart failure, diabetes mellitus type 2, hypertension, hyperlipidemia, obesity, usually gets around at wheelchair. She was admitted last evening through the Emergency Room after she felt weak recently. The patient is with known chronic constipation. While transferring from wheelchair to commode yesterday she fell backwards and had pain in her back. The patient had radiological studies, which failed to reveal any fracture of her ribcage, pelvis, or hip. The patient lives alone, but had a compliance technician that comes to see her regularly. Dr. Cervantes is her family physician. PAST MEDICAL HISTORY: Also includes chronic obstructive pulmonary disease, coronary artery disease, peripheral neuropathy, seizure disorder, gastroesophageal reflux disease, anemia, anxiety, depression, chronic renal insufficiency, frequent urinary tract infections. PAST SURGICAL HISTORY: The patient is status post appendectomy, cholecystectomy, tonsillectomy, hysterectomy. FAMILY HISTORY: Hypertension. The patient is somewhat distracted today as she heard from her grandson that her daughter of 51-year-old is admitted in ICU at [facility] after heart attack and she is not going ____. The patient is eager to go and see her. PHYSICAL EXAMINATION: Today revealed a middle-aged female. She is alert, oriented to place and person, follows commands appropriately, moves all 4 extremities voluntarily where she had 4+/5 grade muscle strength with relatively increased weakness in shoulder abductor and also dorsiflexor muscles of both feet. She had some tight heel cords. The patient had mild crepitus on range of motion of her left knee without any obvious knee joint effusion. She apparently sprain her left knee yesterday when she fell down. I have not examined her back area as she is in a hurry to reach her family member about her medical condition of her daughter who was hospitalized last night at [facility] Intensive Care Unit. Deep tendon reflexes are decreased overall with absent knee and ankle jerks and she had equal perception of touch and pinprick sensation bilaterally. I have not tested her transfers or ambulation skills at this time. ASSESSMENT: A middle-aged female with history of previous cerebrovascular accident, diabetes mellitus with peripheral neuropathy, chronic obstructive pulmonary disease, coronary artery disease, congestive heart failure, hypertension, chronic renal insufficiency, anxiety, depression, anemia with mobility and self-care limitations. RECOMMENDATIONS: Agree with the plans for her discharge to home if she wants to go and see her daughter who was hospitalized at [facility] and she had a wheelchair ____ van that can transport her. She had a wheelchair to arrange for home health physical therapy and occupational therapy. Dr. Moreira, I appreciate asking me to participate in care of this interesting patient. I will be glad to follow her with you as needed for her rehabilitation. TRUDI DURHAM MD DR: SHERMAN/beth JOB#: [id number] / [id number]
[2017-03-08] MEDS ORDERED: NON FORMULARY ITEM (Tiotropium Bromide (Spiriva) 1 CAP) IH SCH (09:00)
[2017-03-08] MEDS ORDERED: FUROSEMIDE 40 MG TABLET. PO SCH (09:00)
== END 2017-03-07 17:30 | disposition home health service (06) | DRG 291 ==
LOC: ER 18:07 → 5 SOUTH 20:42
PROVIDERS: ADMIT Internal Medicine; ATTEND Internal Medicine
DX: I13.0 Hypertensive heart and chronic kidney disease with heart failure and stage 1 through stage 4 chronic kidney disease, or unspecified chronic kidney disease (principal); I50.23 Acute on chronic systolic (congestive) heart failure; E87.6 Hypokalemia; I42.9 Cardiomyopathy, unspecified; E83.42 Hypomagnesemia; E10.22 Type 1 diabetes mellitus with diabetic chronic kidney disease; E10.42 Type 1 diabetes mellitus with diabetic polyneuropathy; E78.5 Hyperlipidemia, unspecified; G40.909 Epilepsy, unspecified, not intractable, without status epilepticus; G47.33 Obstructive sleep apnea (adult) (pediatric); I25.10 Atherosclerotic heart disease of native coronary artery without angina pectoris; I27.2 Other secondary pulmonary hypertension; E10.51 Type 1 diabetes mellitus with diabetic peripheral angiopathy without gangrene; J44.9 Chronic obstructive pulmonary disease, unspecified; K21.9 Gastro-esophageal reflux disease without esophagitis; K59.09 Other constipation; F32.9 Major depressive disorder, single episode, unspecified; F41.9 Anxiety disorder, unspecified; M19.90 Unspecified osteoarthritis, unspecified site; N18.9 Chronic kidney disease, unspecified; W19.XXXA Unspecified fall, initial encounter; E66.9 Obesity, unspecified; Z82.49 Family history of ischemic heart disease and other diseases of the circulatory system; Z86.718 Personal history of other venous thrombosis and embolism; Z86.73 Personal history of transient ischemic attack (TIA), and cerebral infarction without residual deficits; Z87.440 Personal history of urinary (tract) infections; Z90.49 Acquired absence of other specified parts of digestive tract; Z90.710 Acquired absence of both cervix and uterus; Z95.5 Presence of coronary angioplasty implant and graft; Z99.3 Dependence on wheelchair; Z68.36 Body mass index [BMI] 36.0-36.9, adult; Z88.0 Allergy status to penicillin; Z88.5 Allergy status to narcotic agent; Z90.721 Acquired absence of ovaries, unilateral
CPT/HCPCS: 36415; 71101; 73010; 73502; 80048; 80053; 80076; 81001; 82962; 83735; 83880; 84484; 85027; 93005; 93306; 94250; 94640; 96374; J1650; J1815; J1940; J2405; J3010; J3475; J7620; 99285-25

== ENCOUNTER 2017-03-20 10:52 | Emergency (ER) | payer OTHER ==
[~2017-03-20] VITALS: Ht 160 cm; Wt 87.5 kg
[2017-03-20 10:55] VITALS: BP 172/73
--- NOTE | 2017-03-20 11:35 | PHYS DOC ---
Past Medical History Past Medical History: Arthritis, CAD, CHF, CVA, Diabetes-Type I, DVT, GERD, High Cholesterol, Heart Disease, Hypertension, Renal Disease, Stroke, Vascular Disease Past Surgical History: Appendectomy, Cholecystectomy, Hysterectomy, Other Additional Past Surgical Histo: VASCULAR SURGERY, BACK SURGERY Alcohol Use: None Drug Use: None Adult General Chief Complaint Chief Complaint: SKIN PROBLEM HPI HPI Patient is a 66 year old female presents to the emergency department with c/o abscess to the right buttock. Patient states it was noticed on Tuesday when she had drainage noted on the diaper/depends. Patient states the area is very painful. Review of Systems Review of Systems Constitutional: Denies fever or chills [] Eyes: Denies change in visual acuity, redness, or eye pain [] HENT: Denies nasal congestion or sore throat [] Respiratory: Denies cough or shortness of breath [] Cardiovascular: No additional information not addressed in HPI [] GI: Denies abdominal pain, nausea, vomiting, bloody stools or diarrhea [] : Denies dysuria or hematuria [] Musculoskeletal: Denies back pain or joint pain [] Integument: Denies rash or skin lesions [] Neurologic: Denies headache, focal weakness or sensory changes [] Endocrine: Denies polyuria or polydipsia [] Allergies Allergies Allergies Coded Allergies Type Severity Reaction Last Updated Verified Penicillins Allergy Intermediate 02/14/14 Yes codeine Allergy Intermediate morphine, lortab ok 11/27/15 Yes Physical Exam Physical Exam Constitutional: Well developed, well nourished, no acute distress, non-toxic appearance. [] HENT: Normocephalic, atraumatic, bilateral external ears normal, oropharynx moist, no oral exudates, nose normal. [] Eyes: PERRLA, EOMI, conjunctiva normal, no discharge. [] Neck: Normal range of motion, no tenderness, supple, no stridor. [] Cardiovascular:Heart rate regular rhythm, no murmur [] Lungs & Thorax: Bilateral breath sounds clear to auscultation [] Skin: Warm, dry, no erythema, no rash. Patient was noted to have stage 1 skin break down at the right buttock area. Back: No tenderness Extremities: No tenderness, no cyanosis, no clubbing, ROM intact, no edema. [] Neurologic: Alert and oriented X 3, normal motor function, normal sensory function, no focal deficits noted. [] Psychologic: Affect normal, judgement normal, mood normal. [] Current Patient Data Vital Signs Vital Signs Date Time Temp Pulse Resp B/P (MAP) Pulse Ox O2 Delivery O2 Flow Rate FiO2 03/20/17 10:55 97.9 74 16 172/73 (106) 98 Room Air 97.9 EKG EKG [] Radiology/Procedures Radiology/Procedures [] Course & Med Decision Making Course & Med Decision Making Pertinent Labs and Imaging studies reviewed. (See chart for details) This patient appears to be home bound with the inability to be able to get up internal herself and move around adequately on her own. Patient does have a stage I decubitus noted on her right buttocks. Area will be dressed per hospital protocol. Patient will be discharged home in stable condition she'll be encouraged to follow-up with wound care. Patient is also being instructed to make sure that she has turned every 2 hours, repositioned frequently when sitting in a chair. Patient agrees with discharge instructions, treatment regimens and follow-up recommendations. Signs and symptoms to return back to emergency department has been provided. Patient had all of her questions answered at bedside. [] Dragon Disclaimer Dragon Disclaimer This electronic medical record was generated, in whole or in part, using a voice recognition dictation system. Departure Departure Impression: Primary Impression: Stage I decubitus ulcer and pressure area Disposition: 01 HOME, SELF-CARE Condition: STABLE Referrals: LISA MORILLO MD (PCP) Patient Instructions: Pressure Ulcer-Brief Additional Instructions: Activity as tolerated Make sure you are turned every 2 hours and repositioned in a wheel chair every 2 hours Followup with wound care tomorrow for further evaluation. You may also contact home health and have a wound care nurse organic gardening teacher evaluate you Followup with primary care provider in 2-3 days Return to emergency department as needed for signs and symptoms that become worse. SARTHAK REYES APRN Mar 20, 2017 11:35
== END 2017-03-20 11:59 | disposition home or self-care (01) ==
LOC: ER 10:52
DX: L89.311 Pressure ulcer of right buttock, stage 1 (principal); M19.90 Unspecified osteoarthritis, unspecified site; I25.10 Atherosclerotic heart disease of native coronary artery without angina pectoris; I13.0 Hypertensive heart and chronic kidney disease with heart failure and stage 1 through stage 4 chronic kidney disease, or unspecified chronic kidney disease; E10.22 Type 1 diabetes mellitus with diabetic chronic kidney disease; N18.9 Chronic kidney disease, unspecified; I50.9 Heart failure, unspecified; K21.9 Gastro-esophageal reflux disease without esophagitis; E78.00 Pure hypercholesterolemia, unspecified; Z86.718 Personal history of other venous thrombosis and embolism; Z86.73 Personal history of transient ischemic attack (TIA), and cerebral infarction without residual deficits; Z90.49 Acquired absence of other specified parts of digestive tract; Z90.710 Acquired absence of both cervix and uterus; Z88.0 Allergy status to penicillin; Z88.5 Allergy status to narcotic agent
CPT/HCPCS: 99284

== ENCOUNTER → 2017-03-24 | Outpatient (CLI) | payer OTHER ==
[2017-03-20 10:55] VITALS: BP 172/73
== END | disposition home or self-care (01) ==
LOC: PMGWOUND 11:17
PROVIDERS: ATTEND Emergency Medicine Undersea and Hyperbaric Medicine
DX: E11.622 Type 2 diabetes mellitus with other skin ulcer (principal); L98.411 Non-pressure chronic ulcer of buttock limited to breakdown of skin; L89.313 Pressure ulcer of right buttock, stage 3; L89.323 Pressure ulcer of left buttock, stage 3; I11.0 Hypertensive heart disease with heart failure; I50.9 Heart failure, unspecified; I25.2 Old myocardial infarction; I25.10 Atherosclerotic heart disease of native coronary artery without angina pectoris; E11.51 Type 2 diabetes mellitus with diabetic peripheral angiopathy without gangrene; E78.5 Hyperlipidemia, unspecified; E66.9 Obesity, unspecified; J44.9 Chronic obstructive pulmonary disease, unspecified; F41.9 Anxiety disorder, unspecified; Z86.73 Personal history of transient ischemic attack (TIA), and cerebral infarction without residual deficits; Z90.710 Acquired absence of both cervix and uterus; F32.9 Major depressive disorder, single episode, unspecified; E78.00 Pure hypercholesterolemia, unspecified; E11.42 Type 2 diabetes mellitus with diabetic polyneuropathy; Z86.718 Personal history of other venous thrombosis and embolism
CPT/HCPCS: 97597

== ENCOUNTER → 2017-04-05 | Outpatient (CLI) | payer OTHER ==
[2017-03-20 10:55] VITALS: BP 172/73
== END | disposition home or self-care (01) ==
LOC: PMGWOUND 11:09
PROVIDERS: ATTEND Emergency Medicine Undersea and Hyperbaric Medicine
DX: E11.622 Type 2 diabetes mellitus with other skin ulcer (principal); L98.411 Non-pressure chronic ulcer of buttock limited to breakdown of skin; L89.313 Pressure ulcer of right buttock, stage 3; L89.323 Pressure ulcer of left buttock, stage 3; F41.9 Anxiety disorder, unspecified; I25.10 Atherosclerotic heart disease of native coronary artery without angina pectoris; J44.9 Chronic obstructive pulmonary disease, unspecified; E78.5 Hyperlipidemia, unspecified; E11.22 Type 2 diabetes mellitus with diabetic chronic kidney disease; I13.0 Hypertensive heart and chronic kidney disease with heart failure and stage 1 through stage 4 chronic kidney disease, or unspecified chronic kidney disease; N18.9 Chronic kidney disease, unspecified; I50.23 Acute on chronic systolic (congestive) heart failure; F32.9 Major depressive disorder, single episode, unspecified; E66.9 Obesity, unspecified; I25.2 Old myocardial infarction; E11.42 Type 2 diabetes mellitus with diabetic polyneuropathy; E11.51 Type 2 diabetes mellitus with diabetic peripheral angiopathy without gangrene; K21.9 Gastro-esophageal reflux disease without esophagitis; M19.90 Unspecified osteoarthritis, unspecified site; Z68.36 Body mass index [BMI] 36.0-36.9, adult; Z86.718 Personal history of other venous thrombosis and embolism; Z86.73 Personal history of transient ischemic attack (TIA), and cerebral infarction without residual deficits; Z90.710 Acquired absence of both cervix and uterus; Z90.49 Acquired absence of other specified parts of digestive tract; Z94.0 Kidney transplant status
CPT/HCPCS: 99214

== ENCOUNTER 2017-04-15 17:47 | Emergency (ER) | payer OTHER ==
[~2017-04-15 17:47] MED LIST changes: +METO-247; -METO100T11
--- NOTE | 2017-04-15 18:55 | PHYS DOC ---
Past Medical History Past Medical History: Arthritis, CAD, CHF, CVA, Diabetes-Type I, DVT, GERD, High Cholesterol, Heart Disease, Hypertension, Renal Disease, Stroke, Vascular Disease Past Surgical History: Appendectomy, Cholecystectomy, Hysterectomy, Other Additional Past Surgical Histo: VASCULAR SURGERY, BACK SURGERY Alcohol Use: None Drug Use: None Adult General Chief Complaint Chief Complaint: ABDOMINAL PAIN HPI HPI Patient is a 66 year old F who presents with left lower quadrant abdominal pain. Patient states that she's had abdominal pain for the past 3 days with increasing pain. Patient was sent in by home health. Patient will turn bound secondary to inability to walk due to severe muscle wasting. Patient denies any fevers. Patient denies vomiting however complains of nausea. Patient have had multiple abdominal surgeries. Patient denies any dysuria. Patient has no other complaints. Review of Systems Review of Systems GEN: Denies fevers, chills, sweats HEENT: Denies blurred vision, sore throat CV: Denies chest pain RESP: Denies shortness of air, cough GI: Abdominal pain with nausea NEURO: Denies confusion, dizziness MSK: Denies weakness, joint pain/swelling Current Medications Current Medications Current Medications Medications (Trade) Dose Ordered Sig/Aliza Start Time Stop Time Status Last Admin Dose Admin Fentanyl Citrate (Fentanyl 2ml Vial) 50 mcg 1X ONCE 04/15/17 20:30 04/15/17 20:41 DC 04/15/17 20:58 50 MCG Info (Do NOT chart on this entry -- for MONITORING) 1 each PRN DAILY PRN 04/15/17 19:45 04/17/17 19:44 Iohexol (Omnipaque 300 Mg/ml) 75 ml 1X ONCE 04/15/17 19:45 04/15/17 19:46 DC 04/15/17 19:45 75 ML Ondansetron HCl (Zofran) 4 mg 1X ONCE 04/15/17 20:30 04/15/17 20:41 DC 04/15/17 20:58 4 MG Sodium Chloride 1,000 ml @ 1,000 mls/hr 1X ONCE 04/15/17 19:00 04/15/17 19:59 DC 04/15/17 19:12 1,000 MLS/HR Allergies Allergies Allergies Coded Allergies Type Severity Reaction Last Updated Verified Penicillins Allergy Intermediate 02/14/14 Yes codeine Allergy Intermediate morphine, lortab ok 4/21/16 Yes Physical Exam Physical Exam GEN.: No apparent distress. Alert and oriented. HEENT: Head is normocephalic, atraumatic NECK: Supple. LUNGS: CTAB. HEART: RRR, S1, S2 present. Peripheral pulses intact ABDOMEN: Soft, left lower quadrant tenderness to palpation with rebound tenderness no abdominal distention. Positive bowel sounds. EXTREMITIES: Without any cyanosis, +1 pitting edema to lower extremity bilaterally NEUROLOGIC: Normal speech, normal tone PSYCHIATRIC: Normal affect, normal mood. SKIN: No ulcerations Current Patient Data Vital Signs Vital Signs Date Time Temp Pulse Resp B/P (MAP) Pulse Ox O2 Delivery O2 Flow Rate FiO2 04/15/17 20:58 70 154/69 (97) 97 Room Air 04/15/17 18:46 98.3 22 98.3 Lab Values Laboratory Tests Test 04/15/17 19:00 04/15/17 19:05 White Blood Count 6.3 x10^3/uL (4.0-11.0) Red Blood Count 4.17 x10^6/uL (3.50-5.40) Hemoglobin 12.0 g/dL (12.0-15.5) Hematocrit 37.1 % (36.0-47.0) Mean Corpuscular Volume 89 fL (79-100) Mean Corpuscular Hemoglobin 29 pg (25-35) Mean Corpuscular Hemoglobin Concent 32 g/dL (31-37) Red Cell Distribution Width 13.6 % (11.5-14.5) Platelet Count 233 x10^3/uL (140-400) Neutrophils (%) (Auto) 57 % (31-73) Lymphocytes (%) (Auto) 30 % (24-48) Monocytes (%) (Auto) 11 % (0-9) H Eosinophils (%) (Auto) 1 % (0-3) Basophils (%) (Auto) 1 % (0-3) Neutrophils # (Auto) 3.6 x10^3uL (1.8-7.7) Lymphocytes # (Auto) 1.9 x10^3/uL (1.0-4.8) Monocytes # (Auto) 0.7 x10^3/uL (0.0-1.1) Eosinophils # (Auto) 0.1 x10^3/uL (0.0-0.7) Basophils # (Auto) 0.0 x10^3/uL (0.0-0.2) Sodium Level 143 mmol/L (136-145) Potassium Level 3.8 mmol/L (3.5-5.1) Chloride Level 106 mmol/L (98-107) Carbon Dioxide Level 27 mmol/L (21-32) Anion Gap 10 (6-14) Blood Urea Nitrogen 8 mg/dL (7-20) Creatinine 0.6 mg/dL (0.6-1.0) Estimated GFR (Cockcroft-Gault) 120.3 BUN/Creatinine Ratio 13 (6-20) Glucose Level 118 mg/dL (70-99) H Calcium Level 8.3 mg/dL (8.5-10.1) L Total Bilirubin 0.3 mg/dL (0.2-1.0) Aspartate Amino Transferase (AST) 20 U/L (15-37) Alanine Aminotransferase (ALT) 24 U/L (14-59) Alkaline Phosphatase 83 U/L (46-116) Total Protein 6.2 g/dL (6.4-8.2) L Albumin 3.1 g/dL (3.4-5.0) L Albumin/Globulin Ratio 1.0 (1.0-1.7) Lipase 199 U/L (73-393) Urine Collection Type Unknown Urine Color Yellow Urine Clarity Clear Urine pH 7.5 Urine Specific Maurice 1.010 Urine Protein Negative mg/dL (NEG-TRACE) Urine Glucose (UA) Negative mg/dL (NEG) Urine Ketones (Stick) Negative mg/dL (NEG) Urine Blood Negative (NEG) Urine Nitrite Negative (NEG) Urine Bilirubin Negative (NEG) Urine Urobilinogen Dipstick 0.2 mg/dL (0.2 mg/dL) Urine Leukocyte Esterase Negative (NEG) Urine RBC Occ /HPF (0-2) Urine WBC 0 /HPF (0-4) Urine Squamous Epithelial Cells Few /LPF Urine Bacteria 0 /HPF (0-FEW) Laboratory Tests 04/15/17 19:00 Laboratory Tests 04/15/17 19:00 EKG EKG [] Radiology/Procedures Radiology/Procedures CT scan of the abdomen pelvis with contrast IMPRESSION: 1. No acute intra-abdominal findings. 2. Small hiatal hernia.[] Course & Med Decision Making Course & Med Decision Making Pertinent Labs and Imaging studies reviewed. (See chart for details) ED course: Patient was seen and examined emergency room an abdominal workup was ordered along with a CT scan abdomen pelvis 2114: Patient was reevaluated and updated on lab work and CT findings. Recommended patient follow PCP in one to 2 days. Patient was comfortable going home. MDM: After reviewing the chart, CC/HPI/PMH, physical exam, [lab results], [ radiological results], I do not believe the patient has a intra-abdominal emergency warranting further workup and/or admission at this time. On reexamination the patient's pain has gotten better. Patient is comfortable going home. Recommended short-term follow-up with PCP. Additional verbal discharge instructions were provided to the patient and that if symptoms get worse or any new symptoms arise that are worrisome to the patient she is to return to the emergency room immediately [] Dragon Disclaimer Dragon Disclaimer This electronic medical record was generated, in whole or in part, using a voice recognition dictation system. Departure Departure Impression: Primary Impression: Abdominal pain Disposition: HOME, SELF-CARE Condition: IMPROVED Referrals: LISA MORILLO MD (PCP) Patient Instructions: Abdominal Pain (Nonspecific) Additional Instructions: Please follow up with your family physician in the next one to 2 days JAYDEN KILPATRICK DO Apr 15, 2017 18:55
[2017-04-15] MEDS ORDERED: IV NORMAL SALINE 1000ML BAG 1,000 ML IV ONE (19:00)
[2017-04-15 19:27] LABS: BASO % 1 % (0-3); EOS % 1 % (0-3); HEMATOCRIT 37.1 % (36.0-47.0); LYMPH # 1.9 x10^3/uL (1.0-4.8); LYMPH % 30 % (24-48); MEAN CORPUSCULAR HEMOGLOBIN 29 pg (25-35); MEAN CORPUSCULAR HGB CONC 32 g/dL (31-37); MEAN CORPUSCULAR VOLUME 89 fL (79-100); MONO % 11 % (0-9); NEUT % 57 % (31-73); PLATELET COUNT 233 x10^3/uL (140-400); RED BLOOD COUNT 4.17 x10^6/uL (3.50-5.40); RED CELL DISTRIBUTION WIDTH 13.6 % (11.5-14.5); WHITE BLOOD COUNT 6.3 x10^3/uL (4.0-11.0)
[2017-04-15 19:29] LABS: BILIRUBIN,URINE NEGATIVE (NEG); GLUCOSE,URINE NEGATIVE (NEG); NITRITE,URINE NEGATIVE (NEG); PH,URINE 7.5; PROTEIN,URINE NEGATIVE (NEG-TRACE); UROBILINOGEN,URINE 0.2 mg/dL (0.2 mg/dL)
[2017-04-15 19:44] LABS: CALCIUM 8.3 mg/dL (8.5-10.1); CREATININE 0.6 mg/dL (0.6-1.0); GFR 120.3; POTASSIUM 3.8 mmol/L (3.5-5.1)
[2017-04-15] MEDS ORDERED: IOHEXOL 300 MG/ML 75 ML VIAL IV ONE (19:45)
[2017-04-15] MEDS ORDERED: CONTRAST GIVEN MC PRN (19:45)
[2017-04-15 19:47] LABS: BACTERIA,URINE 0 /HPF (0-FEW); RBC,URINE OCC /HPF (0-2); SQUAMOUS EPITHELIAL CELL,UR FEW /LPF; WBC,URINE 0 /HPF (0-4)
[2017-04-15 19:54] LABS: ALBUMIN 3.1 g/dL (3.4-5.0); TOTAL BILIRUBIN 0.3 mg/dL (0.2-1.0); TOTAL PROTEIN 6.2 g/dL (6.4-8.2)
[2017-04-15] MEDS ORDERED: ONDANSETRON PF 4 MG/2 ML VIAL. IV ONE (20:30)
[2017-04-15] MEDS ORDERED: fentaNYL PF VIAL 100 MCG/2 ML VIAL IV ONE (20:30)
--- NOTE | 2017-04-15 20:54 | RAD ---
Examination: CT of the abdomen pelvis with IV contrast HISTORY: History of left lower quadrant abdominal pain COMPARISON: 06/23/2016 TECHNIQUE: Axial CT images of the abdomen pelvis were performed with IV contrast however contrast was not identified in the organs due to IV infiltration. Coronal and sagittal reformats are performed. Exposure: One or more of the following individualized dose reduction techniques were utilized for this examination: 1. Automated exposure control 2. Adjustment of the mA and/or kV according to patient size 3. Use of iterative reconstruction technique FINDINGS: Minimal bibasilar lung atelectasis. No evidence of free air identified in the abdomen. The visualized noncontrasted liver, spleen, adrenals grossly appears unremarkable. Cholecystectomy clips identified. Small hiatal hernia is identified. The stomach is mildly distended Small bowel is nondilated Feces and gas noted throughout the colon Prior changes of appendectomy. Urinary bladder is mildly distended No evidence of hydronephrosis Moderate degenerative changes lumbar spine IMPRESSION: 1. No acute intra-abdominal findings. 2. Small hiatal hernia. Electronically signed by: Rober Sanchez MD (04/15/2017 8:51 PM) [facility]
[2017-04-15 20:58] VITALS: BP 154/69
== END 2017-04-15 21:50 | disposition home or self-care (01) ==
LOC: ER 17:47
DX: R10.32 Left lower quadrant pain (principal); R11.0 Nausea; M19.90 Unspecified osteoarthritis, unspecified site; E10.22 Type 1 diabetes mellitus with diabetic chronic kidney disease; I13.0 Hypertensive heart and chronic kidney disease with heart failure and stage 1 through stage 4 chronic kidney disease, or unspecified chronic kidney disease; N18.9 Chronic kidney disease, unspecified; I50.9 Heart failure, unspecified; I25.10 Atherosclerotic heart disease of native coronary artery without angina pectoris; K21.9 Gastro-esophageal reflux disease without esophagitis; E78.00 Pure hypercholesterolemia, unspecified; Z86.73 Personal history of transient ischemic attack (TIA), and cerebral infarction without residual deficits; Z88.0 Allergy status to penicillin; Z86.718 Personal history of other venous thrombosis and embolism; Z90.49 Acquired absence of other specified parts of digestive tract; Z90.710 Acquired absence of both cervix and uterus; Z88.5 Allergy status to narcotic agent
CPT/HCPCS: 36415; 74177; 80053; 81001; 83690; 85025; 96361; 96374; 96375; 99285; J2405; J3010; J7030; Q9967

== ENCOUNTER → 2017-04-19 | Outpatient (CLI) | payer OTHER ==
[2017-04-15 20:58] VITALS: BP 154/69
== END | disposition home or self-care (01) ==
LOC: PMGWOUND 11:29
PROVIDERS: ATTEND Emergency Medicine Undersea and Hyperbaric Medicine
DX: E11.622 Type 2 diabetes mellitus with other skin ulcer (principal); L98.411 Non-pressure chronic ulcer of buttock limited to breakdown of skin; L89.313 Pressure ulcer of right buttock, stage 3; I25.2 Old myocardial infarction; I25.10 Atherosclerotic heart disease of native coronary artery without angina pectoris; E78.5 Hyperlipidemia, unspecified; J44.9 Chronic obstructive pulmonary disease, unspecified; F41.9 Anxiety disorder, unspecified; I11.0 Hypertensive heart disease with heart failure; I50.9 Heart failure, unspecified; Z90.710 Acquired absence of both cervix and uterus
CPT/HCPCS: 99214

== ENCOUNTER → 2017-05-03 | Outpatient (CLI) | payer OTHER ==
[2017-04-27 11:00] VITALS: BP 144/52
[~2017-05-03] MED LIST changes: +DOCU-109 PO; +INSU100I13 SQ; +INSU100I27 SQ; +OXYC5TAB95 PO; +SENN-22 PO
== END | disposition home or self-care (01) ==
LOC: PMGWOUND 11:07
PROVIDERS: ATTEND Emergency Medicine Undersea and Hyperbaric Medicine
DX: E11.622 Type 2 diabetes mellitus with other skin ulcer (principal); L98.411 Non-pressure chronic ulcer of buttock limited to breakdown of skin; L89.313 Pressure ulcer of right buttock, stage 3; L89.323 Pressure ulcer of left buttock, stage 3; F41.9 Anxiety disorder, unspecified; I25.10 Atherosclerotic heart disease of native coronary artery without angina pectoris; J44.9 Chronic obstructive pulmonary disease, unspecified; K21.9 Gastro-esophageal reflux disease without esophagitis; E11.22 Type 2 diabetes mellitus with diabetic chronic kidney disease; I13.0 Hypertensive heart and chronic kidney disease with heart failure and stage 1 through stage 4 chronic kidney disease, or unspecified chronic kidney disease; N18.9 Chronic kidney disease, unspecified; I50.23 Acute on chronic systolic (congestive) heart failure; I25.2 Old myocardial infarction; E78.5 Hyperlipidemia, unspecified; E11.42 Type 2 diabetes mellitus with diabetic polyneuropathy; E11.51 Type 2 diabetes mellitus with diabetic peripheral angiopathy without gangrene; M19.90 Unspecified osteoarthritis, unspecified site; F32.9 Major depressive disorder, single episode, unspecified; Z86.718 Personal history of other venous thrombosis and embolism; Z86.73 Personal history of transient ischemic attack (TIA), and cerebral infarction without residual deficits; Z99.3 Dependence on wheelchair; Z79.4 Long term (current) use of insulin; Z90.49 Acquired absence of other specified parts of digestive tract; Z90.710 Acquired absence of both cervix and uterus; E66.9 Obesity, unspecified; Z68.36 Body mass index [BMI] 36.0-36.9, adult; Z94.0 Kidney transplant status
CPT/HCPCS: 99212

== ENCOUNTER → 2017-05-06 | Outpatient (CLI) | payer OTHER ==
[2017-04-27 11:00] VITALS: BP 144/52
--- NOTE | 2017-05-07 02:49 | PAIN ---
DATE OF SERVICE: 05/06/2017 PROGRESS NOTE FOR PAIN CLINIC DIAGNOSES: Lumbar radiculopathy with lumbar degenerative disk disease, lumbar spinal stenosis. HISTORY OF PRESENT ILLNESS: The patient is a 66-year-old female who returns for followup status post initial evaluation and caudal epidural steroid injection in March 2015. The patient did very well with this per her report at least 50% improvement. She had one injection in January 2014 as well with similar result. The patient reports she is still taking her Plavix; however, still significant pain in the low back, left lower extremity, which is increased now for about the past 4-5 months. The patient reports no injury or accident that she is aware of that may have brought her back on, still significant pain in the low back, left lower extremity, mostly in the posterior gluteus, posterior thigh radiating into the lower leg at times. The patient reports it is a 9 on a scale of 10 at its worst, 5 on average and is a 4 on a scale 10 at least. The patient reports it as aching, sharp, dull, shooting, can be burning and radiating, sometimes severe, worse with walking and standing, change in positions, also sitting upright for too long period of greater than 30 minutes, better with lying down, better with sitting for short periods as well. The patient reports no new motor or sensory deficits. No new bowel or bladder incontinence or other complaints. PAST MEDICAL HISTORY: Significant for diabetes type 2, glaucoma, hypertension, hyperlipidemia, congestive heart failure, gastroesophageal reflux, sleep apnea. PREVIOUS SURGERIES: Include hysterectomy, lumbar diskectomy L4-L5, tonsillectomy, appendectomy, right oophorectomy. MEDICATIONS: Reviewed and are updated on the patient's chart today. ALLERGIES: THE PATIENT IS ALLERGIC TO PENICILLIN, LYRICA AND CODEINE. SOCIAL HISTORY: The patient lives on her own, is currently in the [facility] for some rehabilitation issues. Does not smoke, does not drink alcohol. FAMILY HISTORY: Significant for coronary artery disease, stroke and hypertension. REVIEW OF SYSTEMS: Positive for those items mentioned in the history of present illness. All systems reviewed and otherwise negative. It is complete, full and well documented on the patient's chart. PHYSICAL EXAMINATION: VITAL SIGNS: Today, the patient's blood pressure 136/81, pulse is 80, respirations 16, temperature is 98.1 degrees Fahrenheit, height is 5 feet 3 inches, and weight is 193 pounds. GENERAL: The patient is awake, alert, oriented, appropriate, very pleasant demeanor. HEENT: Head shows normocephalic, atraumatic. Extraocular movements are intact and symmetrical. Oral cavity: Mucous membranes are moist and pink. Dentition is intact. NECK: Shows anterior throat supple without palpable lymphadenopathy noted. Swallow reflex is symmetrical. CHEST: Shows normal on inspection. Breath sounds are clear to auscultation bilaterally. HEART: Shows S1 and S2 clear. No murmurs auscultated. ABDOMEN: Soft, nontender, nondistended. No palpable organomegaly is noted. No rebound or guarding demonstrated. BACK: Shows grossly midline spine, exaggerated thoracic kyphosis to a mild extent and some mild flattening of lumbar lordotic curvature. Well-healed surgical scar in the midline lumbar distribution. Lumbar paraspinous musculature shows symmetrical, but is diffusely tender in the mid upper and lower distribution of paraspinous musculature bilaterally, but only diffusely without specific trigger points, without specific radiation. The patient has good rotation and motion of the lumbar spine both laterally as well as extension and flexion. No tenderness over the sacrum or the sacroiliac regions. EXTREMITIES: Lower extremities showed deep tendon reflexes 1+ in the patellar and tendo calcaneus tendons. Motor exam is 5/5 with dorsiflexion, extension, quadriceps and hamstring flexion about 4 on a scale of 5, but equal and symmetrical. Peripheral pulses are 1+ posterior tibial and dorsalis pedis pulses. No peripheral edema is noted. Options were discussed with the patient and the patient's old chart was reviewed as her current medication regimen updated. Current review of systems updated today as well as noted. We will plan on a lumbar epidural steroid injection in caudal approach. If deemed safe and appropriate to hold her Plavix, we will check with her prescribing physician on this and if this is deemed appropriate to hold this for 7 days while the patient returns for lumbar caudal approach epidural steroid injection at that time. The patient was encouraged to maintain activities the best she can in the meantime, stretching and strengthening exercises which she is already doing as well. PETRONA CASILLAS MD DR: ERMA/beth JOB#: [id number] / [id number]
== END | disposition home or self-care (01) ==
LOC: PNCL 10:56
PROVIDERS: ATTEND Anesthesiology
DX: M51.16 Intervertebral disc disorders with radiculopathy, lumbar region (principal); M48.06 Spinal stenosis, lumbar region; E11.9 Type 2 diabetes mellitus without complications; I10 Essential (primary) hypertension
CPT/HCPCS: G0463

== ENCOUNTER → 2017-05-26 | Outpatient (CLI) | payer OTHER ==
[2017-04-27 11:00] VITALS: BP 144/52
[~2017-05-26] MED LIST changes: +IOHEXOL 180 MG/ML 10 ML VIAL. ONE; +methylPREDNISolone ACETATE 40 MG/ML VIAL. ONE; +methylPREDNISolone ACETATE 80 MG/ML VIAL. ONE
--- NOTE | 2017-05-26 16:16 | PAIN ---
DATE OF SERVICE: 05/26/2017 DATE OF SERVICE: 05/26/2017 DIAGNOSES: Lumbar radiculopathy with lumbar degenerative disk disease and lumbar spinal stenosis. HISTORY OF PRESENT ILLNESS: The patient is a 66-year-old female who returns for followup status post initial recent evaluation on 05/06/2017 and clearance now and has held her Plavix for 7 days. The patient returns today for a caudal epidural steroid injection, complains still pain in low back, bilateral lower extremities, worse in the left leg than the right with significant weakness in the left leg as well. The patient reports the pain as 10 on a scale of 10 at all times, worst, least and average. The patient reports a sharp, dull, aching, shooting, burning and becoming more constant and severe in the left leg without ability to put weight on her left leg. The patient reports no new motor or sensory deficits, no new bowel or bladder incontinence, but significant difficulty with transfer from sitting to standing, lying down to sitting, etc. The patient reports it does not awaken her from sleep at night. She feels much better with lying down or sitting, but with weightbearing on her left leg, there is a point where it gives out completely and she will fall. The patient's MRI scan was reviewed once again with her and her caregivers today as well. The patient reports no new motor or sensory deficits or other complaints. PHYSICAL EXAMINATION: VITAL SIGNS: The patient's blood pressure 155/72, pulse 69, respirations 16, temperature 98.0 degrees Fahrenheit. Height is 5 feet 3 inches. GENERAL: The patient is awake, alert, oriented, appropriate, very pleasant demeanor. HEENT: Head shows normocephalic, atraumatic. Extraocular movements are intact, symmetrical. Oral cavities, mucous membranes moist and pink. Dentition is intact. NECK: Supple without palpable lymphadenopathy noted. Swallow reflex is symmetrical. CHEST: Shows normal on inspection. Breath sounds are clear to auscultation bilaterally. HEART: Shows S1, S2 clear. ABDOMEN: Soft, nontender, nondistended. BACK: Shows spine grossly midline. Well-healed surgical scar is noted in the lumbar distribution and some flattening of lumbar curvature. Lumbar paraspinous musculature shows diffuse tenderness throughout the upper, middle and lower distribution with palpation, but without radiation. No tenderness over the sacrum or sacroiliac regions. EXTREMITIES: Lower extremities showed deep tendon reflexes at 1+ in the patellar tendons. Motor is approximately 5/5 with right ankle and 4/5 with right quadriceps and left is approximately 2-3/5 with quadriceps and hamstrings and ankle flexion and extension. Options were discussed with the patient and the patient's old chart was reviewed as her current medication regimen updated. Current review of systems updated today as well. We will proceed with a caudal approach epidural steroid injection with C-arm fluoroscopic guidance today. Risks were again discussed including, but not limited to bleeding, infection, possibility of epidural hematoma, subsequent neurologic compromise, dural puncture, headaches, spinal cord and/or nerve damage, side effects of steroid medication and poor results regarding pain control. The patient understands and wishes to proceed. The patient will return to clinic in approximately 2 weeks for followup, was counseled on return appointment, activity level and side effects to be aware of. The patient will start taking her Plavix again tomorrow, 05/27/2017, as instructed. DIAGNOSIS: Lumbar radiculopathy with lumbar degenerative disk disease, lumbar spinal stenosis. PROCEDURE: Caudal approach epidural steroid injection using C-arm fluoroscopic guidance under sterile prep and drape using local anesthetic. MEDICATIONS INJECTED: A total of 120 mg Depo-Medrol plus 10 mL preservative-free normal saline and 2 mL Isovue for contrast. CONDITION AT DISCHARGE: Stable. The patient tolerated procedure well and had no complications. PETRONA CASILLAS MD DR: ERMA/beth JOB#: [id number] / [id number]
== END | disposition home or self-care (01) ==
LOC: PNCL 10:53
PROVIDERS: ATTEND Anesthesiology
DX: M51.16 Intervertebral disc disorders with radiculopathy, lumbar region (principal); M48.061 Spinal stenosis, lumbar region without neurogenic claudication; I11.0 Hypertensive heart disease with heart failure; I50.9 Heart failure, unspecified; E11.51 Type 2 diabetes mellitus with diabetic peripheral angiopathy without gangrene; E78.00 Pure hypercholesterolemia, unspecified; I82.409 Acute embolism and thrombosis of unspecified deep veins of unspecified lower extremity; J44.9 Chronic obstructive pulmonary disease, unspecified; F41.9 Anxiety disorder, unspecified; F17.200 Nicotine dependence, unspecified, uncomplicated; E66.9 Obesity, unspecified; Z86.39 Personal history of other endocrine, nutritional and metabolic disease; Z86.69 Personal history of other diseases of the nervous system and sense organs; Z86.73 Personal history of transient ischemic attack (TIA), and cerebral infarction without residual deficits; Z88.6 Allergy status to analgesic agent; Z88.0 Allergy status to penicillin; Z90.49 Acquired absence of other specified parts of digestive tract; Z90.710 Acquired absence of both cervix and uterus
CPT/HCPCS: 62323; J1030; J1040

== ENCOUNTER 2017-06-04 19:10 | Emergency (ER) | payer OTHER ==
[~2017-06-04] VITALS: Ht 160 cm; Wt 78.9 kg
[~2017-06-04 19:10] MED LIST changes: -IOHEXOL 180 MG/ML 10 ML VIAL. ONE; -methylPREDNISolone ACETATE 40 MG/ML VIAL. ONE; -methylPREDNISolone ACETATE 80 MG/ML VIAL. ONE
[2017-06-04] MEDS ORDERED: IV NORMAL SALINE 500ML BAG 500 ML IV ONE (19:30)
--- NOTE | 2017-06-04 19:33 | PHYS DOC ---
Past Medical History Past Medical History: Arthritis, Arrhythmia, CAD, CHF, CVA, Diabetes-Type I, DVT, GERD, High Cholesterol, Heart Disease, Hypertension, Renal Disease, Stroke , Vascular Disease Past Surgical History: Appendectomy, Cholecystectomy, Hysterectomy, Other Additional Past Surgical Histo: VASCULAR SURGERY, BACK SURGERY Alcohol Use: None Drug Use: None Adult General Chief Complaint Chief Complaint: MULTIPLE COMPLAINTS HPI HPI Patient is a 67 year old female presents to the emergency department stating that she's had a 2 day history of nausea vomiting with a headache. Patient states that she is unable to keep food down however she is able to keep liquids down. She is unable to identify any times she has vomited however she denies any blood being in the emesis. She denies any diarrhea. She does state that she' s had some fever and chills and has had generalized body aches and discomfort. She has taken Tylenol for the discomfort with minimal relief. Patient has not taken anything for the nausea vomiting. Patient does states she is a diabetic. She is unsure what her glucoses normally run. She does state her hemoglobin A1c is around 8. Patient does state that last night she did have urinary frequency where she felt like she needed to the time. Review of Systems Review of Systems Constitutional: Denies fever or chills [] Eyes: Denies change in visual acuity, redness, or eye pain [] HENT: Denies nasal congestion or sore throat [] Respiratory: Denies cough or shortness of breath [] Cardiovascular: No additional information not addressed in HPI [] GI: Denies abdominal pain, bloody stools or diarrhea. C/o nausea and vomiting : Denies dysuria or hematuria [] Musculoskeletal: Denies back pain or joint pain [] Integument: Denies rash or skin lesions [] Neurologic: headache, denies focal weakness or sensory changes [] Endocrine: Denies polyuria or polydipsia [] Current Medications Current Medications Current Medications Medications (Trade) Dose Ordered Sig/Aliza Start Time Stop Time Status Last Admin Dose Admin Info (Do NOT chart on this entry -- for MONITORING) 1 each PRN DAILY PRN 06/04/17 20:30 06/06/17 20:29 Iohexol (Omnipaque 300 Mg/ml) 75 ml 1X ONCE 06/04/17 20:45 06/04/17 20:46 DC 06/04/17 20:40 75 ML Ondansetron HCl (Zofran) 4 mg 1X ONCE 06/04/17 19:45 06/04/17 19:46 DC 06/04/17 19:46 4 MG Sodium Chloride 500 ml @ 500 mls/hr 1X ONCE 06/04/17 19:30 06/04/17 20:29 DC 06/04/17 19:45 500 MLS/HR Allergies Allergies Allergies Coded Allergies Type Severity Reaction Last Updated Verified Penicillins Allergy Intermediate 02/14/14 Yes codeine Allergy Intermediate morphine, lortab ok 11/27/15 Yes Physical Exam Physical Exam Constitutional: Well developed, well nourished, no acute distress, non-toxic appearance. [] HENT: Normocephalic, atraumatic, bilateral external ears normal, oropharynx moist, no oral exudates, nose normal. [] Eyes: PERRLA, EOMI, conjunctiva normal, no discharge. [] Neck: Normal range of motion, no tenderness, supple, no stridor. [] Cardiovascular:Heart rate regular rhythm, no murmur [] Lungs & Thorax: Bilateral breath sounds clear to auscultation [] Abdomen: Bowel sounds hypoactive, soft, no tenderness, no masses, no pulsatile masses. No rebound tenderness noted no guarding noted. Skin: Warm, dry, no erythema, no rash. [] Back: No tenderness, no CVA tenderness. [] Extremities: No tenderness, no cyanosis, no clubbing, ROM intact, no edema. [] Neurologic: Alert and oriented X 3, normal motor function, normal sensory function, no focal deficits noted. [] Psychologic: Affect normal, judgement normal, mood normal. [] Current Patient Data Vital Signs Vital Signs Date Time Temp Pulse Resp B/P (MAP) Pulse Ox O2 Delivery O2 Flow Rate FiO2 06/04/17 20:17 72 23 161/72 (101) 95 Room Air 06/04/17 19:10 98.3 98.3 Lab Values Laboratory Tests Test 06/04/17 19:28 06/04/17 19:30 06/04/17 19:49 Glucose (Fingerstick) 100 mg/dL (70-99) H White Blood Count 6.3 x10^3/uL (4.0-11.0) Red Blood Count 3.92 x10^6/uL (3.50-5.40) Hemoglobin 11.5 g/dL (12.0-15.5) L Hematocrit 35.0 % (36.0-47.0) L Mean Corpuscular Volume 89 fL (79-100) Mean Corpuscular Hemoglobin 29 pg (25-35) Mean Corpuscular Hemoglobin Concent 33 g/dL (31-37) Red Cell Distribution Width 13.9 % (11.5-14.5) Platelet Count 207 x10^3/uL (140-400) Neutrophils (%) (Auto) 49 % (31-73) Lymphocytes (%) (Auto) 38 % (24-48) Monocytes (%) (Auto) 12 % (0-9) H Eosinophils (%) (Auto) 1 % (0-3) Basophils (%) (Auto) 1 % (0-3) Neutrophils # (Auto) 3.0 x10^3uL (1.8-7.7) Lymphocytes # (Auto) 2.4 x10^3/uL (1.0-4.8) Monocytes # (Auto) 0.7 x10^3/uL (0.0-1.1) Eosinophils # (Auto) 0.1 x10^3/uL (0.0-0.7) Basophils # (Auto) 0.0 x10^3/uL (0.0-0.2) Sodium Level 140 mmol/L (136-145) Potassium Level 3.4 mmol/L (3.5-5.1) L Chloride Level 100 mmol/L (98-107) Carbon Dioxide Level 32 mmol/L (21-32) Anion Gap 8 (6-14) Blood Urea Nitrogen 15 mg/dL (7-20) Creatinine 0.8 mg/dL (0.6-1.0) Estimated GFR (Cockcroft-Gault) 86.1 BUN/Creatinine Ratio 19 (6-20) Glucose Level 105 mg/dL (70-99) H Calcium Level 10.0 mg/dL (8.5-10.1) Total Bilirubin 0.2 mg/dL (0.2-1.0) Aspartate Amino Transferase (AST) 24 U/L (15-37) Alanine Aminotransferase (ALT) 32 U/L (14-59) Alkaline Phosphatase 76 U/L (46-116) Total Protein 8.1 g/dL (6.4-8.2) Albumin 3.6 g/dL (3.4-5.0) Albumin/Globulin Ratio 0.8 (1.0-1.7) L Amylase Level 68 U/L (25-115) Lipase 73 U/L (73-393) Urine Collection Type Unknown Urine Color Yellow Urine Clarity Clear Urine pH 7.5 Urine Specific [place] 1.015 Urine Protein Negative mg/dL (NEG-TRACE) Urine Glucose (UA) Negative mg/dL (NEG) Urine Ketones (Stick) Negative mg/dL (NEG) Urine Blood Negative (NEG) Urine Nitrite Negative (NEG) Urine Bilirubin Negative (NEG) Urine Urobilinogen Dipstick 0.2 mg/dL (0.2 mg/dL) Urine Leukocyte Esterase Small (NEG) Urine RBC 3-5 /HPF (0-2) Urine WBC 5-10 /HPF (0-4) Urine Squamous Epithelial Cells Many /LPF Urine Bacteria Moderate /HPF (0-FEW) Laboratory Tests 06/04/17 19:30 Laboratory Tests 06/04/17 19:30 EKG EKG [] Radiology/Procedures Radiology/Procedures [][facility] [address] [place], [place] [id number] IMAGING REPORT Signed PATIENT: ASIF LANGLEY ACCOUNT: [id number] : 1950 LOCATION: ER AGE: 67 SEX: F EXAM STATUS: REG ER ORD. PHYSICIAN: SARTHAK REYES APRN REASON: vomiting, fever, abdominal dicomfort PROCEDURE: CT ABD PELV W/ IV CONTRST ONLY EXAM: Abdomen and pelvis CT with intravenous contrast. HISTORY: Pain. TECHNIQUE: Computed tomographic images of the abdomen and pelvis were obtained following the administration of 75 cc Omnipaque 300 intravenous contrast. Multiplanar reformatting was performed. *One or more of the following individualized dose reduction techniques were utilized for this examination: 1. Automated exposure control. 2. Adjustment of the mA and/or kV according to patient size. 3. Use of iterative reconstruction technique. COMPARISON: 04/15/2017. FINDINGS: Evaluation of the lower thorax demonstrates posterior dependent and basilar atelectasis. There is no infiltrate or effusion. The heart is upper normal in size. There is mild biliary ductal dilatation, likely due to reservoir effect status post cholecystomy. The pancreas, spleen and adrenal glands are unremarkable. The kidneys and bladder are unremarkable. There is a tiny hiatal hernia. There is moderate colonic stool. There is mild rectal wall thickening. There is no evidence of bowel obstruction. There is calcified atherosclerotic plaque within the aorta and main aortic branch vessels. There is a tiny fat-containing umbilical hernia. There is degenerative change throughout the spine. No suspicious osseous lesion is seen. IMPRESSION: 1. Moderate colonic stool. Correlate for constipation. There is rectal wall thickening which may be due to relative under distention. There is no surrounding stranding to suggest colitis/proctitis. 2. Biliary ductal dilatation, likely due to reservoir effect status post cholecystectomy. 3. Tiny hiatal hernia and fat-containing umbilical hernia. Electronically signed by: Gail Muniz MD (06/04/2017 8:48 PM) [facility] [place] DICTATED and SIGNED BY: GAIL MUNIZ MD DATE: 06/04/172040 CC: SARTHAK ERYES APRN; NON,STAFF; LISA MORILLO MD ~ Course & Med Decision Making Course & Med Decision Making Pertinent Labs and Imaging studies reviewed. (See chart for details) Patient's CT scan identifies moderate cough clinic stool correlated for constipation. There is rectal wall thickening which may be due to relative under distention there is no surrounding stranding to suggest colitis or otitis. Also noted biliary ductal dilatation likely due to reservoir affective status post cholecystectomy, and tiny hiatal hernia and fat-containing umbilical hernia. Patient will be discharged home with Zofran with recommendations to also use a half a bottle mag citrate for bowel movement. Recommended plenty of fluids such as a clear liquid diet. Recommended following up to primary care physician next 2-3 days. Patient is requesting pain medication she'll be provided with Bentyl to help with pain and discomfort. All questions and concerns been answered at patient's bedside. Patient will be discharged home in stable condition. Signs and symptoms to return back to emergency department as been provided. [] Dragon Disclaimer Dragon Disclaimer This electronic medical record was generated, in whole or in part, using a voice recognition dictation system. Departure Departure Impression: Primary Impression: Abdominal pain Additional Impressions: Constipation Vomiting Disposition: HOME, SELF-CARE Condition: STABLE Referrals: LISA MORILLO MD (PCP) Patient Instructions: Abdominal Pain (Nonspecific), Constipation, Adult, Easy- to-Read, Nausea and Vomiting, [id number] Additional Instructions: Activity as tolerated. Medication as prescribed. It is advisable for you to drink a half a bottle of mag citrate tonight help facilitate a bowel movement. Clear liquid diet for the next 24 hours. Follow-up to primary care physician next 3-5 days. Return back to emergency prior signs symptoms of become worse. Scripts Dicyclomine Hcl (BENTYL) 10 Mg Capsule 1 CAP PO TID, #30 CAP Prov: SARTHAK REYES APRN 06/04/17 Ondansetron (ZOFRAN ODT) 4 Mg Tab.rapdis 1 TAB SL Q8HRS, #10 TAB Prov: SARTHAK REYES APRN 06/04/17 Problem Qualifiers Primary Impression: Abdominal pain Abdominal location: unspecified location Qualified Codes: R10.9 - Unspecified abdominal pain Additional Impressions: Constipation Constipation type: unspecified constipation type Qualified Codes: K59.00 - Constipation, unspecified Vomiting Vomiting type: unspecified Vomiting Intractability: unspecified Nausea presence: with nausea Qualified Codes: R11.2 - Nausea with vomiting, unspecified SARTHAK REYES CHILDREN'S COUNSELOR Jun 04, 2017 19:33
[2017-06-04 19:36] LABS: BASO % 1 % (0-3); EOS % 1 % (0-3); HEMOGLOBIN 11.5 g/dL (12.0-15.5); LYMPH # 2.4 x10^3/uL (1.0-4.8); LYMPH % 38 % (24-48); MEAN CORPUSCULAR HEMOGLOBIN 29 pg (25-35); MEAN CORPUSCULAR HGB CONC 33 g/dL (31-37); MEAN CORPUSCULAR VOLUME 89 fL (79-100); MONO % 12 % (0-9); NEUT % 49 % (31-73); PLATELET COUNT 207 x10^3/uL (140-400); RED BLOOD COUNT 3.92 x10^6/uL (3.50-5.40); RED CELL DISTRIBUTION WIDTH 13.9 % (11.5-14.5); WHITE BLOOD COUNT 6.3 x10^3/uL (4.0-11.0)
[2017-06-04] MEDS ORDERED: ONDANSETRON PF 4 MG/2 ML VIAL. IV ONE (19:45)
[2017-06-04 19:51] LABS: CREATININE 0.8 mg/dL (0.6-1.0); GFR 86.1; POTASSIUM 3.4 mmol/L (3.5-5.1)
[2017-06-04 19:55] LABS: BILIRUBIN,URINE NEGATIVE (NEG); GLUCOSE,URINE NEGATIVE (NEG); NITRITE,URINE NEGATIVE (NEG); PH,URINE 7.5; PROTEIN,URINE NEGATIVE (NEG-TRACE); UROBILINOGEN,URINE 0.2 mg/dL (0.2 mg/dL)
[2017-06-04 19:56] LABS: ALBUMIN 3.6 g/dL (3.4-5.0); ALBUMIN/GLOBULIN RATIO 0.8 (1.0-1.7); TOTAL BILIRUBIN 0.2 mg/dL (0.2-1.0); TOTAL PROTEIN 8.1 g/dL (6.4-8.2)
[2017-06-04 20:04] LABS: BACTERIA,URINE MODERATE /HPF (0-FEW); SQUAMOUS EPITHELIAL CELL,UR MANY /LPF
[2017-06-04] MEDS ORDERED: CONTRAST GIVEN MC PRN (20:30)
[2017-06-04] MEDS ORDERED: IOHEXOL 300 MG/ML 75 ML VIAL IV ONE (20:45)
--- NOTE | 2017-06-04 20:51 | RAD ---
EXAM: Abdomen and pelvis CT with intravenous contrast. HISTORY: Pain. TECHNIQUE: Computed tomographic images of the abdomen and pelvis were obtained following the administration of 75 cc Omnipaque 300 intravenous contrast. Multiplanar reformatting was performed. *One or more of the following individualized dose reduction techniques were utilized for this examination: 1. Automated exposure control. 2. Adjustment of the mA and/or kV according to patient size. 3. Use of iterative reconstruction technique. COMPARISON: 04/15/2017. FINDINGS: Evaluation of the lower thorax demonstrates posterior dependent and basilar atelectasis. There is no infiltrate or effusion. The heart is upper normal in size. There is mild biliary ductal dilatation, likely due to reservoir effect status post cholecystomy. The pancreas, spleen and adrenal glands are unremarkable. The kidneys and bladder are unremarkable. There is a tiny hiatal hernia. There is moderate colonic stool. There is mild rectal wall thickening. There is no evidence of bowel obstruction. There is calcified atherosclerotic plaque within the aorta and main aortic branch vessels. There is a tiny fat-containing umbilical hernia. There is degenerative change throughout the spine. No suspicious osseous lesion is seen. IMPRESSION: 1. Moderate colonic stool. Correlate for constipation. There is rectal wall thickening which may be due to relative under distention. There is no surrounding stranding to suggest colitis/proctitis. 2. Biliary ductal dilatation, likely due to reservoir effect status post cholecystectomy. 3. Tiny hiatal hernia and fat-containing umbilical hernia. Electronically signed by: Gail Oviedo MD (06/04/2017 8:48 PM) [facility]
[2017-06-04] MEDS ORDERED: ONDA4TAB10 SL (21:23)
[2017-06-04] MEDS ORDERED: DICY10CA53 PO (21:23)
[2017-06-04 21:30] VITALS: BP 158/69
--- NOTE | 2017-06-05 08:18 | RAD ---
ACUTE ABDOMEN SERIES Clinical Indication: HX CHF, vomiting Comparison: Abdominal radiographs dated 09/14/2016, 09/12/2016, acute abdomen series dated 03/06/2007 Findings: Low lung volume. No focal consolidation. Stable pulmonary vasculature. No pleural effusion or pneumothorax. Borderline cardiomegaly. The great vessels of the thorax are normal. No obvious free air. Moderate colonic stool. No evidence of obstruction. Right hemiabdomen surgical clips. Vascular calcifications. No acute osseous abnormality. IMPRESSION: 1. No acute cardiopulmonary process. 2. No evidence of obstruction. 3. Moderate chronic stool.
== END 2017-06-04 22:41 | disposition home or self-care (01) ==
LOC: ER 19:10
DX: R11.2 Nausea with vomiting, unspecified (principal); R10.9 Unspecified abdominal pain; K59.00 Constipation, unspecified; R51 Headache; I13.0 Hypertensive heart and chronic kidney disease with heart failure and stage 1 through stage 4 chronic kidney disease, or unspecified chronic kidney disease; E11.22 Type 2 diabetes mellitus with diabetic chronic kidney disease; N18.9 Chronic kidney disease, unspecified; I50.9 Heart failure, unspecified; Z86.73 Personal history of transient ischemic attack (TIA), and cerebral infarction without residual deficits; E78.00 Pure hypercholesterolemia, unspecified; Z90.710 Acquired absence of both cervix and uterus; Z90.49 Acquired absence of other specified parts of digestive tract; Z98.890 Other specified postprocedural states; Z88.0 Allergy status to penicillin; Z88.5 Allergy status to narcotic agent
CPT/HCPCS: 36415; 74022; 74177; 80053; 81001; 82150; 82962; 83690; 85025; 87086; 96361; 96374; 99285; J2405; J7040; Q9967

== ENCOUNTER 2017-09-05 19:03 | Inpatient (IN) | payer OTHER ==
[2017-09-05] MEDS ORDERED: CONTRAST GIVEN MC (19:45)
[2017-09-05 19:46] LABS: ADD MAN DIFF? NO
[2017-09-05 19:50] LABS: BASO % 1 % (0-3); EOS % 1 % (0-3); HEMATOCRIT 34.4 % (36.0-47.0); HEMOGLOBIN 11.4 g/dL (12.0-15.5); LYMPH # 1.6 x10^3/uL (1.0-4.8); LYMPH % 22 % (24-48); MEAN CORPUSCULAR HEMOGLOBIN 29 pg (25-35); MEAN CORPUSCULAR HGB CONC 33 g/dL (31-37); MEAN CORPUSCULAR VOLUME 89 fL (79-100); MONO # 0.9 x10^3/uL (0.0-1.1); MONO % 13 % (0-9); NEUT # 4.5 x10^3uL (1.8-7.7); NEUT % 63 % (31-73); PLATELET COUNT 235 x10^3/uL (140-400); RED BLOOD COUNT 3.87 x10^6/uL (3.50-5.40); RED CELL DISTRIBUTION WIDTH 12.8 % (11.5-14.5); WHITE BLOOD COUNT 7.1 x10^3/uL (4.0-11.0)
[2017-09-05 19:51] LABS: BILIRUBIN,URINE NEGATIVE (NEG); CLARITY,URINE CLEAR; COLOR,URINE YELLOW; GLUCOSE,URINE 100 mg/dL (NEG); NITRITE,URINE NEGATIVE (NEG); PH,URINE 7.5; PROTEIN,URINE 30 mg/dL (NEG-TRACE)
[2017-09-05 20:00] LABS: ANION GAP 7 (6-14); BLOOD UREA NITROGEN 20 mg/dL (7-20); BUN/CREATININE RATIO 25 (6-20); CARBON DIOXIDE 32 mmol/L (21-32); CHLORIDE 97 mmol/L (98-107); CREATININE 0.8 mg/dL (0.6-1.0); GFR 86.1; GLUCOSE 256 mg/dL (70-99); SODIUM 136 mmol/L (136-145)
[2017-09-05 20:03] LABS: BACTERIA,URINE MANY /HPF (0-FEW); RBC,URINE 0 /HPF (0-2); SQUAMOUS EPITHELIAL CELL,UR FEW /LPF; WBC,URINE 20-40 /HPF (0-4)
[2017-09-05 20:04] LABS: AMORPHOUS SEDIMENT,UR PRESENT /HPF
[2017-09-05 20:06] LABS: ALBUMIN 3.6 g/dL (3.4-5.0); ALBUMIN/GLOBULIN RATIO 0.8 (1.0-1.7); ALK PHOS 88 U/L (46-116); ALT (SGPT) 24 U/L (14-59); AST (SGOT) 19 U/L (15-37); LIPASE 94 U/L (73-393); TOTAL BILIRUBIN 0.3 mg/dL (0.2-1.0)
[2017-09-05] MEDS: IOHEXOL 300 MG/ML 100ML VIAL. IV (20:36)
[2017-09-05] MEDS: DOCUSATE SODIUM 283 MG/5 ML ENEMA. PR (21:26)
[2017-09-05] MEDS: fentaNYL PF VIAL 100 MCG/2 ML VIAL IV (21:27)
[2017-09-05] MEDS: ONDANSETRON PF 4 MG/2 ML VIAL. IV (22:10)
[2017-09-05] MEDS ORDERED: ALBUTEROL SULFATE 2.5 MG NEB (22:15)
[2017-09-05] MEDS: DICYCLOMINE HCL 10 MG CAPSULE PO (23:15)
[2017-09-05 23:32] LABS: POC GLUCOSE 305 mg/dL (70-99)
[2017-09-05] MEDS: ATORVASTATIN CALCIUM 40 MG TABLET. PO (23:58)
[2017-09-05] MEDS: carBAMazepine 200 MG TABLET PO (23:58)
[2017-09-05] MEDS: LATANOPROST 0.005% OPHTH SOLUTION 2.5ML BOTTLE. OU (23:58)
[2017-09-05] MEDS: PANTOPRAZOLE 40 MG TABLET.DR. PO (23:58)
[2017-09-05] MEDS: AZITHROMYCIN 250 MG TABLET. PO (23:58)
[2017-09-05] MEDS: GABAPENTIN 300 MG CAPSULE. PO (23:58)
[2017-09-05] MEDS: LABETALOL HCL 200 MG TABLET PO (23:59)
[2017-09-06] MEDS: INSULIN DETEMIR 300 UNITS/3 ML INSULN.PEN. SQ ×2 (00:13→21:10)
[2017-09-06] MEDS ORDERED: ALBUTEROL SULFATE 2.5 MG/3 ML NEBU. NEB (02:45)
[2017-09-06] MEDS ORDERED: DEXTROSE 50% 25 GM / 50ML DISP.SYRIN. IV (03:15)
[2017-09-06 04:50] LABS: ADD MAN DIFF? NO
[2017-09-06 05:06] LABS: BASO % 0 % (0-3); EOS % 0 % (0-3); HEMATOCRIT 31.5 % (36.0-47.0); HEMOGLOBIN 10.5 g/dL (12.0-15.5); LYMPH # 1.7 x10^3/uL (1.0-4.8); LYMPH % 25 % (24-48); MEAN CORPUSCULAR HEMOGLOBIN 30 pg (25-35); MEAN CORPUSCULAR HGB CONC 33 g/dL (31-37); MEAN CORPUSCULAR VOLUME 89 fL (79-100); MONO # 0.9 x10^3/uL (0.0-1.1); MONO % 14 % (0-9); NEUT # 4.1 x10^3uL (1.8-7.7); NEUT % 61 % (31-73); PLATELET COUNT 241 x10^3/uL (140-400); RED BLOOD COUNT 3.52 x10^6/uL (3.50-5.40); RED CELL DISTRIBUTION WIDTH 12.6 % (11.5-14.5); WHITE BLOOD COUNT 6.7 x10^3/uL (4.0-11.0)
[2017-09-06 05:23] LABS: ANION GAP 9 (6-14); BLOOD UREA NITROGEN 24 mg/dL (7-20); CARBON DIOXIDE 28 mmol/L (21-32); CHLORIDE 98 mmol/L (98-107); CREATININE 0.9 mg/dL (0.6-1.0); GFR 75.1; GLUCOSE 345 mg/dL (70-99); POTASSIUM 3.8 mmol/L (3.5-5.1); SODIUM 135 mmol/L (136-145)
[2017-09-06] MEDS: BUDESONIDE 0.5 MG/2 ML NEBU. NEB ×2 (07:27→20:00)
[2017-09-06] MEDS: ALBUTEROL SULFATE 2.5 MG/3 ML NEBU. NEB ×4 (07:27→20:00)
[2017-09-06] MEDS ORDERED: INSULIN ASPART 300 UNITS/3 ML INSULN.PEN SQ (07:30)
[2017-09-06] MEDS: CLOPIDOGREL BISULFATE 75 MG TABLET PO (08:00)
[2017-09-06 08:37] LABS: POC GLUCOSE 278 mg/dL (70-99)
[2017-09-06] MEDS ORDERED: NON FORMULARY ITEM (Tiotropium Bromide (Spiriva) 1 CAP) IH (09:00)
[2017-09-06] MEDS: DORZOLAMIDE/TIMOLOL 2%/0.5% OPHTH SOLUTION 10ML BOTTLE. OU ×2 (09:00→20:53)
[2017-09-06] MEDS: OXYMETAZOLINE 0.05% NASAL SPRAY 30ML BOTTLE. NS ×2 (09:00→20:53)
[2017-09-06] MEDS: LUBIPROSTONE 8 MCG CAPSULE PO ×2 (09:02→17:33)
[2017-09-06] MEDS: PANTOPRAZOLE 40 MG TABLET.DR. PO ×2 (09:02→20:54)
[2017-09-06] MEDS: DICYCLOMINE HCL 10 MG CAPSULE PO ×3 (09:02→20:54)
[2017-09-06] MEDS: POTASSIUM CHLORIDE 20 MEQ TABLET.ER. PO ×2 (09:03→17:33)
[2017-09-06] MEDS: BUMETANIDE 1 MG TABLET. PO (09:03)
[2017-09-06] MEDS: SENNOSIDES/DOCUSATE 8.6/50MG TABLET. PO ×2 (09:03→20:54)
[2017-09-06] MEDS: DOCUSATE SODIUM 100 MG CAPSULE. PO ×2 (09:04→20:55)
[2017-09-06] MEDS: CITALOPRAM 20 MG TABLET. PO (09:04)
[2017-09-06] MEDS: LABETALOL HCL 200 MG TABLET PO ×2 (09:04→20:59)
[2017-09-06] MEDS: POLYETHYLENE GLYCOL 3350 17 GM PACKET. PO ×3 (09:04→20:54)
[2017-09-06] MEDS: AZITHROMYCIN 250 MG TABLET. PO (09:05)
[2017-09-06] MEDS: ASPIRIN ENTERIC COATED 81 MG TABLET.DR. PO (09:05)
[2017-09-06] MEDS: ACETAMINOPHEN 325 MG TABLET. PO (09:05)
[2017-09-06] MEDS: amLODIPine BESYLATE 10 MG TABLET PO (09:06)
[2017-09-06] MEDS: carBAMazepine 200 MG TABLET PO ×2 (09:06→20:55)
[2017-09-06] MEDS: DICLOFENAC SODIUM 1% TOPICAL GEL 100GM TUBE. TP ×2 (09:08→20:56)
[2017-09-06] MEDS: ONDANSETRON ODT 4 MG TAB.RAPDIS. PO ×2 (10:53→23:19)
[2017-09-06] MEDS: fentaNYL PF VIAL 100 MCG/2 ML VIAL IV (12:48)
[2017-09-06 12:53] LABS: POC GLUCOSE 296 mg/dL (70-99)
[2017-09-06] MEDS: INSULIN ASPART 300 UNITS/3 ML INSULN.PEN SQ ×2 (12:53→17:37)
[2017-09-06] MEDS: LACTOBACILLUS RHAMNOSUS GG 1 CAPSULE. PO ×2 (14:34→20:54)
[2017-09-06 17:26] LABS: POC GLUCOSE 223 mg/dL (70-99)
[2017-09-06 19:17] LABS: CREATINE KINASE 68 U/L (26-192)
[2017-09-06 19:26] LABS: THYROID STIM HORMONE (TSH) 0.428 uIU/mL (0.358-3.74)
[2017-09-06 19:56] LABS: VITAMIN-B12 482 pg/mL (247-911)
[2017-09-06] MEDS: LATANOPROST 0.005% OPHTH SOLUTION 2.5ML BOTTLE. OU (20:54)
[2017-09-06] MEDS: ATORVASTATIN CALCIUM 40 MG TABLET. PO (20:55)
[2017-09-06] MEDS: GABAPENTIN 300 MG CAPSULE. PO (20:55)
[2017-09-06 21:27] LABS: POC GLUCOSE 275 mg/dL (70-99)
[2017-09-06] MEDS: oxyCODONE IR 5 MG TABLET PO (23:20)
[2017-09-07] MEDS: PANTOPRAZOLE 40 MG TABLET.DR. PO ×2 (07:26→22:01)
[2017-09-07] MEDS: ALBUTEROL SULFATE 2.5 MG/3 ML NEBU. NEB ×4 (07:30→20:01)
[2017-09-07] MEDS: BUDESONIDE 0.5 MG/2 ML NEBU. NEB ×2 (07:30→20:01)
[2017-09-07] MEDS: CLOPIDOGREL BISULFATE 75 MG TABLET PO (08:00)
[2017-09-07] MEDS: DORZOLAMIDE/TIMOLOL 2%/0.5% OPHTH SOLUTION 10ML BOTTLE. OU ×2 (09:00→21:00)
[2017-09-07] MEDS: OXYMETAZOLINE 0.05% NASAL SPRAY 30ML BOTTLE. NS ×2 (09:00→21:00)
[2017-09-07 09:33] LABS: POC GLUCOSE 209 mg/dL (70-99)
[2017-09-07] MEDS: LUBIPROSTONE 8 MCG CAPSULE PO ×2 (09:37→17:20)
[2017-09-07] MEDS: SENNOSIDES/DOCUSATE 8.6/50MG TABLET. PO ×2 (09:37→22:02)
[2017-09-07] MEDS: DOCUSATE SODIUM 100 MG CAPSULE. PO ×2 (09:38→22:02)
[2017-09-07] MEDS: amLODIPine BESYLATE 10 MG TABLET PO (09:38)
[2017-09-07] MEDS: LACTOBACILLUS RHAMNOSUS GG 1 CAPSULE. PO ×2 (09:38→22:01)
[2017-09-07] MEDS: carBAMazepine 200 MG TABLET PO ×2 (09:38→22:01)
[2017-09-07] MEDS: ASPIRIN ENTERIC COATED 81 MG TABLET.DR. PO (09:38)
[2017-09-07] MEDS: DICYCLOMINE HCL 10 MG CAPSULE PO ×3 (09:38→22:01)
[2017-09-07] MEDS: CITALOPRAM 20 MG TABLET. PO (09:38)
[2017-09-07] MEDS: LABETALOL HCL 200 MG TABLET PO ×2 (09:39→22:01)
[2017-09-07] MEDS: POTASSIUM CHLORIDE 20 MEQ TABLET.ER. PO ×2 (09:39→17:20)
[2017-09-07] MEDS: BUMETANIDE 1 MG TABLET. PO (09:39)
[2017-09-07] MEDS: POLYETHYLENE GLYCOL 3350 17 GM PACKET. PO ×3 (09:39→21:00)
[2017-09-07] MEDS: DICLOFENAC SODIUM 1% TOPICAL GEL 100GM TUBE. TP ×2 (09:40→22:00)
[2017-09-07] MEDS: INSULIN ASPART 300 UNITS/3 ML INSULN.PEN SQ ×3 (09:48→17:23)
[2017-09-07] MEDS: AZITHROMYCIN 250 MG TABLET. PO (10:47)
[2017-09-07] MEDS: oxyCODONE IR 5 MG TABLET PO (12:07)
[2017-09-07 12:13] LABS: POC GLUCOSE 229 mg/dL (70-99)
[2017-09-07 17:13] LABS: POC GLUCOSE 189 mg/dL (70-99)
[2017-09-07] MEDS: CALCIUM CARBONATE 500 MG TABLET PO (17:20)
[2017-09-07] MEDS: CHOLECALCIFEROL (VITAMIN D3) 1,000 UNIT TABLET PO (17:20)
[2017-09-07] MEDS: ONDANSETRON ODT 4 MG TAB.RAPDIS. PO (19:11)
[2017-09-07 20:58] LABS: POC GLUCOSE 115 mg/dL (70-99)
[2017-09-07] MEDS: GABAPENTIN 300 MG CAPSULE. PO (22:01)
[2017-09-07] MEDS: ATORVASTATIN CALCIUM 40 MG TABLET. PO (22:01)
[2017-09-07] MEDS: DEXAMETHASONE 4 MG TABLET PO (22:02)
[2017-09-07] MEDS: LATANOPROST 0.005% OPHTH SOLUTION 2.5ML BOTTLE. OU (22:03)
[2017-09-07] MEDS: INSULIN DETEMIR 300 UNITS/3 ML INSULN.PEN. SQ (22:10)
[2017-09-08] MEDS: PANTOPRAZOLE 40 MG TABLET.DR. PO ×3 (06:21→20:57)
[2017-09-08] MEDS: oxyCODONE IR 5 MG TABLET PO ×2 (06:23→17:44)
[2017-09-08] MEDS: BUDESONIDE 0.5 MG/2 ML NEBU. NEB ×2 (07:14→20:26)
[2017-09-08] MEDS: ALBUTEROL SULFATE 2.5 MG/3 ML NEBU. NEB ×4 (07:14→20:26)
[2017-09-08] MEDS: POLYETHYLENE GLYCOL 3350 17 GM PACKET. PO ×3 (07:49→21:00)
[2017-09-08] MEDS: BUMETANIDE 1 MG TABLET. PO (07:51)
[2017-09-08] MEDS: DICLOFENAC SODIUM 1% TOPICAL GEL 100GM TUBE. TP ×2 (07:51→20:59)
[2017-09-08] MEDS: DEXAMETHASONE 4 MG TABLET PO ×2 (07:52→20:59)
[2017-09-08] MEDS: CALCIUM CARBONATE 500 MG TABLET PO (07:52)
[2017-09-08] MEDS: SENNOSIDES/DOCUSATE 8.6/50MG TABLET. PO ×2 (07:52→20:59)
[2017-09-08] MEDS: CITALOPRAM 20 MG TABLET. PO (07:52)
[2017-09-08] MEDS: AZITHROMYCIN 250 MG TABLET. PO (07:52)
[2017-09-08] MEDS: ASPIRIN ENTERIC COATED 81 MG TABLET.DR. PO (07:52)
[2017-09-08] MEDS: LACTOBACILLUS RHAMNOSUS GG 1 CAPSULE. PO ×2 (07:52→20:57)
[2017-09-08] MEDS: amLODIPine BESYLATE 10 MG TABLET PO (07:52)
[2017-09-08] MEDS: carBAMazepine 200 MG TABLET PO ×2 (07:52→21:11)
[2017-09-08] MEDS: LUBIPROSTONE 8 MCG CAPSULE PO ×2 (07:53→17:36)
[2017-09-08] MEDS: POTASSIUM CHLORIDE 20 MEQ TABLET.ER. PO ×2 (07:53→17:36)
[2017-09-08] MEDS: DOCUSATE SODIUM 100 MG CAPSULE. PO ×2 (07:54→20:59)
[2017-09-08] MEDS: LABETALOL HCL 200 MG TABLET PO ×2 (07:54→20:58)
[2017-09-08] MEDS: CHOLECALCIFEROL (VITAMIN D3) 1,000 UNIT TABLET PO (07:55)
[2017-09-08] MEDS: DICYCLOMINE HCL 10 MG CAPSULE PO ×3 (07:55→20:58)
[2017-09-08] MEDS: INSULIN ASPART 300 UNITS/3 ML INSULN.PEN SQ ×3 (08:12→17:44)
[2017-09-08] MEDS: OXYMETAZOLINE 0.05% NASAL SPRAY 30ML BOTTLE. NS ×2 (08:14→21:00)
[2017-09-08] MEDS: DORZOLAMIDE/TIMOLOL 2%/0.5% OPHTH SOLUTION 10ML BOTTLE. OU ×2 (08:23→21:00)
[2017-09-08] MEDS ORDERED: BENZOCAINE/MENTHOL LOZENGE. PO (08:45)
[2017-09-08] MEDS: FLUTICASONE 50MCG/NASAL SPRAY 16GM BOTTLE. NS ×2 (11:08→21:00)
[2017-09-08] MEDS: ACETAMINOPHEN 325 MG TABLET. PO (11:13)
[2017-09-08 12:22] LABS: POC GLUCOSE 276 mg/dL (70-99)
[2017-09-08 12:22] LABS: POC GLUCOSE 256 mg/dL (70-99)
[2017-09-08 17:04] LABS: POC GLUCOSE 376 mg/dL (70-99)
[2017-09-08 20:52] LABS: POC GLUCOSE 224 mg/dL (70-99)
[2017-09-08] MEDS: LATANOPROST 0.005% OPHTH SOLUTION 2.5ML BOTTLE. OU (20:57)
[2017-09-08] MEDS: ATORVASTATIN CALCIUM 40 MG TABLET. PO (20:58)
[2017-09-08] MEDS: GABAPENTIN 300 MG CAPSULE. PO (20:58)
[2017-09-08] MEDS: INSULIN DETEMIR 300 UNITS/3 ML INSULN.PEN. SQ (21:01)
[2017-09-09] MEDS: oxyCODONE IR 5 MG TABLET PO (02:22)
[2017-09-09] MEDS: BUDESONIDE 0.5 MG/2 ML NEBU. NEB ×2 (06:54→18:00)
[2017-09-09] MEDS: ALBUTEROL SULFATE 2.5 MG/3 ML NEBU. NEB ×4 (06:54→18:00)
[2017-09-09] MEDS: DICLOFENAC SODIUM 1% TOPICAL GEL 100GM TUBE. TP ×2 (08:20→20:46)
[2017-09-09] MEDS: DEXAMETHASONE 4 MG TABLET PO ×2 (08:20→20:45)
[2017-09-09] MEDS: CHOLECALCIFEROL (VITAMIN D3) 1,000 UNIT TABLET PO (08:21)
[2017-09-09] MEDS: POTASSIUM CHLORIDE 20 MEQ TABLET.ER. PO ×2 (08:21→18:21)
[2017-09-09] MEDS: LACTOBACILLUS RHAMNOSUS GG 1 CAPSULE. PO ×2 (08:21→20:46)
[2017-09-09] MEDS: AZITHROMYCIN 250 MG TABLET. PO (08:22)
[2017-09-09] MEDS: LUBIPROSTONE 8 MCG CAPSULE PO ×2 (08:23→18:21)
[2017-09-09] MEDS: BUMETANIDE 1 MG TABLET. PO (08:23)
[2017-09-09] MEDS: DOCUSATE SODIUM 100 MG CAPSULE. PO ×2 (08:23→20:47)
[2017-09-09] MEDS: LABETALOL HCL 200 MG TABLET PO ×2 (08:23→20:44)
[2017-09-09] MEDS: ASPIRIN ENTERIC COATED 81 MG TABLET.DR. PO (08:24)
[2017-09-09] MEDS: CITALOPRAM 20 MG TABLET. PO (08:24)
[2017-09-09] MEDS: CALCIUM CARBONATE 500 MG TABLET PO (08:24)
[2017-09-09] MEDS: DICYCLOMINE HCL 10 MG CAPSULE PO ×3 (08:24→20:44)
[2017-09-09] MEDS: carBAMazepine 200 MG TABLET PO ×2 (08:24→20:44)
[2017-09-09] MEDS: POLYETHYLENE GLYCOL 3350 17 GM PACKET. PO ×3 (08:25→20:47)
[2017-09-09] MEDS: ACETAMINOPHEN 325 MG TABLET. PO (08:25)
[2017-09-09] MEDS: SENNOSIDES/DOCUSATE 8.6/50MG TABLET. PO ×2 (08:25→20:47)
[2017-09-09] MEDS: amLODIPine BESYLATE 10 MG TABLET PO (08:25)
[2017-09-09 08:42] LABS: POC GLUCOSE 344 mg/dL (70-99)
[2017-09-09] MEDS: INSULIN ASPART 300 UNITS/3 ML INSULN.PEN SQ ×5 (08:46→18:28)
[2017-09-09] MEDS: OXYMETAZOLINE 0.05% NASAL SPRAY 30ML BOTTLE. NS ×2 (08:48→21:00)
[2017-09-09] MEDS: DORZOLAMIDE/TIMOLOL 2%/0.5% OPHTH SOLUTION 10ML BOTTLE. OU ×2 (08:49→21:00)
[2017-09-09 11:30] LABS: POC GLUCOSE 283 mg/dL (70-99)
[2017-09-09] MEDS ORDERED: DEXTROSE 50% 25 GM / 50ML DISP.SYRIN. IV (11:30)
[2017-09-09] MEDS: BISACODYL 10 MG SUPP.RECT. PR (12:29)
[2017-09-09] MEDS: MAGNESIUM HYDROXIDE 2,400 MG/30 ML ORAL.SUSP. PO (12:29)
[2017-09-09] MEDS ORDERED: MAGNESIUM HYDROXIDE 2,400 MG/30 ML ORAL.SUSP. PO (13:15)
[2017-09-09] MEDS ORDERED: MAGNESIUM CITRATE 296 ML SOLUTION. PO (13:15)
[2017-09-09] MEDS: MAGNESIUM CITRATE 296 ML SOLUTION. PO (15:33)
[2017-09-09 16:27] LABS: POC GLUCOSE 266 mg/dL (70-99)
[2017-09-09] MEDS: ATORVASTATIN CALCIUM 40 MG TABLET. PO (20:44)
[2017-09-09] MEDS: LATANOPROST 0.005% OPHTH SOLUTION 2.5ML BOTTLE. OU (20:44)
[2017-09-09] MEDS: PANTOPRAZOLE 40 MG TABLET.DR. PO (20:45)
[2017-09-09] MEDS: GABAPENTIN 300 MG CAPSULE. PO (20:48)
[2017-09-09] MEDS: INSULIN DETEMIR 300 UNITS/3 ML INSULN.PEN. SQ (21:21)
[2017-09-09 21:46] LABS: POC GLUCOSE 252 mg/dL (70-99)
[2017-09-10 04:47] LABS: ADD MAN DIFF? NO
[2017-09-10 04:54] LABS: BASO % 0 % (0-3); EOS % 0 % (0-3); HEMATOCRIT 28.9 % (36.0-47.0); HEMOGLOBIN 9.5 g/dL (12.0-15.5); LYMPH % 21 % (24-48); MEAN CORPUSCULAR HEMOGLOBIN 30 pg (25-35); MEAN CORPUSCULAR HGB CONC 33 g/dL (31-37); MEAN CORPUSCULAR VOLUME 90 fL (79-100); MONO # 0.5 x10^3/uL (0.0-1.1); MONO % 12 % (0-9); NEUT # 3.1 x10^3uL (1.8-7.7); NEUT % 67 % (31-73); PLATELET COUNT 207 x10^3/uL (140-400); RED BLOOD COUNT 3.22 x10^6/uL (3.50-5.40); RED CELL DISTRIBUTION WIDTH 12.6 % (11.5-14.5); WHITE BLOOD COUNT 4.7 x10^3/uL (4.0-11.0)
[2017-09-10 05:07] LABS: ANION GAP 4 (6-14); BLOOD UREA NITROGEN 23 mg/dL (7-20); CALCIUM 9.9 mg/dL (8.5-10.1); CARBON DIOXIDE 34 mmol/L (21-32); CHLORIDE 98 mmol/L (98-107); CREATININE 0.7 mg/dL (0.6-1.0); GFR 100.4; GLUCOSE 256 mg/dL (70-99); POTASSIUM 4.3 mmol/L (3.5-5.1); SODIUM 136 mmol/L (136-145)
[2017-09-10] MEDS: BUDESONIDE 0.5 MG/2 ML NEBU. NEB ×2 (07:10→19:24)
[2017-09-10] MEDS: ALBUTEROL SULFATE 2.5 MG/3 ML NEBU. NEB ×4 (07:11→19:27)
[2017-09-10 07:52] LABS: POC GLUCOSE 261 mg/dL (70-99)
[2017-09-10] MEDS: DOCUSATE SODIUM 100 MG CAPSULE. PO ×2 (07:53→20:36)
[2017-09-10] MEDS: POLYETHYLENE GLYCOL 3350 17 GM PACKET. PO ×3 (07:53→20:36)
[2017-09-10] MEDS: SENNOSIDES/DOCUSATE 8.6/50MG TABLET. PO ×2 (07:53→20:36)
[2017-09-10] MEDS: LUBIPROSTONE 8 MCG CAPSULE PO ×2 (08:00→17:00)
[2017-09-10] MEDS: DICLOFENAC SODIUM 1% TOPICAL GEL 100GM TUBE. TP ×2 (08:41→20:34)
[2017-09-10] MEDS: FLUTICASONE 50MCG/NASAL SPRAY 16GM BOTTLE. NS (08:41)
[2017-09-10] MEDS: BUMETANIDE 1 MG TABLET. PO (08:42)
[2017-09-10] MEDS: carBAMazepine 200 MG TABLET PO ×2 (08:42→20:33)
[2017-09-10] MEDS: CHOLECALCIFEROL (VITAMIN D3) 1,000 UNIT TABLET PO (08:42)
[2017-09-10] MEDS: DEXAMETHASONE 4 MG TABLET PO ×2 (08:43→20:33)
[2017-09-10] MEDS: LABETALOL HCL 200 MG TABLET PO ×2 (08:43→20:34)
[2017-09-10] MEDS: CITALOPRAM 20 MG TABLET. PO (08:44)
[2017-09-10] MEDS: CALCIUM CARBONATE 500 MG TABLET PO (08:44)
[2017-09-10] MEDS: POTASSIUM CHLORIDE 20 MEQ TABLET.ER. PO ×2 (08:44→17:15)
[2017-09-10] MEDS: ASPIRIN ENTERIC COATED 81 MG TABLET.DR. PO (08:44)
[2017-09-10] MEDS: AZITHROMYCIN 250 MG TABLET. PO (08:44)
[2017-09-10] MEDS: LACTOBACILLUS RHAMNOSUS GG 1 CAPSULE. PO ×2 (08:44→20:32)
[2017-09-10] MEDS: amLODIPine BESYLATE 10 MG TABLET PO (08:45)
[2017-09-10] MEDS: DICYCLOMINE HCL 10 MG CAPSULE PO ×3 (08:45→20:32)
[2017-09-10] MEDS: OXYMETAZOLINE 0.05% NASAL SPRAY 30ML BOTTLE. NS ×2 (08:45→20:36)
[2017-09-10] MEDS: DORZOLAMIDE/TIMOLOL 2%/0.5% OPHTH SOLUTION 10ML BOTTLE. OU ×2 (08:45→20:36)
[2017-09-10] MEDS: INSULIN ASPART 300 UNITS/3 ML INSULN.PEN SQ ×6 (08:57→17:18)
[2017-09-10 11:54] LABS: POC GLUCOSE 196 mg/dL (70-99)
[2017-09-10] MEDS: oxyCODONE IR 5 MG TABLET PO ×2 (14:55→22:58)
[2017-09-10 17:09] LABS: POC GLUCOSE 347 mg/dL (70-99)
[2017-09-10] MEDS: LATANOPROST 0.005% OPHTH SOLUTION 2.5ML BOTTLE. OU (20:29)
[2017-09-10] MEDS: ATORVASTATIN CALCIUM 40 MG TABLET. PO (20:33)
[2017-09-10] MEDS: GABAPENTIN 300 MG CAPSULE. PO (20:33)
[2017-09-10] MEDS: PANTOPRAZOLE 40 MG TABLET.DR. PO (20:33)
[2017-09-10] MEDS: INSULIN DETEMIR 300 UNITS/3 ML INSULN.PEN. SQ (20:54)
[2017-09-10 21:08] LABS: POC GLUCOSE 321 mg/dL (70-99)
[2017-09-11] MEDS: BUDESONIDE 0.5 MG/2 ML NEBU. NEB (07:11)
[2017-09-11] MEDS: ALBUTEROL SULFATE 2.5 MG/3 ML NEBU. NEB ×3 (07:11→15:10)
[2017-09-11] MEDS: LUBIPROSTONE 8 MCG CAPSULE PO (08:00)
[2017-09-11 08:15] LABS: POC GLUCOSE 219 mg/dL (70-99)
[2017-09-11] MEDS: OXYMETAZOLINE 0.05% NASAL SPRAY 30ML BOTTLE. NS (08:53)
[2017-09-11] MEDS: DORZOLAMIDE/TIMOLOL 2%/0.5% OPHTH SOLUTION 10ML BOTTLE. OU (08:54)
[2017-09-11] MEDS: POLYETHYLENE GLYCOL 3350 17 GM PACKET. PO ×2 (08:54→14:00)
[2017-09-11] MEDS: SENNOSIDES/DOCUSATE 8.6/50MG TABLET. PO (08:54)
[2017-09-11] MEDS: DOCUSATE SODIUM 100 MG CAPSULE. PO (08:54)
[2017-09-11] MEDS: DICLOFENAC SODIUM 1% TOPICAL GEL 100GM TUBE. TP (08:59)
[2017-09-11] MEDS: carBAMazepine 200 MG TABLET PO (09:00)
[2017-09-11] MEDS: AZITHROMYCIN 250 MG TABLET. PO (09:00)
[2017-09-11] MEDS: ASPIRIN ENTERIC COATED 81 MG TABLET.DR. PO (09:00)
[2017-09-11] MEDS: LACTOBACILLUS RHAMNOSUS GG 1 CAPSULE. PO (09:00)
[2017-09-11] MEDS: CITALOPRAM 20 MG TABLET. PO (09:00)
[2017-09-11] MEDS: FLUTICASONE 50MCG/NASAL SPRAY 16GM BOTTLE. NS (09:00)
[2017-09-11] MEDS: CALCIUM CARBONATE 500 MG TABLET PO (09:00)
[2017-09-11] MEDS: CHOLECALCIFEROL (VITAMIN D3) 1,000 UNIT TABLET PO (09:01)
[2017-09-11] MEDS: BUMETANIDE 1 MG TABLET. PO (09:01)
[2017-09-11] MEDS: amLODIPine BESYLATE 10 MG TABLET PO (09:01)
[2017-09-11] MEDS: POTASSIUM CHLORIDE 20 MEQ TABLET.ER. PO (09:01)
[2017-09-11] MEDS: LABETALOL HCL 200 MG TABLET PO (09:02)
[2017-09-11] MEDS: DEXAMETHASONE 4 MG TABLET PO (09:02)
[2017-09-11] MEDS: DICYCLOMINE HCL 10 MG CAPSULE PO ×2 (09:02→15:08)
[2017-09-11] MEDS: INSULIN ASPART 300 UNITS/3 ML INSULN.PEN SQ ×4 (09:08→12:10)
[2017-09-11 14:59] LABS: POC GLUCOSE 179 mg/dL (70-99)
[2017-09-11] MEDS: oxyCODONE IR 5 MG TABLET PO (16:27)
[2017-09-11] MEDS ORDERED: INSULIN ASPART 300 UNITS/3 ML INSULN.PEN SQ (16:30)
[2017-09-11] MEDS ORDERED: INSULIN DETEMIR 300 UNITS/3 ML INSULN.PEN. SQ ×2 (21:00)
[2017-09-11] MEDS ORDERED: DEXAMETHASONE 4 MG TABLET PO (21:00)
== END 2017-09-11 16:59 | disposition home or self-care (01) | DRG 552 ==
LOC: ER 19:03 → 4 NORTH 21:08
DX: M48.02 Spinal stenosis, cervical region (principal); E10.22 Type 1 diabetes mellitus with diabetic chronic kidney disease; E10.41 Type 1 diabetes mellitus with diabetic mononeuropathy; K56.7 Ileus, unspecified; I50.22 Chronic systolic (congestive) heart failure; I13.0 Hypertensive heart and chronic kidney disease with heart failure and stage 1 through stage 4 chronic kidney disease, or unspecified chronic kidney disease; N39.0 Urinary tract infection, site not specified; G95.9 Disease of spinal cord, unspecified; E10.65 Type 1 diabetes mellitus with hyperglycemia; K59.03 Drug induced constipation; E55.9 Vitamin D deficiency, unspecified; E66.9 Obesity, unspecified; E78.00 Pure hypercholesterolemia, unspecified; E78.5 Hyperlipidemia, unspecified; F32.9 Major depressive disorder, single episode, unspecified; F41.9 Anxiety disorder, unspecified; I25.10 Atherosclerotic heart disease of native coronary artery without angina pectoris; J44.9 Chronic obstructive pulmonary disease, unspecified; K21.9 Gastro-esophageal reflux disease without esophagitis; M48.061 Spinal stenosis, lumbar region without neurogenic claudication; N18.9 Chronic kidney disease, unspecified; T40.2X5A Adverse effect of other opioids, initial encounter; M19.90 Unspecified osteoarthritis, unspecified site; Z68.38 Body mass index [BMI] 38.0-38.9, adult; Z79.02 Long term (current) use of antithrombotics/antiplatelets; Z79.4 Long term (current) use of insulin; Z90.710 Acquired absence of both cervix and uterus; Z90.49 Acquired absence of other specified parts of digestive tract; Z86.73 Personal history of transient ischemic attack (TIA), and cerebral infarction without residual deficits; Z88.0 Allergy status to penicillin; Z88.8 Allergy status to other drugs, medicaments and biological substances; Z82.49 Family history of ischemic heart disease and other diseases of the circulatory system
CPT/HCPCS: 36415; 71045; 72141; 74018; 74177; 80048; 80053; 81001; 82306; 82550; 82607; 82962; 83690; 84443; 85025; 87086; 87186; 93005; 94640; 94760; 95816; 96374; 96375; 99285; 99285-25; G0379; J1815; J2405; J3010; J7613; J7626; J8540; Q0144; Q0162; Q9967

== ENCOUNTER 2017-11-08 16:04 | Emergency (ER) | payer OTHER ==
[2017-11-08 17:32] LABS: PARTIAL THROMBOPLASTIN TIME 29 SEC (24-38); PROTHROMBIN TIME PATIENT 12.4 SEC (11.7-14.0)
[2017-11-08] MEDS: ONDANSETRON PF 4 MG/2 ML VIAL. IV (17:37)
[2017-11-08] MEDS: fentaNYL PF VIAL 100 MCG/2 ML VIAL IV (17:37)
[2017-11-08 18:55] LABS: ANION GAP 10 (6-14); BLOOD UREA NITROGEN 15 mg/dL (7-20); CALCIUM 9.6 mg/dL (8.5-10.1); CARBON DIOXIDE 29 mmol/L (21-32); CHLORIDE 101 mmol/L (98-107); CREATININE 0.7 mg/dL (0.6-1.0); GFR 100.4; GLUCOSE 410 mg/dL (70-99); POTASSIUM 3.6 mmol/L (3.5-5.1); SODIUM 140 mmol/L (136-145)
[2017-11-08 19:02] LABS: ADD MAN DIFF? NO
[2017-11-08 19:04] LABS: BASO % 1 % (0-3); EOS # 0.1 x10^3/uL (0.0-0.7); EOS % 2 % (0-3); HEMATOCRIT 36.9 % (36.0-47.0); HEMOGLOBIN 11.8 g/dL (12.0-15.5); LYMPH % 29 % (24-48); MEAN CORPUSCULAR HEMOGLOBIN 28 pg (25-35); MEAN CORPUSCULAR HGB CONC 32 g/dL (31-37); MEAN CORPUSCULAR VOLUME 88 fL (79-100); MONO # 0.7 x10^3/uL (0.0-1.1); MONO % 10 % (0-9); NEUT # 4.1 x10^3uL (1.8-7.7); NEUT % 60 % (31-73); PLATELET COUNT 205 x10^3/uL (140-400); RED BLOOD COUNT 4.21 x10^6/uL (3.50-5.40); RED CELL DISTRIBUTION WIDTH 13.3 % (11.5-14.5); WHITE BLOOD COUNT 6.9 x10^3/uL (4.0-11.0)
== END 2017-11-08 21:49 | disposition home or self-care (01) ==
LOC: ER 16:04
DX: S00.03XA Contusion of scalp, initial encounter (principal); I13.0 Hypertensive heart and chronic kidney disease with heart failure and stage 1 through stage 4 chronic kidney disease, or unspecified chronic kidney disease; N18.9 Chronic kidney disease, unspecified; I50.9 Heart failure, unspecified; E10.22 Type 1 diabetes mellitus with diabetic chronic kidney disease; E78.00 Pure hypercholesterolemia, unspecified; J44.9 Chronic obstructive pulmonary disease, unspecified; I25.10 Atherosclerotic heart disease of native coronary artery without angina pectoris; K21.9 Gastro-esophageal reflux disease without esophagitis; Z86.73 Personal history of transient ischemic attack (TIA), and cerebral infarction without residual deficits; Z79.02 Long term (current) use of antithrombotics/antiplatelets; Z79.82 Long term (current) use of aspirin; Z88.0 Allergy status to penicillin; Z88.5 Allergy status to narcotic agent; W01.0XXA Fall on same level from slipping, tripping and stumbling without subsequent striking against object, initial encounter; Y93.89 Activity, other specified; Y99.8 Other external cause status; Y92.89 Other specified places as the place of occurrence of the external cause
CPT/HCPCS: 36415; 70450; 72125; 72128; 72131; 72192; 80048; 85025; 85610; 85730; 86850; 86900; 86901; J2405; J3010

== ENCOUNTER 2017-12-17 19:04 | Emergency (ER) | payer OTHER ==
[2017-12-17 19:26] LABS: ADD MAN DIFF? NO
[2017-12-17 19:28] LABS: BASO % 1 % (0-3); EOS # 0.1 x10^3/uL (0.0-0.7); EOS % 2 % (0-3); HEMATOCRIT 33.7 % (36.0-47.0); HEMOGLOBIN 11.2 g/dL (12.0-15.5); LYMPH # 1.5 x10^3/uL (1.0-4.8); LYMPH % 26 % (24-48); MEAN CORPUSCULAR HEMOGLOBIN 29 pg (25-35); MEAN CORPUSCULAR HGB CONC 33 g/dL (31-37); MEAN CORPUSCULAR VOLUME 88 fL (79-100); MONO # 0.6 x10^3/uL (0.0-1.1); MONO % 10 % (0-9); NEUT # 3.6 x10^3uL (1.8-7.7); NEUT % 62 % (31-73); PLATELET COUNT 242 x10^3/uL (140-400); RED BLOOD COUNT 3.84 x10^6/uL (3.50-5.40); RED CELL DISTRIBUTION WIDTH 14.1 % (11.5-14.5); WHITE BLOOD COUNT 5.9 x10^3/uL (4.0-11.0)
[2017-12-17 19:43] LABS: ANION GAP 10 (6-14); BLOOD UREA NITROGEN 12 mg/dL (7-20); BUN/CREATININE RATIO 17 (6-20); CALCIUM 9.2 mg/dL (8.5-10.1); CARBON DIOXIDE 27 mmol/L (21-32); CHLORIDE 102 mmol/L (98-107); CREATININE 0.7 mg/dL (0.6-1.0); GFR 100.4; GLUCOSE 301 mg/dL (70-99); POTASSIUM 4.1 mmol/L (3.5-5.1); SODIUM 139 mmol/L (136-145)
[2017-12-17 19:49] LABS: ALBUMIN 3.4 g/dL (3.4-5.0); ALBUMIN/GLOBULIN RATIO 0.9 (1.0-1.7); ALK PHOS 86 U/L (46-116); ALT (SGPT) 23 U/L (14-59); AST (SGOT) 13 U/L (15-37); TOTAL BILIRUBIN 0.4 mg/dL (0.2-1.0); TOTAL PROTEIN 7.2 g/dL (6.4-8.2)
[2017-12-17 19:50] LABS: TROPONINI 0.017 ng/mL (0.000-0.055)
[2017-12-17 19:54] LABS: NT-PRO BNP 170 pg/mL (0-124)
== END 2017-12-17 21:30 | disposition home or self-care (01) ==
LOC: ER 19:04
DX: J40 Bronchitis, not specified as acute or chronic (principal); R07.89 Other chest pain; R06.00 Dyspnea, unspecified; G40.909 Epilepsy, unspecified, not intractable, without status epilepticus; I13.0 Hypertensive heart and chronic kidney disease with heart failure and stage 1 through stage 4 chronic kidney disease, or unspecified chronic kidney disease; E10.22 Type 1 diabetes mellitus with diabetic chronic kidney disease; N18.9 Chronic kidney disease, unspecified; I50.9 Heart failure, unspecified; E78.00 Pure hypercholesterolemia, unspecified; E10.51 Type 1 diabetes mellitus with diabetic peripheral angiopathy without gangrene; K21.9 Gastro-esophageal reflux disease without esophagitis; J44.9 Chronic obstructive pulmonary disease, unspecified; I25.10 Atherosclerotic heart disease of native coronary artery without angina pectoris; Z86.73 Personal history of transient ischemic attack (TIA), and cerebral infarction without residual deficits; Z90.710 Acquired absence of both cervix and uterus; Z90.49 Acquired absence of other specified parts of digestive tract; Z88.0 Allergy status to penicillin; Z88.5 Allergy status to narcotic agent
CPT/HCPCS: 36415; 71045; 80053; 83880; 84484; 85025; 93005; 99285-25

== ENCOUNTER 2018-01-10 16:32 | Emergency (ER) | payer OTHER ==
[2018-01-10] MEDS ORDERED: CONTRAST GIVEN. MC (17:30)
[2018-01-10] MEDS: IV NORMAL SALINE 1000ML BAG 1,000 ML IV (17:50)
[2018-01-10 17:54] LABS: ADD MAN DIFF? NO
[2018-01-10 17:59] LABS: BASO % 1 % (0-3); EOS # 0.1 x10^3/uL (0.0-0.7); EOS % 2 % (0-3); HEMATOCRIT 34.6 % (36.0-47.0); HEMOGLOBIN 11.5 g/dL (12.0-15.5); LYMPH # 2.1 x10^3/uL (1.0-4.8); LYMPH % 33 % (24-48); MEAN CORPUSCULAR HEMOGLOBIN 29 pg (25-35); MEAN CORPUSCULAR HGB CONC 33 g/dL (31-37); MEAN CORPUSCULAR VOLUME 88 fL (79-100); MONO # 0.8 x10^3/uL (0.0-1.1); MONO % 12 % (0-9); NEUT # 3.3 x10^3uL (1.8-7.7); NEUT % 52 % (31-73); PLATELET COUNT 282 x10^3/uL (140-400); RED BLOOD COUNT 3.95 x10^6/uL (3.50-5.40); RED CELL DISTRIBUTION WIDTH 14.6 % (11.5-14.5); WHITE BLOOD COUNT 6.5 x10^3/uL (4.0-11.0)
[2018-01-10 18:06] LABS: ANION GAP 10 (6-14); BLOOD UREA NITROGEN 18 mg/dL (7-20); BUN/CREATININE RATIO 23 (6-20); CALCIUM 9.8 mg/dL (8.5-10.1); CARBON DIOXIDE 27 mmol/L (21-32); CHLORIDE 101 mmol/L (98-107); CREATININE 0.8 mg/dL (0.6-1.0); GFR 86.1; GLUCOSE 168 mg/dL (70-99); POTASSIUM 4.2 mmol/L (3.5-5.1); SODIUM 138 mmol/L (136-145)
[2018-01-10 18:11] LABS: ALBUMIN 3.3 g/dL (3.4-5.0); ALBUMIN/GLOBULIN RATIO 0.8 (1.0-1.7); ALK PHOS 87 U/L (46-116); ALT (SGPT) 20 U/L (14-59); AST (SGOT) 22 U/L (15-37); LIPASE 97 U/L (73-393); TOTAL BILIRUBIN 0.3 mg/dL (0.2-1.0); TOTAL PROTEIN 7.4 g/dL (6.4-8.2)
[2018-01-10] MEDS: IOHEXOL 300 MG/ML 100ML VIAL. IV (18:22)
[2018-01-10 19:29] LABS: BILIRUBIN,URINE NEGATIVE (NEG); CLARITY,URINE CLEAR; COLOR,URINE YELLOW; GLUCOSE,URINE 250 mg/dL (NEG); NITRITE,URINE NEGATIVE (NEG); PROTEIN,URINE NEGATIVE (NEG-TRACE); UROBILINOGEN,URINE 0.2 mg/dL (0.2 mg/dL)
[2018-01-10 19:34] LABS: WBC,URINE OCC /HPF (0-4)
[2018-01-10 19:35] LABS: BACTERIA,URINE 0 /HPF (0-FEW); SQUAMOUS EPITHELIAL CELL,UR MANY /LPF
== END 2018-01-10 20:51 | disposition home or self-care (01) ==
LOC: ER 16:32
DX: R10.32 Left lower quadrant pain (principal); G58.8 Other specified mononeuropathies; N89.8 Other specified noninflammatory disorders of vagina; E78.00 Pure hypercholesterolemia, unspecified; I25.10 Atherosclerotic heart disease of native coronary artery without angina pectoris; K42.9 Umbilical hernia without obstruction or gangrene; K21.9 Gastro-esophageal reflux disease without esophagitis; K52.9 Noninfective gastroenteritis and colitis, unspecified; I13.0 Hypertensive heart and chronic kidney disease with heart failure and stage 1 through stage 4 chronic kidney disease, or unspecified chronic kidney disease; E11.22 Type 2 diabetes mellitus with diabetic chronic kidney disease; N18.9 Chronic kidney disease, unspecified; I50.9 Heart failure, unspecified; Z86.73 Personal history of transient ischemic attack (TIA), and cerebral infarction without residual deficits; Z86.718 Personal history of other venous thrombosis and embolism; Z74.01 Bed confinement status; Z88.0 Allergy status to penicillin; Z88.5 Allergy status to narcotic agent
CPT/HCPCS: 36415; 74177; 80053; 81001; 83690; 85025; 87070; 87205; 99285-25; J7030; Q9967

== ENCOUNTER → 2018-02-16 | Outpatient (CLI) | payer OTHER | END | disposition home or self-care (01) | LOC: MAMMO 13:31 | DX: Z12.31 Encounter for screening mammogram for malignant neoplasm of breast (principal) | CPT/HCPCS: 77067 ==

== ENCOUNTER → 2018-02-22 | Day surgery (SDC) | payer OTHER ==
[~2018-02-22] MED LIST changes: -ACET325T16 PO; -ACYC200C PO; -AMLO10TA4; -AMLO10TA4 PO; -ASPI-612 PO; -ATOR40TA PO; -Albuterol Sulfate NEB; -BUME1TAB PO; -CARB1DRO OP; -CARB200T PO; -CHOL2000 PO; -CITA20TA9 PO; -CLON0.2T; -CLOP75TA57 PO; -DICL100G18 TP; -DOCU-109 PO; -DORZ10DR7 OP; -DORZ10DR7 OU; -DOXY100C2 PO; -FURO40TA4 PO; -GABA300C8 PO; -HYDR-2758 PO; -HYDR-2869; -HYDR-2869 PO; -HYDR-971 PO; -HYDR100T24 PO; -HYDR25TA9 PO; -Hydralazine Hcl PO; -Hydrocodone Bit/Acetaminophen PO; -INSU100I13 SQ; -INSU100I16 SQ; -INSU100I17 SQ; -INSU100I27 SQ; -LABE200T2 PO; -LABE200T24 PO; -LABE300T PO; -LATA2.5D2 OU; -LATA2.5D3 OP; -LEVO500T59 PO; +LIDOCAINE 1% PF 2 ML VIAL. ID; -LISI40TA; -LISI40TA PO; -LUBI8CAP4 PO; -Lisinopril PO; -MAGN400O7 PO; -MAGN400T22 PO; -MECL12.5 PO; -METO-247; -METO-269 PO; -METO100T5 PO; +MORPHINE SULFATE 2 MG/ML DISP.SYRIN. IV; -Metolazone PO; -NYST15PO9 TP; -OMEP20CA9; -ONDA4TAB7 PO; +ONDANSETRON PF 4 MG/2 ML VIAL. IV; -OXYC5TAB95 PO; -PANT40TA3 PO; -POTA20TA4 PO; +PROCHLORPERAZINE 10 MG/2 ML VIAL. IV; -PROM25TA10 PO; +PROPOFOL 40 ML IV; -Polyethylene Glycol 3350 PO; -SENN-22 PO; -TIOT18CA IH; +fentaNYL PF VIAL 100 MCG/2 ML VIAL IV
[2018-02-22] MEDS: IV RINGERS,LACTATED 1000ML 1,000 ML IV ×2 (08:05)
[2018-02-22 08:10] LABS: POC GLUCOSE 110 mg/dL (70-99)
== END ==
LOC: ENDOS 06:51
DX: K59.00 Constipation, unspecified (principal); Z53.8 Procedure and treatment not carried out for other reasons; I25.10 Atherosclerotic heart disease of native coronary artery without angina pectoris; K21.9 Gastro-esophageal reflux disease without esophagitis; I13.0 Hypertensive heart and chronic kidney disease with heart failure and stage 1 through stage 4 chronic kidney disease, or unspecified chronic kidney disease; I50.9 Heart failure, unspecified; E78.00 Pure hypercholesterolemia, unspecified; E11.22 Type 2 diabetes mellitus with diabetic chronic kidney disease; N18.9 Chronic kidney disease, unspecified; I42.9 Cardiomyopathy, unspecified; J44.9 Chronic obstructive pulmonary disease, unspecified; G47.30 Sleep apnea, unspecified; M06.9 Rheumatoid arthritis, unspecified; E66.9 Obesity, unspecified; Z96.661 Presence of right artificial ankle joint; Z88.5 Allergy status to narcotic agent; Z88.0 Allergy status to penicillin; Z86.718 Personal history of other venous thrombosis and embolism; Z86.73 Personal history of transient ischemic attack (TIA), and cerebral infarction without residual deficits; Z87.440 Personal history of urinary (tract) infections; Z79.82 Long term (current) use of aspirin; Z79.4 Long term (current) use of insulin; Z79.899 Other long term (current) drug therapy; Z72.89 Other problems related to lifestyle; Z87.891 Personal history of nicotine dependence; Z90.49 Acquired absence of other specified parts of digestive tract; Z95.9 Presence of cardiac and vascular implant and graft, unspecified; Z98.890 Other specified postprocedural states; Z90.710 Acquired absence of both cervix and uterus; Z82.49 Family history of ischemic heart disease and other diseases of the circulatory system
CPT/HCPCS: 82962; J2704

== ENCOUNTER → 2018-06-22 | Outpatient (CLI) | payer OTHER ==
[2018-02-20 09:47] VITALS: BP 143/65
[~2018-06-22] MED LIST changes: +ACET325T16 PO; +ACYC200C PO; +AMLO10TA4; +AMLO10TA4 PO; +ASPI-612 PO; +ATOR40TA PO; +AZIT250T PO; +Albuterol Sulfate NEB; +BUME1TAB PO; +CARB1DRO OP; +CARB200T PO; +CHOL10002 PO; +CHOL2000 PO; +CIPR500T94 PO; +CITA20TA6 PO; +CITA20TA9 PO; +CLON0.2T; +CLOP75TA57 PO; +DEXA4TAB PO; +DICL100G18 TP; +DICY10CA53 PO; +DOCU-109 PO; +DORZ10DR7 OP; +DORZ10DR7 OU; +DOXY100C2 PO; +FLUT16SP NS; +FURO40TA4 PO; +GABA300C8 PO; +HYDR-2758 PO; +HYDR-2869; +HYDR-2869 PO; +HYDR-971 PO; +HYDR100T24 PO; +HYDR25TA9 PO; +Hydralazine Hcl PO; +Hydrocodone Bit/Acetaminophen PO; +INSU100I13 SQ; +INSU100I16 SQ; +INSU100I17 SQ; +INSU100I27 SQ; +LABE200T24 PO; +LABE200T4 PO; +LABE300T2 PO; +LATA2.5D2 OU; +LATA2.5D3 OP; +LEVO500T59 PO; -LIDOCAINE 1% PF 2 ML VIAL. ID; +LISI-130; +LISI-130 PO; +LUBI8CAP4 PO; +Lisinopril PO; +MAGN400O7 PO; +MAGN400T22 PO; +MECL12.5 PO; +METO-247; +METO-269 PO; +METO100T5 PO; +METR500T PO; -MORPHINE SULFATE 2 MG/ML DISP.SYRIN. IV; +Metolazone PO; +NYST15PO9 TP; +OMEP20CA9; +ONDA4TAB10 SL; +ONDA4TAB7 PO; -ONDANSETRON PF 4 MG/2 ML VIAL. IV; +OXYC5TAB95 PO; +PANT40TA3 PO; +POLY17PO29 PO; +POTA20TA4 PO; -PROCHLORPERAZINE 10 MG/2 ML VIAL. IV; +PROM25TA10 PO; -PROPOFOL 40 ML IV; +Polyethylene Glycol 3350 PO; +SENN-22 PO; +TIOT18CA IH; -fentaNYL PF VIAL 100 MCG/2 ML VIAL IV
--- NOTE | 2018-06-23 09:22 | CARD ---
MR#: [id number] Date of Study: 06/22/2018 Ordering Physician: MACK COREY, Referring Physician: MACK COREY, Tech: April Nascimento APPROVED REPORT EXAM: Two-dimensional and M-mode echocardiogram with Doppler and color Doppler. Other Information Quality : AverageHR: 76bpm INDICATION Cardiomyopathy RISK FACTORS Hypertension Hyperlipidemia Diabetes Previous smoker 2D DIMENSIONS RVDd2.7 (2.9-3.5cm)Left Atrium(2D)3.5 (1.6-4.0cm) IVSd1.1 (0.7-1.1cm)Aortic Root(2D)2.9 (2.0-3.7cm) LVDd5.0 (3.9-5.9cm)LVOT Diameter2.1 (1.8-2.4cm) PWd1.2 (0.7-1.1cm)LVDs3.7 (2.5-4.0cm) FS (%) 24.4 %SV56.1 ml Aortic Valve AoV Peak Gregory.124.5cm/sAoV VTI32.8cm AO Peak GR.6.2mmHgLVOT Peak Gregory.77.0cm/s AO Mean GR.4mmHgAVA (VMAX)2.06cm2 Mitral Valve MV E Zcdmphpf082.7cm/sMV DECEL [id number] MV A Upvldwsr06.6cm/sE/A Ratio1.1 Pulmonary Valve PV Peak Jzkiuufu92.1cm/s Tricuspid Valve RAP [id number] Pulmonary Vein S1 Tnidcgxt01.4cm/sD2 Rtrhljuc47.1cm/s PVa [id number] LEFT VENTRICLE Technically difficult study. The left ventricle is normal size. There is mild concentric left ventric ular hypertrophy. The systolic function is mildly impaired. The Ejection Fraction is estimated at 40% . There is global hypokinesis of the left ventricle. Transmitral Doppler flow pattern is normal for a ge. RIGHT VENTRICLE The right ventricle is mildly dilated. Systolic function is mildly reduced. ATRIA The left atrium size is normal. The right atrium size is normal. The interatrial septum is intact wit h no evidence for an atrial septal defect or patent foramen ovale as noted on 2-D or Doppler imaging. AORTIC VALVE The aortic valve is not well visualized. Doppler and Color Flow revealed trace aortic regurgitation. Calculated aortic valve area is 2.1 cm2 with maximum pressure gradient of 6 mmHg and mean pressure gr adient of 4 mmHg. There is no significant aortic valvular stenosis. MITRAL VALVE The mitral valve is mildly thickened. Mitral annular calcification is mild. Doppler and Color-flow re vealed trace mitral regurgitation. TRICUSPID VALVE The tricuspid valve is not well visualized. Doppler and Color Flow revealed trace tricuspid regurgita tion. PULMONIC VALVE The pulmonic valve is not well visualized. Doppler and Color Flow revealed mild to moderate pulmonic valvular regurgitation. GREAT VESSELS The aortic root is normal in size. The IVC is normal in size and collapses >50% with inspiration. PERICARDIAL EFFUSION There is no evidence of significant pericardial effusion. Critical Notification Critical Value: No <Conclusion> Technically difficult study. The left ventricle is normal size. The systolic function is mildly impaired. The Ejection Fraction is estimated at 40%. There is global hypokinesis of the left ventricle. There is mild concentric left ventricular hypertrophy. There is no significant aortic valvular stenosis. Doppler and Color Flow revealed trace aortic regurgitation. Doppler and Color-flow revealed trace mitral regurgitation. Doppler and Color Flow revealed trace tricuspid regurgitation. Signed by : Mark Anthony Singleton MD Electronically Approved : 06/23/2018 09:22:00
== END | disposition home or self-care (01) ==
LOC: ECHO 14:25
PROVIDERS: ATTEND Internal Medicine Cardiovascular Disease
DX: I42.9 Cardiomyopathy, unspecified (principal); I51.7 Cardiomegaly; I10 Essential (primary) hypertension; E78.5 Hyperlipidemia, unspecified; E11.9 Type 2 diabetes mellitus without complications; Z87.891 Personal history of nicotine dependence
CPT/HCPCS: 93306

== ENCOUNTER 2019-03-05 13:57 | Emergency (ER) | payer OTHER, MEDICAID ==
[~2019-03-05] VITALS: Ht 160 cm; Wt 113.4 kg
[~2019-03-05 13:57] MED LIST changes: -BUME1TAB PO; +BUME1TAB3 PO; +CLOP75TA PO; +GABA300C18 PO; -GABA300C8 PO; +HYDR-2145 PO; -HYDR-2758 PO; +HYDR-2761 PO; +HYDR-2763 PO; +HYDR-3164 PO; -HYDR-971 PO; -HYDR25TA9 PO; +INSU100I7 SQ; +ISOS30TA4 PO; +LEVO250T7 PO; +LISI10TA2 PO; +NITR100C PO; +OMEP20CA10; -OMEP20CA9; +OXYC5TAB4 PO; -OXYC5TAB95 PO; -PANT40TA3 PO; +PANT40TA77 PO
[2019-03-05 14:30] VITALS: BP 167/88
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
--- NOTE | 2019-03-05 15:20 | RAD ---
Examination: 3 views of the right knee and 3 views of the right foot HISTORY: History of injury, pain COMPARISON: Right knee radiograph from 09/12/2018 FINDINGS: Examination limited due to significant osseous demineralization. Moderate joint space loss identified in medial, lateral and patellofemoral compartments. Moderate joint space loss identified in the tarsal joints, tarsometatarsal joints, metatarsophalangeal joints. The alignment of the tarsal bones, tarsometatarsal joints, tarsophalangeal spleen, adrenals grossly appears unremarkable. Mild soft tissue swelling identified dorsal to the mid foot. IMPRESSION: Limited examination due to osseous demineralization. No obvious fracture is evident. Electronically signed by: Rober Sanchez MD (03/05/2019 3:17 PM) [id number]
== END 2019-03-05 15:54 | disposition home or self-care (01) ==
LOC: ER 13:57
DX: S93.691A Other sprain of right foot, initial encounter (principal); S83.8X1A Sprain of other specified parts of right knee, initial encounter; M19.90 Unspecified osteoarthritis, unspecified site; I11.0 Hypertensive heart disease with heart failure; I25.10 Atherosclerotic heart disease of native coronary artery without angina pectoris; E78.00 Pure hypercholesterolemia, unspecified; E10.9 Type 1 diabetes mellitus without complications; Z86.73 Personal history of transient ischemic attack (TIA), and cerebral infarction without residual deficits; Z90.89 Acquired absence of other organs; Z90.49 Acquired absence of other specified parts of digestive tract; Z90.710 Acquired absence of both cervix and uterus; Z88.0 Allergy status to penicillin; Z88.5 Allergy status to narcotic agent; W22.8XXA Striking against or struck by other objects, initial encounter; Y93.89 Activity, other specified; Y92.89 Other specified places as the place of occurrence of the external cause; Y99.8 Other external cause status
CPT/HCPCS: 73562; 73630; 99284

== ENCOUNTER → 2019-06-18 | Outpatient (CLI) | payer OTHER, MEDICAID ==
--- NOTE | 2019-06-18 16:32 | CARD ---
MR#: [id number] Date of Study: 06/18/2019 Ordering Physician: MACK COREY, Referring Physician: MACK COREY Tech: Lavonne Kelly RDCS APPROVED REPORT EXAM: Two-dimensional and M-mode echocardiogram with Doppler and color Doppler. Other Information Technically limited study due to body habitus. INDICATION Cardiac Disease: CAD 2D DIMENSIONS RVDd3.4 (2.9-3.5cm)Left Atrium(2D)3.9 (1.6-4.0cm) IVSd1.1 (0.7-1.1cm)Aortic Root(2D)2.7 (2.0-3.7cm) LVDd4.8 (3.9-5.9cm)LVOT Diameter2.0 (1.8-2.4cm) PWd1.1 (0.7-1.1cm)LVDs4.3 (2.5-4.0cm) FS (%) 11.5 %SV27.5 ml LVEF(%)25.0 (>50%) Aortic Valve AoV Peak Gregory.81.5cm/sAoV VTI16.8cm AO Peak GR.2.7mmHgLVOT Peak Gregory.74.3cm/s LVOT VTI 14.43cmAO Mean GR.2mmHg ANGELLA (VMAX)2.14pj2HHB (VTI)2.59cm2 Mitral Valve MV E Yjwyanjo17.6cm/sMV DECEL [id number] MV A Nwptihuz18.3cm/sMV AOF56jd E/A Ratio1.5MVA (PHT)5.49cm2 TDI E/Medial E'22.6 Tricuspid Valve TR P. Qrpvsdwx172au/sRAP HAHOTTHF6jtLb TR Peak Gr.54iiYwXLVJ39pkNv LEFT VENTRICLE The left ventricle is normal size. There is normal left ventricular wall thickness. Left ventricle sy stolic function is moderately to severely impaired. The Ejection Fraction is 25-30%. There is global hypokinesis of the left ventricle. Septal motion suggestive of conduction defect. Tissue Doppler imag ing reveals severe left ventricular diastolic dysfunction. RIGHT VENTRICLE The right ventricle is moderately dilated. There is normal right ventricular wall thickness. Systolic function is mildly reduced. ATRIA The left atrium size is normal. The right atrium is mildly dilated. The interatrial septum is intact with no evidence for an atrial septal defect or patent foramen ovale as noted on 2-D or Doppler imagi ng. AORTIC VALVE The aortic valve is calcified but opens well. Doppler and Color Flow revealed no significant aortic r egurgitation. There is no significant aortic valvular stenosis. MITRAL VALVE The mitral valve is calcified but opens well. There is no evidence of mitral valve prolapse. There is no mitral valve stenosis. Doppler and Color Flow revealed no mitral valve regurgitation noted. TRICUSPID VALVE The tricuspid valve is normal in structure and function. Doppler and Color Flow revealed mild tricusp id regurgitation. There is moderately severe pulmonary hypertension. The PA pressure was estimated at 68 mmHg. There is no tricuspid valve stenosis. PULMONIC VALVE The pulmonic valve is not well visualized. Doppler and Color Flow revealed no pulmonic valvular regur gitation. There is no pulmonic valvular stenosis. GREAT VESSELS The aortic root is normal in size. The ascending aorta is not well seen. The IVC was not well visuali zed. PERICARDIAL EFFUSION There is no evidence of significant pericardial effusion. Critical Notification Critical Value: No <Conclusion> Left ventricle systolic function is moderately to severely impaired. The Ejection Fraction is 25-30%. There is global hypokinesis of the left ventricle. Septal motion suggestive of conduction defect. The right ventricle is moderately dilated. Doppler and Color Flow revealed mild tricuspid regurgitation. There is moderate to severe pulmonary h ypertension. The PA pressure was estimated at 68 mmHg. Signed by : Dyaday Zhang, Electronically Approved : 06/18/2019 16:32:10
== END | disposition home or self-care (01) ==
LOC: ECHO 14:26
PROVIDERS: ATTEND Internal Medicine Cardiovascular Disease
DX: I08.3 Combined rheumatic disorders of mitral, aortic and tricuspid valves (principal); I27.20 Pulmonary hypertension, unspecified; I25.10 Atherosclerotic heart disease of native coronary artery without angina pectoris
CPT/HCPCS: 93306

== ENCOUNTER → 2019-07-17 | Outpatient (CLI) | payer OTHER, MEDICAID ==
[~2019-07-17] MED LIST changes: +OMEP-229; -OMEP20CA10
--- NOTE | 2019-07-17 14:35 | RAD ---
MR#: [id number] Date of Study: 07/17/2019 Ordering Physician: MACK COREY, Referring Physician: MACK COREY, Tech: JONNATHAN Edward, RDMS, T APPROVED REPORT Patient Location: OUT-PATIENT Indications HTN Renal Artery Doppler Right Renal Artery Left Renal Arter y Mid 85.4/21.8 cm/secMid Distal 89.1/19.1 cm/secDistal 43.6/18.2 cm/sec Renal/Aorta Ratio 0.00Renal/Aorta Ratio 0.70 Mid Resistive Index 0.74Mid Resistive Index Distal Resistive Index 0.79Distal Resistive Index 0.58 Renal Measurements RightLeft Kidney Length9.4 cm cmKidney Byllxs45.8 cm cm Right Additional FindingsLeft Additional Findings Aortic Doppler VelocityWaveform Mid. Aorta 62.7 cm/sec Findings This is a technically difficult study. The distal IVC, mid and distal abdominal aorta are not well vi sualized due to overlying bowel gas The bilateral renal veins are patent. No obvious renal artery stenosis based on limited evaluation of the renal arteries. The bilateral proximal and left mid renal arteries were not well visualized. Ove rall this would be considered nondiagnostic study for renal artery stenosis due to the patient's body habitus. Critical Notification Critical Value: No <Conclusion> 1. Essentially nondiagnostic study due to the patient's body habitus. Grossly no obvious renal artery stenosis based on limited images. Signed by : Dayday Zhang, Electronically Approved : 07/17/2019 14:34:46
== END ==
LOC: US 14:09
PROVIDERS: ATTEND Internal Medicine Cardiovascular Disease
DX: I13.0 Hypertensive heart and chronic kidney disease with heart failure and stage 1 through stage 4 chronic kidney disease, or unspecified chronic kidney disease (principal); I50.9 Heart failure, unspecified; E11.22 Type 2 diabetes mellitus with diabetic chronic kidney disease; E11.40 Type 2 diabetes mellitus with diabetic neuropathy, unspecified; N18.9 Chronic kidney disease, unspecified; E78.5 Hyperlipidemia, unspecified; Z90.49 Acquired absence of other specified parts of digestive tract; Z90.710 Acquired absence of both cervix and uterus; Z90.89 Acquired absence of other organs
CPT/HCPCS: 76770

== ENCOUNTER 2019-10-01 09:05 | Observation (INO) | payer OTHER, MEDICAID ==
[~2019-10-01] VITALS: Ht 160 cm; Wt 106.8 kg
[~2019-10-01 09:05] MED LIST changes: -DICL100G18 TP; +DICL100G54 TP; +IV RINGERS,LACTATED 1000ML 1,000 ML IV SCH; +LIDOCAINE 1% PF 2 ML VIAL. ID PRN; -OMEP-229; +OMEP20CA16; +ONDANSETRON PF 4 MG/2 ML VIAL. IV PRN; +PROCHLORPERAZINE 10 MG/2 ML VIAL. IV PRN; +fentaNYL PF VIAL 100 MCG/2 ML VIAL IV PRN
--- NOTE | 2019-10-01 09:44 | EKG ---
[facility] [address] [place] [address] Test Date: 2019-10-01 Test Time: 09:39:06 Pat Name: ASIF LANGLEY Department: Room: Gender: F [employer]: : 1950 Requested By: MACK LUIS Order Number: [id number] Reading MD: Mack Luis Measurements Intervals [place] Rate: 81 P: [place]: QRS: 26 QRSD: 130 T: -13 QT: 404 QTc: 475 Interpretive Statements SINUS RHYTHM RIGHT BUNDLE BRANCH BLOCK Electronically Signed On 11-01-2019 15:08:17 CDT by Mack Luis
[2019-10-01] MEDS ORDERED: vitamin d3 PO (10:04)
[2019-10-01] MEDS ORDERED: DICY10CA3 PO (10:04)
[2019-10-01] MEDS ORDERED: SPIR25TA5 PO (10:04)
[2019-10-01] MEDS ORDERED: ALBU2.5V8 IH (10:04)
[2019-10-01] MEDS ORDERED: LISI-334 PO (10:04)
[2019-10-01] MEDS ORDERED: CYAN250012 PO (10:04)
[2019-10-01] MEDS ORDERED: SACU1TAB7 PO (10:04)
[2019-10-01] MEDS ORDERED: INSU100I7 SQ (10:04)
[2019-10-01] MEDS ORDERED: [UNRECOGNIZED DRUG - OTHER] (10:04)
[2019-10-01 10:24] VITALS: BP 175/78
[2019-10-01] MEDS ORDERED: PROPOFOL 0 ML IV ONE (10:24)
[2019-10-01] MEDS ORDERED: fentaNYL PF VIAL 100 MCG/2 ML VIAL ONE ×2 (10:29→13:18)
[2019-10-01 10:40] LABS: HEMATOCRIT 39.2 % (36.0-47.0); HEMOGLOBIN 12.2 g/dL (12.0-15.5); RED BLOOD COUNT 4.79 x10^6/uL (3.50-5.40); RED CELL DISTRIBUTION WIDTH 21.7 % (11.5-14.5); WHITE BLOOD COUNT 4.6 x10^3/uL (4.0-11.0)
[2019-10-01 10:57] LABS: PROTHROMBIN TIME PATIENT 13.9 SEC (11.7-14.0)
[2019-10-01] MEDS ORDERED: BACITRACIN 50,000 UNIT in IV NORMAL SALINE 250ML 250 ML IRR ONE (11:00)
[2019-10-01 11:01] LABS: CALCIUM 9.2 mg/dL (8.5-10.1); CREATININE 0.8 mg/dL (0.6-1.0); GFR 85.6; POTASSIUM 3.8 mmol/L (3.5-5.1)
[2019-10-01] MEDS ORDERED: VANCOMYCIN 1GM IVPB FOR OMNI 250 ML ONE (11:07)
[2019-10-01] MEDS ORDERED: VANCOMYCIN 1GM IVPB FOR OMNI 250 ML IV ONE (11:15)
[2019-10-01] MEDS ORDERED: IODIXANOL 320 MG/ML 100 ML VIAL. ONE (11:16)
[2019-10-01] MEDS ORDERED: LIDOCAINE 1% Multi-Dose 20 ML VIAL. ONE (11:16)
[2019-10-01] MEDS ORDERED: LIDOCAINE 2%/EPI 1:100,000 20 ML VIAL. ONE (11:17)
[2019-10-01] MEDS ORDERED: IOHEXOL 300 MG/ML 100ML VIAL. ONE (11:19)
[2019-10-01] MEDS ORDERED: LIDOCAINE 2%/EPI 1:100,000 20 ML VIAL. IJ ONE (12:15)
[2019-10-01] MEDS ORDERED: IOHEXOL 300 MG/ML 100ML VIAL. IART ONE (12:45)
[2019-10-01] MEDS ORDERED: CONTRAST GIVEN. MC PRN (12:45)
[2019-10-01 12:54] VITALS: BP 111/57
[2019-10-01] MEDS ORDERED: NO ANTICOAGULANT THERAPY. MC PRN (13:00)
--- NOTE | 2019-10-01 13:07 | CARD ---
MR#: [id number] Date of Study: 10/01/2019 Ordering Physician: MACK LUIS, Referring Physician: MACK LUIS, Tech: APPROVED REPORT EXAM Implantation of Biotronik biventricular implantable cardioverter defibrillator/cardiac resynchronizat ion therapy-defibrillation with defibrillation thresholds measurement of the time of implantation SEDATION ADMINISTERED BY ANESTHESIA TEAM FLUORO TIME: 6.7 MIN DOSE: 32 GYCM2 CONTRAST: 15CC OMNI INDICATIONS Primary prevention of sudden cardiac and cardiac resynchronization therapy in a patient with ch ronic systolic heart failure, nonischemic cardiomyopathy, LVEF 25-30% and cardiac dyssynchrony as diane denced by prolonged QRS interval IMPLANTED DEVICES After explaining the risks, benefits and alternative options, informed consent was obtained from gabriele ent. Patient was brought to the cardiac Announcer and her left chest and shoulder were prepped and vinny ped in the usual fashion. 30 mL of 2% lidocaine was infiltrated into the skin and subcutaneous tissue s for local anesthesia. Venous access was obtained in the left subclavian vein and 9 American CS sheath was inserted. Contrast injections were performed within the right atrium using the ELVIA 2 catheter a nd the coronary sinus ostium was engaged and the CS sheath advanced. Venogram was obtained to identif y the appropriate cardiac vein for placement of left ventricular lead. A Biotronik quadripolar left v entricular lead model Sentus ProMRI OTW QP L-85, serial #[id number] was advanced to the middle cardiac vein under fluoroscopy guidance. Venous access was again obtained in the left subclavian vein and 10.5 and 6 American sheaths inserted. A Biotronik bipolar active fixation right ventral lead model Plexa Pro MRI, serial #[id number] was posi tioned in the right ventricular apex under fluoroscopy guidance. Following this, a Biotronik bipolar active fixation right atrial lead model Solia, serial #[id number] was positioned in the right atrial ap pendage under fluoroscopy guidance. The leads were secured into place and attached to a Biotronik biv entricular ICD/NEON LIGHT INSTALLER-D generator model Ilivia 7 HF-T QP, serial #[id number]. This was placed in the pocke t that was subsequently closed in 3 layers. Hemostasis was secured. Ventricular fibrillation was then induced to check the defibrillation threshold. Patient successfully converted to sinus rhythm with 20 J shock therapy. The left ventricular lead showed a sensing amplit ude of 10 mV, impedance of 800 ohms and a threshold of 1.6 V. The right ventricular lead showed a sen sing amplitude of 13 mV, impedance of 760 ohms and a threshold of 0.3 V. The right atrial lead showed a sensing amplitude of 2.2 mV, impedance of 520 ohms and a threshold of 0.7 V. Patient tolerated the procedure well. There were no immediate complications. CONCLUSION Successful implantation of Biotronik biventricular ICD/NEON LIGHT INSTALLER-D for primary prevention of sudden cardiac and cardiac resynchronization therapy in a patient with chronic systolic heart failure, nonisc hemic cardio myopathy, EF 25-30% and prolonged QRS interval. Defibrillation thresholds were measured at the time of implantation. Signed by : Mack Luis, Electronically Approved : 10/01/2019 13:06:55
[2019-10-01] MEDS ORDERED: PROCHLORPERAZINE 10 MG/2 ML VIAL. ONE (13:18)
--- NOTE | 2019-10-01 14:31 | RAD ---
PORTABLE CHEST 1V History: Post ICD placement Comparison: August 26, 2018 Findings: Interval placement left-sided pacemaker/ICD. No pneumothorax. Patchy central and bibasilar opacities. No pleural effusion. Unchanged heart size. Postoperative changes cervical spine. Impression: 1. Interval placement left-sided pacemaker/ICD. No pneumothorax. 2. Patchy central and bibasilar opacities, likely atelectasis. Electronically signed by: Levi Barreto DO (10/01/2019 2:28 PM) [id number]
[2019-10-01] MEDS ORDERED: INSULIN LISPRO 100 UNIT/ML 3ML VIAL for OP,RR ONLY. SQ PRN (14:45)
[2019-10-01 16:09] VITALS: BP 160/72
[2019-10-01 16:33] VITALS: BP 158/72
[2019-10-01] MEDS ORDERED: GABAPENTIN 300 MG CAPSULE. PO PRN (17:30)
[2019-10-01] MEDS: POTASSIUM CHLORIDE 20 MEQ TABLET.ER. PO SCH (18:30)
[2019-10-01] MEDS: oxyCODONE/APAP 5/325 1 TAB TABLET PO PRN (18:30)
[2019-10-01 19:23] VITALS: BP 184/86
[2019-10-01] MEDS ORDERED: INSULIN NPH/REG INSULIN 70/30 300 UNITS/3 ML INSULN.PEN. SQ SCH (21:00)
[2019-10-01] MEDS: SACUBITRIL/VALSARTAN 49/51MG TABLET. PO SCH (21:34)
[2019-10-01 22:35] VITALS: BP 164/77
[2019-10-01] MEDS ORDERED: VANCOMYCIN 1 GM in IV DEXTROSE 5% 250 ML IV ONE (23:00)
[2019-10-02] MEDS: oxyCODONE/APAP 5/325 1 TAB TABLET PO PRN ×2 (00:43→12:25)
[2019-10-02] MEDS: diphenhydrAMINE HCL 25 MG CAPSULE PO PRN ×3 (01:03→13:18)
[2019-10-02 03:10] VITALS: BP 141/64
[2019-10-02] MEDS ORDERED: VANCOMYCIN 1 GM in IV DEXTROSE 5% 250 ML IV ONE (06:00)
[2019-10-02 07:00] VITALS: BP 139/66
[2019-10-02] MEDS ORDERED: INSULIN NPH/REG INSULIN 70/30 300 UNITS/3 ML INSULN.PEN. SQ SCH (07:00)
[2019-10-02] MEDS ORDERED: ASPIRIN ENTERIC COATED 81 MG TABLET.DR. PO SCH (08:00)
[2019-10-02] MEDS ORDERED: LISINOPRIL 20 MG TABLET PO SCH (09:00)
[2019-10-02] MEDS ORDERED: ISOSORBIDE MONONITRATE ER 30 MG TAB.ER.24H PO SCH (09:00)
[2019-10-02] MEDS ORDERED: DICYCLOMINE HCL 10 MG CAPSULE PO SCH (09:00)
[2019-10-02] MEDS ORDERED: CYANOCOBALAMIN (VITAMIN B-12) 1,000 MCG TABLET. PO SCH (09:00)
[2019-10-02] MEDS ORDERED: amLODIPine BESYLATE 10 MG TABLET PO SCH (09:00)
[2019-10-02] MEDS ORDERED: SPIRONOLACTONE 25 MG TABLET PO SCH (09:00)
[2019-10-02] MEDS: POTASSIUM CHLORIDE 20 MEQ TABLET.ER. PO SCH (09:16)
[2019-10-02] MEDS: SACUBITRIL/VALSARTAN 49/51MG TABLET. PO SCH (09:16)
[2019-10-02 11:19] VITALS: BP 145/65
--- NOTE | 2019-10-02 14:12 | RAD ---
EXAM: PORTABLE CHEST 1V INDICATION: One day post pacemaker.. TECHNIQUE: Single portable upright AP view view COMPARISON: 10/01/2019 FINDINGS: Left chest multichamber AICD is redemonstrated. The heart size is mildly enlarged, similar to prior.. The great vessels appear unremarkable. There is no hilar or mediastinal mass. The lungs are clear. There is no pleural effusion or pneumothorax. Partially imaged posterior cervical decompression and hardware fusion surgical changes are redemonstrated. IMPRESSION: Left chest multichamber AICD with no complicating pneumothorax. Electronically signed by: Addy Wallace MD (10/02/2019 2:09 PM) [facility]
--- NOTE | 2019-10-02 14:21 | DISCH ---
DISCHARGE INSTRUCTIONS Condition on Discharge Condition on Discharge: Stable Activity After Discharge Activity Instructions for Disc: Activity as tolerated Other activity instructions: Wear left arm immobilizer continuous for 2 weeks. Then at night for 2 weeks Lifting Instructions after Dis: No heavy lifting, No pulling or pushing Driving Instructions after Dis: Do not drive Weight Bearing Status after Di: As tolerated Diet after Discharge Diet after Discharge: Diabetic No Calorie Level Diet Texture: Regular Liquid Texture: Thin Liquid Swallowing Supervision: None needed Wound Incision Care Wound/Incision Care: Other, see below (leave open to air. Allow steri-strip to come off as they will. May shower. No tub baths. See diagnosis specific instructions/handout) Checks after Discharge Checks after discharge: Check blood press - daily, Check blood sugar, ac/hs, Weigh Yourself Daily Contacting the DR. after DC Call your doctor for: Concerns you may have KHUSHI SHAW APRN Oct 02, 2019 14:21
--- NOTE | 2019-10-02 14:25 | PDOC3 ---
KHUSHI SHAW CASE MANAGEMENT COORDINATOR 10/02/19 1425: Discharge Summary Visit Information Date of Admission: Oct 01, 2019 Date of Discharge: Oct 02, 2019 Admitting Diagnosis Comment: NICM CAD, non-obstructive PAFIB Hypertension Diabetes, II Hyperlipidemia Final Diagnosis NICM CAD, non-obstructive PAFIB Hypertension Diabetes, II Hyperlipidemia Brief Hospital Course Allergies Allergies Coded Allergies Type Severity Reaction Last Updated Verified Penicillins Allergy Intermediate 02/22/18 Yes Vital Signs Vital Signs Date Time Temp Pulse Resp B/P (MAP) Pulse Ox O2 Delivery O2 Flow Rate FiO2 10/02/19 12:25 93 Room Air 2.0 10/02/19 11:19 98.6 81 18 145/65 (91) 98.6 Lab Results Laboratory Tests Test 10/01/19 10:33 10/01/19 13:48 10/01/19 16:33 10/01/19 20:34 White Blood Count 4.6 x10^3/uL (4.0-11.0) Red Blood Count 4.79 x10^6/uL (3.50-5.40) Hemoglobin 12.2 g/dL (12.0-15.5) Hematocrit 39.2 % (36.0-47.0) Mean Corpuscular Volume 82 fL (79-100) Mean Corpuscular Hemoglobin 26 pg (25-35) Mean Corpuscular Hemoglobin Concent 31 g/dL (31-37) Red Cell Distribution Width 21.7 % (11.5-14.5) Platelet Count 208 x10^3/uL (140-400) Prothrombin Time 13.9 SEC (11.7-14.0) Prothromb Time International Ratio 1.1 (0.8-1.1) Sodium Level 141 mmol/L (136-145) Potassium Level 3.8 mmol/L (3.5-5.1) Chloride Level 102 mmol/L (98-107) Carbon Dioxide Level 30 mmol/L (21-32) Anion Gap 9 (6-14) Blood Urea Nitrogen 15 mg/dL (7-20) Creatinine 0.8 mg/dL (0.6-1.0) Estimated GFR (Cockcroft-Gault) 85.6 Glucose Level 228 mg/dL (70-99) Calcium Level 9.2 mg/dL (8.5-10.1) Glucose (Fingerstick) 209 mg/dL (70-99) 249 mg/dL (70-99) 257 mg/dL (70-99) Test 10/02/19 07:47 10/02/19 11:56 Glucose (Fingerstick) 99 mg/dL (70-99) 190 mg/dL (70-99) Laboratory Tests Test 10/01/19 16:33 10/01/19 20:34 10/02/19 07:47 10/02/19 11:56 Glucose (Fingerstick) 249 mg/dL (70-99) 257 mg/dL (70-99) 99 mg/dL (70-99) 190 mg/dL (70-99) Brief Hospital Course Ms. Contreras is a 69 old female, with a history of NICM with LVEF of 25-30% and cardiac dyssynchrony as evidenced by prolonged QRS interval, who presented for placement Bi-V AICD for primary prevention of sudden cardiac and cardiac resynchronization therapy. Device was successfully implanted and was monitored overnight without any acute complications. Post op device check and CXR WNL. Lung CTA. Left pectoral insertion site soft, clean, and dry. Steri-strips intact and incision well approximated. Patient with discharge home with Home Health services. Follow up in our office scheduled. Discharge Information Condition at Discharge: Improved, Stable Follow Up: Weeks (6 weeks ) Disposition/Orders: D/C to Home, D/C to Home w/ HH Scheduled Amlodipine Besylate (Norvasc) 10 Mg Tablet, 10 MG PO DAILY, #30 Prescribed by: SERAFIN TELLO on 02/18/14 0906 Last Taken: Unknown Dose on 10/01/19 Last Action: Continued on 10/01/191727 by DAYTON MODI Aspirin (Aspirin Ec) 81 Mg Tablet., 81 MG PO DAILYWBKFT, #30 Prescribed by: LISA MORILLO on 07/29/16 1458 Last Action: Continued on 10/01/191727 by DAYTON MODI Cyanocobalamin (Vitamin B-12) (Vitamin B12) 2,500 Mcg Tab.chew, 2,500 MCG PO DAILY for rx, (Reported) Entered as Reported by: CYNDY GROSS on 10/01/19 1004 Last Action: Converted on 10/01/191727 by DAYTON MODI Dicyclomine Hcl (Dicyclomine Hcl) 10 Mg Capsule, 1 CAP PO DAILY for rx, #90 Ref 11 (Reported) Entered as Reported by: CYNDY GROSS on 10/01/191003 Last Action: Continued on 10/01/191727 by DAYTON MODI Insulin Npl/Insulin Lispro (Humalog Mix 75-25 Kwikpen) 100 Unit/1 Ml Insuln.pen, 40 UNITS SQ DAILY07 for diabetes, (Reported) Entered as Reported by: Anthony Moreno on 08/23/18 2301 Last Action: Converted on 10/01/191727 by DAYTON MODI Insulin Npl/Insulin Lispro (Humalog Mix 75-25 Kwikpen) 100 Unit/1 Ml Insuln.pen, 30 UNIT SQ HS for rx, (Reported) Entered as Reported by: CYNDY GROSS on 10/01/191003 Last Action: Converted on 10/01/191727 by DAYTON MODI Isosorbide Mononitrate (Isosorbide Mononitrate Er) 30 Mg Tab.er.24h, 30 MG PO DAILY for blood pressure, (Reported) Entered as Reported by: Anthony Moreno on 08/23/18 2226 Last Taken: Unknown Dose on 10/01/19 Last Action: Continued on 10/01/191727 by DAYTON MODI Potassium Chloride (Klor-Con M20) 20 Meq Tab.er.prt, 1 TAB PO BID, #60 Ref 1 Prescribed by: LISA MORILLO on 07/29/16 1458 Last Action: Continued on 10/01/191727 by DAYTON MODI Sacubitril/Valsartan (Entresto 49 mg-51 mg Tablet) 1 Each Tablet, 1 EACH PO DAILY for rx, (Reported) Entered as Reported by: CYNDY GROSS on 10/01/191003 Last Action: Continued on 10/01/191727 by DAYTON MODI Spironolactone (Spironolactone) 25 Mg Tablet, 1 TAB PO DAILY for rx, #90 Ref 1 (Reported) Entered as Reported by: CYNDY GROSS on 10/01/191003 Last Action: Continued on 10/01/191727 by DAYTON MODI [vitamin d3] , 250 MG PO DAILY, (Reported) Entered as Reported by: CYNDY GROSS on 10/01/191003 Last Action: New Order on 10/01/191003 by CYNDY GROSS Scheduled PRN Acetaminophen (Mapap) 325 Mg Tablet, 650 MG PO PRN Q6HRS PRN for MILD PAIN / TEMP, #0 Prescribed by: LISA MORILLO on 11/27/15 0743 Albuterol Sulfate (Proair Hfa Inhaler) 8.5 Gm Hfa.aer.ad, 2 PUFF IH PRN Q4-6HRS PRN for wheezing for 21 Days, #1 Ref 0 (Reported) Entered as Reported by: CYNDY GROSS on 10/01/191003 Last Taken: Unknown Dose on 10/01/19 Last Action: New Order on 10/01/191003 by CYNDY GROSS Gabapentin (Gabapentin) 300 Mg Capsule, 300 MG PO BID PRN for PAIN, (Reported) Entered as Reported by: Anthony Moreno on 08/23/182225 Last Action: Continued on 10/01/191727 by DAYTON MODI Miscellaneous Medications [[id number]] , 1, (Reported) Entered as Reported by: CYNDY GROSS on 10/01/191003 Last Action: New Order on 10/01/191003 by CYNDY GROSS Discontinued Medications Lisinopril (Lisinopril) 20 Mg Tablet, 1 TAB PO DAILY for rx, #30 Ref 5 (Reported) Discontinued Reason: ENTRESTO Entered as Reported by: CYNDY GROSS on 10/01/191003 Last Taken: Unknown Dose on 10/01/19 Last Action: Discontinued on 10/01/191740 by Carmen Winkler [facility] Patient Instructions Patient Instructions Must know & what to expect after device implant: 1. Your surgical dressing should be removed prior to discharge from the hospital, but allow the steri- strips to fall off naturally. 2. Activity restrictions: DO NOT raise arm above shoulder level, lift anything heavier than a gallon of milk, and no push or pull motions such as vacuuming/lawn mowing, no swinging motions (golf), etc for 4 weeks. 3. It is OK to use a cell phone or other electronic devices just be sure you do not store it in a breast pocket on the side where the device was placed. 4. Device will be interrogated prior to your discharge from the hospital and then every 3 months for defibrillators and every 6 months for pacemakers. You may be asked to have your device checked remotely from home as well, but this will depend on your particular physicians preference. 5. You may remove the arm immobilizer the day after device placement. Wear the arm immobilizer/splint at night (during sleep times) for 2 week to prevent unintended arm movement that can cause lead dislodgement. 6. Do not drive for one week as the task of driving may lead to unintended arm motion that may cause lead dislodgement. The seatbelt will also rub against the incision site & cause irritation. 7. It is our recommendation that you utilize Tylenol at home for pain control. You need to call our office if you are having uncontrollable pain at the incision site. 8. Keep your incision clean and dry. It is OK to shower. DO NOT submerge in bath, pool, or hot tub, until cleared by your doctor, as this could lead to increase risk of infection.. It is OK to use regular soap just do not scrub the incision site. Water spray from shower should not directly hit the incision. Be sure to blot dry not rub. 9. Inspect your incision daily. If you notice any increased redness, swelling, or drainage, or if you start running a fever, call the office immediately. The number is [phone]. 10. For women, if you need to protect against irritation from the bra straps, you can place a piece of gauze over the incision site for cushion. Please be sure to tape it loosely to allow air to the site & remove the gauze when you remove the bra. 11. Be sure to carry your device identification information card in your wallet/purse at all times. 12. It is OK to go through security at the airport with your device, but be sure to let the TSA know prior to proceeding as the security settings change depending on varying factors. Please do whatever is requested by security at that time. 13. Some of the newer devices may be MRI compatible but, currently, the use of these devices is not widespread, so you likely will not be able to have an MRI. Please clarify this with your physician. Special instructions for defibrillator patients: If your device recognizes a rhythm that requires treatment with a shock, you will most likely feel the shock. This is usually not a subtle feeling and it is uncomfortable. Please follow these steps if you receive a shock: Call the office if you receive one shock. Go to the emergency room if you receive two consecutive shocks- please have someone drive you & call 911 if nobody is available- DO NOT drive yourself. Call 911 if you receive more than 2 consecutive shocks. If at any time, you feel lightheaded or dizzy/faint, stop what you are doing & lie down immediately. If you are driving, get to the side of the road quickly, turn your car off & call 911 on your cell phone. DO NOT continue to drive as this may cause an accident that seriously injures yourself &/or others. Call the office at [phone] for any questions or concerns. MACK COREY MD 10/02/19 0191: Discharge Summary Assessment Assessment Patient seen and examined. Agree with CLUTCH ASSEMBLER's assessment and plan. Patient with nonischemic cardiomyopathy and prolonged QRS interval underwent successful Biotronik biventricular ICD/QUARTZ CUTTER-D implantation. Device interrogation earlier today showed normal function. Chest x-ray without any pneumothorax. Incision looked good. Discharge home today and follow-up with our office in 2 weeks for wound check. Discharge Information Scheduled Amlodipine Besylate (Norvasc) 10 Mg Tablet, 10 MG PO DAILY, #30 Prescribed by: SERAFIN TELLO on 02/18/14 0906 Last Taken: Unknown Dose on 10/01/19 Last Action: Continued on 10/01/191727 by DAYTON MODI Aspirin (Aspirin Ec) 81 Mg Tablet.dr, 81 MG PO DAILYWBKFT, #30 Prescribed by: LISA MORILLO on 07/29/16 1458 Last Action: Continued on 10/01/191727 by DAYTON MODI Cyanocobalamin (Vitamin B-12) (Vitamin B12) 2,500 Mcg Tab.chew, 2,500 MCG PO DAILY for rx, (Reported) Entered as Reported by: CYNDY GROSS on 10/01/19 1004 Last Action: Converted on 10/01/191727 by DAYTON MODI Dicyclomine Hcl (Dicyclomine Hcl) 10 Mg Capsule, 1 CAP PO DAILY for rx, #90 Ref 11 (Reported) Entered as Reported by: CYNDY GROSS on 10/01/191003 Last Action: Continued on 10/01/191727 by DAYTON MODI Insulin Npl/Insulin Lispro (Humalog Mix 75-25 Kwikpen) 100 Unit/1 Ml Insuln.pen, 40 UNITS SQ DAILY07 for diabetes, (Reported) Entered as Reported by: Anthony Moreno on 08/23/18 2301 Last Action: Converted on 10/01/191727 by DAYTON MODI Insulin Npl/Insulin Lispro (Humalog Mix 75-25 Kwikpen) 100 Unit/1 Ml Insuln.pen, 30 UNIT SQ HS for rx, (Reported) Entered as Reported by: CYNDY GROSS on 10/01/191003 Last Action: Converted on 10/01/191727 by DAYTON MODI Isosorbide Mononitrate (Isosorbide Mononitrate Er) 30 Mg Tab.er.24h, 30 MG PO DAILY for blood pressure, (Reported) Entered as Reported by: Anthony Moreno on 08/23/186 Last Taken: Unknown Dose on 10/01/19 Last Action: Continued on 10/01/191727 by DAYTON MODI Potassium Chloride (Klor-Con M20) 20 Meq Tab.er.prt, 1 TAB PO BID, #60 Ref 1 Prescribed by: LISA MORILLO on 07/29/16 1458 Last Action: Continued on 10/01/191727 by DAYTON MODI Sacubitril/Valsartan (Entresto 49 mg-51 mg Tablet) 1 Each Tablet, 1 EACH PO DAILY for rx, (Reported) Entered as Reported by: CYNDY GROSS on 10/01/191003 Last Action: Continued on 10/01/191727 by DAYTON MODI Spironolactone (Spironolactone) 25 Mg Tablet, 1 TAB PO DAILY for rx, #90 Ref 1 (Reported) Entered as Reported by: CYNDY GROSS on 10/01/191003 Last Action: Continued on 10/01/191727 by DAYTON MODI [vitamin d3] , 250 MG PO DAILY, (Reported) Entered as Reported by: CYNDY GROSS on 10/01/191003 Last Action: New Order on 10/01/191003 by CYNDY GROSS Scheduled PRN Acetaminophen (Mapap) 325 Mg Tablet, 650 MG PO PRN Q6HRS PRN for MILD PAIN / TEMP, #0 Prescribed by: LISA MORILLO on 11/27/15 0743 Albuterol Sulfate (Proair Hfa Inhaler) 8.5 Gm Hfa.aer.ad, 2 PUFF IH PRN Q4-6HRS PRN for wheezing for 21 Days, #1 Ref 0 (Reported) Entered as Reported by: CYNDY GROSS on 10/01/191003 Last Taken: Unknown Dose on 10/01/19 Last Action: New Order on 10/01/191003 by CYNDY GROSS Gabapentin (Gabapentin) 300 Mg Capsule, 300 MG PO BID PRN for PAIN, (Reported) Entered as Reported by: Anthony Moreno on 08/23/182225 Last Action: Continued on 10/01/191727 by DAYTON MODI Miscellaneous Medications [[id number]] , 1, (Reported) Entered as Reported by: CYNDY GROSS on 10/01/191003 Last Action: New Order on 10/01/191003 by CYNDY GROSS Discontinued Medications Lisinopril (Lisinopril) 20 Mg Tablet, 1 TAB PO DAILY for rx, #30 Ref 5 (Reported) Discontinued Reason: ENTRESTO Entered as Reported by: CYNDY GROSS on 10/01/191003 Last Taken: Unknown Dose on 10/01/19 Last Action: Discontinued on 10/01/191740 by TG [place] EMILY APRN Oct 02, 2019 14:25 MACK COREY MD Oct 02, 2019 15:51
[2019-10-02 14:48] VITALS: BP 162/78
--- NOTE | 2019-10-02 15:50 | SNU/HH DC ---
DISCHARGE WITH HOME HEALTH DISCHARGE INFORMATION: Discharge Date: Oct 02, 2019 Condition on Discharge: Stable CODE STATUS: Code Status: Full HOME HEALTH: Face to Face: I certify this patient is under my care and that I, or a nurse practitioner or josé luis schwarz's assistant commissioner working with me, had a face to face encounter that meets the physician face to face encounter requirements with this patient on [10/02/19]. Medical Complications: CHF, HTN, Other (CAD) RN For Eval/Treatment: Yes Physical Therapy For: Evalulation/Treatment Occupational Therapy For: Evaluation/Treatment Pt Meets Homebound Status: Other: (Extreme weakness, bed bound) POST DISCHARGE ORDERS: Activity Instructions for Disc: Activity as tolerated Weight Bearing Status after Di: As tolerated Bathing Instructions: Shower-keep dressing dry DIET AFTER DISCHARGE: ADA Wound/Incision Care: Other, see below (leave open to air. Allow steri-strip to come off as they will. May shower. No tub baths. See diagnosis specific instructions/handout) CHECKS AFTER DISCHARGE: Checks after discharge: Check blood press - daily, Check blood sugar, ac/hs, Weigh Yourself Daily FOLLOW-UP: Follow Up With: Toby 12/05/19 at 1:00. [phone] DC TO SNF LABS: BMP in 1 week CERTIFICATION STATEMENT: Certification Statement: Certification Statement: Based on the above finding, I certify that this patient is confined to the home and needs intermittent fci care, physical therapy and/or speech therapy, or continues to need occupational therapy.~ This patient is under my care, and I have initiated the establishment of the plan of care.~ This patient will be followed by myself or a community physician who will periodically review the plan of care. Home Meds Active Scripts Aspirin (ASPIRIN EC) 81 Mg Tablet.dr, 81 MG PO DAILYWBKFT, #30 TAB Prov:LISA MORILLO MD 07/29/16 Potassium Chloride (KLOR-CON M20) 20 Meq Tab.er.prt, 1 TAB PO BID, #60 TAB 1 Refill Prov:LISA MORILLO MD 07/29/16 Acetaminophen (MAPAP) 325 Mg Tablet, 650 MG PO PRN Q6HRS PRN for MILD PAIN / TEMP, #0 Prov:LISA MORILLO MD 11/27/15 Amlodipine Besylate (NORVASC) 10 Mg Tablet, 10 MG PO DAILY, #30 Prov:SERAFIN TELLO MD 02/18/14 Reported Medications Cyanocobalamin (Vitamin B-12) (Vitamin B12) 2,500 Mcg Tab.chew, 2500 MCG PO DAILY for rx, TAB.CHEW 10/01/19 [[id number]] No Conflict Check, 1 10/01/19 Dicyclomine Hcl (DICYCLOMINE HCL) 10 Mg Capsule, 1 CAP PO DAILY for rx, #90 CAP 11 Refills 10/01/19 Spironolactone (SPIRONOLACTONE) 25 Mg Tablet, 1 TAB PO DAILY for rx, #90 TAB 1 Refill 10/01/19 Albuterol Sulfate (PROAIR HFA INHALER) 8.5 Gm Hfa.aer.ad, 2 PUFF IH PRN Q4-6HRS PRN for wheezing for 21 Days, #1 INHALER 0 Refills 10/01/19 Sacubitril/Valsartan (Entresto 49 mg-51 mg Tablet) 1 Each Tablet, 1 EACH PO DAILY for rx, TAB 10/01/19 [vitamin d3] No Conflict Check, 250 MG PO DAILY 10/01/19 Insulin Npl/Insulin Lispro (HUMALOG MIX 75-25 KWIKPEN) 100 Unit/1 Ml Insuln.pen, 30 UNIT SQ HS for rx, SYR 10/01/19 Insulin Npl/Insulin Lispro (HUMALOG MIX 75-25 KWIKPEN) 100 Unit/1 Ml Insuln.pen, 40 UNITS SQ DAILY07 for diabetes 08/23/18 Gabapentin (GABAPENTIN) 300 Mg Capsule, 300 MG PO BID PRN for PAIN 08/23/18 Isosorbide Mononitrate (ISOSORBIDE MONONITRATE ER) 30 Mg Tab.er.24h, 30 MG PO DAILY for blood pressure 08/23/18 Discontinued Reported Medications Lisinopril (LISINOPRIL) 20 Mg Tablet, 1 TAB PO DAILY for rx, #30 TAB 5 Refills 10/01/19 KHUSHI SHAW APRN Oct 02, 2019 15:50
--- NOTE | 2019-10-02 16:36 | NUR ---
Discharge: Teaching verbal and written. Reviewed medications, follow-up, wound care, AICD, ect. Patient verbalized understanding. [facility] health set up. IV removed without complications, catheter tip in-tact. All belongings with patient. Patient assisted off of unit via gurney accompanied by KYLAH sandoval
== END 2019-10-02 16:43 | disposition home health service (06) ==
LOC: SURG 09:05 → 2 SOUTH 15:55 → INTOOBSV 15:55
PROVIDERS: ADMIT Internal Medicine Cardiovascular Disease; ATTEND Internal Medicine Cardiovascular Disease
DX: Z45.02 Encounter for adjustment and management of automatic implantable cardiac defibrillator (principal); I42.8 Other cardiomyopathies; I25.10 Atherosclerotic heart disease of native coronary artery without angina pectoris; I48.0 Paroxysmal atrial fibrillation; E11.69 Type 2 diabetes mellitus with other specified complication; J44.9 Chronic obstructive pulmonary disease, unspecified; E78.5 Hyperlipidemia, unspecified; I11.0 Hypertensive heart disease with heart failure; I50.9 Heart failure, unspecified; Z79.4 Long term (current) use of insulin; Z79.899 Other long term (current) drug therapy; Z87.891 Personal history of nicotine dependence; Z79.82 Long term (current) use of aspirin
CPT/HCPCS: 33225; 33249; 36415; 71045; 80048; 82962; 85027; 85610; 93005; 93641; 96365; 96366; 96372; C1769; C1882; C1895; C1898; C1900; G0378; G0379; J0780; J1815; J3010; J3370; J3490; J7050; J7120; Q9967; 93566; J2704; J7060; J7030; Q0163

== ENCOUNTER 2019-10-05 20:17 | Emergency (ER) | payer OTHER, MEDICAID ==
[~2019-10-05] VITALS: Ht 160 cm; Wt 80.0 kg
[~2019-10-05 20:17] MED LIST changes: +ALBU2.5V8 IH; +CYAN250012 PO; +DICL100G18 TP; -DICL100G54 TP; +DICY10CA3 PO; -IV RINGERS,LACTATED 1000ML 1,000 ML IV SCH; -LIDOCAINE 1% PF 2 ML VIAL. ID PRN; +LISI-334 PO; -ONDANSETRON PF 4 MG/2 ML VIAL. IV PRN; -PROCHLORPERAZINE 10 MG/2 ML VIAL. IV PRN; +SACU1TAB7 PO; +SPIR25TA5 PO; +[UNRECOGNIZED DRUG - OTHER]; -fentaNYL PF VIAL 100 MCG/2 ML VIAL IV PRN; +vitamin d3 PO
[2019-10-05] MEDS ORDERED: IV NORMAL SALINE 1000ML BAG 1,000 ML IV SCH (21:00)
[2019-10-05 21:14] LABS: BASO # 0.1 x10^3/uL (0.0-0.2); BASO % 1 % (0-3); EOS # 0.1 x10^3/uL (0.0-0.7); EOS % 3 % (0-3); HEMATOCRIT 35.2 % (36.0-47.0); HEMOGLOBIN 11.3 g/dL (12.0-15.5); LYMPH # 0.8 x10^3/uL (1.0-4.8); LYMPH % 19 % (24-48); MEAN CORPUSCULAR HEMOGLOBIN 26 pg (25-35); MEAN CORPUSCULAR HGB CONC 32 g/dL (31-37); MEAN CORPUSCULAR VOLUME 82 fL (79-100); MONO # 0.6 x10^3/uL (0.0-1.1); MONO % 14 % (0-9); NEUT # 2.9 x10^3/uL (1.8-7.7); NEUT % 63 % (31-73); PLATELET COUNT 186 x10^3/uL (140-400); RED CELL DISTRIBUTION WIDTH 21.3 % (11.5-14.5); WHITE BLOOD COUNT 4.5 x10^3/uL (4.0-11.0)
[2019-10-05 21:28] LABS: CALCIUM 9.3 mg/dL (8.5-10.1); CREATININE 0.9 mg/dL (0.6-1.0); GFR 74.7
--- NOTE | 2019-10-05 21:33 | RAD ---
AP chest. HISTORY: Cough AP view was taken of the chest. Heart is enlarged. Left pacemaker and pacing leads unchanged. There is no effusion. There are no confluent infiltrates. There's been little change from the recent study. Mild vascular congestion is possible. IMPRESSION: 1. Cardiomegaly. 2. Mild vascular congestion. 3. No other new infiltrates. Electronically signed by: Sebastian Schmidt MD (10/05/2019 9:30 PM) [id number]
[2019-10-05 21:34] LABS: ALBUMIN 2.8 g/dL (3.4-5.0); ALBUMIN/GLOBULIN RATIO 0.7 (1.0-1.7); TOTAL BILIRUBIN 0.5 mg/dL (0.2-1.0); TOTAL PROTEIN 6.7 g/dL (6.4-8.2)
[2019-10-05 21:45] LABS: ANISOCYTOSIS MOD; PLT ESTIMATE ADEQUATE (ADEQUATE); POIKILOCYTOSIS SLIGHT
[2019-10-05 21:46] LABS: SCHISTOCYTES OCC
[2019-10-05 21:59] LABS: INFLUENZA A PATIENT NEGATIVE (NEGATIVE); INFLUENZA B PATIENT NEGATIVE (NEGATIVE)
--- NOTE | 2019-10-05 22:17 | PHYS DOC ---
Past Medical History Past Medical History: Arthritis, Arrhythmia, CAD, CHF, CVA, Diabetes-Type I, DVT, GERD, High Cholesterol, Heart Disease, Hypertension, Renal Disease, Stroke, Vascular Disease Past Surgical History: Appendectomy, Cholecystectomy, Hysterectomy, Other Additional Past Surgical Histo: VASCULAR SURGERY, BACK SURGERY, EPIDURAL 05/2017-PINCHED NERVE Smoking Status: Former Smoker Alcohol Use: None Drug Use: None Adult General Chief Complaint Chief Complaint: COUGH [facility] HPI Patient is a 69 year old female who presents with complaint of productive cough and fever for the last couple of days. Patient had been discharged from this facility on Tuesday after having had a pacemaker placed. She states that she first started noticing the cough on Tuesday. She denies any chest pain or shortness of breath. Patient states the cough is been productive of yellow-green sputum. She states that her fevers been as high as 103.[] Review of Systems Review of Systems Constitutional: Positive fever and chills [] Respiratory: Complains of cough without shortness of breath [] Cardiovascular: No additional information not addressed in HPI [] GI: Denies abdominal pain, nausea, vomiting or diarrhea [] Integument: Denies rash or skin lesions [] Neurologic: Denies headache, focal weakness or sensory changes [] All other systems were reviewed and found to be within normal limits, except as documented in this note. Current Medications Current Medications Current Medications Medications (Trade) Dose Ordered Sig/Aliza Start Time Stop Time Status Last Admin Dose Admin Sodium Chloride 1,000 ml @ 1,000 mls/hr Q1H 10/05/19 21:00 10/05/19 21:59 DC 10/05/19 21:00 1,000 MLS/HR Allergies Allergies Allergies Coded Allergies Type Severity Reaction Last Updated Verified Penicillins Allergy Intermediate 02/22/18 Yes Physical Exam Physical Exam Constitutional: Well developed, well nourished, no acute distress, non-toxic ap pearance. [] HENT: Normocephalic, atraumatic, bilateral external ears normal, oropharynx moist, no oral exudates, nose normal. [] Eyes: PERRLA, EOMI, conjunctiva normal, no discharge. [] Neck: Normal range of motion, no tenderness, supple, no stridor. [] Cardiovascular:Heart rate regular rhythm, no murmur [] Lungs & Thorax: Bilateral breath sounds clear to auscultation [] Abdomen: Bowel sounds normal, soft, no tenderness, no masses, no pulsatile masses. [] Skin: Warm, dry, no erythema, no rash. [] Back: No tenderness, no CVA tenderness. [] Extremities: No tenderness, no cyanosis, no clubbing, ROM intact, no edema. [] Neurologic: Alert and oriented X 3, normal motor function, normal sensory function, no focal deficits noted. [] Psychologic: Affect normal, judgement normal, mood normal. [] Current Patient Data Vital Signs Vital Signs Date Time Temp Pulse Resp B/P (MAP) Pulse Ox O2 Delivery O2 Flow Rate FiO2 10/05/19 20:34 99.3 90 16 154/90 (111) 96 Room Air 99.3 Lab Values Laboratory Tests Test 10/05/19 20:34 10/05/19 21:02 Lactic Acid Level 1.6 mmol/L (0.4-2.0) Troponin I Quantitative 0.022 ng/mL (0.000-0.055) White Blood Count 4.5 x10^3/uL (4.0-11.0) Red Blood Count 4.30 x10^6/uL (3.50-5.40) Hemoglobin 11.3 g/dL (12.0-15.5) L Hematocrit 35.2 % (36.0-47.0) L Mean Corpuscular Volume 82 fL (79-100) Mean Corpuscular Hemoglobin 26 pg (25-35) Mean Corpuscular Hemoglobin Concent 32 g/dL (31-37) Red Cell Distribution Width 21.3 % (11.5-14.5) H Platelet Count 186 x10^3/uL (140-400) Neutrophils (%) (Auto) 63 % (31-73) Lymphocytes (%) (Auto) 19 % (24-48) L Monocytes (%) (Auto) 14 % (0-9) H Eosinophils (%) (Auto) 3 % (0-3) Basophils (%) (Auto) 1 % (0-3) Neutrophils # (Auto) 2.9 x10^3/uL (1.8-7.7) Lymphocytes # (Auto) 0.8 x10^3/uL (1.0-4.8) L Monocytes # (Auto) 0.6 x10^3/uL (0.0-1.1) Eosinophils # (Auto) 0.1 x10^3/uL (0.0-0.7) Basophils # (Auto) 0.1 x10^3/uL (0.0-0.2) Platelet Estimate Adequate (ADEQUATE) Poikilocytosis Slight Anisocytosis Mod Schistocytes Occ Sodium Level 138 mmol/L (136-145) Potassium Level 4.0 mmol/L (3.5-5.1) Chloride Level 101 mmol/L (98-107) Carbon Dioxide Level 28 mmol/L (21-32) Anion Gap 9 (6-14) Blood Urea Nitrogen 15 mg/dL (7-20) Creatinine 0.9 mg/dL (0.6-1.0) Estimated GFR (Cockcroft-Gault) 74.7 BUN/Creatinine Ratio 17 (6-20) Glucose Level 174 mg/dL (70-99) H Calcium Level 9.3 mg/dL (8.5-10.1) Total Bilirubin 0.5 mg/dL (0.2-1.0) Aspartate Amino Transferase (AST) 17 U/L (15-37) Alanine Aminotransferase (ALT) 12 U/L (14-59) L Alkaline Phosphatase 103 U/L (46-116) LA-Rht-N-Type Natriuretic Peptide 1186 pg/mL (0-124) H Total Protein 6.7 g/dL (6.4-8.2) Albumin 2.8 g/dL (3.4-5.0) L Albumin/Globulin Ratio 0.7 (1.0-1.7) L Influenza Type A Antigen Negative (NEGATIVE) Influenza Type B Antigen Negative (NEGATIVE) Laboratory Tests 10/05/19 21:02 Laboratory Tests 10/05/19 21:02 EKG EKG [] Radiology/Procedures Radiology/Procedures [] Impressions: PROCEDURE: PORTABLE CHEST 1V AP chest. HISTORY: Cough AP view was taken of the chest. Heart is enlarged. Left pacemaker and pacing leads unchanged. There is no effusion. There are no confluent infiltrates. There's been little change from the recent study. Mild vascular congestion is possible. IMPRESSION: 1. Cardiomegaly. 2. Mild vascular congestion. 3. No other new infiltrates. Electronically signed by: Sebastian Schmidt MD (10/05/2019 9:30 PM) [id number] Course & Med Decision Making Course & Med Decision Making Pertinent Labs and Imaging studies reviewed. (See chart for details) [] Dragon Disclaimer Dragon Disclaimer This electronic medical record was generated, in whole or in part, using a voice recognition dictation system. Departure Departure Impression: Primary Impression: Acute bronchitis Disposition: 01 HOME, SELF-CARE Condition: STABLE Referrals: LISA MORILLO MD (PCP) Patient Instructions: Acute Bronchitis Scripts Guaifenesin/Codeine Phosphate (Codeine-Guaifen 10-100 mg/5 ml) 120 Ml Liquid 5 ML PO PRN Q6HRS PRN for cough and congestion MDD 20 Milliliter(s) for 6 Days, #120 ML 0 Refills Prov: EPHRAIM TERRAZAS Jr. DO 10/06/19 Azithromycin (ZITHROMAX) 250 Mg Tablet 1 PKG PO UD, #6 TAB Prov: EPHRAIM TERRAZAS Jr. DO 10/06/19 Problem Qualifiers Primary Impression: Acute bronchitis Bronchitis organism: unspecified organism Qualified Codes: J20.9 - Acute bronchitis, unspecified EPHRAIM TERRAZAS Jr. DO Oct 05, 2019 22:17
[2019-10-06 00:30] VITALS: BP 146/81
[2019-10-06] MEDS ORDERED: AZIT250T PO (00:39)
[2019-10-06] MEDS ORDERED: GUAI120L35 PO (00:39)
== END 2019-10-06 03:26 | disposition home or self-care (01) ==
LOC: ER 20:17
DX: J20.9 Acute bronchitis, unspecified (principal); R05 Cough; R50.9 Fever, unspecified; M19.90 Unspecified osteoarthritis, unspecified site; E10.8 Type 1 diabetes mellitus with unspecified complications; I11.0 Hypertensive heart disease with heart failure; I50.9 Heart failure, unspecified; K21.9 Gastro-esophageal reflux disease without esophagitis; E78.00 Pure hypercholesterolemia, unspecified; N28.9 Disorder of kidney and ureter, unspecified; I97.821 Postprocedural cerebrovascular infarction following other surgery; Z86.718 Personal history of other venous thrombosis and embolism; Z90.49 Acquired absence of other specified parts of digestive tract; Z90.89 Acquired absence of other organs; Z90.710 Acquired absence of both cervix and uterus; Z87.891 Personal history of nicotine dependence; Z98.890 Other specified postprocedural states; Z88.0 Allergy status to penicillin
CPT/HCPCS: 36415; 71045; 80053; 83605; 83880; 84484; 85025; 87040; 87070; 87804; 87880; 99285; J7030

== ENCOUNTER 2020-07-16 16:24 | Emergency (ER) | payer OTHER, MEDICAID ==
[~2020-07-16] VITALS: Ht 165.1 cm; Wt 115.0 kg
[~2020-07-16 16:24] MED LIST changes: +ACET-2061 PO; -ACET325T16 PO; -ASPI-612 PO; +ASPI-886 PO; -DICL100G18 TP; +DICL100G54 TP; +GUAI120L35 PO
[2020-07-16 16:35] VITALS: BP 207/93
--- NOTE | 2020-07-16 17:14 | RAD ---
Left ankle 3 views, left foot 3 views. HISTORY: Left foot pain, hit by a door, left ankle pain, twisted ankle Left foot 3 views were taken of the left foot. There is diffuse decreased bone density. There is vascular calcification. There is not evidence of an acute fracture. There is soft tissue swelling. Left ankle 3 views were taken of the left ankle. There is soft tissue swelling. There is decreased bone density. There is not evidence of an acute fracture. IMPRESSION: 1. Soft tissue swelling left foot and ankle. 2. Decreased bone density. 3. No acute fracture left ankle. 4. No acute fracture left foot. Electronically signed by: Sebastian Schmidt MD (07/16/2020 5:11 PM) [id number]
--- NOTE | 2020-07-16 17:33 | PHYS DOC ---
Past Medical History Past Medical History: Arthritis, Arrhythmia, CAD, CHF, CVA, Diabetes-Type I, DVT, GERD, High Cholesterol, Heart Disease, Hypertension, Renal Disease, Stroke, Vascular Disease Past Surgical History: Appendectomy, Cholecystectomy, Hysterectomy, Other Additional Past Surgical Histo: VASCULAR SURGERY, BACK SURGERY, EPIDURAL 05/2017-PINCHED NERVE Smoking Status: Former Smoker Alcohol Use: None Drug Use: None General Adult EDM: Chief Complaint: FOOT INJURY PAIN HPI: HPI: Patient is a 70 year old female who was brought here for evaluation left foot and ankle pain. She said a chino was help her getting into her room when a heavy door hit her left foot. Patient complains of severe left foot pain and left ankle pain, no knee pain. Review of Systems: Review of Systems: Constitutional: Denies fever or chills. [] Eyes: Denies change in visual acuity. [] HENT: Denies nasal congestion or sore throat. [] Respiratory: Denies cough or shortness of breath. [] Cardiovascular: Denies chest pain or edema. [] GI: Denies abdominal pain, nausea, vomiting, bloody stools or diarrhea. [] : Denies dysuria. [] Musculoskeletal: Positive for left foot and ankle pain Integument: Denies rash. [] Neurologic: Denies headache, focal weakness or sensory changes. [] Endocrine: Denies polyuria or polydipsia. [] Lymphatic: Denies swollen glands. [] Psychiatric: Denies depression or anxiety. [] Heart Score: Risk Factors: Risk Factors: DM, Current or recent (<one month) smoker, HTN, HLP, family history of CAD, obesity. Risk Scores: Score 0 - 3: 2.5% MACE over next 6 weeks - Discharge Home Score 4 - 6: 20.3% MACE over next 6 weeks - Admit for Clinical Observation Score 7 - 10: 72.7% MACE over next 6 weeks - Early Invasive Strategies Allergies: Allergies: Allergies Coded Allergies Type Severity Reaction Last Updated Verified Penicillins Allergy Intermediate 02/22/18 Yes Physical Exam: PE: Constitutional: Well developed, well nourished, no acute distress, non-toxic appearance. [] HENT: Normocephalic, atraumatic, bilateral external ears normal, oropharynx moist, no oral exudates, nose normal. [] Eyes: PERRLA, EOMI, conjunctiva normal, no discharge. [] Neck: Normal range of motion, no tenderness, supple, no stridor. [] Cardiovascular:Heart rate regular rhythm, no murmur [] Lungs & Thorax: Bilateral breath sounds with rales to auscultation [] Skin: Warm, dry, no erythema, no rash. [] Back: No tenderness, no CVA tenderness. [] Extremities: Left foot is tender to palpation, edema, no deformity. Left ankle is tender to palpation, no deformity. Neurologic: Alert and oriented X 3, normal motor function, normal sensory function, no focal deficits noted. [] Psychologic: Affect normal, judgement normal, mood normal. [] EKG: EKG: [] Radiology/Procedures: Radiology/Procedures: [][facility] [address] [place] [address] IMAGING REPORT Signed PATIENT: ASIF LANGLEY JACCOUNT: [id number] : 1950 LOCATION: ER AGE: 70 SEX: F EXAM STATUS: REG ER ORD. PHYSICIAN: RY REDMOND DO REASON: left ankle pain, twisted it PROCEDURE: ANKLE LEFT 3V Left ankle 3 views, left foot 3 views. HISTORY: Left foot pain, hit by a door, left ankle pain, twisted ankle Left foot 3 views were taken of the left foot. There is diffuse decreased bone density. There is vascular calcification. There is not evidence of an acute fracture. There is soft tissue swelling. Left ankle 3 views were taken of the left ankle. There is soft tissue swelling. There is decreased bone density. There is not evidence of an acute fracture. IMPRESSION: 1. Soft tissue swelling left foot and ankle. 2. Decreased bone density. 3. No acute fracture left ankle. 4. No acute fracture left foot. Electronically signed by: Sebastian Schmidt MD (07/16/2020 5:11 PM) [id number] DICTATED and SIGNED BY: SEBASTIAN SCHMIDT MD DATE: 07/16/20 [id number] 0 Course & Med Decision Making: Course & Med Decision Making Pertinent Labs and Imaging studies reviewed. (See chart for details) XRAY OF LEFT FOOT AND ANKLE SHOWN NO FRACTURE OR DISLOCATION. Dragon Disclaimer: Dragon Disclaimer: This electronic medical record was generated, in whole or in part, using a voice recognition dictation system. Departure Departure Impression: Primary Impression: Contusion of left foot Disposition: 01 DC HOME SELF CARE/HOMELESS Condition: IMPROVED Referrals: LISA MORILLO MD (PCP) follow up with your family doctor next week Patient Instructions: Foot Contusion Additional Instructions: Thank you for visiting our Emergency Department. We appreciate you trusting us with your care. If any additional problems come up don't hesitate to return to visit us. Please follow up with your primary care provider so they can plan additional care if needed and know about the problem that you had. If symptoms worsen come back to the Emergency Department. Any concerning symptoms that start such as chest pain, shortness of air, weakness or numbness on one side of the body, running high fevers or any other concerning symptoms return to the ER. RY REDMOND DO Jul 16, 2020 17:33
[2020-07-16] MEDS ORDERED: HYDROcodone/APAP 5/325MG 1 TAB TABLET PO ONE (17:45)
== END 2020-07-16 19:15 | disposition home or self-care (01) ==
LOC: ER 16:24
DX: S90.32XA Contusion of left foot, initial encounter (principal); K21.9 Gastro-esophageal reflux disease without esophagitis; I25.10 Atherosclerotic heart disease of native coronary artery without angina pectoris; E10.9 Type 1 diabetes mellitus without complications; E78.00 Pure hypercholesterolemia, unspecified; I50.9 Heart failure, unspecified; I11.0 Hypertensive heart disease with heart failure; Z86.718 Personal history of other venous thrombosis and embolism; Z87.891 Personal history of nicotine dependence; Z88.0 Allergy status to penicillin; W22.8XXA Striking against or struck by other objects, initial encounter; Y93.89 Activity, other specified; Y92.89 Other specified places as the place of occurrence of the external cause; Y99.8 Other external cause status
CPT/HCPCS: 73610; 73630; 99284

== ENCOUNTER → 2020-08-13 | Outpatient (CLI) | payer OTHER, MEDICAID ==
[2020-07-16 16:35] VITALS: BP 207/93
--- NOTE | 2020-08-13 17:23 | CARD ---
MR#: [id number] Date of Study: 08/13/2020 Ordering Physician: MACK COREY, Referring Physician: MACK COREY, Tech: April Nascimento APPROVED REPORT EXAM: Two-dimensional and M-mode echocardiogram with Doppler and color Doppler. Other Information Quality : AverageHR: 82bpm Technically limited study due to sitting in wheel chair, body habitus INDICATION Cardiomyopathy 2D DIMENSIONS RVDd4.3 (2.9-3.5cm)Left Atrium(2D)3.4 (1.6-4.0cm) IVSd1.1 (0.7-1.1cm)Aortic Root(2D)3.0 (2.0-3.7cm) LVDd4.8 (3.9-5.9cm)LVOT Diameter1.9 (1.8-2.4cm) PWd1.0 (0.7-1.1cm)LVDs3.6 (2.5-4.0cm) FS (%) 24.3 %SV51.5 ml Aortic Valve AoV Peak Gregory.137.5cm/sAoV VTI30.1cm AO Peak GR.7.6mmHgLVOT Peak Gregory.85.5cm/s AO Mean GR.4mmHgAVA (VMAX)1.71cm2 Mitral Valve MV E Qhvpxife376.7cm/sMV DECEL [id number] MV A Nzfiixui33.7cm/sE/A Ratio1.6 Pulmonary Valve PV Peak Zwbmtmvj10.0cm/s Tricuspid Valve TR P. Qgyjsmrk740tu/sRAP [id number] TR Peak Gr.11voDjXTRU66rxLk LEFT VENTRICLE The left ventricle is normal size. There is borderline to mild concentric left ventricular hypertroph y. The left ventricular systolic function is low normal. The Ejection Fraction is estimated at 50%. S eptal motion consistent with pacemaker activation. The left ventricular diastolic function and fillin g is normal for age. RIGHT VENTRICLE The right ventricle is mild to moderately dilated. There is normal right ventricular wall thickness. Systolic function is mildlly reduced. There are device leads in the right ventricle and atrium. ATRIA The left atrium size is normal. The right atrium is mild to moderately dilated. The interatrial septu m is intact with no evidence for an atrial septal defect or patent foramen ovale as noted on 2-D or D oppler imaging. AORTIC VALVE The aortic valve is thickened but opens well. Doppler and Color Flow revealed no significant aortic r egurgitation. There is no significant aortic valvular stenosis. Calculated aortic valve area is 1.9 c m2 with maximum pressure gradient of 8 mmHg and mean pressure gradient of 4 mmHg. MITRAL VALVE The mitral valve is normal in structure and function. There is no evidence of mitral valve prolapse. There is no mitral valve stenosis. Doppler and Color-flow revealed mild mitral regurgitation. TRICUSPID VALVE The tricuspid valve is normal in structure and function. Doppler and Color Flow revealed mild tricusp id regurgitation with an estimated PAP of 50 mmHg. There is no tricuspid valve stenosis. PULMONIC VALVE The pulmonic valve is not well visualized. Doppler and Color Flow revealed trace pulmonic valvular re gurgitation. GREAT VESSELS The aortic root is normal in size. The IVC was not visualized. PERICARDIAL EFFUSION There is no evidence of significant pericardial effusion. Critical Notification Critical Value: No <Conclusion> The left ventricle is normal size. The left ventricular systolic function is low normal. The Ejection Fraction is estimated at 50%. Septal motion consistent with pacemaker activation. There is borderline to mild concentric left ventricular hypertrophy. There are device leads in the right ventricle and atrium. Doppler and Color Flow revealed no significant aortic regurgitation. There is no significant aortic valvular stenosis. Doppler and Color-flow revealed mild mitral regurgitation. Doppler and Color Flow revealed mild tricuspid regurgitation with an estimated PAP of 50 mmHg. Signed by : Mark Anthony Singleton MD Electronically Approved : 08/13/2020 17:22:47
== END ==
LOC: ECHO 13:29
PROVIDERS: ATTEND Internal Medicine Cardiovascular Disease
DX: I08.1 Rheumatic disorders of both mitral and tricuspid valves (principal); I42.9 Cardiomyopathy, unspecified
CPT/HCPCS: 93306